=== PATIENT | male | born 1955 | race Caucasian/White ===

== ENCOUNTER 2022-08-31 06:30 | Outpatient (OUT) | payer MEDICARE, SELFPAY ==
--- NOTE | 2022-08-31 07:30 | NM_ITS ---
Patient: DE LÓPEZ Exam Date: 08/31/2022 : 1955 Gender:M Ordering : Non-Staff Physician Admission #: [id number] Family : Order #: [id number] CLICK HERE TO VIEW EXAM RADIOLOGY REPORT PROCEDURE: NM ROSEANNA PERF SPECT REST STR COMPARISON: None. INDICATIONS: Dyspnea on exertion TECHNIQUE: Exam Description: Stress/Rest two day protocol gated SPECT Rest Imagin.5 mCi Tc-99m Cardiolite IV on 09/04/2022 Stress Imaging 25.8 mCi Tc-99m Cardiolite IV on 08/31/2022 Exercise Protocol: 0.4 mg Lexiscan given IV Heart Rate (bpm): Rest: 54 Max: 81 PMHR: 52 Blood Pressure: Rest: 152/88 Max: 154/84 Symptoms: Rest and peak stress ECG findings were pending and the exercise portion of the study was pending per attending physician Dr. ESTEBAN . For more details please see separate cardiac stress test report. FINDINGS: QUALITY OF STUDY: Good. PERFUSION DEFECT: LOCATION: Basal anterior. Basal inferior. Basal inferolateral. Mid-inferior. SIZE: Medium (3-4 segments). SEVERITY: Moderate. TYPE: Reversible. WALL MOTION: Normal. LV SIZE: Enlarged; EDV 139 mL. TID / TCD: None; 1.0 LVEF: Normal. Calculated EF 62%. SUMMARY: Myocardial perfusion imaging study has ABNORMAL findings. CONCLUSION: 1. Moderate-sized area of mild to moderate decreased uptake, LAD and RCA distributions, with partial reversibility evidence by redistribution on rest images 2. Dilated left ventricle with end-diastolic volume of 130 milliliters 3. Normal left ventricular ejection fraction 4. Pending exercise test results Dictated by: De Humphrey MD on 09/04/2022 at 13:31 Approved by: De Humphrey MD on 09/04/2022 at 13:33
[2022-08-31] MEDS: REGADENOSON 0.4 MG/5 ML SYRINGE IV (07:45)
--- NOTE | 2022-09-05 15:01 | PCN_ITS ---
CARDIAC STRESS TEST Requesting Physician:? Dr. Roca Procedure Date:? 09/05/2022 The patient underwent a Lexiscan stress test for evaluation of ischemia.? At baseline, the patient was noted to have a resting heart rate of 49 with a blood pressure of 152/88 mm/Hg.? During the stress test, a peak heart rate of 81 beats per minute was achieved with a blood pressure of 154/84 mm/Hg.? Baseline EKG showed evidence of sinus rhythm with underlying right bundle branch block and poor R-wave progression.? With infusion of Lexiscan, no AV block was seen, and no arrhythmias were noted.? No evidence of ischemia was seen.? In recovery phase, there was a PVC that was noted.? INTERPRETATION: 1.? No evidence of ischemia noted on the EKG portion of the stress study. 2.? Nuclear imaging portions will be dictated separately by the Radiology team.? NANCY
== END 2022-08-31 06:31 ==
LOC: CARD 06:34
PROVIDERS: PCP Internal Medicine
DX: R06.09 Other forms of dyspnea (principal)
CPT/HCPCS: 78452; 93017; A9500; J2785

== ENCOUNTER 2022-09-04 06:18 | Outpatient (OUT) | payer MEDICARE, SELFPAY | END 2022-09-04 06:19 | disposition home or self-care (01) | LOC: NM 06:19 | PROVIDERS: PCP Internal Medicine | DX: R06.09 Other forms of dyspnea (principal) ==

== ENCOUNTER 2023-07-11 09:47 | Outpatient (OUT) | payer MEDICARE, SELFPAY ==
--- NOTE | 2023-07-11 10:00 | CA_ITS ---
Patient Name: BOB LÓPEZ MR#: [id number] : 1955 Exam Date: 07/11/2023 Ordering Doctor: PASQUALE HOLT CNP ECHOCARDIOGRAM REPORT PROCEDURE: CA ECHO DOPPLER COMPLETE INDICATIONS: Dyspnea on exertion, bradycardia COMPARISON: None. DESCRIPTION: COMPLETE ECHOCARDIOGRAM Real-time transthoracic echocardiography with 2D, M-mode, spectral and color flow Doppler performed. QUALITY: Technical quality was good. 76 , 266#, BSA 2.50 m2, BP 162/78 LEFT VENTRICLE: Mild dilatation. Normal left ventricular wall thickness. LV EF: Global left ventricular systolic function is normal; visually estimated ejection fraction is 60 to 65%. No obvious wall motion abnormalities. DIASTOLIC: Normal diastolic function. ATRIAL SEPTUM: Inadequately seen. LEFT ATRIUM: Normal chamber size. RIGHT ATRIUM: Normal chamber size. RIGHT VENTRICLE: Normal chamber size. Normal right ventricular systolic function. TRICUSPID VALVE: Normal mobility and thickness. No stenosis with no regurgitation. No evidence of pulmonary hypertension. RVSP 20 mmHg MITRAL VALVE: Normal mobility and thickness. No evidence of mitral valve stenosis. There is no mitral annular calcification. Trivial mitral regurgitation. AORTIC VALVE: Normal trileaflet appearance. Mildly calcified aortic valve. No evidence of aortic valve stenosis. No aortic regurgitation. AORTIC ROOT: Normal diameter and appearance. Ascending aorta is normal in size. PULMONIC VALVE: Normal thickness and mobility. No stenosis. Trivial regurgitation. PERICARDIUM: No evidence of pericardial effusion. IVC: Not well visualized. CONCLUSION: 1. Global left ventricular systolic function is normal; visually estimated ejection fraction is 60 to 65% 2. Normal right ventricular size and systolic function 3. Normal diastolic function 4. No significant valvular abnormalities Adult Echocardiography Procedure Report Left Ventricle LVEDD (3.7 - 5.6 cm): 6.05 cm LVESD (2.2 - 4.0 cm): 4.31 cm LVIVS thickness (0.6 - 1.2 cm): 0.96 cm LVPW thickness (0.5 - 1.0 cm): 0.93 cm e': 0.13 m/s E - e': 6.35 LVOT Max Gradient: 3.16 mm[Hg] LVOT Area (cm2): 0.89 m/s Peak Velocity (LVOT): 0.89 m/s Mean Velocity (LVOT): 0.66 m/s LVOT Diameter 2.71 cm Left Atrium LA Volume Index (2D A2C): 33.65 ml/m2 Left Atrium Systolic Dimension: 3.78 cm Mitral Valve MV E to A Ratio: 0.98 Mitral Valve A-Wave Peak Velocity: 0.83 m/s Mitral Valve E-Wave Peak Velocity: 0.81 m/s Right Ventricle Aorta AO Root Diam: 4.05 cm Ascending Ao Diam: 3.44 cm Aortic Valve AoV Area (Peak Lorenzo): 2.83 cm2, 2.83 cm2 AoV Area (VTI): 2.92 cm2, 2.92 cm2 Peak Velocity(Antegrade Flow): 1.81 m/s Peak Gradient(Antegrade Flow): 13.17 mm[Hg] Mean Velocity(Antegrade Flow): 1.20 m/s Mean Gradient(Antegrade Flow): 6.95 mm[Hg] Velocity Time Integral: 43.29 cm Tricuspid Valve Peak Velocity (Regurgitant Flow): 2.08 m/s Pulmonic Valve Peak Gradient: 4.48 mm[Hg], 4.79 mm[Hg] Right Atrium Right Atrium Systolic Pressure: 39.84 ml, 39.84 ml Dictated by: Franki Patton M.D. on 07/12/2023 at 15:32 Approved by: Franki Patton M.D. on 07/12/2023 at 15:35
== END 2023-07-11 09:48 | disposition home or self-care (01) ==
LOC: CARD 09:48
PROVIDERS: PCP Internal Medicine; Visit Provider Nurse Practitioner Family
DX: R06.09 Other forms of dyspnea (principal); I49.3 Ventricular premature depolarization; I11.9 Hypertensive heart disease without heart failure; I26.99 Other pulmonary embolism without acute cor pulmonale; E78.2 Mixed hyperlipidemia; R93.1 Abnormal findings on diagnostic imaging of heart and coronary circulation; R00.1 Bradycardia, unspecified
CPT/HCPCS: 93306

== ENCOUNTER 2023-09-14 11:01 | Outpatient (OUT) | payer MEDICARE, SELFPAY ==
[2023-09-14 11:42] LABS: Basophils Percent Auto 0.4 % (0.2-2.0); Eosinophils Absolute Auto 0.1 10^3/uL (0.0-0.7); Eosinophils Percent Auto 1.6 % (0.9-7.0); Hematocrit 45.9 % (42.0-54.0); Immature Granulocytes Abs Auto 0.01 10^3/uL (0.00-0.03); Immature Granulocytes Pct Auto 0.2 % (0.0-0.5); Lymphocytes Absolute Auto 1.5 10^3/uL (1.2-3.8); Lymphocytes Percent Auto 33.3 % (20.5-60.0); Mean Corpuscular HGB Conc 32.7 g/dL (29.9-35.2); Mean Corpuscular Hemoglobin 28.9 pg (25.9-34.0); Mean Corpuscular Volume 88.4 fL (80.0-94.0); Monocytes Absolute Auto 0.3 10^3/uL (0.3-0.8); Monocytes Percent Auto 7.2 % (1.7-12.0); Neutrophils Absolute Auto 2.6 10^3/uL (1.4-6.5); Neutrophils Percent Auto 57.3 % (43.0-75.0); Platelet Count 234 10^3/uL (150-450); Red Blood Count 5.19 10^6/uL (4.70-6.10); Red Cell Distribution Width 14.1 % (11.0-15.0); White Blood Count 4.5 10^3/uL (4.0-11.0)
[2023-09-14 11:44] LABS: Estimated Average Glucose 105 mg/dL; Glycohemoglobin A1C 5.3 % (4.5-6.2)
[2023-09-14 12:16] LABS: Alanine Aminotransferase 26 U/L (16-63); Albumin Globulin Ratio 1.1; Albumin Level 4.1 g/dL (3.4-5.0); Alkaline Phosphatase 59 U/L (46-116); Aspartate Amino Transferase 14 U/L (15-37); BUN Creatinine Ratio 11.5; Bilirubin Total 0.9 mg/dL (0.2-1.0); Calcium 8.8 mg/dL (8.5-10.1); Carbon Dioxide 29.2 mmol/L (21.0-32.0); Chloride 106 mmol/L (98-107); Chol HDL Ratio 2.3; Cholesterol 134 mg/dL (<=200); Estimated GFR (African America >60 (>=60); Estimated GFR (Non-African Ame >60 (>=60); Globulin 3.8 g/dL; Glucose 92 mg/dL (74-106); HDL Cholesterol 59 mg/dL (40-60); LDL Cholesterol Calculated 63.6 mg/dL; Potassium 4.2 mmol/L (3.5-5.1); Sodium 143 mmol/L (136-145); TSH W/ REFLEX FT4 0.794 uIU/mL (0.358-3.740); Total Protein 7.9 g/dL (6.4-8.2); Triglycerides 57 mg/dL (<=150); VLDL CHOLESTEROL 11.4 mg/dL
[2023-09-14 12:32] LABS: Prostate Specific Antigen Scrn 5.56 ng/mL (<=4.00)
== END 2023-09-14 11:02 | disposition home or self-care (01) ==
LOC: LAB 11:03
PROVIDERS: PCP Internal Medicine; Visit Provider Nurse Practitioner Family
DX: Z00.00 Encounter for general adult medical examination without abnormal findings (principal); I11.9 Hypertensive heart disease without heart failure; E78.2 Mixed hyperlipidemia; Z12.5 Encounter for screening for malignant neoplasm of prostate
CPT/HCPCS: 36415; 80053; 80061; 83036; 84443; 85025; G0103

== ENCOUNTER 2024-01-24 13:16 | Outpatient (OUT) | payer MEDICARE, SELFPAY ==
[2024-01-24 15:04] LABS: Prostate Specific Antigen Dx 5.94 ng/mL (<=4.00)
== END 2024-01-24 13:17 | disposition home or self-care (01) ==
LOC: LAB 13:17
PROVIDERS: PCP Internal Medicine; Visit Provider Urology
DX: R97.20 Elevated prostate specific antigen [PSA] (principal)
CPT/HCPCS: 36415; 84153

== ENCOUNTER 2024-10-01 10:47 | Outpatient (OUT) | payer MEDICARE, SELFPAY ==
--- OUTSIDE RECORDS SUMMARY | 2024-05-29 06:00 | XMS_ITS ---
Author Organization The [facility] in [place] Address [address] [place] [address] Care Team Providers Care Sheet Catcher Name Role Phone Ayaan FAJARDO, Yuri Primary Care Provider Unavailab Martinez Aldridge Unavailable [phone] REASON FOR VISIT [facility] - Fusion prostate biopsy - MAC - PAT 05/14 9:00AM - bkd w/ Tangela - [facility] conf# [id number] per Alem Encounters Encounter Location Date Provider Diagnosis [address] [address] 05/29/2024 Martinez Herrera Plan Of Treatment No Information Progress Notes * De LÓPEZ ADOB:[birth year] (68 yo M)Acc No.[id number]:05/29/2024 Progress Note Patient: De JEAN Provider: Brandon Herrera MD :1955 A ge:68 Y S ex:Male Date:05/29/2024 Address:[address] [place] [address] Rd [id number] Pcp:Yuri Kuo MD Check Out:08:07 AM EST Subjective: * Chief Complaints: * [address] [facility] - Fusion prostate biopsy - MAC - PAT 05/14 9:00AM - bkd w/ Tangela - [facility] conf# [id number] per Alem. * Active Problem List N40.0 BPH w/o urinary obs/ LUTS Modified On:01/25/2023W/U Status:confirmed * Medical History: Objective: * Vitals: Assessment: Plan: * Treatment: * * Sign off status: Completed Visit Status: C HK (Check Out) true * Provider: Brandon Herrera MD Date: 0 05/29/2024 Generated for Geoffrey morataya/Ileana/eTritasmitting on: 0 10/01/2024 10:53 AM EDT
--- OUTSIDE RECORDS SUMMARY | 2024-06-19 12:00 | XMS_ITS ---
Author Organization [facility] in [place] Address [address] [place] [address] Care Team Providers Care Investment Professional Name Role Phone Yuri Kuo MD Primary Care Provider UnavailMartinez Magana Unavailable [phone] Allergies Allergen (clinical drug ingredient) Drug/Non Drug Allergy documented on EMR Reaction Allergy Type Onset Date Status MRI contrast dye (uncoded) itching,rash Allergy Active Results Component Value Reference Range Notes Decipher- Prostate (Not yet reviewed by provider) Interpretation: Performing Lab: Notes/Report: REASON FOR VISIT fusion prostate biopsy Medications Medication SIG (Take, Route, Frequency, Duration) Notes Start Date End Date Status Atorvastatin Calcium 40 MG TAKE 1 TABLET BY MOUTH EVERY DAY Oral for 90 Days Active Xarelto 20 MG 1 tablet with food Orally Once a day Active Ciprofloxacin HCl 500 MG 1 tablet Orally every 12 hrs for 3 day(s) 04/03/2024 Not-Taking predniSONE 50 MG 1 tablet for three doses: 6 hours apart with last dose ending 30 minutes prior to testing Orally Once a day for 1 days 02/28/2024 Not-Taking diphenhydrAMINE HCl 50 MG 1 tablet 60 mi nutes prior to MRI Orally Once a day for 1 days 02/28/2024 Not-Taking amLODIPine Besylate 2.5 MG Oral for 90 Days Active Social History Tobacco Use: Social History Observation Description Date Details (start date - stop date) Former Smoker NA - NA Tobacco Use/Smoking Question Answer Notes Patient is a former smoker How long has it been since you last smoked? > 10 years AUDIT-C (Standard) Question Answer Notes Did you have a drink contain ing alcohol in the past year? Yes How often did you have a dri nk containing alcohol in the past year? Never (0 point) How many drinks did you have on a typical day when you were drinking in the past year? 1 or 2 drinks (0 point) How often did you have six o r more drinks on one occasion in the past year? 2 to 4 times a month (2 points) Points 2 Interpretation Negative Problems Problem Type SNOMED Code ICD Code Onset Dates Problem Status W/U Status Risk Notes Problem Prostate cancer (C61) Active confirmed Vital Signs Weight 277.8 lbs 06/19/2024 Height 76 in 06/19/2024 BMI 33.81 kg/m2 06/19/2024 Encounters Encounter Location Date Provider Diagnosis Urology [facility] [address] [place] [address] 06/19/2024 Martinez Herrera BPH w/o urinary obs/LUTS N40.0 ; Elevated prostate specific antigen (PSA) R97.20 and Prostate cancer C61 Assessments Encounter Date Diagnosis (ICD Code) Assessment Notes Treatment Notes Treatment Clinical Notes Section Notes 06/19/2024 BPH w/o urinary obs/LUTS (ICD-10 - N40.0) 06/19/2024 Elevated prostate specific antigen (PSA) (ICD-10 - R97.20) 06/19/2024 Prostate cancer (ICD-10 - C61) 06/19/2024 Other This appears to be a very low risk process cancer based on old Miguelangel classification . I would like to send this tissue for genetics to see if this is a cancer that can be safely watched. Discussed NCCN as well as AUA guidelines, including active surveillance, surgery, radiation, and observation. Plan Of Treatment Treatment Notes Assessment Notes Other This appears to be a very low risk process cancer based on old Miguelangel classification. I would like to send this tissue for genetics to see if this is a cancer that can be safely watched. Discussed NCCN as well as AUA guidelines, including active surveillance, surgery, radiation, and observation. Pending Test Test Name Order Date Decipher- Prostate 06/19/2024 Next Appt Details Follow Up: 2 Months, Reason: w decipher Progress Notes * De LÓPEZ ADOB:[birth year] (68 yo M)Acc No.[id number]:06/19/2024 Patient: De JEAN Provider: Brandon Herrera MD :1955 A ge:68 Y S ex:Male Date:06/19/2024 Address:[address] [place] [address] Tamiko Anthony, [id number] Pcp:Yuri Kuo MD Check In:03:39 PM ESTCheck O ut:04:46 PM EST Subjective: * Chief Complaints: * F usion prostate biopsy * HPI: U rology: We see De for elevated PSA of 3.99 in 2020 at age 65. His mother had breast cancer in her 80s. No history of prostate cancer. Mild BPH symptoms. Discussed all options including biopsy, exodx, and prostate MRI. We proceeded with prostate MRI and this showed PIRADS-2 with a 28g MICKY read. We saw him back in Nov 2021 and his PSA is 3.65. PSA in 2022 is 3.69. PSA in Jan 2024 was 5.94. Press the MRI was completed in March 2024. There is a small left sided 3 x 4 mm area with a PIRADS-4 area. Prostate 36 g. We perceived with MRI fusion process biopsy. Both areas on MRI were positive for Bon six prostate cancer with the largest core 15%. The other cores were one percent. Elevated PSA W hat date was your last PSA number drawn?�. * ROS: G eneral/Constitutional: Fever d enies. W eight loss d enies. F atigue or Weakness d enies. G enitourinary: Incontinence d enies. F requent urination d enies.�Painful urination d enies. B lood in Urine d enies. * Active Problem List N40.0 BPH w/o urinary obs/ LUTS Modified On:01/25/2023W/U Status:confirmed C61 Prostate cancer Modified On:06/19/2024W/U Status:confirmed * Medical History: * Surgical History: l eft knee arthroscopy tonsillectomy vasectomy right knee replacement thumb surgery Right hip replacement 02/2022 * Hospitalization/Major Diagno stic Procedure: * Family History: M other: diagnosed with Unspecified essential hypertension. * Social History: T obacco Use: T obacco Use/Smoking P atient is a f ormer smoker H ow long has it been since you last smoked?�> 10 years D rug/Alcohol: A PARADISE-C (Standard) D id you have a drink containing alcohol in the past year? Y es H ow often did you have a drink containing alcohol in the past year? N ever (0 point) H ow many drinks did you have on a typical day when you were drinking in the past year? 1 or 2 drinks (0 point) H ow often did you have six or more drinks on one occasion in the past year? 2 to 4 times a month (2 points) P oints 2 I nterpretation N egative D rugs/Alcohol: C affeine I ntake: m ore than 4 cups per day * Medications: T akingamLODIPine Besylate 2.5 MG Tablet Oral Atorvastatin Calcium 40 MG Tablet TAKE 1 TABLET BY MOUTH EVERY DAY Oral Xarelto(Rivaroxaban) 20 MG Tablet 1 tablet with food Orally Once a day Taking amLODIPine Besylate 2.5 MG Tablet Oral Taking Atorvastatin Calcium 40 MG Tablet TAKE 1 TABLET BY MOUTH EVERY DAY Oral Taking Xarelto(Rivaroxaban) 20 MG Tablet 1 tablet with food Orally Once a day Not-Taking/PRNCiprofloxacin HCl 500 MG Tablet 1 tablet Orally every 12 hrs diphenhydrAMINE HCl 50 MG Tablet 1 tablet 60 minutes prior to MRI Orally Once a day predniSONE 50 MG Tablet 1 tablet for three doses: 6 hours apart with last dose ending 30 minutes prior to testing Orally Once a day Medication List reviewed and reconciled with the patientNot-Taking/PRN Ciprofloxacin HCl 500 MG Tablet 1 tablet Orally every 12 hrs Not-Taking/PRN diphenhydrAMINE HCl 50 MG Tablet 1 tablet 60 minutes prior to MRI Orally Once a day Not-Taking/PRN predniSONE 50 MG Tablet 1 tablet for three doses: 6 hours apart with last dose ending 30 minutes prior to testing Orally Once a day Medication List reviewed and reconciled with the patient * Allergies: M RI contrast dye: itching,rashno[Allergies Verified] Objective: * Vitals: W t:277.8lbs, Ht: 76 in, BMI:33.81Index, Ht-cm: 193.04 cm, Wt-k.01 kg. Assessment: * Assessment: 1. E levated prostate specific antigen (PSA) - R97.20 (Primary) 2 . B PH w/o urinary obs/LUTS - N40.0 3 . P rostate cancer - C61 Plan: * Treatment: 2. O thers Notes: This appears to be a very low risk process cancer based on old Miguelangel classification. I would like to send this tissue for genetics to see if this is a cancer that can be safely watched. Discussed NCCN as well as AUA guidelines, including active surveillance, surgery, radiation, and observation. * Procedure Codes: * Preventive Medicine: Screenings/Counseling: F ALL RISK SCREENING Fall Risk Assessment: N o falls in the past year * Follow Up: 2 Months (Reason: w decipher) * * Sign off status: Completed Visit Status: C HK (Check Out) true * Provider: Brandon Herrera MD Date: 0 06/19/2024 Generated for Geoffrey morataya/Ileana/eTransmitting on: 0 10/01/2024 10:53 AM EDT History and Physical Notes * HPI (History of Present Illness) Category Sub-Category Detail Notes Category Not es Urology Elevated PSA What date was your last PSA number drawn?: .
--- OUTSIDE RECORDS SUMMARY | 2024-08-21 10:10 | XMS_ITS ---
Author Organization [facility] in [place] Address [address] [place] [address] Care Team Providers Care Blanket Folder Name Role Phone Yuri Kuo MD Primary Care Provider UnavailMartinez Magana Unavailable [phone] Allergies Allergen (clinical drug ingredient) Drug/Non Drug Allergy documented on EMR Reaction Allergy Type Onset Date Status MRI contrast dye (uncoded) itching,rash Allergy Active REASON FOR VISIT 2 mo Decipher Medications Medication SIG (Take, Route, Frequency, Duration) Notes Start Date End Date Status predniSONE 50 MG 1 tablet for three doses: 6 hours apart with last dose ending 30 minutes prior to testing Orally Once a day for 1 days 02/28/2024 Not-Taking diphenhydrAMINE HCl 50 MG 1 tablet 60 mi nutes prior to MRI Orally Once a day for 1 days 02/28/2024 Not-Taking Xarelto 20 MG 1 tablet with food Orally Once a day Active Ciprofloxacin HCl 500 MG 1 tablet Orally every 12 hrs for 3 day(s) 04/03/2024 Not-Taking Atorvastatin Calcium 40 MG TAKE 1 TABLET BY MOUTH EVERY DAY Oral for 90 Days Active amLODIPine Besylate 2.5 MG Oral for 90 [...] nk containing alcohol in the past year? 2 to 4 times a month (2 points) How many drinks did you have on a typical day when you were drinking in the past year? 1 or 2 drinks (0 point) How often did you have six o r more drinks on one occasion in the past year? Never (0 point) Points 2 Interpretation Negative Vital Signs Weight 270 lbs 08/21/2024 Height 76 in 08/21/2024 BMI 32.86 kg/m2 08/21/2024 Encounters Encounter Location Date [facility] [address] [place] [address] 08/21/2024 Martinez Herrera BPH w/o urinary obs/LUTS N40.0 ; Elevated prostate specific antigen (PSA) R97.20 and Prostate cancer C61 Assessments Encounter Date Diagnosis (ICD Code) Assessment Notes Treatment Notes Treatment Clinical Notes Section Notes 08/21/2024 BPH w/o urinary obs/LUTS (ICD-10 - N40.0) 08/21/2024 Elevated prostate specific antigen (PSA) (ICD-10 - R97.20) 08/21/2024 Prostate cancer (ICD-10 - C61) 08/21/2024 Other Decipher very low risk. Discussed NCCN including surgery and radiation. Will cont and see back in 1 year w PSA Plan Of Treatment Treatment Notes Assessment Notes Other Decipher very low risk. Discussed NCCN including surgery and radiation. Will cont and see back in 1 year w PSA Future Test Test Name Order Date PSA, TOTAL 08/21/2025 Next Appt Details Follow Up: 1 Year, Reason: w PSA Progress Notes * RENEDe MANCILLA ADOB:[birth year] (69 yo M)Acc No.[id number]:08/21/2024 Patient: De JEAN Provider: Brandon Herrera MD :1955 A ge:69 Y S ex:Male Date:08/21/2024 Address:[address] [place] [address] Tamiko Santiago [id number] Pcp:Yuri Kuo MD Check In:01:44 PM ESTCheck O ut:02:58 PM EST Subjective: * Chief Complaints: * 2 mo Decipher * HPI: U rology: We see De [...] 15%. The other cores were one percent. We proceeded with Decipher in 2024 and this showed a score of 0.11 and 6% risk of adverse pathology. Elevated PSA W hat date was your [...] drink containing alcohol in the past year? 2 to 4 times a month (2 points) H ow many drinks did you have on a typical day when you were drinking in the past year? 1 or 2 drinks (0 point) H ow often did you have six or more drinks on one occasion in the past year? N ever (0 point) P oints 2 I nterpretation N egative [...] dye: itching,rashno[Allergies Verified] Objective: * Vitals: W t:270lbs, Ht: 76 in, BMI:32.86Index, Ht-cm: 193.04 cm, Wt-k.47 kg. Assessment: * Assessment: 1. E levated prostate specific antigen (PSA) - R97.20 (Primary) 2 . B PH w/o urinary obs/LUTS - N40.0 3 . P rostate cancer - C61 Plan: * Treatment: 2. O thers Notes: Decipher very low risk. Discussed NCCN including surgery and radiation. Will cont and see back in 1 year w PSA * Procedure Codes: * Follow Up: 1 Year (Reason: w PSA) * * Sign off status: Completed Visit Status: C HK (Check Out) true * Provider: Brandon Herrera MD Date: 0 08/21/2024 Generated for Geoffrey morataya/Ileana/Shelliitting on: 0 10/01/2024 10:53 AM EDT History and Physical Notes * HPI (History of Present Illness) Category Sub-Category Detail Notes Category Not es Urology Elevated PSA What date was your last PSA number drawn?: .
--- OUTSIDE RECORDS SUMMARY | 2024-09-17 09:30 | XMS_ITS | Encounter Summary ---
Author Organization [facility] Address [address] [place] [address] Care Team Providers Care Dsp Engineer Name Role Phone Yuri Kuo MD Unavailable [phone] Yuri Kuo MD Primary Care Provider [phone] Reason for Visit * Reason Comments Schedule colonoscopy * Consultation (Routine) - Closed Specialty Diagnoses / Procedures Referred By Contac t Referred To Contact General Surgery Diagnoses History of colon polyps Procedures PA OFFICE/OUTPATIENT NEW HIGH MDM 60 MINUTES Yuri Kuo MD 112 [facility] 110 [place] [address] Phone: tel: fax: Anup Akbar DO [address] [place] [address] Phone: tel: fax: Referral ID Status Reason Start Date Expiration Date V isits Requested Visits Authorized [id number] Closed Specialty Services Required 06/16/2024 03/18/2025 1 1 Encounter Details Date Type Department Care Team (Late st Contact Info) Description 09/17/2024 9:30 AM EDT Consult [facility] [address] [phone] Anup Akbar DO [address] [place] [id number] Screening for colon cancer Social History Tobacco Use Types Packs/Day Years Used Date Smoking Tobacco: Never Smokeless Tobacco: Never Alcohol Use Standard Drinks/Week Comments Yes 0 (1 standard drink = 0.6 oz pure alcohol) drinks alcohol 2-3 times a week PHQ-2 Answer Date Recorded Patient Health Questionnaire-2 Score 0 06/16/2024 Sex and Gender Information Value Date Recorded Sex Assigned at Not on file Legal Sex Male 6:55 PM EDT Gender Identity Not on file Sexual Orientation Not on file documented as of this encounter Last Filed Vital Signs Vital Sign Reading Time Taken Comments Blood Pressure 130/76 09/17/2024 9:21 AM EDT Pulse - - Temperature - - Respiratory Rate - - Oxygen Saturation - - Inhaled Oxygen Concentration - - Weight 122 kg (270 lb) 09/17/2024 9:21 AM EDT Height 190.5 cm (6' 3 ) 09/17/2024 9:21 AM EDT Body Mass Index 33.75 09/17/2024 9:21 AM EDT documented in this encounter Progress Notes * Anup Akbar, DO - 09/17/2024 9:30 AM EDT Images from the original note were not included. De Khanna 1955 De Khanna is a 69 y.o. male presents with chief complaint of Schedule colonoscopy HPI: HPI Patient is here for a screening colonoscopy. He had a colonoscopy that was normal 10 years ago.Five years prior to that he would 1 polyp. There is no family history colon cancer. He has not having any blood in his stool. He has not having any change in bowel habits. He has not having any abdominal pain. 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 He has seen a structurer for that. SUBJECTIVE: MEDICATIONS: ALLERGIES Current Outpatient Medications Medication Instructions amLODIPine (NORVASC) 10 mg, Daily atorvastatin (Lipitor) 40 MG tablet TAKE 1 TABLET(40 MG) BY MOUTH IN THE MORNING Xarelto 20 mg, Oral, Daily Allergies Allergen Reactions Gadoteridol Hives Patient became itchy and developed hives Patient became itchy and developed hives Patient became itchy and developed hives Iodinated Contrast Media Hives PAST MEDICAL HISTORY: SOCIAL HISTORY SURGICAL HISTORY: Past Medical History: Diagnosis Date Arthritis BCC (basal cell carcinoma of skin) Crushing injury of left thumb 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 Gill VASECTOMY 1992 REVIEW OF SYMPTOMS: Review of Systems Constitutional: Negative for appetite change and fatigue. HENT: Negative for trouble swallowing. Respiratory: Negative for cough and shortness of breath. Cardiovascular: Negative for chest pain. Gastrointestinal: Negative for abdominal pain. Genitourinary: Negative for hematuria. Musculoskeletal: Negative for arthralgias. Neurological: Negative for seizures. Hematological: Negative for adenopathy. OBJECTIVE: Visit Vitals BP 130/76 Ht 6' 3 Wt 270 lb BMI 33.75 kg/m² Smoking Status Never BSA 2.54 m² Physical Exam Constitutional: Appearance: Normal appearance. He is not ill-appearing. HENT: Head: Atraumatic. Eyes: General: No scleral icterus. Cardiovascular: Rate and Rhythm: Regular rhythm. Heart sounds: Normal heart sounds. Pulmonary: Breath sounds: No wheezing. Abdominal: General: There is no distension. Tenderness: There is no abdominal tenderness. Musculoskeletal: Right lower leg: No edema. Left lower leg: No edema. Neurological: Mental Status: He is alert. ASSESSMENT AND PLAN: Assessment/Plan Diagnoses and all orders for this visit: Screening for colon cancer - Ambulatory referral to General Surgery Plan is for colonoscopy. We discussed the prep, the procedure, the risks and the benefits and the potential complications including, but not limited to, perforation and bleeding. They would like to proceed. He will need to be off his Xarelto 2 days prior. documented in this encounter Plan of Treatment Upcoming Encounters Date Type Department Care Team (Ronald st Contact Info) Description 10/28/2024 9:15 AM EDT Office Visit [facility]03 [facility] 150 [place] [phone] Anup Akbar, DO 703 [facility] [address] [place] [address] 01/13/2025 1:30 PM EDT Office Visit [facility] [address] [place] [address] Jennifer Valero MD [address] [facility] 350 [place] [address] documented as of this encounter Visit Diagnoses Diagnosis Screening for colon cancer Special screening for malignant neoplasms, colon documented in this encounter Care Teams Dsp Engineer Relationship Specialty Start Date End Date Yuri Kuo MD [address] [facility] [address] [place] [address] PCP - [employer] 06/17/22 Yuri Kuo MD [address] [facility] 110 [place] [address] PCP - General Internal Medicine 08/18/22 documented as of this encounter
--- OUTSIDE RECORDS SUMMARY | 2024-10-01 10:00 | XMS_ITS | Encounter Summary ---
Author Organization [facility] Address [address] [place] [address] Care Team Providers Care Director Of Food And Beverage Services Name Role Phone Yuri Kuo MD Unavailable [phone] Yuri Kuo MD Primary Care Provider [phone] Encounter Details Date Type Department Care Team (Late st Contact Info) Description 10/01/2024 10:00 AM EDT Office Visit [facility] [address] [facility] 110 [place] [phone] Julissa Parra, NATURAL SCIENCES PROFESSOR [address] [facility] 110 [place], [place] [phone] Lumbar spine pain (Primary Dx) Social History Tobacco Use Types Packs/Day Years Used Date Smoking Tobacco: Former Cigarettes 0.5 19.8 1 - 1972 Smokeless Tobacco: Never Tobacco Cessation:Counseling Given: Yes Alcohol Use Standard Drinks/Week Comments Yes 0 [...] Sign Reading Time Taken Comments Blood Pressure 122/70 10/01/2024 10:02 AM EDT Pulse 51 10/01/2024 10:02 AM EDT Temperature - - Respiratory Rate 17 10/01/2024 10:02 AM EDT Oxygen Saturation 97% 10/01/2024 10:02 AM EDT Inhaled Oxygen Concentration - - Weight 122 kg (269 lb) 10/01/2024 10:02 AM EDT Height 190.5 cm (6' 3 ) 10/01/2024 10:02 AM EDT Body Mass Index 33.62 10/01/2024 10:02 AM EDT documented in this encounter Functional Status * Over the past 2 weeks, how often have you been bothered by any of the following problems? Question Answer Date of Assessment Author Feeling down, depressed, or hopeless Not at all 09/16 9:57 AM EDT MEDHAT GRANADO documented as of this encounter Progress Notes * Julissa Parra NP - 10/01/2024 10:00 AM EDT Images from the original note were not included. Subjective Patient ID: De Khanna is a 69 y.o. male who presents for back pain. De presents today for left side back pain that started a week ago, he states that it a stabbing pain when he goes to stand up or any kind of twisting. No problems with urination. He has not tried any heat or ice just OTC Tylenol. Back Pain This is a new problem. The current episode started 1 to 4 weeks ago. The problem occurs intermittently. The problem is unchanged. The pain is present in the lumbar spine. The quality of the pain is described as stabbing. The pain does not radiate. The pain is at a severity of 8/10. The pain is severe. The pain is The same all the time. The symptoms are aggravated by twisting and lying down (rolling or pushing up with left arm). Stiffness is present In the morning. Risk factors include lack of exercise. He has tried nothing for the symptoms. The treatment provided no relief. Over the past 2 weeks, how often have you been bothered by any of the following problems? Feeling down, depressed, or hopeless: Not at all Current Outpatient Medications on File Prior to Visit Medication Sig Dispense Refill amLODIPine (Norvasc) 10 MG tablet Take 10 mg by mouth Daily atorvastatin (Lipitor) 40 MG tablet TAKE 1 TABLET(40 MG) BY MOUTH IN THE MORNING 100 tablet 3 Xarelto 20 MG tablet TAKE 1 TABLET BY MOUTH EVERY DAY 100 tablet 3 No current facility-administered medications on file prior to visit. I have reviewed and reconciled the history and medication list with the patient today. Allergies Allergen Reactions Gadoteridol Hives Patient became itchy and developed hives Patient became itchy and developed hives Patient became itchy and developed hives Iodinated Contrast Media Hives Social History Tobacco Use Smoking status: Never Smokeless tobacco: Never Vaping Use Vaping status: Never Used Substance Use Topics Alcohol use: Yes Comment: drinks alcohol 2-3 times a week Family History Problem Relation Name Age of Onset Other (Other) Mother Atrial fibrillation Mother Other (abdominal aortic aneurysm) Father Hypertension Father Heart disease Father Melanoma Father Heart disease Sibling Past Medical History: Diagnosis Date Arthritis BCC (basal cell carcinoma of skin) Crushing injury of left thumb 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 Gill VASECTOMY 1993 Visit Vitals Smoking Status Never Review of Systems Musculoskeletal: Positive for back pain. Objective Physical Exam Vitals reviewed. Constitutional: Appearance: Normal appearance. HENT: Head: Normocephalic. Nose: Nose normal. Mouth/Throat: Mouth: Mucous membranes are moist. Pharynx: Oropharynx is clear. Eyes: Conjunctiva/sclera: Conjunctivae normal. Cardiovascular: Rate and Rhythm: Normal rate. Pulmonary: Effort: Pulmonary effort is normal. Musculoskeletal: Cervical back: Normal. Thoracic back: Normal. Lumbar back: Tenderness present. Skin: General: Skin is warm and dry. Neurological: General: No focal deficit present. Mental Status: He is alert and oriented to person, place, and time. Mental status is at baseline. Psychiatric: Mood and Affect: Mood normal. Behavior: Behavior normal. Assessment/Plan Diagnoses and all orders for this visit: Lumbar spine pain - XR lumbar spine 4+ views w flexion extension; Future - methylPREDNISolone (Medrol Dospak) 4 MG tablets; Follow schedule on package instructions Consider MRI. Start the above medications as directed. Advised of potential side effects of the steroid. Patient is to take the steroid with food. Do not take any NSAIDs while on Prednisone, Tylenol ok prn. Encouraged gentle heat to area. Encouraged gentle stretches. Advised patient that if symptoms do not improve imaging may be required for further evaluation, PT referral may also be appropriate. No follow-ups on file. documented in this encounter Miscellaneous Notes * Addendum Note - MEDHAT GRANADO - 10/01/2024 10:00 AM EDTAddended by: MEDHAT GRANADO on: 10/01/2024 10:45 AM Modules accepted: Orders documented in this encounter Plan of Treatment Upcoming Encounters Date Type Department Care Team (Late st Contact Info) Description 10/28/2024 9:15 AM EDT Office Visit [facility]03 [facility] 150 [place] [address] Anup Akbar DO 703 [facility] 150 [place] [address] 01/13/2025 1:30 PM EDT Office Visit [facility] [address] [place] [phone] Jennifer Valero MD [address] [place] [address] Scheduled Orders Name Type Priority Associated Diagnoses Orde r Schedule XR lumbar spine 4+ views w flexion extension Imaging Routine Lumbar spine pain Expected: 10/01/2024, Expires: 10/01/2025 documented as of this encounter Visit Diagnoses Diagnosis Lumbar spine pain- Primary documented in this encounter Administered Medications Inactive Administered Medications - up to 3 most recent administrations Medication Order MAR Action Action Date Dose Rate Site triamcinolone acetonide (Kenalog-40) injection 40 mg 40 mg, Intramuscular, Once, On Sun10/01/24 at 1045, For 1 doseIndications:Lumbar spine pain Given 10/01/2024 10:44 AM EDT 40 mg Left Gluteal documented in this encounter Care Teams Director Of Food And Beverage Services Relationship Specialty Start Date End Date Yuri Kuo MD [address] [place] [address] [address] [place] [address] PCP - [employer] 06/17/22 Yuri Kuo MD [address] [facility] 110 [place] [address] PCP - General Internal Medicine 08/18/22 documented as of this encounter
--- OUTSIDE RECORDS SUMMARY | 2024-10-01 10:53 | XMS_ITS | Encounter Summary ---
Author Organization [facility] Address [address] [place] [address] Care Team Providers Care Motor Transport Inspector Name Role Phone Yuri Kuo MD Unavailable [phone] Yuri Kuo MD Primary Care Provider [phone] Encounter Details Date Type Department Care Team (Late st Contact Info) Description 04/03/2024 Abstract [facility] [address] [facility] 110 [place] [phone] Yuri Kuo MD [address] [facility] 110 [place], [place] [phone] Social History Tobacco Use Types Packs/Day Years Used Date Smoking Tobacco: Never Smokeless Tobacco: Never Alcohol Use Standard Drinks/Week Comments Yes 0 (1 standard drink = 0.6 oz pure alcohol) drinks alcohol 2-3 times a week Sex and Gender Information Value Date Recorded Sex Assigned at Not on file Legal Sex Male 6:55 PM EDT Gender Identity Not on file Sexual Orientation Not on file documented as of this encounter Plan of Treatment Upcoming Encounters Date Type Department Care Team (Late st Contact Info) Description 10/28/2024 9:15 AM EDT Office Visit [facility] [address] [place] [phone] Anup Akbar DO [address] [place] [address] 01/13/2025 1:30 PM EDT Office Visit [facility] [address] [place] [phone] Jennifer Valero MD [address] [facility] 350 [place] [address] documented as of this encounter Visit Diagnoses Not on filedocumented in this encounter Care Teams Motor Transport Inspector Relationship Specialty Start Date End Date Yuri Kuo MD [address] [facility] 110 [place] [address] PCP - [employer] 06/17/22 Yuri Kuo MD [address] [facility] 110 [place] [address] PCP - General Internal Medicine 08/18/22 documented as of this encounter
--- OUTSIDE RECORDS SUMMARY | 2024-10-01 10:53 | XMS_ITS | Encounter Summary ---
Author Organization [facility] Address [address] [place] [address] Care Team Providers Care Shirrer Name Role Phone Yuri Kuo MD Unavailable [phone] Yuri Kuo MD Primary Care Provider [phone] Encounter Details Date Type Department Care Team (Late st Contact Info) Description 07/12/2023 Clinisync Result Encounter [facility] External Department Unsolicited Provider, Generic External Data Social History Tobacco Use Types Packs/Day Years [...] EDT Office Visit [facility] [address] [facility] [address] [place] [address] Anup Akbar DO [address] [facility] 150 [place] [address] 01/13/2025 1:30 PM EDT Office Visit [facility] [address] [facility] [address] [place] [address] Jennifer Valero MD [address] [facility] 350 [place] [address] documented as of this encounter Procedures Procedure Name Priority Date/Time Associated Diagnosis Comments CA ECHO DOPPLER COMPLETE 07/12/2023 3:35 PM EDT documented in this encounter Results * CA ECHO DOPPLER COMPLETE (07/12/2023 3:35 PM EDT) Anatomical Region Laterality Modality Other 07/12/2023 3:35 PM EDT Narrative 07/12/2023 3:36 PM EDT [place] [id number] Cardiology Report Signed Patient: BOB LÓPEZ MR#: [id number] : 1955 Acct:[id number] Age/Sex: 68 / M ADM Date: 07/11/23 Loc: CARD Attending Dr: PASQUALE HOLT APRN Ordering Physician: PASQUALE HOLT APRN Date of Service: 07/11/23 Procedure(s): CA echo doppler complete Accession Number(s): [id number] cc: YURI KUO ; PASQUALE HOLT APRN Patient Name: BOB LÓPEZ MR#: [id number] : 1955 Exam Date: 07/11/2023 Ordering Doctor: PASQUALE HOLT CNP ECHOCARDIOGRAM REPORT PROCEDURE: CA ECHO DOPPLER COMPLETE INDICATIONS: Dyspnea on exertion, bradycardia COMPARISON: None. DESCRIPTION: COMPLETE ECHOCARDIOGRAM Real-time transthoracic echocardiography with 2D, M-mode, spectral and color flow Doppler performed. QUALITY: Technical quality was good. 76 , 266#, BSA 2.50 m2, BP 162/78 LEFT VENTRICLE: Mild dilatation. Normal left ventricular wall thickness. LV EF: Global left ventricular systolic function is normal; visually estimated ejection fraction is 60 to 65%. No obvious wall motion abnormalities. DIASTOLIC: Normal diastolic function. ATRIAL SEPTUM: Inadequately seen. LEFT ATRIUM: Normal chamber size. RIGHT ATRIUM: Normal chamber size. RIGHT VENTRICLE: Normal chamber size. Normal right ventricular systolic function. TRICUSPID VALVE: Normal mobility and thickness. No stenosis with no regurgitation. No evidence of pulmonary hypertension. RVSP 20 mmHg MITRAL VALVE: Normal mobility and thickness. No evidence of mitral valve stenosis. There is no mitral annular calcification. Trivial mitral regurgitation. AORTIC VALVE: Normal trileaflet appearance. Mildly calcified aortic valve. No evidence of aortic valve stenosis. No aortic regurgitation. AORTIC ROOT: Normal diameter and appearance. Ascending aorta is normal in size. PULMONIC VALVE: Normal thickness and mobility. No stenosis. Trivial regurgitation. PERICARDIUM: No evidence of pericardial effusion. IVC: Not well visualized. CONCLUSION: 1. Global left ventricular systolic function is normal; visually estimated ejection fraction is 60 to 65% 2. Normal right ventricular size and systolic function 3. Normal diastolic function 4. No significant valvular abnormalities Adult Echocardiography Procedure Report Left Ventricle LVEDD (3.7 - 5.6 cm): 6.05 cm LVESD (2.2 - 4.0 cm): 4.31 cm LVIVS thickness (0.6 - 1.2 cm): 0.96 cm LVPW thickness (0.5 - 1.0 cm): 0.93 cm e': 0.13 m/s E - e': 6.35 LVOT Max Gradient: 3.16 mm[Hg] LVOT Area (cm2): 0.89 m/s Peak Velocity (LVOT): 0.89 m/s Mean Velocity (LVOT): 0.66 m/s LVOT Diameter 2.71 cm Left Atrium LA Volume Index (2D A2C): 33.65 ml/m2 Left Atrium Systolic Dimension: 3.78 cm Mitral Valve MV E to A Ratio: 0.98 Mitral Valve A-Wave Peak Velocity: 0.83 m/s Mitral Valve E-Wave Peak Velocity: 0.81 m/s Right Ventricle Aorta AO Root Diam: 4.05 cm Ascending Ao Diam: 3.44 cm Aortic Valve AoV Area (Peak Lorenzo): 2.83 cm2, 2.83 cm2 AoV Area (VTI): 2.92 cm2, 2.92 cm2 Peak Velocity(Antegrade Flow): 1.81 m/s Peak Gradient(Antegrade Flow): 13.17 mm[Hg] Mean Velocity(Antegrade Flow): 1.20 m/s Mean Gradient(Antegrade Flow): 6.95 mm[Hg] Velocity Time Integral: 43.29 cm Tricuspid Valve Peak Velocity (Regurgitant Flow): 2.08 m/s Pulmonic Valve Peak Gradient: 4.48 mm[Hg], 4.79 mm[Hg] Right Atrium Right Atrium Systolic Pressure: 39.84 ml, 39.84 ml Dictated by: Franki Patton M.D. on 07/12/2023 at 15:32 Approved by: Franki Patton M.D. on 07/12/2023 at 15:35 Dictated By: Franki Patton M.D. Signed By: 07/12/23 1536 DD/ 1535 TD/TT: Professor Of Graphic Design: Procedure Note Radiology, Radiologist, MD - 07/12/2023 [place] [address] Cardiology Report Signed Patient: BOB LÓPEZ AMR#: [id number] : 1955cct:[id number] Age/Sex: 68 / MADM Date: 07/11/23 Loc: CARD Attending Dr: PASQUALE HOLT APRN Ordering Physician: PASQUALE HOLT APRN Date of Service: 07/11/23 Procedure(s): CA echo doppler complete Accession Number(s): [id number] cc: YURI KUO ; PASQUALE HOLT APRN Patient Name: BOB LÓPEZ MR#: [id number] : 1955 Exam Date: 07/11/2023 Ordering Doctor: PASQUALE HOLT CNP ECHOCARDIOGRAM REPORT PROCEDURE: CA ECHO DOPPLER COMPLETE INDICATIONS: Dyspnea on exertion, bradycardia COMPARISON: None. DESCRIPTION: COMPLETE ECHOCARDIOGRAM Real-time transthoracic echocardiography with 2D, M-mode, spectral and color flow Dopplerperformed. QUALITY: Technical quality was good. 76 , 266#, BSA 2.50 m2, BP162/78 LEFT VENTRICLE: Mild dilatation. Normal left ventricular wallthickness. LV EF: Global left ventricular systolic function is normal; visually estimated ejection fraction is 60 to 65%. No obvious wall motion abnormalities. DIASTOLIC: Normal diastolic function. ATRIAL SEPTUM: Inadequately seen. LEFT ATRIUM: Normal chamber size. RIGHT ATRIUM: Normal chamber size. RIGHT VENTRICLE: Normal chamber size. Normal right ventricularsystolic function. TRICUSPID VALVE: Normal mobility and thickness. No stenosis with no regurgitation. No evidence of pulmonary hypertension. RVSP 20 mmHg MITRAL VALVE: Normal mobility and thickness. No evidence of mitralvalve stenosis. There is no mitral annular calcification. Trivial mitral regurgitation. AORTIC VALVE: Normal trileaflet appearance. Mildly calcified aorticvalve. No evidence of aortic valve stenosis. No aortic regurgitation. AORTIC ROOT: Normal diameter and appearance. Ascending aorta is normalin size. PULMONIC VALVE: Normal thickness and mobility. No stenosis. Trivial regurgitation. PERICARDIUM: No evidence of pericardial effusion. IVC: Not well visualized. CONCLUSION: 1. Global left ventricular systolic function is normal; visually estimated ejection fraction is 60 to 65% 2. Normal right ventricular size and systolic function 3. Normal diastolic function 4. No significant valvular abnormalities Adult Echocardiography Procedure Report Left Ventricle LVEDD (3.7 - 5.6 cm): 6.05 cm LVESD (2.2 - 4.0 cm): 4.31 cm LVIVS thickness (0.6 - 1.2 cm): 0.96 cm LVPW thickness (0.5 - 1.0 cm): 0.93 cm e': 0.13 m/s E - e': 6.35 LVOT Max Gradient: 3.16 mm[Hg] LVOT Area (cm2): 0.89 m/s Peak Velocity (LVOT): 0.89 m/s Mean Velocity (LVOT): 0.66 m/s LVOT Diameter 2.71 cm Left Atrium LA Volume Index (2D A2C): 33.65 ml/m2 Left Atrium Systolic Dimension: 3.78 cm Mitral Valve MV E to A Ratio: 0.98 Mitral Valve A-Wave Peak Velocity: 0.83 m/s Mitral Valve E-Wave Peak Velocity: 0.81 m/s Right Ventricle Aorta AO Root Diam: 4.05 cm Ascending Ao Diam: 3.44 cm Aortic Valve AoV Area (Peak Lorenzo): 2.83 cm2, 2.83 cm2 AoV Area (VTI): 2.92 cm2, 2.92 cm2 Peak Velocity(Antegrade Flow): 1.81 m/s Peak Gradient(Antegrade Flow): 13.17 mm[Hg] Mean Velocity(Antegrade Flow): 1.20 m/s Mean Gradient(Antegrade Flow): 6.95 mm[Hg] Velocity Time Integral: 43.29 cm Tricuspid Valve Peak Velocity (Regurgitant Flow): 2.08 m/s Pulmonic Valve Peak Gradient: 4.48 mm[Hg], 4.79 mm[Hg] Right Atrium Right Atrium Systolic Pressure: 39.84 ml, 39.84 ml Dictated by: Franki Patton M.D. on 07/12/2023 at 15:32 Approved by: Franki Patton M.D. on 07/12/2023 at 15:35 Dictated By: Franki Patton M.D. Signed By:07/12/23 1536 DD/ 1535 TD/TT: Professor Of Graphic Design: Generic External Data Provider [facility] Final Result documented in this encounter Visit Diagnoses Not on filedocumented in this encounter Care Teams Shirrer Relationship Specialty Start Date End Date Yuri Kuo MD [address] [facility] 110 [place] [address] PCP - [employer] 06/17/22 Yuri Kuo MD [address] [facility] 110 [place] [address] PCP - General Internal Medicine 08/18/22 documented as of this encounter
--- OUTSIDE RECORDS SUMMARY | 2024-10-01 10:53 | XMS_ITS | Clinical Summary ---
Author Organization [facility] Address [address] [place] [address] Care Team Providers Care Radiation Safety Officer Name Role Phone Ayaan DUFFY MD, Yuri Taylor Primary Care Provider [phone] Ayaan DUFFY MD, Daniel B Unavailable [phone] Allergies Active Allergy Reactions Criticality Noted Date Comments Gadoteridol Hives 03/02/2021 Patient became itchy and developed hives Medications rivaroxaban (XARELTO) 20 mg tablet Take 20 mg by mouth once daily. 4 Active atorvastatin (LIPITOR) 40 mg tablet Take 40 mg by mouth once daily. 2 Active acetaminophen (TYLENOL) 500 mg tablet Take 2 tablets by mouth every 8 hours as needed for pain. 90 tablet 2 Active ascorbic acid, vitamin C, (VITAMIN C) 500 mg tablet Take 1 tablet by mouth twice daily with meals for 27 doses. 27 tablet 2 Active oxyCODONE IR (ROXICODONE) 5 mg immediate release tabletIndications :S/P total right hip arthroplasty Take 1-2 tablets by mouth every 6 hours as needed for pain. 30 tablet 2 Active Active Problems Problem Noted Date Diagnosed Date Personal history of pulmonary embolism 2 Assessment & Plan (02/08/2022 10:48 AM EST): Assessment: Follows with PCP, letter sent for xarelto instructions. Diagnosed with factor 5 Leiden. Hyperlipidemia 02/08/2022 Assessment & Plan (02/08/2022 10:42 AM EST): Assessment: on rx, follows with PCP Factor V Leiden 02/08/2022 Assessment & Plan (02/08/2022 10:56 AM EST): Assessment: on xarelto, h/o PE. Bradycardia 02/08/2022 Assessment & Plan (02/08/2022 11:23 AM EST): Assessment: Chronic- PCP is aware. Generally runs in the high 40's- low 50's. Denies SOB, CP, dizziness, or palpitations. Manual check 54 BMP, on ekg 46 BMP. Murmur 02/08/2022 Assessment & Plan (02/08/2022 11:22 AM EST): Assessment: new on exam today. Ordered echo to evaluate. Denies SOB, CP, palpitations, or dizziness. Obstructive sleep apnea 09/07/2008 Assessment & Plan (02/08/2022 10:46 AM EST): Assessment: Was told years ago his ELIEZER was borderline and he didn't need a CPAP. Immunizations Immunization Administration Dates Next Due COVID-19 vaccine, age 12+ yr , bivalent (PFIZER-BIONTAmberPoint) 02/28/2022 influenza (IIV4) vaccine, ag e 6 mo - 64 yr, quadrivalent, PF (AFLURIA, FLUARIX, FLULAVAL, FLUZONE) 02/28/2022 Family History Medical History Relation Comments COPD Father Heart Failure Father COPD Mother Heart Failure Mother Hypertension Mother Relation Status Comments Father Mother Social History Tobacco Use Types Packs/Day Years Used Date Smoking Tobacco: Former Cigarettes 0.5 30 Smokeless Tobacco: Never Tobacco Cessation:Counseling Given: Not Answered Comments:Quit smoking 13 years ago Alcohol Use Standard Drinks/Week Comments Not Currently 0 (1 standard drink = 0.6 oz pur e alcohol) Area Deprivation Index Answer Date Ty rded National Score (1-100), lowe r number is lower risk 69 04/03/2022 State Score (1-10), lower number is lower risk N ot on file 04/03/2022 Data from: https://www.neighborhoodatlas.[facility]/. Last address used for calculation [address] 04/03/2022 Sex and Gender Information Value Date Recorded Sex Assigned at Not on file Legal Sex Male 11:29 AM EDT Gender Identity Not on file Sexual Orientation Not on file Last Filed Vital Signs Vital Sign Reading Time Taken Comments Blood Pressure 139/76 02/28/2022 11:43 AM EST Pulse 58 02/28/2022 11:43 AM EST Temperature 36.9 C (98.4 F) 02/28/2022 11:43 AM EST Respiratory Rate 18 02/28/2022 11:43 AM EST Oxygen Saturation 95% 02/28/2022 11:43 AM EST Inhaled Oxygen Concentration - - Weight 121.6 kg (268 lb) 02/27/2022 9:26 AM EST Height 190.5 cm (6' 3 ) 02/27/2022 9:26 AM EST Body Mass Index 33.5 02/27/2022 9:26 AM EST Plan of Treatment Health Maintenance Due Date Last Done Comments Abdominal Aortic Aneurysm Screening 1955 Anxiety Screening 07/10/1975 Depression Screening 07/10/1975 Hepatitis C Screening 07/10/1975 DTaP,Tdap,Td Vaccine (1 - Tdap) [address] Colonography 2002 Cologuard (FIT-DNA) 2002 Colonoscopy 2002 Colorectal Cancer Screening 2002 Fecal Occult Blood 2002 Prostate Cancer Screening Discussion 2002 Sigmoidoscopy 2002 Shingrix Vaccine (1 of 2) 07/10/2007 Pneumococcal Vaccine: 50+ (2 of 2 - PCV) 06/27/2014 06/27/2013 Covid-19 Vaccine (4 - 2023-2 5 season) 2023 02/28/2022, 07/08/2020, 06/17/2020 Advance Directive Discussion 03/19/2024 Medicare Advantage Annual We llness Visit 03/19/2024 Influenza Vaccine (#1) 2024 , 01/05/2020, 01/14/2019, Additional history exists Diabetes Screening 02/28/2025 02/28/2022, 02/08/2022 RSV Vaccine (1 - 1-dose 75+ series) 2032 Medical Devices Implanted Type Area Labor/Excavator Device Identifier Shelf Expiration Date Model / Serial / Lot Shell Trident Ii 58mm F Tritanium Acetabular 5 Screw Hole Cluster Sterile - [id number] Implanted:Qty: 1 on 02/27/2022 at [facility] Joint - Hip Right: Bone - Hip [employer] 11/03/2026 [id number] / / [id number] Insert Acetabular 36mm 0d F Hip X3 Trident - [id number] Implanted:Qty: 1 on 02/27/2022 at [facility] Joint - Hip Right: Bone - Hip [employer] 11/11/2026 [id number] / / [id number] Head V40 36mm -2.5mm Offset Taper Biolox Delta Femoral Hip - [id number] Implanted:Qty: 1 on 02/27/2022 at [facility] Joint - Hip Right: Bone - Hip [employer] 11/06/2026 [id number] / / [id number] Stem Accolade Ii 6 127d Femoral - [id number] Implanted:Qty: 1 on 02/27/2022 at [facility] Joint Right: Bone - Hip [employer] 12/29/2026 [id number] / / [id number] Screw Trident Ii 6.5mm 25mm Bone Low Profile Hexagonal Sterile - [id number] Implanted:Qty: 1 on 02/27/2022 at [facility] Screw Right: Bone - Hip [employer] 01/16/2027 [id number] / / [id number] Procedures Procedure Name Priority Date/Time Associated Diagnosis Comments BASIC METABOLIC PANEL Routine 02/28/2022 6:10 AM EST from Last 3 Months or Most Recently Relevant to Health Maintenance Results * (ABNORMAL) BASIC METABOLIC PNL (02/28/2022 6:10 AM EST) Glucose 102(H) 74 - 99 mg/dL 02/28/2022 7:25 AM EST [facility] Comment: The [place] Diabetes Association (ADA) provides guidance for cutoff values for fasting glucose and random glucose. The ADA defines fasting as no caloric intake for at least 8 hours. Fasting plasma glucose results between 100 to 125 mg/dL indicate increased risk for diabetes (prediabetes). Fasting plasma glucose results greater than or equal to 126 mg/dL meet the criteria for diagnosis of diabetes. In the absence of unequivocal hyperglycemia, results should be confirmed by repeat testing. In a patient with classic symptoms of hyperglycemia or hyperglycemic crisis, random plasma glucose results greater than or equal to 200 mg/dL meet the criteria for diagnosis of diabetes. Reference: Standards of Medical Care in Diabetes 2016, [place] Diabetes Association. Diabetes Care. 2016.39(Suppl 1). BUN 14 9 - 24 mg/dL 02/28/2022 7:25 AM [facility] Creatinine 0.93 0.73 - 1.22 mg/dL 02/28/2022 7:25 AM [facility] Sodium 141 136 - 144 mmol/L 02/28/2022 7:25 AM [facility] Potassium 4.9 3.7 - 5.1 mmol/L 02/28/2022 7:25 AM [facility] Chloride 104 97 - 105 mmol/L 02/28/2022 7:25 AM [facility] CO2 31(H) 22 - 30 mmol/L 02/28/2022 7:25 AM [facility] Anion Gap 6(L) 9 - 18 mmol/L 02/28/2022 7:25 AM [facility] Calcium, Total 8.7 8.5 - 10.2 mg/dL 02/28/2022 7:25 AM [facility] Estimated Glomerular Filtration Rate 92 >=60 mL/min/1. 73m 02/28/2022 7:25 AM [facility] Comment:Estimated Glomerular Filtration Rate (eGFR) is calculated using the 2020 CKD-EPI creatinine equation. This equation utilizes serum creatinine, sex, and age as parameters. The creatinine assay has traceable calibration to isotope dilution- mass spectrometry. Refer to KDIGO guidelines for clinical interpretation. In patients with unstable renal function, e.g. those with acute kidney injury, the eGFR may not accurately reflect actual GFR. Blood BLOOD SPECIMEN / Unknown Venipuncture / Unknown 02/28/2022 6:10 AM EST 02/28/2022 6:42 AM EST us Rafael Schaffer CHRONOMETER ASSEMBLER.HOUSE MOVING SUPERVISOR LABORATORY Final Re sult [facility] [address] [place] [address], from Last 3 Months or Most Recently Relevant to Health Maintenance Insurance [facility] MEDICARE Care Teams Radiation Safety Officer Relationship Specialty Start Date End Date Yuri Kuo II, MD [address] [facility] [address] [place] [address] PCP - General Internal Medicine 08/31/21 Yuri Kuo II, MD [address] [facility] [address] [place] [address] Referring Internal Medicine 08/31/21
--- OUTSIDE RECORDS SUMMARY | 2024-10-01 10:53 | XMS_ITS | Encounter Summary ---
Author Organization [facility] Address [address] [place] [address] Care Team Providers Care Hydroelectric Station Chief Name Role Phone Yuri Kuo MD Unavailable [phone] Yuri Kuo MD Primary Care Provider [phone] Encounter Details Date Type Department Care Team (Late st Contact Info) Description 10/01/2024 Bamboo flowsheet [facility] [address] [facility] 110 [place] [id number] Julissa Parra, HEALTH CARE MARKETING MANAGER [address] [facility] 110 [place], [place] [id number] Social History Tobacco Use Types Packs/Day Years Used Date Smoking Tobacco: Former Cigarettes 0.5 19.8 1 - 1972 Smokeless Tobacco: Never Alcohol Use Standard Drinks/Week [...] EDT Office Visit [facility] [address] [facility] 150 [place] [phone] Anup Akbar DO [address] [facility] 150 [place] [address] 01/13/2025 1:30 PM EDT Office Visit [facility] JOSEFA RODRIGUEZ [address] [place] [address] Jennifer Valero MD [address] [place] [address] documented as of this encounter Visit Diagnoses Not on filedocumented in this encounter Care Teams Hydroelectric Station Chief Relationship Specialty Start Date End Date Yuri Kuo MD [address] [facility] 110 [place] [address] PCP - [employer] 06/17/22 Yuri Kuo MD [address] [facility] 110 [place] [address] PCP - General Internal Medicine 08/18/22 documented as of this encounter
--- OUTSIDE RECORDS SUMMARY | 2024-10-01 10:53 | XMS_ITS | Encounter Summary ---
Author Organization [facility] Address [address] [facility] [place] [address] Care Team Providers Care Prism Inspector Name Role Phone Yuri Kuo MD Unavailable [phone] Yuri Kuo MD Primary Care Provider [phone] Encounter Details Date Type Department Care Team (Late st Contact Info) Description 05/20/2024 Abstract [facility] [address] [facility] 110 [place] [address] Yuri Kuo MD [address] [facility] 110 [place], [place] [id number] Social History Tobacco Use Types Packs/Day Years [...] [facility] [address] [place] [phone] Anup Akbar DO [address] [place] [address] 01/13/2025 1:30 PM EDT Office Visit [facility] [address] [place] [address] Jennifer Valero MD [address] [facility] 350 [place] [address] documented as of this encounter Visit Diagnoses Not on filedocumented in this encounter Care Teams Prism Inspector Relationship Specialty Start Date End Date Yuri Kuo MD [address] [facility] 110 [place] [address] PCP - [employer] 06/17/22 Yuri Kuo MD [address] [facility] 110 [place] [address] PCP - General Internal Medicine 08/18/22 documented as of this encounter
--- OUTSIDE RECORDS SUMMARY | 2024-10-01 10:53 | XMS_ITS | Encounter Summary ---
Author Organization [facility] Address [address] [place] [address] Care Team Providers Care Buffing Wheel Former Machine Name Role Phone Yuri Kuo MD Unavailable [phone] Yuri Kuo MD Primary Care Provider [phone] Encounter Details Date Type Department Care Team (Late st Contact Info) Description 05/16/2024 Orders Only [facility] [address] [place] [address] Unallocated, Noms Provider, [address] [place], [place] [id number] Social History Tobacco Use Types Packs/Day Years [...] EDT Office Visit [facility] [address] [facility] 150 [place] [address] Anup Akbar DO [address] [place], [place] [phone] 01/13/2025 1:30 PM EDT Office Visit [facility] [address] [place] [address] Jennifer Valero MD [address] [place] [address] documented as of this encounter Procedures Procedure Name Priority Date/Time Associated Diagnosis Comments ECG 12-LEAD Routine 05/16/2024 11:13 AM EST documented in this encounter Results * ECG 12 lead (05/16/2024 11:13 AM EST) us Noms Provider Unallocated ECG ORDERABLES Fin al Result documented in this encounter Visit Diagnoses Not on filedocumented in this encounter Care Teams Buffing Wheel Former Machine Relationship Specialty Start Date End Date Yuri Kuo MD [address] [facility] 110 [place] [address] PCP - [employer] 06/17/22 Yuri Kuo MD [address] [facility] 110 [place] [address] PCP - General Internal Medicine 08/18/22 documented as of this encounter
--- OUTSIDE RECORDS SUMMARY | 2024-10-01 10:53 | XMS_ITS | Encounter Summary ---
Author Organization [facility] Address [address] [place] [address] [place] [address] Care Team Providers Care Food Safety Officer Name Role Phone Yuri Kuo MD Unavailable [phone] Yuri Kuo MD Primary Care Provider [phone] Encounter Details Date Type Department Care Team (Late st Contact Info) Description 04/07/2024 Abstract [facility] [address] [facility] 110 [place] [address] Yuri Kuo MD [address] [facility] 110 [place], [place] [phone] Social History Tobacco Use Types Packs/Day Years [...] ST [facility] [address] [place] [address] Anup Akbar DO [address] [place] [address] 01/13/2025 1:30 PM EDT Office Visit [facility] [address] [place] [address] Jennifer Valero MD [address] [facility] 350 [place] [address] documented as of this encounter Visit Diagnoses Not on filedocumented in this encounter Care Teams Food Safety Officer Relationship Specialty Start Date End Date Yuri Kuo MD [address] [facility] 110 [place] [address] PCP - [employer] 06/17/22 Yuri Kuo MD [address] [facility] 110 [place] [address] PCP - General Internal Medicine 08/18/22 documented as of this encounter
--- OUTSIDE RECORDS SUMMARY | 2024-10-01 10:53 | XMS_ITS | Encounter Summary ---
Author Organization [facility] Address [address] [place] [address] Care Team Providers Care Activities Specialist Name Role Phone Yuri Kuo MD Unavailable [phone] Yuri Kuo MD Primary Care Provider [phone] Encounter Details Date Type Department Care Team (Late st Contact Info) Description 09/17/2023 Abstract [facility] [address] [facility] 110 [place] [address] Yuri Kuo MD [address] [facility] 110 [place], [place] [id number] Social History Tobacco Use Types Packs/Day Years [...] [facility] [address] [place] [phone] Anup Akbar DO [address] [place] [address] 01/13/2025 1:30 PM EDT Office Visit [facility] [address] [place] [address] Jennifer Valero MD [address] [facility] 350 [place] [address] documented as of this encounter Visit Diagnoses Not on filedocumented in this encounter Care Teams Activities Specialist Relationship Specialty Start Date End Date Yuri Kuo MD [address] [facility] 110 [place] [address] PCP - [employer] 06/17/22 Yuri Kuo MD [address] [facility] 110 [place] [address] PCP - General Internal Medicine 08/18/22 documented as of this encounter
--- OUTSIDE RECORDS SUMMARY | 2024-10-01 10:53 | XMS_ITS | Encounter Summary ---
Author Organization [facility] Address [address] [place] [address] Care Team Providers Care Crosscutter Rolled Glass Name Role Phone Yuri Kuo MD Unavailable [phone] Yuri Kuo MD Primary Care Provider [phone] Encounter Details Date Type Department Care Team (Latest Contact Info) Description 10/01/2024 Travel Social History Tobacco Use Types Packs/Day Years Used Date Smoking Tobacco: Former Cigarettes 0.5 19.8 1 1972 Smokeless Tobacco: Never Alcohol Use Standard [...] on file documented as of this encounter Functional Status * Over the past 2 weeks, how often have you been bothered by any of the following problems? Question Answer Date of Assessment Author Feeling down, depressed, or hopeless Not at all 09/16 9:57 AM EDT MEDHAT GRANADO documented as of this encounter Plan of Treatment Upcoming Encounters Date Type Department Care Team (Late st Contact Info) Description 10/28/2024 9:15 AM EDT Office Visit [facility] [address] [facility] 150 [place] [phone] Anup Akbar DO [address] [facility] 150 [place] [address] 01/13/2025 1:30 PM EDT Office Visit [facility] [address] [place] [address] Jennifer Valero MD [address] [place] [address] documented as of this encounter Visit Diagnoses Not on filedocumented in this encounter Care Teams Crosscutter Rolled Glass Relationship Specialty Start Date End Date Yuri Kuo MD [address] [facility] 110 [place], [place] [id number] PCP - [employer] 06/17/22 Yuri Kuo MD [address] [facility] 110 [place] [address] PCP - General Internal Medicine 08/18/22 documented as of this encounter
--- OUTSIDE RECORDS SUMMARY | 2024-10-01 10:53 | XMS_ITS | Encounter Summary ---
Author Organization [facility] Address [address] [place] [address] Care Team Providers Care Braker Passenger Train Name Role Phone Yuri Kuo MD Unavailable [phone] Yuri Kuo MD Primary Care Provider [phone] Encounter Details Date Type Department Care Team (Late st Contact Info) Description 09/04/2022 Orders Only [facility] [address] [facility] 110 [place] [address] Yuri Kuo MD [address] [facility] 110 [place] [address] Social History Tobacco Use Types Packs/Day Years Used Date Smoking Tobacco: Never Assessed Sex and Gender Information Value Date Recorded Sex Assigned at Not on file Legal Sex Male 6:55 PM EDT Gender Identity Not on file Sexual Orientation Not on file documented as of this encounter Plan of Treatment Upcoming Encounters Date Type Department Care Team (Late st Contact Info) Description 10/28/2024 9:15 AM EDT Office Visit [facility] [address] [place] [phone] Anup Akbar DO [address] [place] [address] 01/13/2025 1:30 PM EDT Office Visit [facility] [address] [place] [address] Jennifer Valero MD [address] [place] [address] documented as of this encounter Procedures Procedure Name Priority Date/Time Associated Diagnosis Comments STRESS TEST Routine 08/31/2022 2:49 PM EDT documented in this encounter Results * STRESS TEST (08/31/2022 2:49 PM EDT) Anatomical Region Laterality Modality Radiographic Leisa ging Yuri Kuo MD IMG XR PROCEDURES Final Result documented in this encounter Visit Diagnoses Not on filedocumented in this encounter Care Teams Braker Passenger Train Relationship Specialty Start Date End Date Yuri Kuo MD [address] [facility] 110 [place] [address] PCP - [employer] 06/17/22 Yuri Kuo MD [address] [place] [address] PCP - General Internal Medicine 08/18/22 documented as of this encounter
--- OUTSIDE RECORDS SUMMARY | 2024-10-01 10:53 | XMS_ITS | Clinical Summary ---
Author Organization [facility] Address [address] [place] [address] Care Team Providers Care Major Assembly Inspector Name Role Phone Yuri Kuo MD Primary Care Provider [phone] Allergies Active Allergy Reactions Criticality Noted Date Comments Gadoteridol Hives 03/02/2021 Patient became itchy and developed hives Patient became itchy and developed hives Medications atorvastatin (Lipitor) 40 mg tablet Take 40 mg by mouth in the morning. 07/05/2022 Active furosemide (Lasix) 20 mg tablet Take 20 mg by mouth if needed. Active Xarelto 20 mg tabletIndications :Pulmonary embolism, other, unspecified chronicity, unspecified whether acute cor pulmonale present (CMS/HCC) Take 1 tablet (20 mg) by mouth in the morning. Resume on 10/21/2022 Do not start before October 21, 2022. 30 tablet 10/21/2022 Active amLODIPine (Norvasc) 10 mg tabletIndications :Primary hypertension Take 1 tablet (10 mg) by mouth in the morning. 90 tablet 3 02/06/2024 02/06/20 25 Active Active Problems Problem Noted Date Diagnosed Date Artificial knee joint present 10/02/2022 Difficulty walking 10/02/2022 11/14/2022 Edema 10/02/2022 11/14/2022 Osteoarthritis of knee 10/02/2022 Abnormal nuclear stress test 09/25/2022 PVC (premature ventricular contraction) 08/18/19 23 Assessment & Plan (08/17/2022 12:58 PM EDT): - patient has not worn a Holter monitor yet, 48-hour monitor for PVC - we will see if PVC induces NSVT ELAINE (dyspnea on exertion) 08/08/2022 Assessment & Plan (08/17/2022 12:52 PM EDT): - stress test and Holter monitor for PVCs, PCP note does mention Short run of nonsustained wide arrhythmia Personal history of pulmonary embolism Overview (08/08/2022): Last Assessment & Plan: Assessment: Follows with PCP, letter sent for xarelto instructions. Diagnosed with factor 5 Leiden. Murmur 02/08/2022 Overview (08/08/2022): Last Assessment & Plan: Assessment: new on exam today. Ordered echo to evaluate. Denies SOB, CP, palpitations, or dizziness. Hyperlipidemia 02/08/2022 Overview (08/08/2022): Last Assessment & Plan: Assessment: on rx, follows with PCP Assessment & Plan (08/17/2022 12:56 PM EDT): - continue Lipitor 40 mg Factor V Leiden 02/08/2022 Overview (08/08/2022): Last Assessment & Plan: Assessment: on xarelto, h/o PE. Assessment & Plan (08/17/2022 12:56 PM EDT): - history of PE - factor V noted per [facility] 01/2022 Bradycardia 02/08/2022 Overview (08/08/2022): Last Assessment & Plan: Assessment: Chronic- PCP is aware. Generally runs in the high 40's- low 50's. Denies SOB, CP, dizziness, or palpitations. Manual check 54 BMP, on ekg 46 BMP. Arthritis of right knee 11/10/2019 Pulmonary embolism 10/24/2019 Assessment & Plan (08/17/2022 12:53 PM EDT): - unprovoked PE 2013 he has been on Xarelto since Crushing injury of finger 04/13/2014 Open fracture of distal phalanx or phalanges of hand 04/13/2014 Obstructive sleep apnea 09/07/2008 Overview (08/08/2022): Last Assessment & Plan: Assessment: Was told years ago his ELIEZER was borderline and he didn't need a CPAP. Assessment & Plan (08/17/2022 12:57 PM EDT): - supposedly had sleep study years ago and was told she has borderline, no CPAP was ever prescribed Immunizations Immunization Administration Dates Next Due Covid ([facility]) Bivalent Booster =>12 YRS 022 Influenza, injectable, quadrivalent 01/14/2019 Influenza, injectable, quadr ivalent, preservative free 02/28/2022,01/05/2020,03/18/2016 Influenza, seasonal, injectable 04/02/2013 Influenza, seasonal, injecta ble, preservative free, 6 moonths & older 01/12/2015 Unspecified Sars-Cov-2 Vaccination 07/08/2020, Family History Medical History Relation Name Comments Atrial fibrillation Mother Heart failure Mother Relation Name Status Comments Mother Social History Tobacco Use Types Packs/Day Years Used Date Smoking Tobacco: Former Cigarettes Smokeless Tobacco: Never Tobacco Cessation:Counseling Given: Not Answered Alcohol Use Standard Drinks/Week Comments Yes 0 (1 standard drink = 0.6 oz pur e alcohol) occasionally [place] Safety & Environment Answer Date Rec orded Fear of Current or Ex-Partner Not on file Emotionally Abused Not on file 05/10/2023 Physically Abused Not on file 05/10/2023 Sexually Abused Not on file 05/10/2023 Physically or Sexually Abused Not on file Sex and Gender Information Value Date Recorded Sex Assigned at Not on file Legal Sex Male 11:37 PM EDT Gender Identity Not on file Sexual Orientation Not on file Last Filed Vital Signs Vital Sign Reading Time Taken Comments Blood Pressure 155/85 02/06/2024 9:30 AM EST Pulse 55 02/06/2024 9:30 AM EST Temperature - - Respiratory Rate 16 10/19/2022 11:48 AM EDT Oxygen Saturation 98% 02/06/2024 9:30 AM EST Inhaled Oxygen Concentration - - Weight 126 kg (277 lb) 02/06/2024 9:30 AM EST Height 193 cm (6' 4 ) 02/06/2024 9:30 AM EST Body Mass Index 33.72 02/06/2024 9:30 AM EST Plan of Treatment Health Maintenance Due Date Last Done Comments CT Colonography 1957 FIT-DNA 1957 FIT 1957 FOBT 1957 Medicare Annual Wellness (AWV) 1957 Sigmoidoscopy 1957 Depression Screening 1969 Pneumococcal Vaccine: 50+ Years (1 of 2 - PCV) 1976 Adult Tetanus 07/10/1979 Zoster Vaccines (1 of 2) 07/10/2007 Fall Risk Screening 2022 COVID-19 Vaccine ( season) 2023 02/28/2022, 07/08/2020, 07/08/2020, Additional history exists Influenza Vaccine (#1) 2024 , 01/05/2020, 01/14/2019, Additional history exists Colonoscopy 01/01/2029 01/01/2019 Colorectal Cancer Screening 01/01/2029 HIB Vaccines Aged Out No longer eligi ble based on patient's age to complete this topic HPV Vaccines Aged Out No longer eligi ble based on patient's age to complete this topic IPV Vaccines Aged Out No longer eligi ble based on patient's age to complete this topic Meningococcal B Vaccine Aged Out No l onger eligible based on patient's age to complete this topic Meningococcal Vaccine Aged Out No topher vika eligible based on patient's age to complete this topic Rotavirus Vaccines Aged Out No longer eligible based on patient's age to complete this topic Insurance [facility] MEDICARE ADVANTAGE Care Teams Major Assembly Inspector Relationship Specialty Start Date End Date Yuri Kuo MD 112 [facility] 110 [place] [address] PCP - General 08/07/22
--- OUTSIDE RECORDS SUMMARY | 2024-10-01 10:53 | XMS_ITS | Encounter Summary ---
Author Organization [facility] Address [address] [place] [address] Care Team Providers Care Elevator Installer Apprentice Name Role Phone Yuri Kuo MD Unavailable [phone] Yuri Kuo MD Primary Care Provider [phone] Encounter Details Date Type Department Care Team (Late st Contact Info) Description 01/31/2023 Abstract [facility] [address] [facility] 110 [place] [phone] Yuri Kuo MD [address] [facility] 110 [place] [address] Social History Tobacco Use Types Packs/Day Years [...] [facility] [address] [place] [address] Anup Akbar DO [address] [place] [address] 01/13/2025 1:30 PM EDT Office Visit [facility] [address] [place] [address] Jennifer Valero MD [address] [facility] 350 [place] [address] documented as of this encounter Visit Diagnoses Not on filedocumented in this encounter Care Teams Elevator Installer Apprentice Relationship Specialty Start Date End Date Yrui Kuo MD [address] [facility] 110 [place] [address] PCP - Humana 06/17/22 Yuri Kuo MD [address] [facility] 110 [place] [address] PCP - General Internal Medicine 08/18/22 documented as of this encounter
--- OUTSIDE RECORDS SUMMARY | 2024-10-01 10:53 | XMS_ITS | Encounter Summary ---
Author Organization [facility] Address [address] [place] [address] Care Team Providers Care Health Researcher Name Role Phone Yuri Kuo MD Unavailable [phone] Yuri Kuo MD Primary Care Provider [phone] Encounter Details Date Type Department Care Team (Late st Contact Info) Description 02/01/2024 Abstract [facility] [address] [facility] 110 [place] [phone] Yuri Kuo MD [address] [place] [facility] 110 [place], [place] [phone] Social History Tobacco Use Types Packs/Day Years [...] [address] [place] [address] Anup Akbar DO [address] [place] [address] 01/13/2025 1:30 PM EDT Office Visit [facility] [address] [place] [address] Jennifer Valero MD [address] [facility] 350 [place] [address] documented as of this encounter Visit Diagnoses Not on filedocumented in this encounter Care Teams Health Researcher Relationship Specialty Start Date End Date Yuri Kuo MD [address] [place] [facility] 110 [place] [address] PCP - Humana 06/17/22 Yuri Kuo MD [address] [place] [facility] 110 [place] [address] PCP - General Internal Medicine 08/18/22 documented as of this encounter
--- OUTSIDE RECORDS SUMMARY | 2024-10-01 10:53 | XMS_ITS | Encounter Summary ---
Author Organization [facility] Address [address] [place] [address] [place] [address] Care Team Providers Care Fish Hatchery Manager Name Role Phone Yuri Kuo MD Unavailable [phone] Yuri Kuo MD Primary Care Provider [phone] Encounter Details Date Type Department Care Team (Late st Contact Info) Description 05/20/2024 Abstract [facility] [address] [facility] 110 [place] [address] Yuri Kuo MD [address] [place] [facility] 110 [place], [place] [address] Social History Tobacco Use Types Packs/Day Years [...] [facility] [address] [place] [address] Anup Akbar DO [address] [place] [address] 01/13/2025 1:30 PM EDT Office Visit [facility] [address] [place] [address] Jennifer Valero MD [address] [facility] 350 [place] [address] documented as of this encounter Visit Diagnoses Not on filedocumented in this encounter Care Teams Fish Hatchery Manager Relationship Specialty Start Date End Date Yuri Kuo MD [address] [facility] 110 [place] [address] PCP - Humana 06/17/22 Yuri Kuo MD [address] [facility] 110 [place] [address] PCP - General Internal Medicine 08/18/22 documented as of this encounter
--- OUTSIDE RECORDS SUMMARY | 2024-10-01 10:54 | XMS_ITS | Encounter Summary ---
Author Organization [facility] Address [address] [place] [address] Care Team Providers Care Plastic Printer Name Role Phone Yuri Kuo MD Unavailable [phone] Yuri Kuo MD Primary Care Provider [phone] Encounter Details Date Type Department Care Team (Late st Contact Info) Description 08/25/2024 Abstract [facility] [address] [facility] 110 [place] [address] Yuri Kuo MD [address] [place] [facility] 110 [place], [place] [address] Social History Tobacco Use Types Packs/Day Years [...] EDT Office Visit [facility] 703 [facility] 150 [place] [address] Anup Akbar DO 703 [facility] 150 [place] [address] 01/13/2025 1:30 PM EDT Office Visit [facility] [address] [place] [address] Jennifer Valero MD [address] [place] [address] documented as of this encounter Visit Diagnoses Not on filedocumented in this encounter Care Teams Plastic Printer Relationship Specialty Start Date End Date Yuri Kuo MD [address] [place] [facility] 110 [place] [address] PCP - Humana 06/17/22 Yuri Kuo MD [address] [place] [facility] 110 [place] [address] PCP - General Internal Medicine 08/18/22 documented as of this encounter
--- OUTSIDE RECORDS SUMMARY | 2024-10-01 10:54 | XMS_ITS | Encounter Summary ---
Author Organization [facility] Address [facility] [place] [address] Care Team Providers Care Lathe Mechanic Name Role Phone Ayaan DUFFY MD, Yuri Taylor Primary Care Provider [phone] Ayaan DUFFY MD, Daniel B Unavailable [phone] Source Comments In the event this information is protected by the Federal Confidentiality of Alcohol and Drug AbusePatient Records regulations: The Federal rules restrict any use of the information to criminally investigate or prosecute any alcohol or drug abuse patient.[facility] Encounter Details Date Type Department Care Team (Late st Contact Info) Description 02/12/2023 Patient Msg Orthopaedics [address] [address] Osman Gallardo MD [address] [place] [address] Appointment Cancellation Request Social History Tobacco Use Types Packs/Day Years Used Date Smoking Tobacco: Former Cigarettes 0.5 30 Smokeless Tobacco: Never Comments:Quit smoking 13 yea rs ago Alcohol Use Standard Drinks/Week Comments Not Currently 0 (1 standard drink = 0.6 oz pur e alcohol) Area Deprivation Index Answer Date Ty rded National Score (1-100), lowe r number is lower risk 69 04/03/2022 State Score (1-10), lower number is lower risk N ot on file 04/03/2022 Data from: https://www.neighborhoodatlas.medicine.[facility]/. Last address used for calculation [address] 04/03/2022 Sex and Gender Information Value Date Recorded Sex Assigned at Not on file Legal Sex Male 11:29 AM EDT Gender Identity Not on file Sexual Orientation Not on file documented as of this encounter Functional Status * Are you deaf or do you have serious difficulty hearing? Answer Date of Assessment Author No 02/28/2022 1:35 PM Tim Landeros RN * Are you blind or do you have serious difficulty seeing, even when wearing glasses? Answer Date of Assessment Author No 02/28/2022 1:35 PM Tim Ladneros RN * Do you have serious difficulty walking or climbing stairs? Answer Date of Assessment Author No 02/28/2022 1:35 PM Tim Landeros RN * Do you have difficulty dressing or bathing? Answer Date of Assessment Author No 02/28/2022 1:35 PM Tim Landeros RN * Because of a physical, mental, or emotional condition, do you have difficulty doing errands alone such as visiting a doctor's office or shopping? Answer Date of Assessment Author No 02/28/2022 1:35 PM Tim Landeros RN documented as of this encounter Mental Status * Because of a physical, mental, or emotional condition, do you have serious difficulty concentrating, remembering, or making decisions? Answer Entry Date Author No 02/28/2022 1:35 PM Tim Landeros RN documented in this encounter Plan of Treatment Not on file documented as of this encounter Visit Diagnoses Not on filedocumented in this encounter Care Teams Lathe Mechanic Relationship Specialty Start Date End Date Yuri Kuo II, MD [address] [facility] 110 [place] [address] PCP - General Internal Medicine 08/31/21 Yuri Kuo II, MD 112 [facility] 110 [place] [address] Referring Internal Medicine 08/31/21 documented as of this encounter
--- OUTSIDE RECORDS SUMMARY | 2024-10-01 10:54 | XMS_ITS | Clinical Summary ---
Author Organization [facility] Address [id number] [address] [place] [address] Care Team Providers Care Optical Instrument Specialist Name Role Phone Yuri Kuo MD Primary Care Provider [phone] Allergies Active Allergy Reactions Criticality Noted Date Comments Gadoteridol Hives 03/02/2021 Patient became itchy and developed hives Medications rivaroxaban (XARELTO) 20 mg tablet tablet Take 20 mg by mouth daily. Active Active Problems Problem Noted Date Diagnosed Date Arthritis of right knee 11/10/2019 Family History Medical History Relation Name Comments Aneurysm Father COPD Father Cancer Father melanoma Heart failure Father Aneurysm Mother COPD Mother Cancer Mother breast Heart failure Mother Hypertension Mother Relation Name Status Comments Father Mother Social History Tobacco Use Types Packs/Day Years Used Date Smoking Tobacco: Former Smokeless Tobacco: Never Comments:quit 11 years ago Alcohol Use Standard Drinks/Week Comments Yes 0 (1 standard drink = 0.6 oz pur e alcohol) social AUDIT-C Answer Date Recorded Q1: How often do you have a drink containing alc ohol? 2-4 times a month 11/11/2019 Q2: How many drinks containi ng alcohol do you have on a typical day when you are drinking? 3 or 4 11/11/2019 Q3: How often do you have si x or more drinks on one occasion? Never 11/11/2019 PHQ-2 Answer Date Recorded Total Score 0 10/14/2019 Childcare Answer Date Recorded Childcare Unknown 08/28/2018 Employment Answer Date Recorded Employment Unknown 08/28/2018 Purpose - Life Answer Date Recorded Purpose and direction in life Unknown Sex and Gender Information Value Date Recorded Sex Assigned at Not on file Legal Sex Male 11:45 AM EDT Gender Identity Not on file Sexual Orientation Not on file Last Filed Vital Signs Vital Sign Reading Time Taken Comments Blood Pressure 142/76 03/10/2020 8:39 AM EST Pulse 63 03/10/2020 8:35 AM EST Temperature 36.5 C (97.7 F) 03/10/2020 7:45 AM EST Respiratory Rate 18 03/10/2020 8:35 AM EST Oxygen Saturation 97% 03/10/2020 8:35 AM EST Inhaled Oxygen Concentration - - Weight 117.9 kg (260 lb) 02/21/2021 11:00 PM EST Height 191.8 cm (6' 3.5 ) 03/10/2020 6:43 AM EST Body Mass Index 32.07 03/10/2020 6:43 AM EST Plan of Treatment Health Maintenance Due Date Last Done Comments Depression Screening 1969 Tobacco Screening 1969 Adult BMI Screening 07/10/1975 DTaP,Tdap and Td Vaccines (1 - Tdap) 1976 Zoster (Shingles) Vaccine (1 of 2) 07/10/2007 Fall Risk Screening 2022 COVID-19 Vaccine (3 - 2023-2 5 season) 2023 07/08/2020, 06/17/2020 Influenza Vaccine 11/17/2024 01/05/2020, , 03/18/2016, Additional history exists Goals Goal Patient Goal Type Associated Problems Recent Progress Patient-Stated? Author Home General Yes Emma Turner LSW Note: Evaluation of progress towards goal: Safe dc transition home with family support and [facility]. Medical Devices Implanted Type Area Seat Maker Device Identifier Shelf Expiration Date Model / Serial / Lot Cmnt Bn Bio 40gm Rpl [id number]+ [id number] - [id number] - [id number] Implanted:Qty: 2 on 11/11/2019 by Nate Gill Jr., DO at [facility] Cement Right: Knee Ish [employer]omet 12/17/2023 [id number] / [id number] / [id number] Cmpt Fem G Kn Rt Cmnt Lpsflx Rpl [id number] + [id number] - [id number] - [id number] Implanted:Qty: 1 on 11/11/2019 by Nate Gill Jr., DO at [facility] Orthopedic Implant Right: Knee Ish [employer] 10/16/2028 00-5964-017 -52 / [id number] / [id number] Cmpt Ptlr 35mm Alply Psn - [id number] - [id number] Implanted:Qty: 1 on 11/11/2019 by Nate Gill Jr., DO at [facility] Orthopedic Implant Right: Knee [employer] 06/17/2027 42-5400-000 -35 / [id number] / [id number] Ins Artc 7-10 G-H 12mm Kn Fx Rpl [id number] + 81139 - [id number] - [id number] Implanted:Qty: 1 on 11/11/2019 by Nate Glil Jr., DO at [facility] Orthopedic Implant Right: Knee [employer] 01/16/2023-5962-050 -12 / [id number] / [id number] Plt Tib [id number] Nxgn Kn Cmnt Rpl [id number] + [id number] - [id number] - [id number] Implanted:Qty: 1 on 11/11/2019 by Nate Gill Jr., DO at [facility] Plate Right: Knee [employer] 10/16/2025 00-5980-057 -01 / [id number] / [id number] Explanted Type Area Seat Maker Device Identifier Shelf Expiration Date Model / Serial / Lot Scr Bn Sheldon 35mm 6.5mm Hip St Rpl [id number] + [id number] + 32 - [id number] - [id number] Explanted:Qty: 2 on 11/11/2019 by Nate Gill Jr., DO at [facility] Screw Right: Knee Ish [employer] 05/12/2029 00-6250-06 5-35 / [id number] / [id number] Scr Gd 48mm Qd-Spr Hex Hd Mis - [id number] - [id number] Explanted:Qty: 1 on 11/11/2019 by Nate Gill Jr., DO at [facility] Screw Right: Knee Ish [employer] 04/18/2029-5983-04 0-48 / [id number] Scr Gd 48mm Qd-Spr Hex Hd Mis - [id number] - [id number] Explanted:Qty: 1 on 11/11/2019 by Nate Gill Jr., DO at [facility] Screw Right: Knee Ish [employer] 03/18/20295983-04 0-48 / [id number] / [id number] Advance Directives * Full Code (Latest Code Status on File) Date Activated Date Inactivated Comments 11/11/2019 12:32 PM 11/12/2019 4:23 PM Care Teams Optical Instrument Specialist Relationship Specialty Start Date End Date Yuri Kuo MD 112 [facility] [address] [place] [address] PCP - General Internal Medicine 10/14/19
--- OUTSIDE RECORDS SUMMARY | 2024-10-01 10:54 | XMS_ITS | Encounter Summary ---
Author Organization [facility] Address [facility] [place] [address] Care Team Providers Care Ui Programmer Name Role Phone Ayaan DUFFY MD, Yuri Taylor Primary Care Provider [phone] Ayaan DUFFY MD, Daniel B Unavailable [phone] Source Comments In the event this information is protected by the Federal Confidentiality of Alcohol and Drug AbusePatient Records regulations: The Federal rules restrict any use of the information to criminally investigate or prosecute any alcohol or drug abuse patient.[facility] Encounter Details Date Type Department Care Team (Late st Contact Info) Description 02/12/2023 Patient Msg Orthopaedics [address] [address] Osman Gallardo MD [address] [place] [address] Appointment Cancellation Request Social History [...] N ot on file 04/03/2022 Data from: https://www.neighborhoodatlas.medicine.[facility]/. Last address used for calculation [address] 04/03/2022 Sex and Gender [...] Tim Landeros RN * Do you have serious difficulty [...] on filedocumented in this encounter Care Teams Ui Programmer Relationship Specialty Start Date End Date Yuri Kuo II, MD [address] [facility] [address] [place] [address] PCP - General Internal Medicine 08/31/21 Yuri Kuo II, MD 112 [facility] 110 [place] [address] Referring Internal Medicine 08/31/21 documented as of this encounter
--- OUTSIDE RECORDS SUMMARY | 2024-10-01 10:54 | XMS_ITS | Encounter Summary ---
Author Organization [facility] Address [address] [facility] [place] [address] Care Team Providers Care Acquisition Marketing Coordinator Name Role Phone Yuri Kuo MD Unavailable [phone] Yuri Kuo MD Primary Care Provider [phone] Encounter Details Date Type Department Care Team (Late st Contact Info) Description 06/16/2024 Abstract [facility] [address] [facility] 110 [place] [id number] Yuri Kuo MD 112 [facility] [address] [place], [place] [id number] Social History Tobacco Use Types Packs/Day Years [...] problems? Question Answer Date of Assessment Author Little interest or pleasure in doing things Not at all 06/16/2024 9:00 AM EDT Missy Vera LP N Feeling down, depressed, or hopeless Not at all 06/16/2024 9:00 AM EDT Missy Vera LP N Patient Health Questionnaire -2 Score 0 06/16/2024 9:00 AM EDT Missy Vera LP N documented as of this encounter Plan of Treatment Upcoming Encounters Date Type Department Care Team (Late st Contact Info) Description 10/28/2024 9:15 AM EDT Office [facility] [address] [place] [address] Anup Akbar, DO [address] [place] [address] 01/13/2025 1:30 PM EDT Office Visit [facility] [address] [place] [address] Jennifer Valero MD [address] [place] [address] documented as of this encounter Visit Diagnoses Not on filedocumented in this encounter Care Teams Acquisition Marketing Coordinator Relationship Specialty Start Date End Date Yuri Kuo MD [address] [place] [facility] [address] [place] [address] PCP - [employer] 06/17/22 Yuri Kuo MD [address] [place] [facility] [address] [place] [address] PCP - General Internal Medicine 08/18/22 documented as of this encounter
--- OUTSIDE RECORDS SUMMARY | 2024-10-01 10:54 | XMS_ITS | Clinical Summary ---
Author Organization [facility] Address [address] [place] [address] Care Team Providers Care Automation And Controls Instructor Name Role Phone Yuri Kuo MD Unavailable [phone] Yuri Kuo MD Primary Care Provider [phone] Allergies Active Allergy Reactions Criticality Noted Date Comments Gadoteridol Hives 03/02/2021 Patient became itchy and developed hives Patient became itchy and developed hives Patient became itchy and developed hives Iodinated Contrast Media Hives 11/07/2022 Medications atorvastatin (Lipitor) 40 MG tabletIndications: Mixed hyperlipidemia TAKE 1 TABLET(40 MG) BY MOUTH IN THE MORNING 100 tablet 3 11/15/19 24 Active amLODIPine (Norvasc) 10 MG tablet Take 10 mg by mouth Daily 02/06/20 24 Active Xarelto 20 MG tabletIndications: Edema, unspecified type TAKE 1 TABLET BY MOUTH EVERY DAY 100 tablet 3 06/21/19 25 Active methylPREDNISolone (Medrol Dospak) 4 MG tabletsIndications :Lumbar spine pain Follow schedule on package instructions 21 tablet 10/02/19 25 025 Active Hospital, Clinic, or Other Facility Administered Medication Ordered Dose Route Frequency Start Date End Date Status triamcinolone acetonide (Kenalog-40) injection 40 mgIndications:Lumbar spine pain 40 mg IM Once 10/01/2024 10/01/2024 Ended Active Problems Problem Noted Date Diagnosed Date Screening for colon cancer 09/17/2024 Primary hypertension 06/16/2024 High risk medication use 06/16/2024 Current use of long goods drier anticoagulation 025 History of pulmonary embolus (PE) 05/19/2024 Overview (05/19/2024): 2014, bilateral Elevated PSA 05/19/2024 Hypercoagulable state ([facility]) 05/19/2024 Factor V Leiden, prothrombin gene mutation ([facility]) 05/19/2024 Osteoarthritis of knee 10/02/2022 Artificial knee joint present 10/02/2022 Difficulty walking 10/02/2022 Edema 10/02/2022 Hyperlipidemia 02/08/2022 Overview (10/02/2022): Last Assessment & Plan: Assessment: on rx, follows with PCP Last Assessment & Plan: - continue Lipitor 40 mg Last Assessment & Plan: Assessment: on rx, follows with PCP Encounters Date Type Department Care Team Description 10/01/2024 10:00 AM EDT Office Visit [facility] [address] [facility] 110 [place] [address] Julissa Parra, YOMAIRA Lumbar spine pain (Primary Dx) 10/01/2024 Bamboo flowsheet [facility] [address] [facility] [address] [place] [address] Julissa Parra NP 10/01/2024 Travel 09/17/2024 9:30 AM EDT Consult [facility] [address] [facility] 150 [place] [address] Anup Akbar, Screening for colon cancer 09/17/2024 Travel 09/05/2024 Travel 08/25/2024 Abstract [facility] [address] [facility] [address] [place] [address] Yuri Kuo MD from Last 3 Months Immunizations Immunization Administration Dates Next Due Influenza, injectable, quadrivalent 01/14/2019 Influenza, injectable, quadr ivalent, preservative free 02/28/2022,01/05/2020,03/18/2016 Influenza, seasonal, injectable 04/02/2013 Influenza, seasonal, injecta ble, preservative free 01/12/2015 Influenza, seasonal, intrade rmal, preservative free 01/03/2013 Pneumococcal Polysaccharide PPSV23 06/27/2013 Family History Medical History Relation Name Comments Heart disease Father Hypertension Father Melanoma Father abdominal aortic aneurysm Father Atrial fibrillation Mother Other Mother Heart disease Sibling Relation Name Status Comments Father Mother Sibling Alive Social History Tobacco Use Types Packs/Day Years [...] Mass Index 33.62 10/01/2024 10:02 AM EDT Plan of Treatment Upcoming Encounters Date Type Department Care Team (Late st Contact Info) Description 10/28/2024 9:15 AM EDT [facility] Visit [facility] [address] [facility] 150 [place] [address] Anup Akbar DO 703 [facility] 150 [place] [address] 01/13/2025 1:30 PM EDT Office Visit [facility] [address] [place] [address] Jennifer Valero MD [address] [place] [address] Health Maintenance Due Date Last Done Comments CT Colonography 1955 FIT-DNA 1957 FIT 1955 FOBT 1955 Sigmoidoscopy 1955 Pneumococcal Vaccine: 65+ Ye ars (2 of 2 - PCV) 06/27/2014 06/27/2013 Influenza Vaccine (#1) 2024 2, 01/05/2020, 01/14/2019, Additional history exists Medicare Annual Wellness (AWV) 06/16/2025 06/16/2024 Colonoscopy 01/01/2029 01/01/2019 Colorectal Cancer Screening 01/01/2029 Procedures Procedure Name Priority Date/Time Associated Diagnosis Comments COLONOSCOPY Routine 01/01/2019 12:00 PM EDT from Last 3 Months or Most Recently Relevant to Health Maintenance Results * Colonoscopy (01/01/2019 12:00 PM EDT) Anatomical Region Laterality Modality Endoscopy 01/01/2019 12:0 0 PM EDT Narrative 01/01/2019 12:00 PM EDT PERFORMED AT [facility] LOCATION:[id number] CECAL POLYP-REPEAT 5 YEARS Procedure Note CONVERSION, GENERIC - 08/02/2022 PERFORMED AT [facility] LOCATION:[id number] CECAL POLYP-REPEAT 5 YEARS Yuri Kuo MD ENDOSCOPY PROCEDURE ORDERABLES Final Result from Last 3 Months or Most Recently Relevant to Health Maintenance Insurance [employer]AGE Care Teams Automation And Controls Instructor Relationship Specialty Start Date End Date Yuri Kuo MD [address] [place] [facility] 110 [place] [address] PCP - [employer] 06/17/22 Yuri Kuo MD [address] [place] [facility] 110 [place] [address] PCP - General Internal Medicine 08/18/22
--- OUTSIDE RECORDS SUMMARY | 2024-10-01 10:54 | XMS_ITS | Encounter Summary ---
Author Organization [facility] Address [address] [place] [address] Care Team Providers Care Bee Robber Name Role Phone Ayaan DUFFY MD, Yuri Taylor Primary Care Provider [phone] Ayaan DUFFY MD, Daniel B Unavailable [phone] Source Comments In the event this information is protected by the Federal Confidentiality of Alcohol and Drug AbusePatient Records regulations: The Federal rules restrict any use of the information to criminally investigate or prosecute any alcohol or drug abuse patient.[facility] Encounter Details Date Type Department Care Team (Late st Contact Info) Description 01/24/2023 Patient [place] [address] Provider, [facility]cf Need updated insurance information Social History Tobacco Use Types Packs/Day Years [...] N ot on file 04/03/2022 Data from: https://www.neighborhoodatlas.[facility]/. Last address used for calculation [address] 04/03/2022 Sex and Gender [...] on filedocumented in this encounter Care Teams Bee Robber Relationship Specialty Start Date End Date Yuri Kuo II, MD [address] [place] [address] [place] [address] PCP - General Internal Medicine 08/31/21 Yuri Kuo II, MD [address] [place] [address] [place] [address] Referring Internal Medicine 08/31/21 documented as of this encounter
--- OUTSIDE RECORDS SUMMARY | 2024-10-01 10:54 | XMS_ITS | Encounter Summary ---
Author Organization [facility] Address [address] [place] [address] Care Team Providers Care Sales Promotion Coordinator Name Role Phone Yuri Kuo MD Unavailable [phone] Yuri Kuo MD Primary Care Provider [phone] Encounter Details Date Type Department Care Team (Late st Contact Info) Description 06/17/2024 Abstract [facility] [address] [facility] 110 [place] [address] Yuri Kuo MD [address] [facility] 110 [place], [place] [id number] Social History Tobacco Use Types Packs/Day Years [...] EDT Office Visit [facility] [address] [facility] 150 [place] [address] Anup Akbar DO 703 [facility] 150 [place] [address] 01/13/2025 1:30 PM EDT Office Visit [facility] [address] [place] [address] Jennifer Valero MD [address] [place] [address] documented as of this encounter Visit Diagnoses Not on filedocumented in this encounter Care Teams Sales Promotion Coordinator Relationship Specialty Start Date End Date Yuri Kuo MD [address] [facility] 110 [place] [address] PCP - [employer] 06/17/22 Yuri Kuo MD [address] [facility] 110 [place] [address] PCP - General Internal Medicine 08/18/22 documented as of this encounter
--- OUTSIDE RECORDS SUMMARY | 2024-10-01 10:54 | XMS_ITS | Encounter Summary ---
Author Organization [facility] Address [address] [place] [address] Care Team Providers Care Credentialing Analyst Name Role Phone Ayaan DUFFY MD, Yuri Taylor Primary Care Provider [phone] Ayaan DUFFY MD, Daniel B Unavailable [phone] Source Comments In the event this information is protected by the Federal Confidentiality of Alcohol and Drug AbusePatient Records regulations: The Federal rules restrict any use of the information to criminally investigate or prosecute any alcohol or drug abuse patient.[facility] Encounter Details Date Type Department Care Team (Late st Contact Info) Description 2022 [place] [address] Provider, [facility] Medicare Coverage of Physical Exams Social History Tobacco Use Types Packs/Day Years [...] N ot on file 04/03/2022 Data from: https://www.neighborhoodatlas.[facility]/. Last address used for calculation [address] 04/03/2022 Sex and Gender [...] on filedocumented in this encounter Care Teams Credentialing Analyst Relationship Specialty Start Date End Date Yuri Kuo II, MD [address] [place] [address] [place] [address] PCP - General Internal Medicine 08/31/21 Yuri Kuo II, MD [address] [place] [address] [place] [address] Referring Internal Medicine 08/31/21 documented as of this encounter
--- OUTSIDE RECORDS SUMMARY | 2024-10-01 10:54 | XMS_ITS | Clinical Summary ---
Author Organization [facility] Address [address] [facility] [place] [address] Care Team Providers Care Flatwork Catcher Name Role Phone Yuri Kuo MD Primary Care Provider [phone] Allergies No known active allergies Medications rivaroxaban (XARELTO) 20 MG TABS tablet Take 20 mg by mouth. Active Active Problems Problem Noted Date Diagnosed Date Open fracture of distal phalanx or phalanges of hand 04/13/2014 Open wound of finger 04/13/2014 Crushing injury of finger 04/13/2014 Social History Tobacco Use Types Packs/Day Years Used Date Smoking Tobacco: Former Alcohol Use Standard Drinks/Week Comments No 0 (1 standard drink = 0.6 oz pur e alcohol) Sex and Gender Information Value Date Recorded Sex Assigned at Not on file Legal Sex Male 9:28 AM EST Gender Identity Not on file Sexual Orientation Not on file Last Filed Vital Signs Vital Sign Reading Time Taken Comments Blood Pressure 133/84 08/03/2014 4:15 PM EDT Pulse 54 08/03/2014 4:15 PM EDT Temperature - - Respiratory Rate - - Oxygen Saturation - - Inhaled Oxygen Concentration - - Weight 122.5 kg (270 lb) 08/03/2014 4:15 PM EDT Height 193 cm (6' 4 ) 08/03/2014 4:15 PM EDT Body Mass Index 32.87 08/03/2014 4:15 PM EDT Plan of Treatment Not on file Insurance [employer] [place] Care Teams Flatwork Catcher Relationship Specialty Start Date End Date Yuri Kuo MD PCP - General 02/09/14
--- OUTSIDE RECORDS SUMMARY | 2024-10-01 10:54 | XMS_ITS | Encounter Summary ---
Author Organization [facility] Address [address] [place] [address] Care Team Providers Care Alumni Coordinator Name Role Phone Yuri Kuo MD Unavailable [phone] Yuri Kuo MD Primary Care Provider Encounter Details Date Type Department Care Team (Latest Contact Info) Description 09/17/2024 Travel Social History Tobacco Use Types Packs/Day [...] EDT [facility] Visit [facility] [address] [facility] 150 [place] [address] Anup Akbar DO [address] [place] [address] 01/13/2025 1:30 PM EDT Office Visit [facility] [address] [facility] [address] [facility] [address] [place] [address] Jennifer Valero MD [address] [facility] 350 [place] [address] documented as of this encounter Visit Diagnoses Not on filedocumented in this encounter Care Teams Alumni Coordinator Relationship Specialty Start Date End Date Yuri Kuo MD [address] [facility] 110 [place] [address] PCP - [employer] 06/17/22 Yuri Kuo MD [address] [facility] 110 [place] [address] PCP - General Internal Medicine 08/18/22 documented as of this encounter
--- NOTE | 2024-10-01 11:00 | XR_ITS ---
The [address] [address] Patient Name: BOB LÓPEZ MRN: [id number] date: 1955 Sex: M Assigned Patient Location: [facility] Current Patient Location: [facility] Accession/Order Number: [id number] Exam Date: 10/01/2024 11:39 Report Date: 10/01/2024 11:42 At the request of: MATEO LAMAR Procedure: XR lumbar spine 6V w bending LUMBAR SPINE WITH FLEXION-EXTENSION VIEWS- 6 views: CLINICAL HISTORY: Low back pain for the past week with radiation on the left COMPARISON: 01/22/2018 AP, lateral neutral, flexion and extension and both oblique views of the lumbosacral junction were obtained. There is no evidence of fracture. There is minimal retrolisthesis of L2 on L3 and L3 on L4. No change in alignment is seen with flexion or extension. The disc spaces are maintained. There is mild endplate spurring, greater in the thoracolumbar region. There is moderate lower lumbar facet disease. No pars defect is identified. The sacroiliac joints are maintained and show sclerosis. There are no paraspinal soft tissue abnormalities. There is minor atherosclerotic disease at the aorta and iliac arteries. Patient has a right hip prosthesis XR/XR lumbar spine 6V w bending IMPRESSION: DEGENERATIVE CHANGES, DESCRIBED Impression dictated by: Brenda Vera M.D. 10/01/2024 11:42 AM Dictation Location: [place] [address] Electronically authenticated by: [id number] Date: 10/01/2024 11:42
== END 2024-10-01 10:48 | disposition home or self-care (01) ==
LOC: RAD 10:50
PROVIDERS: PCP Internal Medicine; Visit Provider Nurse Practitioner Family
DX: M54.50 Low back pain, unspecified (principal); M51.369 Other intervertebral disc degeneration, lumbar region without mention of lumbar back pain or lower extremity pain
CPT/HCPCS: 72114

== ENCOUNTER 2025-01-15 15:43 | Inpatient (IN) | payer MEDICARE, SELFPAY ==
--- OUTSIDE RECORDS SUMMARY | 2025-01-13 13:30 | XMS_ITS | Encounter Summary ---
Author Organization [facility] Address [address] [place] [address] Care Team Providers Care Cattle Brander Name Role Phone Yuri Kuo MD Unavailable [phone] Yuri Kuo MD Primary Care Provider [phone] Reason for Visit * ReasonCommentsSkin Check Encounter Details DateTypeDepartmentCare Team (Latest Contact Info)Gavydhpemsa39/28/2025 1:30 PM EDTOffice Visit [facility] [address] [facility] [address] [place] [address] Jennifer Valero MD [address] [facility] [address] [place] [address] Seborrheic keratosis (Primary Dx); Sebaceous hyperplasia of face; Lentigines Social History Tobacco UseTypesPacks/DayYears UsedDateSmoking Tobacco: FormerCigarettes0.520.1 12/2004 - 1972Smokeless Tobacco: NeverAlcohol UseStandard Drinks/WeekCommentsYes 0 (1 standard drink = 0.6 oz pure alcohol)drinks alcohol 2-3 times a weekPHQ-2 AnswerDate RecordedPatient Health Questionnaire-2 [id number] and Gender InformationValueDate RecordedSex Assigned at BirthNot on fileLegal SexMale 05/31/2022 6:55 PM EDTGender IdentityNot on fileSexual OrientationNot on file documented as of this encounter Progress Notes * Jennifer Valero MD - 01/13/2025 1:30 PM EDT Skin Check Location: Patient requests a skin examination from the waist up Dermatologic history: history of Actinic Keratosis, history of Basal Cell Carcinoma Last visit: 1 year ago Established patient All pertinent medical history, medications, and allergies were reviewed. General Exam: alert, oriented to person, place, and time, normal affect, well appearing Unaccompanied A complete skin exam was offered, pt declined. Areas not examined despite medical recommendation: From the waist down Scalp, Examined , exam limited by hair Head, Face Examined , Exam limited by holbrook and mustache Neck Examined Chest Examined Back Examined Abdomen Examined Right arm Examined Left arm Examined Hands Examined Digits,nails: Examined Lymphatics: Not examined Skin Exam 1. SEBACEOUS HYPERPLASIA OF FACE Head - Anterior (Face) Small yellow papules with a central dell. Reassure, benign. Discussed these can be removed for a cosmetic fee with the hyfrecator if desired. 2. LENTIGINES Generalized Scattered de jesus macules in sun-exposed areas. The patient was informed that lentigines are benign pigmented lesions that occur on sun-exposed andsun-damaged skin. No treatment is necessary. Recommended regular use of broad spectrum sunscreen SPF 30 or higher 3. SEBORRHEIC KERATOSIS (3) Arms, Head, Trunk Stuck on verrucous, de jesus-brown papules and plaques. Patient was counseled regarding these benign growths. Removal is normally not necessary, but they may be removed if they are symptomatic or for cosmetic reasons. Next Visit: 1 year skin check documented in this encounter Plan of Treatment DateTypeDepartmentCare Team (Latest Contact Info)Eoliueisygl18/28/2026 9:00 AM EDTOffice Visit [facility] [address] [place] [address] Jennifer Valero MD [address] [place] [address] documented as of this encounter Visit Diagnoses Diagnosis Seborrheic keratosis- Primary Sebaceous hyperplasia of face Lentigines documented in this encounter Care Teams Team MemberRelationshipSpecialtyStart DateEnd Date Yuri Kuo MD [address] [facility] [address] [place] [address] PCP - [facility]06/17/22 Yuri Kuo MD [address] [facility] [address] [place] [address] PCP - GeneralInternal Medicine08/18/22documented as of this encounter
[2025-01-15] VITALS (23 sets, daily range): BP systolic 112–149; BP diastolic 78–107; PULSE 68–132; TEMP 36.4–36.7; O2SAT 91–99; BMI 33.1; BMI 32.8
--- NOTE | 2025-01-15 15:51 | ECG_ITS ---
[facility] Date: 2025-01-15 Pat Name: BOB LÓPEZ Department: Room: - Gender: Male Environmental Health Manager: : 1955 Requested By: Eddie Dutta Order Number: [id number] Christiano MD: COMFORT PELAEZ M.D. Measurements Intervals Alta Rate: 117 P: -37878 SD: -23993 QRS: -68 QRSD: 146 T: 82 QT: 372 QTc: 441 Interpretive Statements 72639 Atrial fibrillation with rapid ventricular response 2330 Nonspecific intraventricular conduction block 5233 Voltage criteria for LVH 9150 abnormal ECG No previous ECG available for comparison Electronically Signed On 01-15-2025 16:42:51 EDT by COMFORT PELAEZ M.D.
--- OUTSIDE RECORDS SUMMARY | 2025-01-15 15:51 | XMS_ITS | Clinical Summary ---
Author Organization [facility] Address [address] [place] [address] Care Team Providers Care Salesperson Books Name Role Phone Yuri Kuo MD Primary Care Provider [phone] Allergies Active AllergyReactionsCriticalityNoted UxbcBacpauojFctfigmvdfkCtmtz39/15/2021 Patient became itchy and developed hives Patient became itchy and developed hives Medications MedicationSigDispense QuantityRefillsLast FilledStart DateEnd DateStatus atorvastatin (Lipitor) 40 mg tablet Take 40 mg by mouth in the morning.07/05/2022ctive furosemide (Lasix) 20 mg tablet Take 20 mg by mouth if needed.Active Xarelto 20 mg tablet Indications:Pulmonary embolism, other, unspecified chronicity, unspecified whether acute cor pulmonale present (CMS/HCC)Take 1 tablet (20 mg) by mouth in the morning. Resume on 10/21/2022 Do not start before October 21, 2022. 30 tablet 10/21/2022ctive amLODIPine (Norvasc) 10 mg tablet Indications:Primary hypertensionTake 1 tablet (10 mg) by mouth in the morning. 90 tablet /022874/5Active Active Problems ProblemNoted DateDiagnosed DateArtificial knee joint Difficulty jugodnn71EdemaOsteoarthritis of kneebnormal nuclear stress test09/25/2022VC (premature ventricular contraction)08/17/2022 Assessment & Plan (08/17/2022 12:58 PM EDT): - patient has not worn a Holter monitor yet, 48-hour monitor for PVC - we will see if PVC induces NSVT ELAINE (dyspnea on exertion)08/08/2022 Assessment & Plan (08/17/2022 12:52 PM EDT): - stress test and Holter monitor for PVCs, PCP note does mention Short run of nonsustained wide arrhythmia Personal history of pulmonary /23/2022 Overview (08/08/2022): Last Assessment & Plan: Assessment: Follows with PCP, letter sent for xarelto instructions. Diagnosed with factor 5 Leiden. Udoujl1604/10/2021 Overview (08/08/2022): Last Assessment & Plan: Assessment: new on exam today. Ordered echo to evaluate. Denies SOB, CP, palpitations, or dizziness. Mujoisnlenthko04/23/2022 Overview (08/08/2022): Last Assessment & Plan: Assessment: on rx, follows with PCP Assessment & Plan (08/17/2022 12:56 PM EDT): - continue Lipitor 40 mg Factor V Fibysr7102/08/2022 Overview (08/08/2022): Last Assessment & Plan: Assessment: on xarelto, h/o PE. Assessment & Plan (08/17/2022 12:56 PM EDT): - history of PE - factor V noted per [facility] 01/2022 Ihsmlvhjtda94/23/2022 Overview (08/08/2022): Last Assessment & Plan: Assessment: Chronic- PCP is aware. Generally runs in the high 40's- low 50's. Denies SOB, CP, dizziness, or palpitations. Manual check 54 BMP, on ekg 46 BMP. 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 Assessment & Plan (08/17/2022 12:57 PM EDT): - supposedly had sleep study years ago and was told she has borderline, no CPAP was ever prescribed Immunizations ImmunizationAdministration DatesNext DueCovid (Pfizer) Bivalent Booster =>12 YRS 02/28/2022Influenza, injectable, woczjxdclceg14/29/2019Influenza, injectable, quadrivalent, preservative free02/28/2022,01/05/2020,03/18/2016Influenza, seasonal, buyavxvihz17/15/2014Influenza, seasonal, injectable, preservative free, 6 moonths & older01/12/2015Unspecified Sars-Cov-2 Uzepnnfcwtq20/22/2021, 06/17/2020 Family History Medical HistoryRelationNameCommentsAtrial fibrillationMotherHeart failureMother RelationNameStatusCommentsMother Social History Tobacco UseTypesPacks/DayYears UsedDateSmoking Tobacco: FormerCigarettes Smokeless Tobacco: Never Tobacco Cessation:Counseling Given: Not Answered Alcohol UseStandard Drinks/WeekCommentsYes0 (1 standard drink = 0.6 oz pure alcohol)occasionallyUT Safety & EnvironmentAnswerDate RecordedFear of Current or Ex-PartnerNot on file05/10/2023Emotionally AbusedNot on file05/10/2023hysically AbusedNot on file05/10/2023Sexually AbusedNot on file05/10/2023hysically or Sexually AbusedNot on file05/10/2023Sex and Gender InformationValueDate Recorded Sex Assigned at BirthNot on fileLegal TvbFjyj4309/14/2021 11:37 PM EDTGender IdentityNot on fileSexual OrientationNot on file Last Filed Vital Signs Vital SignReadingTime TakenCommentsBlood Jrubkzxz472/8502/06/2024 9:30 AM EST Ypiwh969502/06/2024 9:30 AM ESTTemperature--Respiratory Ciee0380 11:48 AM EDTOxygen Hdoodwwpzm10%02/06/2024 9:30 AM ESTInhaled Oxygen Concentration-- Ckjtwe118 kg (277 lb)02/06/2024 9:30 AM ZEETjprpg956 cm (6' 4 )02/06/2024 9:30 AM ESTBody Mass Index33.7202/06/2024 9:30 AM EST Plan of Treatment DateTypeDepartmentCare Team (Latest Contact Info)Sbjatgcfgxu66/06/2025 9:20 AM ESTOffice [facility] [place] [address] [place] [address] Zhao Mays, COMPUTER RECYCLING WORKER [address] [place] [address] Health MaintenanceDue DateLast DoneCommentsCT Qjjbofpefxry36/23/1958FIT-DNA 1957FIT1957FOBT1957Medicare Annual Wellness (AWV)1955 Tnlrtjwilnyol91/23/1958Depression Woumgbmkw22/23/1970Pneumococcal Vaccine: 50+ Years (1 of 2 - PCV)1976Adult Xkqkyww5607/10/1979Zoster Vaccines (1 of 2) 07/10/2007Fall Risk Iojdzyqcd33/23/2023OVID-19 Vaccine ( season) , 07/08/2020, 07/08/2020, Additional history existsInfluenza Vaccine (#1)5105/01/2021, 01/05/2020, 01/14/2019, Additional history qfftsvRcxmphqipud78Colorectal Cancer Eqbjpuvuz62/16/2029HIB VaccinesAged OutNo longer eligible based on patient's age to complete this topic HPV VaccinesAged OutNo longer eligible based on patient's age to complete this topicIPV VaccinesAged OutNo longer eligible based on patient's age to complete this topicMeningococcal B VaccineAged OutNo longer eligible based on patient's age to complete this topicMeningococcal VaccineAged OutNo longer eligible based on patient's age to complete this topicRotavirus VaccinesAged OutNo longer eligible based on patient's age to complete this topic Insurance Care Teams Team MemberRelationshipSpecialtyStart DateEnd Yuri uKo MD [address] [facility] [address] [place] [address] [facility]08/07/22
--- OUTSIDE RECORDS SUMMARY | 2025-01-15 15:51 | XMS_ITS | Encounter Summary ---
Author Organization [facility] Address [address] [place] [address] Care Team Providers Care Home Health Provider Name Role Phone Yuri Kuo MD Unavailable [phone] Yuri Kuo MD Primary Care Provider [phone] Encounter Details DateTypeDepartmentCare Team (Latest Contact Info)Bmczfvneroz04/28/2025Travel Social History Tobacco UseTypesPacks/DayYears UsedDateSmoking Tobacco: FormerCigarettes0.520.1 12/2004Smokeless Tobacco: NeverAlcohol UseStandard Drinks/WeekCommentsYes 0 (1 standard drink = 0.6 oz pure alcohol)drinks alcohol 2-3 times a weekPHQ-2 AnswerDate RecordedPatient Health Questionnaire-2 Cclgz411Sex and Gender InformationValueDate RecordedSex Assigned at BirthNot on fileLegal SexMale 05/31/2022 6:55 PM EDTGender IdentityNot on fileSexual OrientationNot on file documented as of this encounter Plan of Treatment DateTypeDepartmentCare Team (Latest Contact Info)Bawfxnhfovl39/28/2026 9:00 AM EDTOffice Visit [facility] [address] [place] [address] Jennifer Valero MD [address] [place] [address] documented as of this encounter Visit Diagnoses Not on filedocumented in this encounter Care Teams Team MemberRelationshipSpecialtyStart DateEnd Date Yuri Kuo MD [address] [facility] [address] [place] [address] PCP - [facility]06/17/22 Yuri Kuo MD [address] [facility] [address] [place] [address] PCP - GeneralInternal Medicine08/18/22documented as of this encounter
--- OUTSIDE RECORDS SUMMARY | 2025-01-15 15:51 | XMS_ITS | Patient Health Record ---
Author Organization [facility] [place] Address [address] [place] [address] Care Team Providers Care Wheel Roller Name Role Phone Ayaan FAJARDO, Yuri Primary Care Provider UnavailMartinez Magana Unavailable [phone] Allergies Allergen (clinical drug ingredient) Drug/Non Drug Allergy documented on EMR Reaction Allergy Type Onset Date Status MRI contrast dye (uncoded)itching,rashAllergyActive Results Component Value Reference Range Notes MRI PROSTATE W/ + W/O CONTRA ST (Not yet reviewed by provider) Interpretation: Performing Lab: Notes/Report: MRI PROSTATE W/ + W/O CONTRA ST (Not yet reviewed by provider) Interpretation: Performing Lab: Notes/Report: PSA (Not yet reviewed by pro vider) Interpretation: Performing Lab: Notes/Report: [facility] , Prostate Specific Antigen Dx 5.94 <=4.00 ng/mL Performing Lab:see noteML - [facility] LBDecipher- Prostate (Not yet reviewed by provider) Interpretation: Performing Lab: Notes/Report: Reason For Referral No Information Medications Medication SIG (Take, Route, Frequency, Duration) Notes Start Date End Date Status predniSONE 50 MG 1 tablet for three d oses: 6 hours apart with last dose ending 30 minutes prior to testing Orally Once a day; Duration: 1 days 02/28/2024Not-TakingdiphenhydrAMINE HCl 50 MG1 tablet 60 minutes prior to MRI Orally Once a day; Duration: 1 days02/28/2024Not-TakingXarelto 20 MG1 tablet with food Orally Once a dayActiveCiprofloxacin HCl 500 MG1 tablet Orally every 12 hrs; Duration: 3 day(s)04/03/2024Not-TakingamLODIPine Besylate 2.5 MGOral; Duration: 90 DaysActiveAtorvastatin Calcium 40 MGTAKE 1 TABLET BY MOUTH EVERY DAY Oral; Duration: 90 DaysActive Social History Tobacco Use: Social History Observation Description Date Details (start date - stop date) Former Smoker NA - NA Tobacco Use/Smoking Question Answer Notes Patient is a former smoker How long has it been since you last smoked?> 10 yearsAUDIT-C (Standard) Question Answer Notes Did you have a drink containing alcohol in the p ast year? Yes How often did you have a drink containing alcohol in the past year?2 to 4 times a month (2 points)How many drinks did you have on a typical day when you were drinking in the past year?1 or 2 drinks (0 point)How often did you have six or more drinks on one occasion in the past year?Never (0 point)Points2 InterpretationNegative Problems Problem Type SNOMED Code ICD Code Onset Dates Problem Status W/U Status Risk Notes Problem Malignant tumor of prostate (365915670) P rostate cancer (C61) ActiveconfirmedProblemLower urinary tract symptoms due to benign prostatic hypertrophy (04362923987265)BPH w/o urinary obs/LUTS (N40.0)Activeconfirmed Vital Signs Height 76 in 08/21/2024 Jipzsw909 lbs08/21/2024BMI32.86 kg/m208/21/2024 Procedures Procedure Date Ordered Date Performed Result Body Sit e Prostate Ultrasound with Biopsy 04/03/2024 04/03/2024 N/A Encounters Encounter Location Date Provider Diagnosis Urology [address] [address] 01/29/2024 Martinez Herrera BPH w/o urinary obs/LUTS N40.0 and Elevated prostate specific antigen (PSA) R97.[address] [address] 04/03/2024 Martinez Herrera BPH w/o urinary obs/LUTS N40.0 and Elevated prostate specific antigen (PSA) R97.[address] [address] 08/21/2024 Martinez Herrera BPH w/o urinary obs/LUTS N40.0 ; Elevated prostate specific antigen (PSA) R97.20 and Prostate cancer C61 Urology [facility] [address] [place] [address] 06/19/2024 Martinez Herrera BPH w/o urinary obs/LUTS N40.0 ; Elevated prostate specific antigen (PSA) R97.20 and Prostate cancer C61 [facility] [address] [place] [address] 05/29/2024 [facility] [address] [place] [address]/12/2024[facility] Assessments Encounter Date Diagnosis (ICD Code) Assessment Notes Treatment Notes Treatment Clinical Notes Section Notes 01/29/2024 BPH w/o urinary obs/LUTS (ICD-10 - N40.0) 01/29/2024Elevated prostate specific antigen (PSA) (ICD-10 - R97.20)04/03/2024 BPH w/o urinary obs/LUTS (ICD-10 - N40.0)06/19/2024PH w/o urinary obs/LUTS (ICD-10 - N40.0)08/21/2024PH w/o urinary obs/LUTS (ICD-10 - N40.0)08/21/2024 Elevated prostate specific antigen (PSA) (ICD-10 - R97.20)06/19/2024Elevated prostate specific antigen (PSA) (ICD-10 - R97.20)06/19/2024Prostate cancer (ICD- 10 - C61)04/03/2024Elevated prostate specific antigen (PSA) (ICD-10 - R97.20) 08/21/2024Prostate cancer (ICD-10 - C61)01/29/2024Other Discussed biopsy and MRI. Discussed ExoDx PSA is up. Will recheck MRI and see back 04/03/2024OtherUronav prostate iiiktw9906/19/2024OtherThis appears to be a very low risk process cancer based on old Miguelangel classification. I would like to send this tissue for genetics to see if this is a cancer that can be safely watched. Discussed NCCN as well as AUA guidelines, including active surveillance, surgery, radiation, and observation.08/21/2024Other Decipher very low risk. Discussed NCCN including surgery and radiation. Will cont and see back in 1 year w PSA Plan Of Treatment Pending Test Test Name Order Date MRI Prostate w/wo contrast 01/06/2021 MRI PROSTATE W/ + W/O CONTRAST 4 [facility]- Prostate 06/19/2024 PSA 01/24/2024 Future Test Test Name Order Date PSA Total 08/25/2021 PSA, TOTAL 12/01/2022 PSA, TOTAL 01/26/2024 Insurance Providers Payer Name Payer Address Payer Phone Subscriber Number Group Number Insured Name Patient Relationship to Insured Coverage Start Date Coverage End Date [employer] MED[employer]ARE ADV PLAN [address] [address] [place] [phone] [id number] Eric Khanna - patient is the [id number] 2022 Medical (General) History Medical History History ICD Code Arthritis Elevated prostate specific antigen (PSA)R97.20Hyperlipidemiapulmonary embolism Factor 5 clotting disorderhypertensionsleep apneaSurgical History Surgery Date(Month/Year) left knee arthroscopy tonsillectomyvasectomyright knee replacementthumb surgeryRight hip replacement 02/2022
--- OUTSIDE RECORDS SUMMARY | 2025-01-15 15:51 | XMS_ITS | Clinical Summary ---
Author Organization [facility] Address [address] [place] [address] Care Team Providers Care Auriculotherapist Name Role Phone Ayaan DUFFY MD, Yuri Taylor Primary Care Provider [phone] Ayaan DUFFY MD, Daniel B Unavailable [phone] Allergies Active AllergyReactionsCriticalityNoted DztnXevzaoaeFkogmxuelreVoafo74/15/2021 Patient became itchy and developed hives Medications MedicationSigDispense QuantityRefillsLast FilledStart DateEnd DateStatus rivaroxaban (XARELTO) 20 mg tablet Take 20 mg by mouth once daily.07/24/2013ctive atorvastatin (LIPITOR) 40 mg tablet Take 40 mg by mouth once daily.10/10/2021ctive acetaminophen (TYLENOL) 500 mg tablet Take 2 tablets by mouth every 8 hours as needed for pain. 90 tablet 02/28/2022ctive ascorbic acid, vitamin C, (VITAMIN C) 500 mg tablet Take 1 tablet by mouth twice daily with meals for 27 doses. 27 tablet 02/28/2022ctive oxyCODONE IR (ROXICODONE) 5 mg immediate release tablet Indications:S/P total right hip arthroplastyTake 1-2 tablets by mouth every 6 hours as needed for pain. 30 tablet 02/28/2022ctive Active Problems ProblemNoted DateDiagnosed DatePersonal history of pulmonary arxdysyz18/23/2022 Assessment & Plan (02/08/2022 10:48 AM EST): Assessment: Follows with PCP, letter sent for xarelto instructions. Diagnosed with factor 5 Leiden. Xollosrwgpfzvy31/23/2022 Assessment & Plan (02/08/2022 10:42 AM EST): Assessment: on rx, follows with PCP Factor V Lkflgh3802/08/2022 Assessment & Plan (02/08/2022 10:56 AM EST): Assessment: on xarelto, h/o PE. Ajctqpntxbk39/23/2022 Assessment & Plan (02/08/2022 11:23 AM EST): Assessment: Chronic- PCP is aware. Generally runs in the high 40's- low 50's. Denies SOB, CP, dizziness, or palpitations. Manual check 54 BMP, on ekg 46 BMP. Stzhqj2204/10/2021 Assessment & Plan (02/08/2022 11:22 AM EST): Assessment: new on exam today. Ordered echo to evaluate. Denies SOB, CP, palpitations, or dizziness. Obstructive sleep apnea09/07/2008 Assessment & Plan (02/08/2022 10:46 AM EST): Assessment: Was told years ago his ELIEZER was borderline and he didn't need a CPAP. Encounters DateTypeDepartmentCare EjlhCuxxxdjwpbk45/04/2025 Patient Msg Orthopaedics [address] [address] Osman Gallardo MD Walk of Jointsfrom Last 3 Months Immunizations ImmunizationAdministration DatesNext DueCOVID-19 vaccine, age 12+ yr, bivalent (PFIZER-BIONTECH)02/28/2022influenza (IIV4) vaccine, age 6 mo - 64 yr, quadrivalent, PF (AFLURIA, FLUARIX, FLULAVAL, FLUZONE)02/28/2022 Family History Medical HistoryRelationCommentsCOPDFatherHeart FailureFatherCOPDMotherHeart FailureMotherHypertensionMotherRelationStatusCommentsFatherDeceasedMother Social History Tobacco UseTypesPacks/DayYears UsedDateSmoking Tobacco: FormerCigarettes0.530 Smokeless Tobacco: Never Tobacco Cessation:Counseling Given: Not Answered Comments:Quit smoking 13 years ago Alcohol UseStandard Drinks/WeekCommentsNot Currently0 (1 standard drink = 0.6 oz pure alcohol)Area Deprivation IndexAnswerDate RecordedNational Score (1-100), lower number is lower elzz565904/03/2022State Score (1-10), lower number is lower riskNot on file04/03/2022ata from: https://www.neighborhoodatlas.medicine.[facility]/. Last address used for [address]/03/2022Sex and Gender InformationValueDate RecordedSex Assigned at BirthNot on fileLegal LkeFivw5707/03/2013 11:29 AM EDT Gender IdentityNot on fileSexual OrientationNot on file Last Filed Vital Signs Vital SignReadingTime TakenCommentsBlood Bemarnfw386/7602/28/2022 11:43 AM EST Zvqrr601302/28/2022 11:43 AM YCPNowrpsdojmw82.9 ??C (98.4 ??F)02/28/2022 11:43 AM ESTRespiratory Fjat165705/01/2021 11:43 AM ESTOxygen Eeqqvgigub06%02/28/2022 11:43 AM ESTInhaled Oxygen Concentration--Qbokix617.6 kg (268 lb)02/27/2022 9:26 AM JJGLkfqie518.5 cm (6' 3 )02/27/2022 9:26 AM ESTBody Mass Index33.512 9:26 AM EST Plan of Treatment Health MaintenanceDue DateLast DoneCommentsAbdominal Aortic Aneurysm Screening 8Anxiety Pjshhbqrc52/23/1976Depression Nxepxwphm66/23/1976Hepatitis C Zfvwajxjq57/23/1976DTaP,Tdap,Td Vaccine (1 - Tdap)1976Lipid Screening 1992CT Txwdetvhqsay00/23/2003Cologuard (FIT-DNA)2002Colonoscopy 2002Colorectal Cancer Iqxwycvqg19/23/2003Fecal Occult Blood2002 Prostate Cancer Screening Pzlsgezvfo96/23/6048Vmexxbqfycwmi42/23/2003Shingrix Vaccine (1 of 2)07/10/2007Pneumococcal Vaccine: 50+ (2 of 2 - PCV)06/27/2014 06/27/2013dvance Directive Tkntjmuucc79/01/2025Medicare Advantage Annual Wellness Visit5Covid-19 Vaccine ( - season)2024 02/28/2022, 07/08/2020, 06/17/2020Influenza Vaccine (#1)/, 01/05/2020, 01/14/2019, Additional history existsDiabetes Ckgvhalpc32/13/2025 02/28/2022, 2RSV Vaccine (1 - 1-dose 75+ series)2032 Medical Devices ImplantedTypeAreaManufacturerDevice IdentifierShelf Expiration DateModel / Serial / LotShell Trident Ii 58mm F Tritanium Acetabular 5 Screw Hole Cluster Sterile - [id number] Implanted:Qty: 1 on 02/27/2022 at [facility]: Bone - Hip STRY-HOWM AEINXQEBUZN69/18/[id number] / / [id number] Acetabular 36mm 0d F Hip X3 Trident - [id number] Implanted:Qty: 1 on 02/27/2022 at [facility]: Bone - Hip [id number] / / [id number] 36mm -2.5mm Offset Taper Biolox Delta Femoral Hip - [id number] [facility] STRY-HOWM ODHBYSBWYHF79/21/[id number] / / [id number] Accolade Ii 6 127d Femoral - [id number] Implanted:Qty: 1 on 02/27/[address] [facility]: Bone - HipSTRY-HOWM BCVOALPITGJ43/13/[id number] / / [id number] Trident Ii 6.5mm 25mm Bone Low Profile Hexagonal Sterile - [id number] Implanted:Qty: 1 [facility] Bone - HipSTRY-HOWM RCJPDEWZUCE58/31/[id number] / / [id number] Procedures Procedure NamePriorityDate/TimeAssociated DiagnosisCommentsBASIC METABOLIC PANEL Tamxwhq0002/28/2022 6:10 AM EST from Last 3 Months or Most Recently Relevant to Health Maintenance Results * (ABNORMAL) BASIC METABOLIC PNL (02/28/2022 6:10 AM EST)ComponentValueRef Range Test MethodAnalysis TimePerformed AtPathologist JwhzepgeuOnveray344(H)74 - 99 mg/dL02/28/2022 7:25 AM ESTMEDINA LABORATORYComment: The [place] Diabetes Association (ADA) provides guidance for cutoff values for fasting glucose andrandom glucose. The ADA defines fasting as no [...] Standards of Medical Care in Diabetes 2016, [place] Diabetes Association. Diabetes Care. 2016.39(Suppl 1). MOU681 - 24 mg/dL02/28/2022 7:25 AM ESTMEDINA LABORATORYCreatinine0.930.73 - 1.22 mg/dL02/28/2022 7:25 AM ESTMEDINA BGAFKFWLBTXrycao983025 - 144 mmol/L 02/28/2022 7:25 AM ESTMEDINA LABORATORYPotassium4.93.7 - 5.1 mmol/L105/01/2021 7:25 AM ESTMEDINA QDMNSOQJUCIlnolves76387 - 105 mmol/L105/01/2021 7:25 AM EST SOLIS OSKUTWUISETC720(H)22 - 30 mmol/L105/01/2021 7:25 AM ESTMEDINA LABORATORY Anion Gap6(L)9 - 18 mmol/L105/01/2021 7:25 AM ESTMEDINA LABORATORYCalcium, Total 8.78.5 - 10.2 mg/dL02/28/2022 7:25 AM ESTMEDINA LABORATORYEstimated Glomerular Filtration Rate92>=60 mL/min/1.73m 02/28/2022 7:25 AM ESTMEDINA LABORATORYComment:Estimated Glomerular Filtration Rate (eGFR) is calculated using the 2020 CKD-EPI creatinine equation. This equation utilizes serum creatinine, sex, and age as parameters. The creatinine assay has traceable calibration to isotope dilution-mass spectrometry. Refer to KDIGO guidelines for clinical interpretation. In patients with unstable renal function, e.g. those with acute kidney injury, the eGFRmay not accurately reflect actual GFR.Specimen (Source)Anatomical Location / LateralityCollection Method / VolumeCollection TimeReceived TimeBloodBLOOD SPECIMEN / Unknown Venipuncture / Olahqpi3102/28/2022 6:10 AM EST02/28/2022 6:42 AM EST Narrative Authorizing ProviderResult TypeResult StatusStephen Grater FISHING ROD TRIMMER.CNPLABORATORY Final ResultPerforming OrganizationAddressCity/State/ZIP CodePhone Number [facility] [address] [place] [address], from Last 3 Months or Most Recently Relevant to Health Maintenance Insurance Care Teams Team MemberRelationshipSpecialtyStart DateEnd Yuri Kuo II, MD [address] [facility] [address] [place] [address] PCP - GeneralInternal Medicine08/31/21 Yuri Kuo II, MD [address] [address] [facility]08/31/21
--- OUTSIDE RECORDS SUMMARY | 2025-01-15 15:51 | XMS_ITS | Clinical Summary ---
Author Organization [facility] Address [address], [address] [place] [address] Care Team Providers Care Business Programmer Name Role Phone Yuri Kuo MD Primary Care Provider [phone] Allergies No known active allergies Medications MedicationSigDispense QuantityRefillsLast FilledStart DateEnd DateStatus rivaroxaban (XARELTO) 20 MG TABS tablet Take 20 mg by mouth.Active Active Problems ProblemNoted DateDiagnosed DateOpen fracture of distal phalanx or phalanges of hand04/13/2014Open wound of jzmgaw1304/13/2014Crushing injury of cfszmt4404/13/2014 Social History Tobacco UseTypesPacks/DayYears UsedDateSmoking Tobacco: FormerAlcohol Use Standard Drinks/WeekCommentsNo0 (1 standard drink = 0.6 oz pure alcohol)Sex and Gender InformationValueDate RecordedSex Assigned at BirthNot on fileLegal Sex Male04/28/2012 9:28 AM ESTGender IdentityNot on fileSexual OrientationNot on file Last Filed Vital Signs Vital SignReadingTime TakenCommentsBlood Yripuvoh268/8408/03/2014 4:15 PM EDT Pevkl225508/03/2014 4:15 PM EDTTemperature--Respiratory Rate--Oxygen Saturation-- Inhaled Oxygen Concentration--Cfvzzm407.5 kg (270 lb)08/03/2014 4:15 PM EDT Zujltt723 cm (6' 4 )08/03/2014 4:15 PM EDTBody Mass Index32.8708/03/2014 4:15 PM EDT Plan of Treatment Not on file Insurance * Guarantor: [employer] (HotelHotel)Account TypeRelation to PatientDate of PhoneBilling AddressWorkers VbliGblcmjzr65/23/[address] [place] [address] Care Teams Team MemberRelationshipSpecialtyStart DateEnd Date Yuri Kuo MD [facility] - Jbohxhu53/24/14
--- OUTSIDE RECORDS SUMMARY | 2025-01-15 15:51 | XMS_ITS | Encounter Summary ---
Author Organization [facility] Address [address] [place] [address] Care Team Providers Care Mower Mechanic Name Role Phone Yuri Kuo MD Unavailable [phone] Yuri Kuo MD Primary Care Provider [phone] Encounter Details DateTypeDepartmentCare Team (Latest Contact Info)Vkmexnwbulv08/28/2025amboo flowsheet [facility] [address] [facility] [address] [place] [address] Jennifer Valero MD [address] [facility] [address] [place] [address] Social History Tobacco UseTypesPacks/DayYears UsedDateSmoking Tobacco: FormerCigarettes0.520.1 12/2004 - 1972Smokeless Tobacco: NeverAlcohol UseStandard Drinks/WeekCommentsYes 0 (1 standard drink = 0.6 oz pure alcohol)drinks alcohol 2-3 times a weekPHQ-2 AnswerDate RecordedPatient Health Questionnaire-2 Zaxni671Sex and Gender InformationValueDate RecordedSex Assigned at BirthNot on fileLegal SexMale 05/31/2022 6:55 PM EDTGender IdentityNot on fileSexual OrientationNot on file documented as of this encounter Plan of Treatment DateTypeDepartmentCare Team (Latest Contact Info)Irbhhvltzfl99/28/2026 9:00 AM EDTOffice Visit [facility] [address] [facility] [address] [place] [address] Jennifer Valero MD [address] [place] [address] documented as of this encounter Visit Diagnoses Not on filedocumented in this encounter Care Teams Team MemberRelationshipSpecialtyStart DateEnd Date Yuri Kuo MD [address] [facility] [address] [place] [address] PCP - [employer]4 Yuri Kuo MD [address] [facility] [address] [place] [address] PCP - GeneralInternal Medicine08/18/22documented as of this encounter
--- OUTSIDE RECORDS SUMMARY | 2025-01-15 15:52 | XMS_ITS | Clinical Summary ---
Author Organization [employer] [facility] tem Address [id number] [place] [address] Care Team Providers Care Architectural Inspector Name Role Phone Yuri Kuo MD Primary Care Provider [phone] Allergies Active AllergyReactionsCriticalityNoted NqekVbprbqknGntiqxbiuzlQtmmo33/15/2021 Patient became itchy and developed hives Medications MedicationSigDispense QuantityRefillsLast FilledStart DateEnd DateStatus rivaroxaban (XARELTO) 20 mg tablet tablet Take 20 mg by mouth daily.Active Active Problems ProblemNoted DateDiagnosed DateArthritis of right knee11/10/2019 Family History Medical HistoryRelationNameCommentsAneurysmFatherCOPDFatherCancerFathermelanoma Heart failureFatherAneurysmMotherCOPDMotherCancerMotherbreastHeart failureMother HypertensionMotherRelationNameStatusCommentsFatherDeceasedMotherDeceased Social History Tobacco UseTypesPacks/DayYears UsedDateSmoking Tobacco: FormerSmokeless Tobacco: Never Comments:quit 11 years ago Alcohol UseStandard Drinks/WeekCommentsYes0 (1 standard drink = 0.6 oz pure alcohol)socialAUDIT-CAnswerDate RecordedQ1: How often do you have a drink containing alcohol?2-4 times a month11/11/2019Q2: How many drinks containing alcohol do you have on a typical day when you are drinking?3 or Q3: How often do you have six or more drinks on one occasion?Never11/11/2019PHQ-2 AnswerDate RecordedTotal Nnofr043ChildcareAnswerDate RecordedChildcare Wlfzbkk6608/28/2018EmploymentAnswerDate HmwiewpgDoxzgqkfuwVcnakvi97/12/2019Purpose - LifeAnswerDate RecordedPurpose and direction in yweaOlvkacz49/11/2021ex and Gender InformationValueDate RecordedSex Assigned at BirthNot on fileLegal Sex Male10/22/2014 11:45 AM EDTGender IdentityNot on fileSexual OrientationNot on file Last Filed Vital Signs Vital SignReadingTime TakenCommentsBlood Njkulseg682/7603/10/2020 8:39 AM EST Tsgtp232003/10/2020 8:35 AM ZTHHkthxarojxr93.5 ??C (97.7 ??F)03/10/2020 7:45 AM ESTRespiratory Owpe605005/11/2019 8:35 AM ESTOxygen Jrdfbfyecw23%03/10/2020 8:35 AM ESTInhaled Oxygen Concentration--Lesiyg413.9 kg (260 lb)02/21/2021 11:00 PM ECENpllpt639.8 cm (6' 3.5 )03/10/2020 6:43 AM ESTBody Mass Index32.0703/10/2020 6:43 AM EST Plan of Treatment Health MaintenanceDue DateLast DoneCommentsDepression Jpfkbfrit90/23/1970Tobacco Lheiwfjby81/23/1970Adult BMI Yjxowvvzn33/23/1976DTaP,Tdap and Td Vaccines (1 - Tdap)1976Zoster (Shingles) Vaccine (1 of 2)07/10/2007Fall Risk Screening 3COVID-19 Vaccine (3 - season)504/, 06/17/2020 Influenza Kvqxcwc23/, 01/14/2019, 03/18/2016, Additional history exists Goals GoalPatient Goal TypeAssociated ProblemsRecent ProgressPatient-Stated?Author Home Emma Morrow LSW Note: Evaluation of progress towards goal: Safe dc transition home with family support and [facility]. Medical Devices ImplantedTypeAreaManufacturerDevice IdentifierShelf Expiration DateModel / Serial / LotCmnt Bn Bio 40gm Rpl [id number] - [id number] - [id number] Implanted:Qty: 2 on 11/11/2019 by Nate Gill Jr., DO [facility] KneeZimmer Amlnlk20/30/[id number] / [id number] / [id number] Fem G Kn Rt Cmnt Lpsflx Rpl 388043 + [id number] - [id number] - [id number] Implanted:Qty: 1 on 11/11/2019 by Nate Gill Jr., DO at [facility] ImplantRight: KneeZimmer Hwqjrn3910/16/202819-0512-116-52 / [id number] / [id number] Ptlr 35mm Alply Psn - [id number] - [id number] Implanted:Qty: 1 on 11/11/2019 by Nate Gill Jr., DO at [facility] ImplantRight: KneeZimmer Unzpmp2106/17/2027 75-0728-680-35 / [id number] / [id number] Artc 7-10 G-H 12mm Kn Fx Rpl 828744 + [id number] - [id number] - [id number] Implanted:Qty: 1 on 11/11/2019 by Nate Gill Jr., DO at [facility] ImplantRight: KneeZimmer Uudcuf8601/16/2023 99-8724-276-12 / [id number] / [id number] Tib 11t31u2wl Nxgn Kn Cmnt Rpl [id number] + [id number] - [id number] - [id number] Implanted:Qty: 1 on 11/11/2019 by Nate Gill Jr[facility] KneeZimmer [id number] / [id number] / [id number]gouJvyzpu IdentifierShelf Expiration DateModel / Serial / LotScr Bn Sheldon 35mm 6.5mm Hip St Rpl [id number] + [id number] + 32 - [id number] - [id number] Explanted:Qty: 2 on 11/11/2019 by [facility] Gill Jr[facility] KneeZimmer [id number] / [id number] / [id number] Gd 48mm Qd-Spr Hex Hd Mis - [id number] - [id number] Explanted:Qty: 1 on 11/11/2019 by Nate Gill Jr., [facility]: KneeZimmer [id number] / [id number] / [id number] Gd 48mm Qd-Spr Hex Hd Mis - [id number] - [id number] Explanted:Qty: 1 on 11/11/2019 by Nate Gill Jr[facility]: KneeZimmer [id number] / [id number] / [id number] Advance Directives * Full Code (Latest Code Status on File) Date ActivatedDate InactivatedComments11/11/2019 12:32 PM11/12/2019 4:23 PM Care Teams Team MemberRelationshipSpecialtyStart DateEnd Date Yuri Kuo MD [address] [id number] PCP - GeneralInternal Medicine10/14/19
--- OUTSIDE RECORDS SUMMARY | 2025-01-15 15:52 | XMS_ITS | Clinical Summary ---
Author Organization [facility] Healthcare Address [address] [place] [address] Care Team Providers Care Client Services Representative Name Role Phone Yuri Kuo MD Unavailable [phone] Yuri Kuo MD Primary Care Provider [phone] Allergies Active AllergyReactionsCriticalityNoted SoxvBfbwnukgOxoadjhjmirIgibb45/15/2021 Patient became itchy and developed hives Patient became itchy and developed hives Patient became itchy and developed hives Iodinated Contrast DgchmFdkvk50/22/2023 Medications MedicationSigDispense QuantityRefillsLast FilledStart DateEnd DateStatus amLODIPine (Norvasc) 10 MG tablet Take 10 mg by mouth Daily4Active Xarelto 20 MG tablet Indications:Edema, unspecified typeTAKE 1 TABLET BY MOUTH EVERY DAY 100 tablet 5Active atorvastatin (Lipitor) 40 MG tablet Indications:Mixed hyperlipidemiaTAKE 1 TABLET(40 MG) BY MOUTH IN THE MORNING 100 tablet 5Active Active Problems ProblemNoted DateDiagnosed DateAdenomatous polyp of cecum10/28/2024Screening for colon fqkuro2009/17/2024Primary obsyoptvaheo48/31/2025High risk medication use 06/16/2024urrent use of terminal make up operator cgbdqmdtezcobah71/31/2025History of pulmonary embolus (PE)05/19/2024 Overview (05/19/2024): 2014, bilateral Elevated PSA05/19/2024Hypercoagulable state ([facility])05/19/2024Factor V Leiden, prothrombin gene mutation ([facility])05/19/2024Osteoarthritis of knee10/02/2022 Artificial knee joint evnarjk3110/02/2022ifficulty zjhyldl3910/02/2022Edema 10/02/20225067Hdgkcqvxwqemjz69/23/2022 Overview (10/02/2022): Last Assessment & Plan: Assessment: on rx, follows with PCP Last Assessment & Plan: - continue Lipitor 40mg Last Assessment & Plan: Assessment: on rx, follows with PCP Encounters DateTypeDepartmentCare JzgjPphdndvrvfo18/28/2025 1:30 PM EDTOffice Visit [facility] [address] [place] [phone] Jennifer Valero MD Seborrheic keratosis (Primary Dx); Sebaceous hyperplasia of face; Jsuzexkiug76/28/2025amboo flowsheet [facility] [address] [place] [phone] Jennifer Valero MD 01/13/20258925Lvoule44/09/2025 11:40 AM EDTOffice Visit [facility] [address] [place] [phone] Haseeb Ling DPM Onychocryptosis (Primary Dx); Toe pain, left11/25/2024amboo flowsheet [facility] [address] [place] [phone] Haseeb Ling DPM 11/18/2024 10:20 AM EDTOffice Visit [facility] [address] [place] [phone] Haseeb Ling DPM Onychocryptosis (Primary Dx); Toe pain, left11/18/2024amboo flowsheet [facility] [address] [place] [phone] Haseeb Ling, DPM 11/14/2024Refill [facility] [address] [place] [phone] Yuri Kuo MD Mixed sryqowcimdiifl11/15/2025 10:20 AM EDTOffice Visit [facility] [address] [place] [phone] Haseeb Ling, DPM Onychocryptosis (Primary Dx); Toe pain, left10/31/2024bstract [facility] [address] [place] [phone] Haseeb Ling, DPM 10/31/2024amboo flowsheet [facility] [address] [place] [phone] Haseeb Ling, DPM 10/28/2024 9:15 AM EDTOffice Visit [facility] [address] [facility] [address] [place] [phone] Anup Akbar, Adenomatous polyp of cecum (Primary Dx)10/28/20245723Uduopj60/05/2025Orders Only [facility] [address] [phone] Anup Akbar, 10/16/2024External Result Encounter [facility] External Department Unsolicited Anup Akbar, 10/16/2024Travelfrom Last 3 Months Immunizations ImmunizationAdministration DatesNext DueInfluenza, injectable, quadrivalent 01/14/2019Influenza, injectable, quadrivalent, preservative free02/28/2022, 01/05/2020,03/18/2016Influenza, seasonal, elycuayzma60/15/2014Influenza, seasonal, injectable, preservative free01/12/2015Influenza, seasonal, intradermal, preservative free01/03/2013Pneumococcal Polysaccharide PPSV23 06/27/2013 Family History Medical HistoryRelationNameCommentsHeart diseaseFatherHypertensionFatherMelanoma Fatherabdominal aortic aneurysmFatherAtrial fibrillationMotherOtherMotherHeart diseaseSiblingRelationNameStatusCommentsFatherDeceasedMotherDeceasedSiblingAlive Social History Tobacco UseTypesPacks/DayYears UsedDateSmoking Tobacco: FormerCigarettes0.520.1 12/2004 - 1972Smokeless Tobacco: Never Tobacco Cessation:Counseling Given: Yes Alcohol UseStandard Drinks/WeekCommentsYes0 (1 standard drink = 0.6 oz pure alcohol)drinks alcohol 2-3 times a weekPHQ-2AnswerDate RecordedPatient Health Questionnaire-2 Yuvoo348Sex and Gender InformationValueDate RecordedSex Assigned at BirthNot on fileLegal XvjCyms7205/31/2022 6:55 PM EDTGender Identity Not on fileSexual OrientationNot on file Last Filed Vital Signs Vital SignReadingTime TakenCommentsBlood Qwovhumj333/7007 10:02 AM EDT Bjqrl920310/01/2024 10:02 AM EDTTemperature--Respiratory Kdxv487211/25/2024 11:24 AM EDTOxygen Fdhllsttjv03%10/01/2024 10:02 AM EDTInhaled Oxygen Concentration-- Aiuyje375 kg (269 lb)11/25/2024 11:24 AM PZIYzokja656.5 cm (6' 3 )11/25/2024 11:24 AM EDTBody Mass Index33.62011/25/2024 11:24 AM EDT Plan of Treatment DateTypeDepartmentCare Team (Latest Contact Info)Kbmvttxzhwh55/28/2026 9:00 AM EDTOffice Visit [facility] [address] [place] [address] Jennifer Valero MD [address] [place] [address] Health MaintenanceDue DateLast DoneCommentsCT Ispmjptvcjrs24/23/1958FIT-DNA 1957FIT1957FOBT1957 1531Zenumpkvawrbv45/23/1958MMR Vaccines (1 of 1 - Standard series)1958DTaP/Tdap/Td Vaccines (1 - Tdap)1964 Pneumococcal Vaccine: 65+ Years (2 of 2 - PCV)06/27/201404COVID-19 Vaccine (3 - season)/, 06/17/2020Influenza Vaccine (#1)/, 01/05/2020, 01/14/2019, Additional history exists Medicare Annual Wellness (AWV)603/9491Tungekmnapu20/31/2035 10/16/2024, 01/01/2019Colorectal Cancer Iadnrjdnr33/31/2035HIB VaccinesAged Out No longer eligible based on patient's age to complete this topicHPV VaccinesAged OutNo longer eligible based on patient's age to complete this topicHepatitis A VaccinesAged OutNo longer eligible based on patient's age to complete this topic Hepatitis B VaccinesAged OutNo longer eligible based on patient's age to complete this topicIPV VaccinesAged OutNo longer eligible based on patient's age to complete this topicMeningococcal B VaccineAged OutNo longer eligible based on patient's age to complete this topicMeningococcal VaccineAged OutNo longer eligible based on patient's age to complete this topicRotavirus VaccinesAged Out No longer eligible based on patient's age to complete this topic Procedures Procedure NamePriorityDate/TimeAssociated DiagnosisComments COLONOSCOPYRoutine 10/16/2024 11:44 AM EDTPATHOLOGY REQUEST FOR LAB UYLIUykptfk26/31/2025 12:00 AM EDT from Last 3 Months Results * Colonoscopy (10/16/2024 11:44 AM EDT)Anatomical RegionLateralityModality Other Narrative Authorizing ProviderResult TypeResult StatusPaul Fabian [facility] DOHEALTH MAINTENANCE Final Result * PATHOLOGY REQUEST FOR LAB IZABEL (10/16/2024 12:00 AM EDT)ComponentValueRef RangeTest MethodAnalysis TimePerformed AtPathologist SignaturePATHOLOGY REQUEST FOR LAB CORP10/21/2024 11:[facility]:See report. Scanned copy available in EMR.Specimen (Source)Anatomical Location / LateralityCollection Method / VolumeCollection TimeReceived Time OtherTopography unknown / Sjgqrtd79/31/23149910/16/2024 12:27 PM EDT Narrative [facility] - 10/21/2024 11:27 AM EDT GI SPECIMEN Authorizing ProviderResult TypeResult StatusPaul C Lafmiracle DOLAB BLOOD ORDERABLES Final ResultPerforming OrganizationAddressCity/State/ZIP CodePhone Number [facility] [address] [place] [address], [facility] [address] [place] [address] from Last 3 Months Insurance Care Teams Team MemberRelationshipSpecialtyStart DateEnd Date Yuri Kuo MD [address] [facility] [address] [place] [address] PCP - Human06/17/22 Yuri Kuo MD [address] [facility] [address] [place] [address] PCP - GeneralInternal Medicine08/18/22
--- OUTSIDE RECORDS SUMMARY | 2025-01-15 15:54 | XMS_ITS | CCD ---
Author Organization [facility] Inform ion [facility] Care Team Providers Care Awning Erector Name Role Phone AYAZ, DR MOYER Admitting Unavailable STEPANIC, DR MOYER Attending Unavailable KUO, DR MARION Primary Care Unavailable STEPANIC, DR MOYER Consulting Unavailable ZIEBER, DR IVY Abebe Consulting Unavailable STEPANIC, DR MOYER Admitting Unavailable STEPANIC, DR MOYER Attending Unavailable KUO, DR MARION Primary Care Unavailable STEPANIC, DR MOYER Consulting Unavailable ZIEBER, DR IVY Abebe Consulting Unavailable Kuo II, Yuri B Primary Care Provider Kuo II, Yuri B Unavailable Kuo II, Yuri B Primary Care Provider [phone] Kuo II, Yuri B Unavailable [phone] Lori Freitas Unavailable Unavailable Kuo II, Yuri B Primary Care Provider [phone] Kuo II, Yuri B Unavailable CHADWICK HARRIS Referring Unavailable KUO II, YURI B Primary Care Unavailable BENNY GALLARDO Admitting Unavailable BENNY GALLARDO Attending Unavailable ANTHONY MONTIEL Consulting Unavailable KUO II, YURI B Primary Care Unavailable CHADWICK HARRIS Referring Unavailable KUO II, YURI B Primary Care Unavailable KUO II, YURI B Primary Care Unavailable KUO II, YURI B Primary Care Unavailable PROVIDER, UNKNOWN Referring Unavailable PROVIDER, UNKNOWN Referring Unavailable KUO II, YURI B Primary Care Unavailable BENNY GALLARDO Referring Unavailable KUO II, YURI B Primary Care Unavailable BENNY GALLARDO Referring Unavailable KUO II, YURI B Primary Care Unavailable KUO II, YURI B Referring Unavailable KUO II, YURI B Primary Care Unavailable HEENA CHAVEZ Attending Unavailable KUO II, YURI B Primary Care Unavailable RAFAEL MEJIA Attending Unavailable KUO II, YURI B Referring Unavailable KUO II, YURI B Primary Care Unavailable KUO II, YURI B Primary Care Unavailable CHADWICK HARRIS Referring Unavailable AYAAN DUFFY, YURI B Primary Care Unavailable KATHY HEENA Referring Unavailable BENNY GALLARDO Attending Unavailable Ayaan DUFFY MD, Daniel B Primary Care Provider Ayaan DUFFY MD, Daniel B Unavailable Ayaan DUFFY MD, Daniel B Primary Care Provider Lori Freitas Unavailable Unavailable Yuir Kuo MD Unavailable [phone] Yuri Kuo MD Primary Care Provider Martinez Herrera MD Attending Provider Yuri Kuo II Primary Care Provider COMFORT PELAEZ Attending Unavailable PASQUALE HOLT Attending Unavailable PASQUALE HOLT Attending Unavailable Martinez Herrera MD Attending Provider Yuri Kuo II Primary Care Provider [phone] YURI KUO Primary Care Unavailable Martinez Herrera Attending Unavailable Martinez Herrera Admitting Unavailable KUO, YURI Primary Care Unavailable Martinez Herrera Attending Unavailable Martinez Herrera Admitting Unavailable KUO, YURI Primary Care Unavailable Martinez Herrera Attending Unavailable Anup Akbar DO Attending Provider Martinez Herrera Admitting Unavailable Martinez Herrera Attending Unavailable Anup Akbar Admitting Unavailable Anup Akbar Attending Unavailable Martinez Herrera Admitting Unavailable Martinez Herrera Attending Unavailable Ayaan Yuri Primary Care Unavailable AYAAN YURI B Attending Unavailable YURI KUO B Attending Unavailable ANUP AKBAR Attending Unavailable YURI KUO B Referring Unavailable JULISSA LAMAR Attending Unavailable ANUP AKBAR Attending Unavailable HASEEB HOLLIDAY Attending Unavailable HASEEB HOLLIDAY Attending Unavailable HASEEB HOLLIDAY Attending Unavailable HASEEB HOLLIDAY Attending Unavailable CLAUDIA VALERO Attending Unavailable Allergies Allergy ClassificationReported Allergen(s)Allergy TypeDate of OnsetReaction(s) Facility (18 sources)gadoteridol; Translations: [GADOTERIDOL]Drug Uvgfrrj80-33-8569Yyqui [facility] (20 sources)Iodinated Contrast MediaDrug Slqbvmc93-27-0544WbjuvNLKL [facility] (20 sources)gadoteridolDrug Bdmdicl23-74-2776QzsktAUGL [facility] (1 source)Contrast media; Translations: [contrast media (gadolinium-based)] Propensity to adverse reactions (disorder)[facility] Repository (1 source)Unable to AssessDrug allergy (disorder)58-49-9924[facility]cqHenry [facility] Medications Current Medications MedicationDrug Class(es)DatesSig (Normalized)Sig (Original)acetaminophen 500 mg oral tablet (7 sources)Start: 74-83-3612qivj 2 tablets by mouth every eight hours as needed acetaminophen (TYLENOL) 500 mg tablet Take 2 tablets by mouth every 8 hours as needed for pain. 90 tablet 02/28/2022 ActiveComment on above:Take 2 tablets by mouth every 8 hours as needed for pain.amLODIPine 10 mg oral tablet (20 sources)Dihydropyridine Calcium Channel BlockerStart: 71-98-7994djds 1 tablet by mouth once dailyamLODIPine (Norvasc) 10 MG tablet Take 10 mg by mouth Daily 02/06/2024 Activeamoxicillin 500 mg oral capsule (15 sources)Penicillin-class AntibacterialStart: 12-31-2023 End: 40-18-6280pjgjkuzohca (Amoxil) 500 MG capsule Indications: Abscess, toe, left Take all 4 pills postprocedure by mouth 4 capsule 12/31/2023 06/16/2024 Discontinuedascorbic acid 500 mg oral tablet (7 sources)Vitamin CStart: 02-28-2022 End: 33-45-8849inoz 1 tablet by mouth twice daily at mealtimeascorbic acid, vitamin C, (VITAMIN C) 500 mg tablet Take 1 tablet by mouth twice daily with meals for 27 doses. 27 tablet 02/28/2022 ActiveComment on above:Take 1 tablet by mouth twice daily with meals for 27 doses.atorvastatin 40 mg oral tablet (20 sources)HMG-CoA Reductase InhibitorStart: 65-02-9830zfrv 1 tablet by mouth in the morningatorvastatin (Lipitor) 40 MG tablet Indications: Mixed hyperlipidemia TAKE 1 TABLET(40 MG) BY MOUTHIN THE MORNING 100 tablet 3 11/14/2024 ActiveStart: 16-19-2850gnmq 1 tablet by mouth in the morning atorvastatin (Lipitor) 40 MG tablet Indications: Mixed hyperlipidemia TAKE 1 TABLET(40 MG) BY MOUTHIN THE MORNING 100 tablet 3 11/15/2023 ActiveComment on above:Take 40 mg by mouth once daily.cephalexin 500 mg oral capsule (5 sources)Cephalosporin AntibacterialStart: 12-31-2023 End: 84-12-1689vsea 1 capsule by mouth in the morning, then take 1 capsule by mouth in the evening, then take 1 capsule by mouth at bedtime, then take 1 capsule by mouth three times dailycephalexin (Keflex) 500 MG capsule Indications: Abscess, toe, left Take 1 capsule (500 mg) by mouthin the morning and 1 capsule (500 mg) in the evening and 1 capsule (500 mg) before bedtime. Do all this for 10 days. Take one tablet by mouth three times daily. 30 capsule 12/31/2023 01/10/2024 Activeclindamycin 300 mg oral capsule (2 sources)Lincosamide AntibacterialStart: 10-31-2024 End: 48-15-9096wjde 1 capsule by mouth in the morning, then take 1 capsule by mouth in the evening, then take 1 capsule by mouth at bedtimeclindamycin (Cleocin) 300 MG capsule Indications: Onychocryptosis Take 1 capsule (300 mg) by mouth in the morning and 1 capsule (300 mg) in the evening and 1 capsule (300 mg) before bedtime. Do all this for 10 days. 30 capsule 10/31/2024 11/10/2024 Activeferrous sulfate 325 mg oral tablet (2 sources)Start: 02-28-2022 End: 82-92-0827tgax 1 tablet by mouth once daily at lunchferrous sulfate 325 mg (65 mg iron) tablet Take 1 tablet by mouth daily with lunch for 7 doses. 7 ta blet 0 02/28/2022 03/07/2022 ActiveComment on above:Take 1 tablet by mouth daily with lunch for 7 doses.furosemide 20 mg oral tablet (18 sources)Loop DiureticStart: 11-13-2022 End: 71-86-8067wmph 1 tablet by mouth in the morningfurosemide (Lasix) 20 MG tablet Indications: Edema, unspecified type Take 1 tablet (20 mg) by mouthin the morning. 30 tablet 2 11/13/2022 06/16/2024 DiscontinuedmethylPREDNISolone (3 sources)CorticosteroidStart: 10-01-2024 End: 05-94-3172ofwjulAOONHASallpy (Medrol Dospak) 4 MG tablets Indications: Lumbar spine pain Follow schedule on package instructions 21 tablet 10/01/2024 10/08/2024 Activemupirocin 0.02 mg/mg topical ointment (1 source)RNA Synthetase Inhibitor AntibacterialStart: 02-08-2022 End: 60-36-8401wpktwybvy (BACTROBAN) 2 % ointment Indications: Pre-op evaluation twice daily for 5 days. Apply 0.5inch with cotton swab (Q-tip) to each nostril in the morning and evening for 5 days prior to and including day of surgery. 22 g 0 02/08/2022 02/13/2022 ActiveComment on above:twice daily for 5 days. Apply 0.5 inch with cotton swab (Q-tip) to each nostril in the morning and evening for 5 days prior to and including day of surgery.oxyCODONE hydrochloride 5 mg oral tablet (7 sources)Opioid AgonistStart: 81-06-2149ukgr 1 tablet by mouth every six hours as neededoxyCODONE IR (ROXICODONE) 5 mg immediate release tablet Indications: S/P total right hip arthroplasty Take 1-2 tablets by mouth every 6 hours as needed for pain. 30 tablet 02/28/2022 ActiveComment on above:Take 1-2 tablets by mouth every 6 hours as needed for pain.rivaroxaban 20 mg oral tablet (20 sources)Factor Xa InhibitorStart: 94-48-0497vnum 1 tablet by mouth once dailyXarelto 20 MG tablet Indications: Edema, unspecified type TAKE 1 TABLET BY MOUTH EVERY DAY 100 tablet 3 06/20/2024 ActiveStart: 61-05-6211ovke 1 tablet by mouth once dailyrivaroxaban (Xarelto) 20 MG tablet Indications: Edema, unspecified type TAKE 1 TABLET BY MOUTH EVERY DAY 100 tablet 3 06/11/2023 Active Comment on above:Take 20 mg by mouth once daily. Completed/Discontinued Medications MedicationDrug Class(es)DatesSig (Normalized)Sig (Original)docusate sodium 100 mg oral capsule (4 sources)Start: 02-28-2022 End: 66-27-6019ydes 1 capsule by mouth twice dailydocusate sodium (COLACE) 100 mg capsule Take 1 capsule by mouth twice daily. 60 capsule 02/28/2022 03/30/2022 ExpiredComment on above:Take 1 capsule by mouth twice daily.perflutren lipid microspheres 1.3 mL in NaCl (PF) 0.9% 10 mL injection (DEFINITY) (10 sources)Start: 02-08-2022 End: 86-61-0312lmexiqywpi lipid microspheres 1.3 mL in NaCl (PF) 0.9% 10 mL injection (DEFINITY)polyethylene glycol 3350 90556 mg powder for oral solution (4 sources)Osmotic LaxativeStart: 03-01-2022 End: 58-41-7782cwdyfngxbmhc glycol 3350 (MIRALAX, GLYCOLAX) 17 gram packet Take 1 Packet by mouth once daily. Dissolve dose in 4 - 8 ounces of liquid and take as directed. 30 Packet 03/01/2022 03/31/2022 ExpiredComment on above:Take 1 Packet by mouth once daily. Dissolve dose in 4 - 8 ounces of liquid and take as directed.125 ml sodium chloride 9 mg/ml prefilled syringe (10 sources)Start: 02-08-2022 End: 26-52-2054hygtxl chloride 0.9 % (flush) 10 mL (BD POSIFLUSH)terbinafine 250 mg oral tablet (6 sources)Allylamine AntifungalStart: 09-30-2021 End: 55-36-1567jwyi 1 tablet by mouth once dailyterbinafine HCl (LAMISIL) 250 mg tablet Take 1 tablet by mouth once daily. 0 09/30/2021 02/08/2022 Discontinued Comment on above:Take 1 tablet by mouth once daily. Problems Active Problems Problem ClassificationProblemDateDocumented DateEpisodic/Chronic Administrative/social admission (2 sources)Patient encounter status; Translations: [Other specified counseling] 20-03-0599CfefmgfkVqvprja dysrhythmias (2 sources)Ventricular premature depolarization; Translations: [Ventricular premature depolarization]Onset: 81-06-3311KohzrbwUenrscdthpp and hemorrhagic disorders (20 sources)Factor V Leiden mutation; Translations: [Activated protein C resistance]Onset: 84-32-8754FihbibsYmjvwqdx atherosclerosis and other heart disease (2 sources)Atherosclerotic heart disease of [place] coronary artery without angina pectoris; Translations: [Atherosclerotic heart disease of [place] coronary artery without angina pectoris]Onset: 15-82-7879OwcfoffAedksswtx of lipid metabolism (20 sources)Hyperlipidemia; Translations: [Hyperlipidemia, unspecified]Onset: 07-02-5860NkhhbsqNqfoadhln hypertension (20 sources)Essential (primary) hypertension; Translations: [Essential hypertension]Onset: 77-94-2017EjwbmorKfdftiirdvgw with complications and secondary hypertension (2 sources)Hypertensive heart disease without heart failure; Translations: [Hypertensive heart disease withoutheart failure]Onset: 94-07-8849NnyeuscHpbpgui (2 sources)Pain in toe; Translations: [Tinea unguium]46-40-0155Qxdameuh Osteoarthritis (20 sources)Osteoarthritis of right hip joint; Translations: [Unilateral primary osteoarthritis, right hip]Onset: 49-72-1473UxojfmrDciwb and unspecified benign neoplasm (2 sources)Skin lesion; Translations: [Hemangioma of skin and subcutaneous tissue]90-33-8070CkbesgwqGqwdl and unspecified benign neoplasm (4 sources)History of polyp of colon; Translations: [History of colon polyps] 61-13-2850NtgbliuxDuogw and unspecified benign neoplasm (15 sources)Polyp of cecum; Translations: [Benign neoplasm of cecum]Onset: 465668-40-7181RwjmxxioHvvsb bone disease and musculoskeletal deformities (4 sources)Idiopathic aseptic necrosis of unspecified bone; Translations: [IDIOPATH ASEPTIC NECROSIS UNS BONE]Onset: 66-52-4078YboymmbAzfnw connective tissue disease (3 sources)History of total knee arthroplasty; Translations: [Presence of right artificial knee joint]ChronicOther connective tissue disease (1 source)Presence of right artificial hip joint; Translations: [S/P total right hip arthroplasty]Onset: 15-38-4973DsgyxjcHwugt connective tissue disease (1 source)Presence of right artificial knee joint; Translations: [Status post total right knee replacement]Onset: 73-22-7338FesvmbzYullz connective tissue disease (2 sources)History of repair of hip joint; Translations: [Presence of right artificial hip joint]ChronicOther connective tissue disease (20 sources)Artificial knee joint present; Translations: [Presence of unspecified artificial knee joint]Onset: 813915-26-7669HohsarpHkysf connective tissue disease (12 sources)Pain of toe of left foot; Translations: [Pain in left toe(s)] 39-60-8915TjgjxgyqHwdgl diseases of veins and lymphatics (2 sources)Vascular insufficiency; Translations: [Venous insufficiency (chronic) (peripheral)]98-43-1832LzlxxajgXszij nervous system disorders (20 sources)Difficulty walking; Translations: [Difficulty in walking, not elsewhere classified]Onset: 367202-08-1599TbriqufCzirr non-traumatic joint disorders (5 sources)Pain in right hip; Translations: [PAIN IN RIGHT HIP]Onset: 08-23-2020 EpisodicOther non-traumatic joint disorders (1 source)Pain in right knee; Translations: [Pain in joint, lower leg]Episodic Other non-traumatic joint disorders (2 sources)Pain in right hip joint; Translations: [Pain in right hip]Episodic Other non-traumatic joint disorders (1 source)Hip pain; Translations: [Pain in right hip]98-76-0097YssctirhIhkkg skin disorders (3 sources)Seborrheic keratosis; Translations: [Other seborrheic keratosis] 56-71-2435MgshfonvZljrp skin disorders (3 sources)Lentiginosis; Translations: [Other melanin hyperpigmentation] 39-64-8801DkllxmonZkhgg skin disorders (3 sources)Sebaceous hyperplasia; Translations: [Other specified follicular disorders]98-96-6656NxfgkoepNqoms skin disorders (2 sources)Eruption; Translations: [Rash and other nonspecific skin eruption] 90-63-9398AbsvclhkTount skin disorders (2 sources)Skin tag; Translations: [Other hypertrophic disorders of the skin] 08-97-7398MfbkhmzgAhcxg skin disorders (12 sources)Ingrowing nail; Translations: [Ingrowing nail]72-08-3186Ubayhyfr Residual codes; unclassified (11 sources)Obstructive sleep apnea syndrome; Translations: [Obstructive sleep apnea (adult) (pediatric)]Onset: 96-05-0585WxljzxyTyuffgeo codes; unclassified (1 source)Obstructive sleep apnea (adult) (pediatric); Translations: [Obstructive sleep apnea]Onset: 26-25-4943JcvhxkpMzen and subcutaneous tissue infections (6 sources)Abscess of toe of left foot; Translations: [Cutaneous abscess of left foot]50-18-6335EhwvpybyDaidycfhmih; intervertebral disc disorders; other back problems (2 sources)Pain in lumbar spine ; Translations: [Lumbar spine pain]10-01-2024 EpisodicUnclassified (1 source)S/P Robotic R THAOnset: 10-09-8106Vkydrgazinrk (1 source)Encounter for screening for COVID-19; Translations: [Encounter for screening for COVID-19]Onset: 99-70-3272Wjjwifemrnhe (1 source)Encounter for preoperative screening laboratory testing for COVID-19 virus; Translations: [Encounter for preoperative screening laboratory testing for COVID-19 virus]Onset: 02-25-2022 Past or Other Problems Problem ClassificationProblemDateDocumented DateEpisodic/ChronicCardiac dysrhythmias (12 sources)Bradycardia; Translations: [Bradycardia, unspecified]Onset: 26-54-4572UplcukkpDsxsp valve disorders (11 sources)Heart murmur; Translations: [Cardiac murmur, unspecified]Onset: 05-98-0180PttktqeyCcfjt aftercare (20 sources)Taking high risk medication; Translations: [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 terminal 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 operator (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]Onset: 973867-89-9983UvsrmhyrWjops aftercare (20 sources)Long-term current use of anticoagulant; 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]Onset: 036876-50-3849QduggbbtKfduw screening for suspected conditions (not mental disorders or infectious disease) (20 sources)Encounter for screening for malignant neoplasm of prostate; Translations: [Raised prostate specificantigen]Onset: 37-83-4159Yinukjjz Pulmonary heart disease (20 sources)H/O: pulmonary embolus; Translations: [Personal history of pulmonary embolism]Onset: 40-00-4396WubdnamcPyewyffc codes; unclassified (20 sources)Edema; Translations: [Edema, unspecified]Onset: 50-82-596933 Episodic Results Test NameValueInterpretationReference RangeFacilityPATHOLOGY REQUEST FOR LAB CORPon 61-54-8731BZPPEAXGB REQUEST FOR LAB CORPNOMS HealthcareComment on above: See report. Scanned copy available in EMR.GI SPECIMENFIRPunxsutawney Area Hospital Pathology Request for Lab Corpon 26-53-4938Ehldvqonl Request for Lab CorpNormal The [facility] Physician GroupComment on above:Order Comment: GI SPECIMENResult Comment: See report. Scanned copy available in EMR. PERFORMED BY: [place] [address] PATHOLOGIST AIR CONDITIONING INSULATION INSTALLER KEE LARIOS M.D.Performed By: #### [facility] #### [place] [address] USAXR LUMBAR SPINE 6V W BENDINGon 69-68-1965[place] [address] XRay Report Signed Patient: BOB KHANNA MR#: [id number] : 1955 Acct:[id number] Age/Sex: 69 / M ADM Date: 10/01/24 Loc: RAD Attending Dr: JULISSA LAMAR Ordering Physician: JULISSA LAMAR Date of Service: 10/01/24 Procedure(s): XR lumbar spine 6V w bending Accession Number(s): [id number] cc: YURI KUO ; JULISSA LAMAR [place] [id number] Patient Name: BOB KHANNA MRN: [id number] date: 1955 Sex: M Assigned Patient Location: RAD Current Patient Location: RAD Accession/Order Number: [id number] Exam Date: 10/01/2024 11:39 Report Date: 10/01/2024 11:42 At the request of: JULISSA LAMAR Procedure: XR lumbar spine 6V w bending LUMBAR SPINE WITH FLEXION-EXTENSION VIEWS- 6 views: CLINICAL HISTORY: Low back pain for the past week with radiation on the left COMPARISON: 01/22/2018 AP, lateral neutral, flexion and extension and both oblique views of the lumbosacral junction were obtained. There is no evidence of fracture. There is minimal retrolisthesis of L2 on L3 and L3 on L4. No change in alignment is seen with flexion or extension. The disc spaces are maintained. There is mild endplate spurring, greater in the thoracolumbar region. There is moderate lower lumbar facet disease. No pars defect is identified. The sacroiliac joints are maintained and show sclerosis. There are no paraspinal soft tissue abnormalities. There is minor atherosclerotic disease at the aorta and iliac arteries. Patient has a right hip prosthesis XR/XR lumbar spine 6V w bending IMPRESSION: DEGENERATIVE CHANGES, DESCRIBED Impression dictated by: Brenda Vera M.D. 10/01/2024 11:42 AM Dictation Location: [place] [address] Electronically authenticated by: [id number] Y Date: 10/01/2024 11:42 Dictated By: Brenda Vera M.D. Signed By: 10/01/24 1144 DD/ 1142 TD/TT: Billiard Player:TBHRadiology, Radiologist, MD - 10/01/2024 [place] [address] XRay Report Signed Patient: BOB KHANNA MR#: [id number] : 1955 Acct:[id number] Age/Sex: 69 / M ADM Date: 10/01/24 Loc: [facility] Attending Dr: JULISSA LAMAR Ordering Physician: JULISSA LAMAR Date of Service: 10/01/24 Procedure(s): XR lumbar spine 6V w bending Accession Number(s): [id number] cc: YURI KUO SHERRI The [address] [address] Patient Name: BOB KHANNA MRN: [id number] date: 1955 Sex: M Assigned Patient Location: RAD Current Patient Location: RAD Accession/Order Number: [id number] Exam Date: 10/01/2024 11:39 Report Date: 10/01/2024 11:42 At the request of: JULISSA LAMAR Procedure: XR lumbar spine 6V w bending LUMBAR SPINE WITH FLEXION-EXTENSION VIEWS- 6 views: CLINICAL HISTORY: Low back pain for the past week with radiation on the left COMPARISON: 01/22/2018 AP, lateral neutral, flexion and extension and both oblique views of the lumbosacral junction were obtained. There is no evidence of fracture. There is minimal retrolisthesis of L2 on L3 and L3 on L4. No change in alignment is seen with flexion or extension. The disc spaces are maintained. There is mild endplate spurring, greater in the thoracolumbar region. There is moderate lower lumbar facet disease. No pars defect is identified. The sacroiliac joints are maintained and show sclerosis. There are no paraspinal soft tissue abnormalities. There is minor atherosclerotic disease at the aorta and iliac arteries. Patient has a right hip prosthesis XR/XR lumbar spine 6V w bending IMPRESSION: DEGENERATIVE CHANGES, DESCRIBED Impression dictated by: Brenda Vera M.D. 10/01/2024 11:42 AM Dictation Location: [place] [address] Electronically authenticated by: [id number] Y Date: 10/01/2024 11:42 Dictated By: Brenda Vera M.D. Signed By: 10/01/24 1144 DD/ 1142 TD/TT: Billiard Player: LANI HealthcareRadiology Study observation (narrative)NOM HealthcareXR LUMBAR SPINE 6V W BENDINGOrdered By: Radiologist Radiology on 69-18-6055[facility] Work Phone: Outside Recordson 69-87-9919Bwrexos Records [id number]#1.00OTGTSouthern [facility] Outside [id number]#1.00OTGTGrand Lake Joint Township District Memorial HospitalOutside Records [id number]#1.00OTGTSouthern Ohio Medical CenterCBC (INCLUDES DIFF/PLT)on 60-44-3589Lvencgozr (Bld) [#/Vol]0.029 10*3/uLNormal0-200 [facility] DiagnosticsComment on above:Performed By: #### 6399, 79500, 7600 #### [facility] of [address], [address] [place] [address] Bite Block Maker: Azael Hopkins MDBasophils/100 WBC (Bld)0.8 %NormalQuest DiagnosticsComment on above:Performed By: #### 6399, 64312, 7600 #### [facility] of [address], [address] [place] [address] Bite Block Maker: Azael Hopkins MDEosinophils (Bld) [#/Vol]0.05 10*3/uLNormal 15-500Quest DiagnosticsComment on above:Performed By: #### 6399, 46451, 7600 #### [facility] of [address], [address] [place] [address] Bite Block Maker: Azael DOMINGUEZosinophils/100 WBC (Bld)1.4 %NormalQuest DiagnosticsComment on above:Performed By: #### 6399, 33452, 7600 #### [facility] [place] [address] Bite Block Maker: Azael Hopkins MDErythrocyte distribution width (RBC) [Ratio] 13.1 %Iyfjfa84.0-15.0Quest DiagnosticsComment on above:Performed By: #### 6399, 84577, 7600 #### [facility] of [place] [address] Bite Block Maker: Azale Hopkins MDHematocrit (Bld) [Volume fraction]45.1 %Normal 38.5-50.0Quest DiagnosticsComment on above:Performed By: #### 6399, 85219, 7600 #### [facility] of [place] [address] Bite Block Maker: Azael Hopkins MDHemoglobin (Bld) [Mass/Vol]15.1 g/dLNormal 13.2-17.1Quest DiagnosticsComment on above:Performed By: #### 6399, 01184, 7600 #### [facility] of [address], [address] [place] [address] Bite Block Maker: Azael Hopkins MDLymphocytes (Bld) [#/Vol]1.667 10*3/uLNormal 850-3900Quest DiagnosticsComment on above:Performed By: #### 6399, 66089, 7600 #### [facility] of [address], [address] [place] [address] Bite Block Maker: Azael Hopkins MDLymphocytes/100 WBC (Bld)46.3 %NormalQuest DiagnosticsComment on above:Performed By: #### 6399, 52806, 7600 #### [facility] [address], [address] [place] [address] Bite Block Maker: Azael Hopkins MDMCH (RBC) [Entitic mass]29.4 afPdfcys47.0-33.0 [facility] DiagnosticsComment on above:Performed By: #### 6399, 12739, 0 #### [facility] [place] [address] Bite Block Maker: Azael Hopkins MDMCHC (RBC) [Mass/Vol]33.5 g/fHVnsfdt29.0-36.0 [facility] DiagnosticsComment on above:Result Comment: For adults, a slight decrease in the calculated MCHC value (in the range of 30 to 32 g/dL) is most likely not clinically significant; however, it should be interpreted with caution in correlation with other red cell parameters and the patient's clinical condition.Performed By: #### 6399, 57671, 7600 #### [facility] of [place] [address] Bite Block Maker: Azael Hopkins MDMCV (RBC) [Entitic vol]87.9 pGXzifmg80.0-100.0 [facility] DiagnosticsComment on above:Performed By: #### 6399, 09958, 7600 #### [facility] of [address], [address] [place] [address] Bite Block Maker: Azael Hopkins MDMonocytes (Bld) [#/Vol]0.389 10*3/uLNormal 200-950Quest DiagnosticsComment on above:Performed By: #### 6399, 72177, 7600 #### [facility] of [address], [address] [place] [address] Bite Block Maker: Azael Hopkins MDMonocytes/100 WBC (Bld)10.8 %NormalQuest DiagnosticsComment on above:Performed By: #### 6399, 56801, 7600 #### [facility] of [address], [address] [place] [address] Bite Block Maker: Azael Hopkins MDNeutrophils (Bld) [#/Vol]1.465 10*3/uLLow 1500-7800Quest DiagnosticsComment on above:Performed By: #### 6399, 49027, 7600 #### [facility] of [address], [address] [place] [address] Bite Block Maker: Azael Hopkins MDNeutrophils/100 WBC (Bld)40.7 %NormalQuest DiagnosticsComment on above:Performed By: #### 6399, 50484, 7600 #### [facility] of [address], [address] [place] [address] Bite Block Maker: Azael Hopkins MDPlatelet mean volume (Bld) [Entitic vol]10.4 fLNormal7.5-12.5Quest DiagnosticsComment on above:Performed By: #### 6399, 47904, 7600 #### [facility] of [address], [address] [place] [address] Bite Block Maker: Azael Hopkins MDPlatelets (Bld) [#/Vol]266 10*3/uLNormal 140-400Quest DiagnosticsComment on above:Performed By: #### 6399, 23505, 7600 #### [facility] of [address], [address] [place] [address] Bite Block Maker: Azael Hopkins MDRBC ([facility]) [#/Vol]5.13 10*6/uLNormal4.20-5.80 [facility] DiagnosticsComment on above:Performed By: #### 6399, 09868, 7600 #### [facility] of [address], [address] [place] [address] Bite Block Maker: Azael Hopkins MDGARNET HEALTH ([facility]) [#/Vol]3.6 10*3/uLLow3.8-10.8Quest DiagnosticsComment on above:Performed By: #### 6399, 48443, 7600 #### [facility] of [place] [address] Bite Block Maker: Azael Hopkins MDCOMPREHENSIVE METABOLIC PANELon 06-17-2024 Albumin [Mass/Vol]4.9 g/dLNormal3.6-5.1Quest DiagnosticsComment on above: Performed By: #### 6399, 71777, 7600 #### [facility] of [place] [address] Bite Block Maker: Azael Hopkins MDAlbumin/Globulin [Mass ratio]1.8 {ratio}Normal 1.0-2.5Quest DiagnosticsComment on above:Performed By: #### 6399, 31912, 7600 #### [facility] of [place] [address] Bite Block Maker: Azael Hopkins MDALP [Catalytic activity/Vol]52 U/KSssxgm58-216 [facility] DiagnosticsComment on above:Performed By: #### 6399, 29728, 7600 #### [facility] of [place] [address] Bite Block Maker: Azael Hopkins MDALT [Catalytic activity/Vol]21 U/LNormal9-46 [facility] DiagnosticsComment on above:Performed By: #### 6399, 58777, 7600 #### [facility] of [address], [address] [place] [address] Bite Block Maker: Azael Hopkins MDAST [Catalytic activity/Vol]17 U/WRgqmqs09-50 [facility] DiagnosticsComment on above:Performed By: #### 6399, 80453, 7600 #### [facility] of [address], [address] [place] [address] Bite Block Maker: Azael Hopkins MDBilirubin [Mass/Vol]0.9 mg/dLNormal0.2-1.2 [facility] DiagnosticsComment on above:Performed By: #### 6399, 78800, 7600 #### [facility] of [address], [address] [place] [address] Bite Block Maker: Azael Hopkins MDBUN/CREATININE RATIOSEE NOTE:Normal6-22Quest DiagnosticsComment on above:Result Comment: Not Reported: BUN and Creatinine are within reference range.Performed By: #### 6399, 38411, 7600 #### [facility] of [address], [address] [place] [address] Bite Block Maker: Azael Hopkins MDCalcium [Mass/Vol]9.3 mg/dLNormal8.6-10.3Quest DiagnosticsComment on above:Performed By: #### 6399, 37244, 7600 #### [facility] of [address], [address] [place] [address] Bite Block Maker: Azael Hopkins MDChloride [Moles/Vol]103 mmol/KXorzjx41-985 [facility] DiagnosticsComment on above:Performed By: #### 6399, 02177, 7600 #### [facility] of [address], [address] [place] [address] Bite Block Maker: Azael Hopkins MDCO2 [Moles/Vol]27 mmol/EKuoype85-11Dwuwg DiagnosticsComment on above:Performed By: #### 6399, 22081, 7600 #### [facility] of [address], [address] [place] [address] Bite Block Maker: Azael Hopkins MDCreatinine [Mass/Vol]1.05 mg/dLNormal0.70-1.35 [facility] DiagnosticsComment on above:Performed By: #### 6399, 77059, 7600 #### [facility] [place] [address] Bite Block Maker: Azael Hopkins MDGFR/1.73 sq M.predicted among non-blacks MDRD (S/P/Bld) [Vol rate/Area]78 mL/min/{1.73_m2}Normal> OR = 60[facility] Comment on above:Performed By: #### 6399, 05529, 0 #### [facility] [place] [address] Bite Block Maker: Azael Hopkins MDGlobulin (S) [Mass/Vol]2.8 g/dLNormal1.9-3.7 [facility] DiagnosticsComment on above:Performed By: #### 6399, 67678, 0 #### [facility] [place] [address] Bite Block Maker: Azael Hopkins MDGlucose [Mass/Vol]94 mg/nTCwvmzq78-55Igydz DiagnosticsComment on above:Result Comment: Fasting reference intervalPerformed By: #### 6399, 10946, 7600 #### [facility] [place] [address] Bite Block Maker: Azael Hopkins MDPotassium [Moles/Vol]4.9 mmol/LNormal3.5-5.3 [facility] DiagnosticsComment on above:Performed By: #### 6399, 08731, 7600 #### [facility] [place] [address] Bite Block Maker: Azael Hopkins MDProtein [Mass/Vol]7.7 g/dLNormal6.1-8.1Quest DiagnosticsComment on above:Performed By: #### 6399, 22924, 7600 #### [facility] of [place] [address], [address] [place] [address] Bite Block Maker: Azael BUSHodium [Moles/Vol]141 mmol/ZImwzig609-914Jeylt DiagnosticsComment on above:Performed By: #### 6399, 87457, 7600 #### [facility] [address], [address] [place] [address] Bite Block Maker: Azael Hopkins MDUrea nitrogen [Mass/Vol]13 mg/dLNormal7-25 [facility] DiagnosticsComment on above:Performed By: #### 6399, 63031, 7600 #### [facility] [address], [address] [place] [address] Bite Block Maker: Azael Hopkins MDLIPID PANEL, STANDARD 97-80-9452Jllvvztqrtu [Mass/Vol]165 mg/dLNormal<200Quest DiagnosticsComment on above:Order Comment: FASTING:YES FASTING: YESPerformed By: #### 6399, 51318, 7600 #### [facility] [address], [address] [place] [address] Bite Block Maker: Azael Hopkins MDCholesterol in HDL [Mass/Vol]52 mg/dLNormal> OR = 40Quest DiagnosticsComment on above:Order Comment: FASTING:YES FASTING: YESPerformed By: #### 6399, 70608, 7600 #### [facility] [address], [address] [place] [address] Bite Block Maker: Azael Hopkins MDCholesterol in LDL [Mass/Vol]98 mg/dLNormal [facility] DiagnosticsComment on above:Order Comment: FASTING:YES FASTING: YESResult Comment: Reference range: <100 Desirable range <100 mg/dL for primary prevention; <70 mg/dL for patients with CHD or diabetic patients with > or = 2 CHD risk factors. LDL-C is now calculated using the Martín calculation, which is a validated novel method providing better accuracy than the Friedewald equation in the estimation of LDL-C. Fadi PHAM et al. ERNESTINE. 2013;310(19): 0857-5613 (http://education.Tricentis/faq/KFE975)Performed By: #### 6399, 80225, 7600 #### [facility] [address], [address] [place] [address] Bite Block Maker: Azael PERSONholesterol.total/Cholesterol in HDL [Mass ratio]3.2 {ratio}Normal<5.0Quest DiagnosticsComment on above:Order Comment: FASTING:YES FASTING: YESPerformed By: #### 6399, 58210, 7600 #### [facility] [address], [address] [place] [address] Bite Block Maker: Azael SANDRA HDL LZDWEAMHXHF501 mg/dL (calc)Normal<130 [facility] DiagnosticsComment on above:Order Comment: FASTING:YES FASTING: YESResult Comment: For patients with diabetes plus 1 major ASCVD risk factor, treating to a non-HDL-C goal of <100 mg/dL (LDL-C of <70 mg/dL) is considered a therapeutic option.Performed By: #### 6399, 12106, 7600 #### [facility] [address], [address] [place] [address] Bite Block Maker: Azael Hopkins MDTriglyceride [Mass/Vol]63 mg/dLNormal<150Quest DiagnosticsComment on above:Order Comment: FASTING:YES FASTING: YESPerformed By: #### 6399, 75872, 7600 #### [facility] [address], [address] [place] [address] Bite Block Maker: Azael Hopkins MDMAGR Intraoperative Recordon [id number] Intraoperative RecordMAGR Intra-Op Record Summary Primary Physician: Martinez Herrera MD Finalized Date/Time: 06/17/24 08:58:31 Pt. Name: BOB KHANNA/Sex: 1955 MALE Med Rec #: [id number] Physician: Martinez Herrera MD Financial #: [id number] Pt. Type: D Room/Bed: / Admit/Disch: 05/29/24 07:02:02 - 05/29/24 10:32:00 Institution: Case Times MAGR Entry 1 Patient In Room Time 05/29/24 09:27:00 Out Room Time 05/29/24 09:51:00 Anesthesia Start Time 05/29/24 09:27:00 Stop Time 05/29/24 09:50:00 Surgery Start Time 05/29/24 09:39:00 Stop Time 05/29/24 09:46:00 Last Modified By: Sabiha Ross RN 05/29/24 09:51:23 Case Attendance MAGR Entry 1 Entry 2 Entry 3 Case Attendee Martinez Herrera MD, Sabiha Baumann MD, RN Role Performed Surgeon - Primary Anesthesiologist of Facility Administrator Record Time In 05/29/24 09:38:00 05/29/24 09:27:00 05/29/24 09:27:00 Time Out 05/29/24 09:46:00 05/29/24 09:51:00 05/29/24 09:51:00 Procedure Biopsy Prostate Biopsy Prostate Biopsy Prostate Last Modified By: Sabiha Ross RN, Diane RN Kokinda, Diane RN 05/29/24 09:51:06 05/29/24 09:51:06 05/29/24 09:51:06 Entry 4 Entry 5 Entry 6 Case Attendee Brenda Hughes RN, Denia DIRECTOR EMERGENCY DEPARTMENT Yvan, Annie Villasenor DIRECTOR EMERGENCY DEPARTMENT CSFA Role Performed Facility Administrator Scrub Personnel Electromechanical Technologist Time In 05/29/24 09:27:00 05/29/24 09:27:00 05/29/24 09:27:00 Time Out 05/29/24 09:51:00 05/29/24 09:51:00 05/29/24 09:51:00 Procedure Biopsy Prostate Biopsy Prostate Biopsy Prostate Last Modified By: Sabiha Ross RN, Diane RN Kokinda, Diane RN 05/29/24 09:51:06 05/29/24 09:51:06 05/29/24 09:51:06 General Comments: NKECHI ROCHA REP Surgical Procedures MAGR Pre-Care Text: A.20 Verifies operative procedure, surgical site, and laterality Im.150 Develops individualized plan of care Entry 1 Procedure Biopsy Prostate Primary Procedure Yes Primary Surgeon Martinez Herrera MD Surgeon Comment FUSION PROSTATE BIOPSY - ELEVATED PSA Start 05/29/24 09:39:00 Stop 05/29/24 09:46:00 Anesthesia Type MAC Surgical Service Urology Wound Class Clean-Contaminated Technique Details Closure Technique N/A Entire procedure No was performed via laparoscope or robotic assistance Last Modified By: Sabiha Ross RN 05/29/24 09:47:06 Post-Care Text: O.730 The patient's care is consistent with the individualized perioperative plan of care General Case Data MAGR Pre-Care Text: A.350.1 Classifies surgical wound Entry 1 Case Information OR MAGR OR 01 Case Level Level 3 Wound Class Clean-Contaminated Specialty Urology ASA Class 2 Diagnosis Preop Diagnosis ELEVATED PSA Postop Same As Preop Yes Postop Diagnosis ELEVATED PSA Blunt or No Is the procedure No penetrating injury considered occured prior to Emergent/Urgent? the start of the procedure: Last Modified By: Sabiha Ross RN 05/29/24 09:25:16 Post-Care Text: O.760 Patient receives consistent and comparable care regardless of the setting Time Out MAGR Entry 1 Procedure(s) Biopsy Prostate Time Out Checklist Verifications Team Introductions Yes Confirmed Identity, Yes Completed Procedure, Incision Site, and Consent(s) Presence of Yes Site Verification, Yes Necessary Site Marking, Site Procedural Marking Equipment, Devices, Alternative, and/or and Implants Site Marking Verified Exception in Accordance with Facility Policy Anesthesia Review Antibiotic Received Yes All Anesthesia Yes Within an Concerns Addressed Appropriate Time Interval Prior to Surgical Incision Surgeon Review Anticipated Blood Yes Expected Case Yes Loss Risk Addressed Duration Addressed Critical and Yes Non-Routine Steps to be Performed Addressed Nurse Review Equipment Yes Fire Risk Yes Checks/Concerns Assessment Addressed Completed and Interventions Performed Diagnostic and n/a Sterilization n/a Radiological Test Concerns Addressed Results Displayed are Appropriate and Labeled Other Concerns n/a Addressed Time Out Hal Verma MD, Time Out Time 05/29/24 09:39:00 Participants Martinez Herrera MD, Denia Mathew DIRECTOR EMERGENCY DEPARTMENT, Annie Santoro DIRECTOR EMERGENCY DEPARTMENT CSFA, Sabiha Ross RN, Brenda Hughes RN Last Modified By: Sabiha Ross RN 05/29/24 09:39:16 Patient Positioning MAGR Pre-Care Text: A.280 Identifies baseline musculoskeletal status Im.40 Positions the patient Im.80 Applies safety devices Entry 1 Procedure Biopsy Prostate Body Position Lateral Left Arm Position Resting at Side Right Arm Position Resting at Side Left Leg Position Extended Right Leg Position Extended Feet Uncrossed? Yes Press Points Checked Yes Positioning Device Safety Strap Outcome Met (O.80) Yes Last Modified By: Sabiha Ross RN 05/29/24 09:26:09 Post-Care Text: E.290 Evaluates musculoskeletal status O.80 Patient is free from signs and symptoms of injury related to positioning Cultures and Specimens (more content not included)...[facility] W/REFLEX TO FT4on 42-10-6760SVQ W/REFLEX TO FT40.79 mIU/LNormal0.40-4.50Quest DiagnosticsComment on above:Performed By: #### 6399, 06581, 7600 #### [facility] [address], [address] [place] [address] Bite Block Maker: Azael Hopkins MDCoding Summaryon 65-08-7997Zvxmyt Summary HTMLBase 64 SwofwsaqCHf2gLm+PGhlYWQ+MC7IATYjF66gvEEzuA6oM4NRTZdQOqxqUUHGFKrFRsTcyvGpSS7khUQh ZXJu [file] bGF (more content not included)...[facility], IncLab - AP Resultson 18-96-2139Oji - AP [id number]#1.00OTGTIFF [facility], IncPathology Sendout Teston 60-80-6445Fiufccmfy Send Out.See [facility] HospitalComment on above:Performed By: #### [id number] #### [facility] (DEFAULT) [address] [place] [address] [phone] Send Out.See [facility] Comment on above:Performed By: #### [id number] #### [facility] (DEFAULT) [address] [place] [address] [phone] Send Out.See [facility] Comment on above:Performed By: #### [id number] #### [facility] (DEFAULT) [address] [place] [address] [phone] Send Out.See [facility] Comment on above:Performed By: #### [id number] #### [facility] (DEFAULT) [address] [place] [address] [phone] Send Out.See [facility] Comment on above:Performed By: #### [id number] #### [facility] (DEFAULT) [address] [place] [address] [phone] Send Out.See [facility] Comment on above:Order Comment: AREA OF INTEREST #2 PROSTATE BIOPSY - CONTAINER #14Performed By: #### [id number] ####[facility] (DEFAULT)[address] [place] [address] [phone] Send Out.See [facility] Comment on above:Order Comment: AREA OF INTEREST #1 PROSTATE BIOPSY - #13 CONTAINERPerformed By: #### [id number] #### [facility] (DEFAULT) [address] [place] [address] [phone] Send Out.See [facility] Comment on above:Performed By: #### [id number] #### [facility] (DEFAULT) [address] [place] [address] [phone] Send Out.See [facility] Comment on above:Performed By: #### [id number] #### [facility] (DEFAULT) [address] [place] [address] [phone] Send Out.See [facility] Comment on above:Performed By: #### [id number] #### [facility] (DEFAULT) [address] [place] [address] [phone] Send Out.See [facility] Comment on above:Performed By: #### [id number] #### [facility] (DEFAULT) [address] [place] [address] [phone] Send Out.See [facility] Comment on above:Performed By: #### [id number] #### [facility] (DEFAULT) [address] [place] [address] [phone] Send Out.See [facility] Comment on above:Performed By: #### [id number] ####[facility] (DEFAULT)[address] [place] [address] [phone] Send Out.See [facility] CenterComment on above:Performed By: #### [id number] #### [facility] (DEFAULT) [address] [place] [address] [phone] Formson 69-16-0403Fjndkfk Forms [id number]#1.00[facility] Consultation/Specialist Noteon 07-28-9073Xrrwcqximncl/Specialist Note [id number]#1.00[facility] Outside Recordson 05-21-0113Oczjbfg Records [id number]#1.00[facility] Provider Orderson [id number] Orders [id number]#1.00[facility] Anesthesia Noteon 29-00-3604Qppppyghsf NotePatient: BOB KHANNA Age: 68 years Sex: MALE : 1955 Associated Diagnoses: None Author: Hal Verma MD Postoperative Information Anesthetic utilized: Monitored anesthesia care. Assessment Anesthetic outcome No anesthetic complications noted. Plan Transfer/ Discharge: Patient can be discharged from PACU when criteria met. Condition good. [Electronically Signed on: 05/29/2024 09:51 EDT] Hal Verma MD [Verified on: 05/29/2024 09:51 EDT] Hal Verma MD[facility], IncAnesthesia NotePatient: BOB KHANNA Age: 68 years Sex: MALE : 1955 Associated Diagnoses: None Author: Hal Verma MD Preoperative Information Anesthesia history: Family history. Patient history: No prior anesthesia problems. Review of Systems Constitutional: Negative. Cardiovascular: No Chest Pain. No SOB. Health Status Allergies: Allergic Reactions (All) Moderate Contrast media (gadolinium-based)- Hives. Current medications: Home Medications (4) Active amLODIPine 10 mg oral tablet 10 mg = 1 tab(s), Oral, Daily atorvastatin 40 mg oral tablet 40 mg = 1 tab(s), Oral, Daily ciprofloxacin 500 mg oral tablet Xarelto 20 mg oral tablet Problem list: All Problems Bradycardia / SNOMED CT 82697079 / Confirmed Factor V Leiden, prothrombin gene mutation / SNOMED CT 7801952241 / Confirmed Hypertension / SNOMED CT 6155531793 / Confirmed Histories Family History: No family history items have been selected or recorded. Procedure history: Arthroplasty of right knee (0756333985). Arthroscopy of knee (167934624). Comments: 05/14/2024 8:59 Latonia Hager RN right H/O: vasectomy (307333010). Thumb (908766704). Knee (978690743). Comments: 05/14/2024 8:59 Latonia Hager RN left knee surgery x2 d/t birht defect Tonsillectomy and adenoidectomy (813013399). Arthroplasty of right hip (9937968232). Big toe (115781104). Comments: 05/14/2024 9:00 Latonia Hager RN left Colonoscopy (334806426). Cardiac catheterization (97481854). Social History Electronic Cigarette/Vaping Assessment Electronic Cigarette Use: Never. Alcohol Assessment Use: Current. Beer, 1-2 times per week Tobacco Assessment Former tobacco user Tobacco Use:. Substance Abuse Assessment Substance use: Never. . Social & Psychosocial Habits Alcohol 05/14/2024 Alcohol Use: Current Type: Beer Frequency: 1-2 times per week Substance Use 05/14/2024 Substance use: Never Tobacco 05/14/2024 Smoking tobacco use: Former tobacco user Electronic Cigarette/Vaping 05/14/2024 Electronic Cigarette Use: Never . Physical Examination Pain assessment: Self-reports no pain. General: Alert and oriented. Airway: Mallampati classification: II (soft palate, fauces, uvula visible). Temporomandibular joint mobility: Good. Respiratory: Lungs are clear to auscultation. Cardiovascular: Regular rhythm. Neurologic: Alert, Oriented. Review / Management Laboratory Results Plan [place] [employer]esthesi[employer] (ASA) physical status classification: Class II. Anesthetic Preoperative Plan Anesthesia: Monitored anesthesia care. Anesthetic plan, risks, benefits, and alternatives discussedwith the patient and/or family. Patient verbalized understanding. Informed consent was given. Anesthetic technique: Monitored anesthesia care. [Electronically Signed on: 05/29/2024 09:13 EDT] Hal Verma MD [Verified on: 05/29/2024 09:13 EDT] Hal Verma MDSelect [facility], IncInpatient Patient Summaryon 05-29-2024 [place] [address] Patient Discharge Instructions Name: BOB KHANNA A : 1955 Patient Address: [address] [place] [address] Primary Care Provider: Name: YURI KUO After you are discharged if you find you have any questions, please, call [phone] ext [phone] to speak to a nurse. Discharge Diagnosis: 1:Elevated PSA Prescription Information: If you have been given a prescription for narcotics, seek immediate medical attention if you have any difficulty breathing or any sudden status changes such as confusion andsleepiness. If you or anyone you know is experiencing suicidal thoughts, mental health, alcohol and/or drug addiction problems; contact the [facility] 09/10 Crisis Hotline -Text 4HZHV to 050004. If you received any narcotics, sedation, or any other medication that causes drowsiness for the next 24 hours, unless otherwise directed: ? Do not drive a car. ? Do not operate machinery such as power tools, lawn mowers, drills, sewing machines, or stoves ? Avoid alcoholic beverages and drugs for allergies, nerves, or sleep ? Do not make important personal or business decisions or sign any legal documents [facility] would like to thank you for allowing us to assist you with your healthcare needs.The following includes patient education materials and information regarding your injury/illness. BOB KHANNA has been given the following list of follow-up instructions, prescriptions, and patient education materials: Follow-up Instructions With: Address: When: Martinez Herrera MD Medications During the course of your visit, your medication list was updated with the most current information. The details of those changes are reflected below: Medications to Continue That Have Not Changed Other Medications amLODIPine (amLODIPine 10 mg oral tablet) 1 tab(s) Oral (given by mouth) every day. atorvastatin (atorvastatin 40 mg oral tablet) 1 tab(s) Oral (given by mouth) every day. ciprofloxacin (ciprofloxacin 500 mg oral tablet) TAKE 1 TABLET BY MOUTH EVERY 12 HOURS FOR 3 DAYS. rivaroxaban (Xarelto 20 mg oral tablet) TAKE 1 TABLET BY MOUTH EVERY DAY. It is important to always keep an active list of medications available so that you can share with other providers and manage your medications appropriately. As an additional courtesy, we are also providing you with your final active medications list that you can keep with you. amLODIPine (amLODIPine 10 mg oral tablet) 1 tab(s) Oral (given by mouth) every day. atorvastatin (atorvastatin 40 mg oral tablet) 1 tab(s) Oral (given by mouth) every day. ciprofloxacin (ciprofloxacin 500 mg oral tablet) TAKE 1 TABLET BY MOUTH EVERY 12 HOURS FOR 3 DAYS. rivaroxaban (Xarelto 20 mg oral tablet) TAKE 1 TABLET BY MOUTH EVERY DAY. Take only the medications listed above. Contact your doctor prior to taking any medications not on this list. Diet & Activity Patient Activity Level: Patient Diet: Patient Activity Restrictions: Comment: Patient education materials, if any, will display below Viruses or Bacteria What?s got you sick? Antibiotics only treat bacterial infections. Viral illnesses cannot be treated with antibiotics. When an antibiotic is not prescribed, ask your healthcare professional for tips on how to relieve symptoms and feel better. Usual Cause Illness Viruses Bacteria Antibiotic Needed Cold/Runny Nose NO Bronchitis/Chest Cold (in otherwise healthy children and adults) NO Whooping Cough Yes Flu NO Strep Throat Yes Sore Throat (except strep) NO Fluid in the middle ear (otitis media with effusion) NO Urinary Tract Infection Yes Antibiotics Aren?t Always the Answer www.cdc.gov/getsmart GET SMART Know When Antibiotics Work U.S. Department of Health and Human Services Centers for Disease Control and Prevention November 2013[facility] MAGR Postoperative Recordon [id number] Postoperative RecordMAGR Phase II Record Summary Primary Physician: Martinez Herrera MD Finalized Date/Time: 05/29/24 13:25:30 Pt. Name: CLEMENCIABOB./Sex: 1955 MALE Med Rec #: [id number] Physician: Martinez Herrera MD Financial #: [id number] Pt. Type: D Room/Bed: / Admit/Disch: 05/29/24 07:02:02 - Institution: Phase II Case Times MAGR Pre-Care Text: Patient is free from s/s of injury. Patient remains free from compromised physical state related tosurgery or anesthesia. Patient comfort maintained. Patient/family verbalize understanding of discharge instructions. Entry 1 In PACU II 05/29/24 09:52:00 Discharge from PACU 05/29/24 10:32:00 II Last Modified By: Demetra Chapin RN 05/29/24 13:25:26 Post-Care Text: The patient remains free from s/s of injury. Patient's vital signs stable, circulation maintained, return to preop mental and physical status, opsite/dressing intact, minimal or absent nausea and vomiting, tolerates po intake. Patient verbalizes adequate pain control. Patient/family express understanding of discharge instructions. Finalized By: Demetra Chapin RN Document Signatures Signed By: Demetra Chapin RN 05/29/24 13:25[facility] Preoperative Recordon [id number] Preoperative RecordMAGR Pre-Op Record Summary Primary Physician: Martinez Herrera MD Finalized Date/Time: 05/29/24 09:32:38 Pt. Name: BOB KHANNA Niall Fiore./Sex: 1955 MALE Med Rec #: [id number] Physician: Martinez Herrera MD Financial #: [id number] Pt. Type: D Room/Bed: / Admit/Disch: 05/29/24 07:02:02 - Institution: Pre-Op Case Times MAGR Pre-Care Text: Patient will be optimally prepared for surgery. Patient is free from s/s of injury. Provide information to patient/family related to plan of care. Verify patient allergies. Confirm identity and verify consent before the operative or invasive procedure. Entry 1 Patient Arrival Time 05/29/24 07:07:00 Preop Departure 05/29/24 09:24:00 Last Modified By: Brenda Hughes RN 05/29/24 09:32:37 Post-Care Text: Patient is prepared mentally and physically and is ready for surgery. The patient remains free froms/s of injury. Patient/family express understanding of plan of care and participate in decisions affectinghis or her perioperrative plan of care. Allergies documented appropriately. Patient identifiers and consent correct. General Comments: Pt arrives to [facility] ambulatory. PT denies cp, sob, cough or flu like symptoms. PT denies pacemaker/defibillator or sleep apnea. Finalized By: Brenda Hughes RN Document Signatures Signed By: Brenda Hughes RN 05/29/24 09:32[facility] IncPathology Request for Lab Corpon [id number] Request for Lab CorpMiami Children's Hospital Physician GroupComment on above:Order Comment: PATH SPECIMEN- PROSTATE BIOPSYResult Comment: See report. Scanned copy available in EMR. PERFORMED BY: [place] [id number] PATHOLOGIST AIR CONDITIONING INSULATION INSTALLER NICOLE GUERRA M.D.Performed By: #### PATH TO [facility] #### [place] [id number] USAPatient Handouton [id number] HandoutNoCleveland Clinic FoundationProgress Note - Nurseon [id number] Note - NursePre-op call for 05-29-2024 surgery made. Pt denies sickness. Pt given arrival time of 0715 tomorrow.Pt reminded of NPO status after midnight except for any meds that he was instructed to take including oral antibiotic. Pt states he started his oral antibiotic today. 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 [Electronically Signed on: 05/28/2024 10:56 EDT] Saloni Bauer RN [Verified on: 05/28/2024 10:56 EDT] Saloni Bauer RNNoMiami Valley Hospital HospitalCoding Summaryon [id number] Summary HTMLBase 64 SdgaznzbMIo3wKx+PGhlYWQ+AR1SDHBeQ75zvXXsiL4dB1NTPWgHIjlbYELELSjIFkXvwvEwNZ5zbDTa ZXJu [file] bGx (more content not included)...[facility], IncProgress Note - Nurseon [id number] Note - NurseDr Nain box pt chart and no new orders were received. [Electronically Signed on: 05/15/2024 10:38 EST] Latonia Carrington RN [Verified on: 05/15/2024 10:38 EST] Latonia Carrington RNNormalProvidence Hospital Hospital.Auto Diff 1on 85-83-2288Fxap Rolette %10 %Normal1-12Magruder HospitalComment on above:Performed By: #### [id number], [id number], [id number] ####[facility] (DEFAULT)[address] [place] [address] 64914Gbdd Abs#0.1 k66Wfhdza1.0-0.2[facility] HospitalComment on above: Performed By: #### [id number], [id number], [id number] ####[facility] (DEFAULT)[address] [place] [address] 70608Edxjaqqee/100 WBC (Bld)1.2 % Normal0.2-2.0[facility] HospitalComment on above:Performed By: #### [id number], [id number], [id number] ####[facility] (DEFAULT)[address] [place] [address] 29051Ntm Abs#0.1 y72Ukdqdg6.0-0.4[facility] HospitalComment on above: Performed By: #### [id number], [id number], [id number] ####[facility] (DEFAULT)[address] [place] [address] 81568Uviktcvtohv/100 WBC (Bld)1.3 % Normal0.9-4.0[facility] HospitalComment on above:Performed By: #### [id number], [id number], [id number] ####[facility] (DEFAULT)[address] [place] [address] 72147Sjnwc Abs#1.7 c27Panezn4.3-2.9[facility] HospitalComment on above:Performed By: #### [id number], [id number], [id number] ####[facility] (DEFAULT)[address] [place] [address] 10237Pvnkgiazjsb/100 WBC (Bld)38 % Jugxwk94-21Rrkytged HospitalComment on above:Performed By: #### [id number], [id number], [id number] ####[facility] (DEFAULT)[address] [place] [address] 56332Lqvb Abs#0.4 e84Mapetk4.0-0.8[facility] HospitalComment on above: Performed By: #### [id number], [id number], [id number] ####[facility] (DEFAULT)[address] [place] [address] 12539Onhx Abs#2.2 w59Vjteyl2.5-9.2 [facility] HospitalComment on above:Performed By: #### [id number], [id number], [id number] ####[facility] (DEFAULT)[address] [place] [address] 78526Uzkryhrmune/100 WBC (Bld)50 %Rneaaf63-04Cxucpzsa HospitalComment on above: Performed By: #### 8709965, 05735605, [id number] ####[facility] (DEFAULT)[address] [place] [address] 3487817vg 05-34-816578Cjpiwyle hospital request last office note from January for upcoming surgery. Faxed office noted to [phone].[facility] HospitalBMP Standardon 67-48-8239kKPA Non AA>60Invalid Interpretation [facility] Comment on above:Performed By: #### [id number], [id number], [id number] ####[facility] (DEFAULT)[address] [place] [address] 31327aVHB AA>60Invalid Interpretation [facility] HospitalComment on above:Performed By: #### [id number], [id number], [id number] ####[facility] (DEFAULT)[address] [place] [address] 76845Ljxok gap [Moles/Vol]13.4 mmol/LNormal5.0-19.0[facility] Comment on above:Performed By: #### 1078770, 57623660, [id number] ####[facility] (DEFAULT)[address] [place] [address] 71029Nhgjlpe [Mass/Vol]9.4 mg/dLNormal8.9-10.3M[facility] HospitalComment on above:Performed By: #### [id number], [id number], [id number] ####[facility] (DEFAULT)[address] [place] [address] 53161Bevkvdxv [Moles/Vol]102 mmol/ZLunmuu748-061Dgkzpmdl Hospital Comment on above:Performed By: #### 5571131, 13726980, [id number] ####[facility] (DEFAULT)[address] [place] [address] 25459GF3 [Moles/Vol]27 mmol/AOapsmn32-64Tsshumim HospitalComment on above:Performed By: #### 2923564, [id number], [id number] ####[facility] (DEFAULT)[address] [place] [address] 39397Zqbmprdgtf [Mass/Vol]1.00 mg/dLNormal0.90-1.30[facility] Comment on above:Performed By: #### [id number], 18212887, [id number] ####[facility] (DEFAULT)[address] [place] [address] 62881Xcvegdj [Mass/Vol]103.0 mg/fCPpkcay44.0-118.0[facility] CenterComment on above:Performed By: #### 4257600, 82512269, [id number] ####[facility] (DEFAULT)[address] [place] [address] 51098Sdopahwpom011 mOsm/LInvalid Interpretation Code [facility] CenterComment on above:Performed By: #### 5522451, [id number], [id number] ####[facility] (DEFAULT)[address] [place] [address] 81600Fgfcmsjtt [Moles/Vol]4.4 mmol/LNormal3.6-5.1M[facility] HospitalComment on above:Performed By: #### 3035005, [id number], [id number] ####[facility] (DEFAULT)[address] [place] [address] 30267Kutajo [Moles/Vol]138.0 mmol/L Djffzl885.0-144.0[facility] HospitalComment on above:Performed By: #### 7978511, 64322053, [id number] ####[facility] (DEFAULT)[address] [place] [address] 66181Nzav nitrogen [Mass/Vol]13 mg/dLNormal8-26[facility] Comment on above:Performed By: #### [id number], 27541315, [id number] ####[facility] (DEFAULT)[address] [place] [address] 63293Nkaf nitrogen/Creatinine [Mass ratio]13.0 mg/mgNormal4.6-16.2Mmer[facility] HospitalComment on above:Performed By: #### 2805916, [id number], [id number] ####[facility] (DEFAULT)[address] [place] [address] 76702IML w/ Auto Diffon 05-14-2024 Erythrocyte distribution width (RBC) [Ratio]14.5 %Rtreih37.5-15.0[facility] HospitalComment on above:Performed By: #### [id number], 56570046, [id number] ####[facility] (DEFAULT)[address] [place] [address] 92166Bjlqawehzh (Bld) [Volume fraction]45.6 %Xvhzjx95.8-51.9[facility] HospitalComment on above: Performed By: #### 8144037, 40001232, [id number] ####[facility] (DEFAULT)[address] [place] [address] 87767Lwmsmpyhjw (Bld) [Mass/Vol]15.6 g/zIBuoktg61.8-17.7[facility] HospitalComment on above:Performed By: #### 6590282, 89701703, [id number] ####[facility] (DEFAULT)[address] [place], [place] [address]Man Diff?AutoInvalid Interpretation CodeProvidence Hospital Hospital Comment on above:Performed By: #### 7943016, 81379709, [id number] ####[facility] (DEFAULT)[address] [place], [place] [address]H (RBC) [Entitic mass]30 jsKrqdcw87-81Wghhryic HospitalComment on above:Performed By: #### 5397469, 53334700, [id number] ####[facility] (DEFAULT)[address] [place], [place] [address]HC (RBC) [Mass/Vol]34 g/sLTslsku96-80Wnnmwrob HospitalComment on above:Performed By: #### 9898251, 84280749, [id number] ####[facility] (DEFAULT)[address] [place], [place] [address]V (RBC) [Entitic vol]88 iIIuffcy45-132Nsoednio HospitalComment on above:Performed By: #### 5137753, 91169093, [id number] ####[facility] (DEFAULT)[address] [place] [address] 56652Ikpbadbn334 n64Xdwyyj195-185Lxynunlj HospitalComment on above:Performed By: #### 2698442, 91534888, [id number] ####[facility] (DEFAULT)[address] [place] [address] 43289Cjapjbri mean volume (Bld) [Entitic vol]8.5 fLNormal6.3-10.2Magrour lady of [facility] anderson HospitalComment on above:Performed By: #### 2744435, 45222077, [id number] ####[facility] (DEFAULT)[address] [place] [address] 40616SFG4.17 b19Qpxuib8.70-5.30[facility] HospitalComment on above:Performed By: #### 5696569, 15927834, [id number] ####[facility] (DEFAULT)[address] [place], [place] [address]KZT1.4 b86Zhxmmd6.5-10.5[facility] CenterComment on above:Performed By: #### 8002256, 83135520, [id number] ####[facility] (DEFAULT)[address] [place], [place] [address]Ezowdfbqnd (Bld) [Mass/Vol]Ordered By: Martinez Herrera on 90-47-6111Hmlajbatoy [Mass/Vol]Whole blood creatinine measurement0.6-1.3FPike Community HospitalComment on above:ER/ESD physician is notified/shown all ISTAT results.Critical values may be confirmed by laboratorytesting ifdeemed necessary by ER attending doctor. ISTAT XRay CREon 43-79-4583Qnbcutffnb [Mass/Vol]0.9 mg/dLNormal0.6-1.3[facility] Physician GroupComment on above:Result Comment: ER/ESD physician is notified/shown all ISTAT results. Critical values may be confirmed by laboratory testing if deemed necessary by ER attending doctor.Performed By: #### ISCRE #### [facility] [address] [place] [address] USAISTAT GFR>60.0NormalThe [facility] Physician GroupComment on above:Result Comment: PERFORMED BY: [place] [address] PATHOLOGIST AIR CONDITIONING INSULATION INSTALLER NICOLE GUERRA M.D.Performed By: #### ISCRE #### [facility] [address] [place], [place] [id number] USAMR prostate wo/w conon [id number] prostate wo/w con [facility] Main [place] [id number] MRI Report Signed Patient: Bob Khanna MR#: [id number] : 1955 Acct:[id number] Age/Sex: 68 / M ADM Date: 03/31/24 Loc: MR Room: Type: [facility] Attending Dr: Martinez Herrera MD Copies to: Martinez Herrera MD Ordering Provider: Martinez Herrera MD Date of Service: 03/31/24 MR/MR prostate wo/w con: R97.20 EXAMINATION: MR prostate wo/w con HISTORY: Elevated PSA. COMPARISON: NONE TECHNIQUE: Multiparametric imaging of the prostate gland was performed with IV contrast. FINDINGS: Prostate Dimensions: 4.8 x 3.8 x 3.8 cm. Prostate Volume: 36 mL. Peripheral Zone: Heterogenous inT2 signal suggestive of prior prostatitis. A focal area of T2 hypointensity is seen involving the lateral aspect of the left peripheral zone level of the mid gland measuring 4 x 3 mm with associated restricted diffusion and low ADC value. No gross extracapsular extension is seen. Please see series 4 image 15, series 650 image 14 and series 600 image 14. Central/Transitional Zone: BPH changes. Seminal Vesicles: Unremarkable Neurovascular bundles: Unremarkable. Lymphadenopathy: No evidence of lymphadenopathy. Bladder: No focal lesion. Bowel: The visualized bowel is without acute abnormality. Peritoneal Cavity: No free fluid. Bones: No suspicious bony lesion. Blooming artifact from right hip prosthesis. MR/MR prostate wo/w con IMPRESSION: A focal area of T2 hypointensity is seen involving the lateral aspect of the left peripheral zone level of the mid gland measuring 4 x 3 mm with associated restricted diffusion and low ADC value. No gross extracapsular extension is seen. Please see series 4 image 15, series 650 image 14 and series 600 image 14. PI-RADS 4. Targeting of this area on biopsy is recommended. Impression dictated by: Bobby Durand Jr., D.OVerenice03/31/2024 12:59 PM Dictation Location: RADIO-PC-19 Transcribed By: [facility] 03/31/24 1259 Dictated By: Bobby Durand Jr, DO 03/31/24 1255 Signed By: 03/31/24 1259[facility] Physician GroupNcgnetic resonance imaging reportOrdered By: Bobby Durand on 24-11-2511Gdguh reportPROMEDICA FOSTORIA [place] [address] MRI Report Signed Patient: Bob Khanna MR#: [id number] : 1955 Acct:[id number] Age/Sex: 68 / M ADM Date: 5 Loc: Room: Type: [facility] Attending Dr: Martinez Herrera MD Copies to: Martinez Herrera MD~ Ordering Provider: Martinez Herrera MD Date of Service: 03/31/24 MR/MR prostate wo/w con: R97.20 EXAMINATION: MR prostate wo/w con HISTORY: Elevated PSA. COMPARISON: NONE TECHNIQUE: Multiparametric imaging of the prostate gland was performed with IV contrast. FINDINGS: Prostate Dimensions: 4.8 x 3.8 x 3.8 cm. Prostate Volume: 36 mL. Peripheral Zone: Heterogenous inT2 signal suggestive of prior prostatitis. A focal area of T2 hypointensity is seen involving the lateral aspect of the left peripheral zone level of the mid gland measuring 4 x 3 mm with associated restricted diffusion and low ADC value. No gross extracapsular extension is seen. Please see series 4 image 15, series 650 image 14 and series 600 image 14. Central/Transitional Zone: BPH changes. Seminal Vesicles: Unremarkable Neurovascular bundles: Unremarkable. Lymphadenopathy: No evidence of lymphadenopathy. Bladder: No focal lesion. Bowel: The visualized bowel is without acute abnormality. Peritoneal Cavity: No free fluid. Bones: No suspicious bony lesion. Blooming artifact from right hip prosthesis. MR/MR prostate wo/w con IMPRESSION: A focal area of T2 hypointensity is seen involving the lateral aspect of the left peripheral zone level of the mid gland measuring 4 x 3 mm with associated restricted diffusion and low ADC value. No gross extracapsular extension is seen. Please see series 4 image 15, series 650 image 14 and series 600 image 14. PI-RADS 4. Targeting of this area on biopsy is recommended. Impression dictated by: Bobby Durand Jr., D.OVerenice03/31/2024 12:59 PM Dictation Location: [facility]-PC-19 Transcribed By: SALVADOR 03/31/24 1259 Dictated By: Bobby Durand Jr, DO 03/31/24 1255 Signed By: 03/31/24 1259 [facility] HospitalNo Panel InformationOrdered By: Martinez Herrera on 37-77-5769Pcbfodk Estimated GFR (eGFR)> 60.0[facility] Office Visiton 04-27-5853Artfgp-up [id number] ClemenciaBob Tierney 1955 Date Provider Department Center 02/06/2024 [place] Family History Problem Relation Age of Onset Atrial fibrillation Mother Heart failure Mother Family Status - Relation Status Age at Mother Level of Service:97799 [place] OFFICE/OUTPATIENT ESTABLISHED MOD MDM 30 MINNoSelect Medical [facility], [facility] ShawMHPT PSA, DIAGNOSTICon 01-24-2024 Interpretation and review of laboratory resultsAbnoLifecare Hospital of PittsburghPROSTATE SPECIFIC ANTIGEN DX5.94 ng/mLHighNINF - 4.00 ng/mLNOMS HealthcareCLINISYNOMS Zakwpbpgun87ew 04-97-843192Efpgmctmj lab results from 09/14/2023: YOMAIRA Cruz MA Please let him know his blood counts, kidney, liver, and thyroid function were all normal on his lab work. His cholesterol levels are well controlled as well. Good job! His PSA was mildly elevated. Follow-up with PCP regarding this. Thanks! Spoke with patient and made him aware. Said he called his urologist and made an apt for the elevated PSA.NormalUnAshtabula General HospitalOffice Visiton 80-92-4699Ubunsb-up [id number] [place] 1955 Date Provider Department Center 09/11/2023 [place] Family History Problem Relation Age of Onset Atrial fibrillation Mother Heart failure Mother Family Status - Relation Status Age at Mother Level of Service:61000 [place] OFFICE/OUTPATIENT ESTABLISHED MOD MDM 30 MIN Reason for Visit and Comments: Hypertension [141780] Coronary Artery Disease [187] Hyperlipidemia [182]NormalUnAshtabula General HospitalOffice Visiton 80-26-0780Oiqdls-up [id number] Bob Khanna A 1955 Date Provider Department Center 06/07/2023 [place] Family History Problem Relation Age of Onset Atrial fibrillation Mother Heart failure Mother Family Status - Relation Status Age at Mother Level of Service:97699 [place] OFFICE/OUTPATIENT ESTABLISHED MOD MDM 30 MIN Reason for Visit and Comments: PVCs [Other] Coronary Artery Disease [187]NormalMercy Health Anderson HospitalCNOVon 79-83-3815MNUFVwfqpy Visit (SOPHIEBABATUNDE) BOB KHANNA ([id number]) 1955 M Date Time Provider Department 03/14/22 3:00 PM RAFAEL MEJIA During your visit today, we recorded the following information about you: Rafael Mejia APRN.CNP 03/15/2022 8:10 AM Signed Post-op Office Visit Bob Khanna 66 year old March 15, 2022 8:08 AM Surgery Date: 02/27/22 History: Bob Khanna Is now 2 weeks out from S/P Right Posterior JAMES. Post-operative course has been without complication. No readmission/complications Subjective: Patient reports lateral hip pain that is mild and improving daily. Overall is doing well. Walker ambulatory aid Stopped opioid pain medication last week and only taking tylenol as needed Objective: Ambulates with walker Incision well-approximated, no drainage, normal alee-incisional erythema Full ROM not tested do to early post-operative period, but smaller arcs of motion fluid and comfortable Distally DP/PT palpable Distally S/S/SP/DP/T intact at baseline Distally DF/EHL/PF intact at baseline Negative emerson/calf tenderness Xrays: Well aligned total hip replacement in appropriate position with no evidence of loosening Assessment and Plan: Bob Khanna Is here for a first post-op appointment, overall doing well -continued ice, rest, and use of non-narcotic analgesia as needed -wean off ambulatory aids -discussed home exercises and therapy -WBAT on operative extremity -reinforced posterior precautions through 8 weeks: avoid extremes of flexion, internal rotation, and adduction -continue ankle pumps and dvt ppx through 4 weeks -discussed driving requirement: 4 weeks post-op, off narcotic pain medication, adequate brake time. We discussed he is a very tall gentleman and he needs to be cautious getting in and out of the car. He also needs to be aware of hip flexion when in drivers seat as well as transitioning from gas to brake to prevent breaking 90 degrees. -will see back at 6 week appointment for clinical exam -discussed red flag symptoms of acutely increasing pain, new erythema, new swelling, drainage, shortness of breath Rafael Mejia APRN.DIRECTOR PRODUCT MANAGEMENT Orthopaedic Surgery Referring Provider: SELF [200] Allergies As of Date: 03/14/2022 Noted Allergy Reaction GADOTERIDOL 03/02/2021 4 - Hives Comments: Patient became itchy and developed hives Date Reviewed: 03/14/2022 Reviewed by: Courtney Vaz MA - Fully Assessed Reason for Visit: Established Patient [175] Follow Up [171] Post Op [174] Hip Replacement [324] Primary Visit Diagnosis:Status post right hip replacement [Z96.641] Prescriptions as of 03/15/2022 - docusate sodium (COLACE) 100 mg capsule Take 1 capsule by mouth twice daily. - polyethylene glycol 3350 (MIRALAX, GLYCOLAX) 17 gram packet Take 1 Packet by mouth once daily. Dissolve dose in 4 - 8 ounces of liquid and take as directed. - acetaminophen (TYLENOL) 500 mg tablet Take 2 tablets by mouth every 8 hours as needed for pain. - ascorbic acid, vitamin C, (VITAMIN C) 500 mg tablet Take 1 tablet by mouth twice daily with meals for 27 doses. - oxyCODONE IR (ROXICODONE) 5 mg immediate release tablet Take 1-2 tablets by mouth every 6 hours as needed for pain. - atorvastatin (LIPITOR) 40 mg tablet Take 40 mg by mouth once daily. - rivaroxaban (XARELTO) 20 mg tablet Take 20 mg by mouth once daily. Facility-Administered Medications as of 03/15/2022 - perflutren lipid microspheres 1.3 mL in NaCl (PF) 0.9% 10 mL injection (DEFINITY) - sodium chloride 0.9 % (flush) 10 mL (BD POSIFLUSH) Problem List As Of Date 03/14/2022 Noted Resolved Personal history of pulmonary embolism [Z86.711]02/08/2022 Hyperlipidemia [E78.5] 02/08/2022 Obstructive sleep apnea [G47.33] 09/07/2008 Factor V Leiden (HCC) [D68.51] 02/08/2022 Bradycardia [R00.1] 02/08/2022 Murmur [R01.1] 02/08/2022 Encounter Status:Closed by RAFAEL MEJIA on 03/15/22[facility] AP/LAT RTon [id number] HIP 2V AP/LAT RT* * *Final Report* * * DATE OF EXAM: Mar 14 2022 2:48PM [facility] - XR HIP 2V AP/LAT RT / PROCEDURE REASON: M25.551-Pain in right hip * * * * Physician Interpretation * * * * EXAM(s): XR HIP 2V AP/LAT RT EXAM DATE/TIME: 03/14/2022 2:48 PM HISTORY: 66 years old Clinical information: Pain in right hip RIGHT HIP PAIN-JAMES AP Low pelvis, weightbearing when possible, Crosstable, TECHNIQUE: Images: XR HIP 2V AP/LAT RT Comparison: None. RESULT: Findings: The components of the RIGHT total hip arthroplasty are in good alignment with the respective bones and each other. There is no evidence of loosening of the components. Bone density appears well-preserved. No fractures or dislocations are seen. IMPRESSION: Stable right total hip arthroplasty Billiard Player: RADHA Transcribe Date/Time: Mar 14 2022 4:28P Dictated by : SOULEYMANE KWON DO This examination was interpreted and the report reviewed and electronically signed by: SOULEYMANE KWON DO on Mar 14 2022 4:28PM EST [id number] Children's HospitalXR Hip - right AP and Lateralon [id number]: Stable right total hip arthroplasty Billiard Player: PSCBrandon Transcribe Date/Time: Mar 14 2022 4:28P Dictated by : SOULEYMANE KWON DO This examination was interpreted and the report reviewed and electronically signed by: SOULEYMANE KWON DO on Mar 14 2022 4:28PM EST [facility]* * *Final Report* * * DATE OF EXAM: Mar 14 2022 2:48PM [facility] - XR HIP 2V AP/LAT RT / PROCEDURE REASON: M25.551-Pain in right hip * * * * Physician Interpretation * * * * EXAM(s): XR HIP 2V AP/LAT RT EXAM DATE/TIME: 03/14/2022 2:48 PM HISTORY: 66 years old Clinical information: Pain in right hip RIGHT HIP PAIN-JAMES AP Low pelvis, weightbearing when possible, Crosstable, TECHNIQUE: Images: XR HIP 2V AP/LAT RT Comparison: None. RESULT: Findings: The components of the RIGHT total hip arthroplasty are in good alignment with the respective bones and each other. There is no evidence of loosening of the components. Bone density appears well-preserved. No fractures or dislocations are seen. [facility], [facility] [place] - 03/14/2022 * * *Final Report* * * DATE OF EXAM: Mar 14 2022 2:48PM [facility] - XR HIP 2V AP/LAT RT / PROCEDURE REASON: M25.551-Pain in right hip * * * * Physician Interpretation * * * * EXAM(s): XR HIP 2V AP/LAT RT EXAM DATE/TIME: 03/14/2022 2:48 PM HISTORY: 66 years old Clinical information: Pain in right hip RIGHT HIP PAIN-JAMES AP Low pelvis, weightbearing when possible, Crosstable, TECHNIQUE: Images: XR HIP 2V AP/LAT RT Comparison: None. RESULT: Findings: The components of the RIGHT total hip arthroplasty are in good alignment with the respective bones and each other. There is no evidence of loosening of the components. Bone density appears well-preserved. No fractures or dislocations are seen. IMPRESSION IMPRESSION: Stable right total hip arthroplasty Billiard Player: PSCB Transcribe Date/Time: Mar 14 2022 4:28P Dictated by : SOULEYMANE KWON DO This examination was interpreted and the report reviewed and electronically signed by: SOULEYMANE KWON DO on Mar 14 2022 4:28PM [facility] RehabilitationRad[facility] observation (narrative)[facility]XR [facility] - right AP and LateralOrdered By: [facility]cf Provider on [id number] ClinicCNPNon [id number] (ME2E) CLEMENCIABOB Tierney ([id number]) 1955 M Date Time Provider Department 03/06/22 BENNY GALLARDO During your visit today, we recorded the following information about you: Lori Tolentino, YAS 03/06/2022 1:31 PM Signed Patient doing well. Took dressing off today. PT to be out later today. Denies needs at this time. Allergies As of Date: 03/06/2022 Noted Allergy Reaction GADOTERIDOL 03/02/2021 4 - Hives Comments: Patient became itchy and developed hives Date Reviewed: 02/28/2022 Reviewed by: Tim Crawley, IVETTE - Fully Assessed Reason for Visit: Biztalk Consultant - Hospital Follow Up [2409] Prescriptions as of 03/06/2022 - ferrous sulfate 325 mg (65 mg iron) tablet Take 1 tablet by mouth daily with lunch for 7 doses. - docusate sodium (COLACE) 100 mg capsule Take 1 capsule by mouth twice daily. - polyethylene glycol 3350 (MIRALAX, GLYCOLAX) 17 gram packet Take 1 Packet by mouth once daily. Dissolve dose in 4 - 8 ounces of liquid and take as directed. - acetaminophen (TYLENOL) 500 mg tablet Take 2 tablets by mouth every 8 hours as needed for pain. - ascorbic acid, vitamin C, (VITAMIN C) 500 mg tablet Take 1 tablet by mouth twice daily with meals for 27 doses. - oxyCODONE IR (ROXICODONE) 5 mg immediate release tablet Take 1-2 tablets by mouth every 6 hours as needed for pain. - atorvastatin (LIPITOR) 40 mg tablet Take 40 mg by mouth once daily. - rivaroxaban (XARELTO) 20 mg tablet Take 20 mg by mouth once daily. Facility-Administered Medications as of 03/06/2022 - perflutren lipid microspheres 1.3 mL in NaCl (PF) 0.9% 10 mL injection (DEFINITY) - sodium chloride 0.9 % (flush) 10 mL (BD POSIFLUSH) Problem List As Of Date 03/06/2022 Noted Resolved Personal history of pulmonary embolism [Z86.711]02/08/2022 Hyperlipidemia [E78.5] 02/08/2022 Obstructive sleep apnea [G47.33] 09/07/2008 Factor V Leiden (HCC) [D68.51] 02/08/2022 Bradycardia [R00.1] 02/08/2022 Murmur [R01.1] 02/08/2022 Encounter Status:Closed by LORI TOLENTINO on 03/06/22NoPeoples HospitalBasi metabolic 2000 panelon 45-43-3912Lifjr gap [Moles/Vol]6 mmol/LLow9-18Georgetown HospitalComment on above:Order Comment: Specimen Type: BLOOD SPECIMENOrdering Facility: [facility] Address:[address] [place], [place] [address]Performed By: #### 32384-1 ####[facility]ORATORYCLIA [id number] [place] [address] [place] AMERICACalcium [Mass/Vol]8.7 mg/dLNormal8.5-10.2Mwarnock HospitalComment on above:Order Comment: Specimen Type: BLOOD SPECIMENOrdering Facility: [facility] Address:[address] [place], [place] [address]Performed By: #### 93908-8 ####[facility] LABORATORYCLIA [id number] [place] [address] [place] AMERICAChloride [Moles/Vol]104 mmol/JKqrmhi35-419Nmutik HospitalComment on above:Order Comment: Specimen Type: BLOOD SPECIMENOrdering Facility: [facility] Address:[address] [place], [place] [address]Performed By: #### 58854-4 ####[facility] LABORATORYCLIA [id number] [place] [address] [place] AMERICACO2 [Moles/Vol]31 mmol/ZGkgh95-17Ucrtxh HospitalComment on above:Order Comment: Specimen Type: BLOOD SPECIMENOrdering Facility: [facility] Address:[address] [place], [place] [address]Performed By: #### 65334-7 ####[facility] LABORATORYCLIA [id number] [place] [address] [place] AMERICACreatinine [Mass/Vol] 0.93 mg/dLNormal0.73-1.22[facility] on above:Order Comment: Specimen Type: BLOOD SPECIMENOrdering Facility: [facility] Address:[address] [place], [place] [address]Performed By: #### 21526-1 ####[facility] LABORATORYCLIA [id number] [place] [id number] [place] OF AMERICAESTIMATED GLOMERULAR FILTRATION RATE92 mL/min/1.73m???Normal>=60[facility] on above:Order Comment: Specimen Type: BLOOD SPECIMENOrdering Facility: [facility] Address:[address] [place], [place] [address]Result Comment: Estimated Glomerular Filtration Rate (eGFR) is calculated using the 2020 CKD-EPI creatinine equation. This equation utilizes serum creatinine, sex, and age as parameters. The creatinine assay has traceable calibration to isotope dilution-mass spectrometry. Refer to KDIGO guidelines f or clinical interpretation. In patients with unstable renal function, e.g. those with acute kidney injury, the eGFR may not accurately reflect actual GFR. Performed By: #### 44166-9 ####[facility] LABORATORYCLIA [id number] [place] [id number] [place] AMERICAGlucose [Mass/Vol]102 mg/yNUjsr87-26Mknb[address] on above:Order Comment: Specimen Type: BLOOD SPECIMENOrdering Facility: [facility] Address:[address] [place], [place] [address]Result Comment: The [place] Diabetes Association (ADA) provides guidance for cutoff values for fasting glucose and random glucose. The ADA defines fasting as no caloric intake for at least 8 hours. F asting plasma glucose results between 100 to 125 [...] Standards of Medical Care in Diabetes 2016, [place] [employer] Association. Diabetes Care. 2016.39(Suppl 1).Performed By: #### 31317-6 ####[facility] LABORATORYCLIA [id number] [address] AMERICAPotassium [Moles/Vol]4.9 mmol/LNormal3.7-5.1Mwarnock HospitalComment on above:Order Comment: Specimen Type: BLOOD SPECIMENOrdering Facility: [facility] Address:[address] [place], [place] [address]Performed By: #### 64533-4 ####[facility] LABORATORYCLIA [id number] [address]ETSodium [Moles/Vol]141 mmol/LFjxaah440-494Bgyfnn HospitalComment on above:Order Comment: Specimen Type: BLOOD SPECIMENOrdering Facility: [facility] Address:[address] [place], [place] [address]Performed By: #### 96816-8 ####[facility] LABORATORYCLIA [id number] [address]ETUrea nitrogen [Mass/Vol]14 mg/dLNormal9-24Georgetown HospitalComment on above:Order Comment: Specimen Type: BLOOD SPECIMENOrdering Facility: [facility] Address:[address] [place], [place] [address]Performed By: #### 06079-4 ####[facility] LABORATORYCLIA [id number] [address]ETCASE MANAGEParkland Health Center [id number] MANAGEMHNO ID: [id number] Author: Nery Deal RN Service: ? Author Type: Registered Nurse Type: Care Mgt Progress Note Filed: 02/28/2022 12:55 PM Note Text: CARE MANAGEMENT DISCHARGE NOTE SERVICE DATE: 02/28/2022 SERVICE TIME: 12:54 PM LOS: 0 days Admission Date: 02/27/2022 DISCHARGE ARRANGEMENT (list agency and phone number) Discharge Arrangement: Home with Home Health Provider Name: [facility] CAREGIVER ASSESSMENT: Caregiver is ready, willing and able to meet the patient's needs as recommended by the inter-professional team:: Yes Patient's transition needs and plan for meeting these needs: Home PT HANDOFF COMMUNICATION: Handoff to: Primary Care Physician Primary Care Physician Name/Phone: Dr. Yuri Kuo - [phone] TRANSPORTATION ARRANGEMENTS: Transportation Arrangements: Car Discharge Information Row Name Admission (Current) from 02/27/[address] Care Agency [facility] Needs Prior to Discharge: Ready for Discharge Discharge order written for today. [facility] will be seeing the patient for Home PT , they will contact the patient with a start of care date. Notified [facility] of the patients discharge home today, discharge instructions sent to [facility] via PingStamp. SIGNATURE: Nery Deal RN PATIENT NAME: Bob Khanna DATE: February 28, 2022 TIME: 12:54 PM PAGER/CONTACT #: [phone] Health System – TahlequahNO ID: [id number] Author: Nery Deal RN Service: ? Author Type: Registered Nurse Type: Care Mgt Progress Note Filed: 02/28/2022 11:30 AM Note Text: CARE MANAGEMENT PROGRESS NOTE SERVICE DATE: 02/28/2022 SERVICE TIME: 11:30 AM LOS: 0 days Needs Prior to Discharge: To Be Determined [facility] able to accept. CM department will continue to follow for DC needs. SIGNATURE: Nery Deal RN PATIENT NAME: Bob Khanna DATE: February 28, 2022 TIME: 11:30 AM PAGER/CONTACT #: [phone] HospitalCBC panel Auto (Bld)on 54-00-0227Fptzgxjlpyr distribution width (RBC) [Ratio]14.3 %Normal 11.5-15.0Fostoria City HospitalComment on above:Order Comment: Specimen Type: BLOOD SPECIMEN [facility] Address: [address] [place] [id number] By: #### 55176-9 #### [facility] CLIA [id number] [address] [place] [address] [place] OF AMERICAHematocrit (Bld) [Volume fraction]39.3 %Mmzbkz67.0-51.0[facility] HospitalComment on above:Order Comment: Specimen Type: BLOOD SPECIMEN [facility] Address: [address] [place], [place] [address]Performed By: #### 70560-5 #### [facility] CLIA [id number] [address]ETHemoglobin (Bld) [Mass/Vol]13.2 g/dL Rxvpgb58.0-17.0[facility] HospitalComment on above:Order Comment: Specimen Type: BLOOD SPECIMEN [facility] Address: [address] [place] [address]Performed By: #### 32280-6 #### [facility] CLIA [id number] [address] (RBC) [Entitic mass]30.3 pgNormal 26.0-34.0[facility] HospitalComment on above:Order Comment: Specimen Type: BLOOD SPECIMEN [facility] Address: [address] [place] [address]Performed By: #### 33638-9 #### [facility] CLIA [id number] [address] (RBC) [Mass/Vol]33.6 g/dLNormal 30.5-36.0[facility] HospitalComment on above:Order Comment: Specimen Type: BLOOD SPECIMEN [facility] Address: [address] [place] [address]Performed By: #### 25451-7 #### [facility] CLIA [id number] [address] (RBC) [Entitic vol]90.3 fLNormal 80.0-100.0Ge[facility] HospitalComment on above:Order Comment: Specimen Type: BLOOD SPECIMEN [facility] Address: [address] [place] [address]Performed By: #### 70520-0 #### [facility] CLIA [id number] 1000 [place] [address] [place] AMERICANucleated RBC (Bld) [#/Vol]10*3/uL Normal<0.01[facility] Children[facility] Hospitalna HospitalComment on above:Order Comment: Specimen Type: BLOOD SPECIMEN [facility] Address: [address] [place], [place] [address]Performed By: #### 40355-7 #### [facility] CLIA [id number] [address] [place] [address] [place] AMERICAPlatelet mean volume (Bld) [Entitic vol]9.9 fLNormal9.0-12.7Medina HospitalComment on above:Order Comment: Specimen Type: BLOOD SPECIMEN [facility] Address: [address] [place], [place] [address]Performed By: #### 29345-7 #### [facility] CLIA [id number] [address] STATES OF AMERICAPlatelets (Bld) [#/Vol]202 10*3/uL Mrirbk977-691Wcxezk HospitalComment on above:Order Comment: Specimen Type: BLOOD SPECIMEN [facility] Address: [address] [place], [place] [address]Performed By: #### 76190-4 #### [facility] CLIA [id number] [address] AMERICARBC (Bld) [#/Vol]4.35 10*6/uLNormal 4.20-6.00[facility] Hospitalna HospitalComment on above:Order Comment: Specimen Type: BLOOD SPECIMEN [facility] Address: [address] [place], [place] [address]Performed By: #### 49451-2 #### [facility] CLIA [id number] [address]WBC (Bld) [#/Vol]7.08 10*3/uLNormal 3.70-11.00[facility] Hospitalna HospitalComment on above:Order Comment: Specimen Type: BLOOD SPECIMEN [facility] Address: [address] [place], [place] [address] [address]Iyfkayara By: #### 27571-6 #### [facility] [id number] 1000 [place] [address] [place] AMERICACNCOon 04-83-3200ZUMQJfhtnu TextNoSalem City HospitalTHERAPY NTon 14-97-3753ZWIVTMQ NTHNO ID: [id number] Author: Joan Browne OTR/L Service: Occupational Therapy Author Type: Occupational Therapist Type: Therapy (PT/OT/Speech/Resp) Filed: 02/28/2022 1:59 PM Note Text: Occupational Therapy Evaluation SERVICE DATE: 02/28/2022 SERVICE TIME: 50 to 1044 ROOM: [place] [address] Recommended Discharge Disposition: Home OT Recommended Discharge Disposition Comments: for home safety evaluation to assess follow through with safety precautions Anticipated Discharge Needs: Physical Assist at Home;Supervision at Home Physical Assist at Home for: Cleaning;Laundry;Meals;Shopping;Transportation Supervision at Home due to: (for optimal safety initially) Recommended Discharge Equipment: ADL Kit;Wheeled Walker OT 6 Clicks Score: 19 Precautions/Activity Restrictions: Fall Risk;Lines/Tubes/Drains;Total Hip Replacement;Weight Bearing Restrictions Extremity With Weight Bearing Restricted: Right Lower Extremity Right Lower Extremity Weight Bearing Status: 50% PWB Total Hip Replacement Precautions: Posterior Current Hospital Course: right JAMES 02/27/22 Reason for Hospital Admission: scheduled right JAMES Relevant Past Medical History: osteoartritis, pulmonary embolism with factor V Leiden positive, bradycardia, HLD, ELIEZER, R TKA Response to Therapy Interventions: Good participation in activities, Notable progression with functional activities/skills, Pain, Requires additional time to complete activities Assessment Comments: Pt required Mimi for RLE management and verbal cues for sequencing during bed mobility. Pt required CGA for all transfers and functional mobility. Pt was able to don underwear and pants successfully using a business support associate to stay within precautions. Pt required Mimi for donning socks with sock aide. Pt was able to teach back placing sock on sock aide, but demonstrated difficulty putting his foot in. Pt will need assistance with LB ADLS initially for optimal safety. Continue skilled needs due to: Functional impairment Occupational Therapy Problem List: Pain;Safety Deficits;Impaired Self Care;Functional Mobility Impairment;Balance Impaired;Decreased Activity Tolerance Cognition/Communication Deficits Orientation Deficits: (AANDO x4) Responsiveness: Alert, Awake Follows Commands: 2-step Commands Treatment Interventions: Education;Self Care / Home Management;Functional Mobility Training;Balance Training Plan for next visit: Bed mobility, Shower/tub transfer training, Standing balance, Standing tolerance Home Environment Patient Lives With: Spouse;Family;Other: See Comment Comments: adult kids Assistance Available: 24-Hour Entry To Home: Stairs;With Rail Number Of Stairs Into Home: (3 curb style steps - 1 onto porch, 1 to landing and small step into home) Number Of Stairs To Bed/Bath: 0 - ranch home Tub/Shower Type: walk in shower with grab bar and shower chair Laundry: basement laundry Equipment Owned: Cane;Crutch(es);Wheeled Walker;Other: See Comment;Wind Operations Manager;Long Handled Shoe Horn (adjustable bed) Prior Functional Level: Within Functional Limits Prior Functional Level Comments: Pt reports independence with all ADLs, shares IADLs with family. Currently drives. 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 Denies any falls within the last 6 months. 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 Occupational Factors Life Roles: Employed;Parent;Spouse/Significant Other;Family Member Identified Strengths: Good Support System;Open to Adaptive Equipment/Strategies Identified Barriers: Difficulty with ADLs/IADLs Patient Report: I had my right knee done a couple of years ago CURRENT FUNCTIONAL STATUS: Most recent performance Current Activities of Daily Living Assist Level Additional Information Feeding Independent Grooming Contact Guard Assistance;Additional Information when standing for optimal safety Bathing Upper Body Stand By Assistance;Additional Information while seated Bathing Lower Body Minimal Assistance;Additional Information seated, with Mimi for thoroughness Dressing Upper Body Set Up Dressing Lower Body Minimal Assistance;Additional Information for safety during standing portion of task. required Mimi for donning socks after attempting sock aide. Toileting Contact Guard Assistance;Additional Information during standing portion of task for optimal safety Functional Mobility Assist Level Additional Information Rolling Supine to Sit Minimal Assistance;Additional Information verbal cues, Mimi for management of RLE Sit to Supine Scooting Stand By Assistance Sit to Stand Contact Guard Assistance;Additional Information verbal cues for hand placement and sequencing Stand to Sit Contact Guard Assistance Bed to Chair Toilet/Commode Shower Functional Mobility Contact Guard Assistance Wheeled Walker Blank vizcarra indicate activity not attemp (more content not included)...Normal [facility] City HospitalTHERAPY NTHNO ID: [id number] Author: Yumiko Ingram, PT Service: Physical Therapy Author Type: Physical Therapist Type: Therapy (PT/OT/Speech/Resp) Filed: 02/28/2022 10:30 AM Note Text: Physical Therapy Evaluation SERVICE DATE: 02/28/2022 SERVICE TIME: 824 ROOM: [place] [address] Recommended Discharge Disposition: Home PT Recommended Discharge Disposition Comments: to progress safe mobility in his home Anticipated Discharge Needs: Physical Assist at Home;Supervision at Home Physical Assist at Home for: Cleaning;Laundry;Meals;Transportation;Shopping Supervision at Home due to: (initially for optimal safety) Recommended Discharge Equipment: No equipment needs anticipated PT 6 Clicks Score: 18 Precautions/Activity Restrictions: Fall Risk;Lines/Tubes/Drains;Total Hip Replacement;Weight Bearing Restrictions Extremity With Weight Bearing Restricted: Right Lower Extremity Right Lower Extremity Weight Bearing Status: 50% PWB Total Hip Replacement Precautions: Posterior Current Hospital Course: right JAMES 02/27/22 Reason for Hospital Admission: scheduled right JAMES Relevant Past Medical History: osteoartritis, pulmonary embolism with factor V Leiden positive, bradycardia, HLD, ELIEZER Response to Therapy Interventions: Good participation in activities, On-track to achieve discharge goals, Pain, Requires additional time to complete activities, Requires encouragement to complete activities Assessment Comments: patient presents with expected limitations post right JAMES including pain, decreased ROM/strength and impaired functional mobility. patient demonstrates good follow through with cues/education. patient demonstrates good tolerance with stable pain and BP. patient with min difficulty for R LE mgmt however able to use cane as leg negative turner to complete supine to sit and instructed patient in use of family to assist. Continue skilled needs due to: Functional mobility/skill impairments, Safety concerns Physical Therapy Problem List: Safety Deficits;Impaired Self Care;Decreased Activity Tolerance;Decreased Range Of Motion;Decreased Strength;Functional Mobility Impairment;Balance Impaired Treatment Interventions: Education;Self Care / Home Management;Energy Conservation Training;Joint Mobility;Strengthening;Functional Mobility Training;Balance Training;Neuromuscular Re-education Plan for next visit: Bed mobility, Curb step training, Edema management, Fall prevention, Family instruction, Gait training, Pre-gait activities, Exercise instruction/handout, Sit to Stand Transfers, Sitting balance, Standing Balance, Standing Tolerance, Walker Training Home Environment Patient Lives With: Spouse;Family;Other: See Comment Comments: adult kids Assistance Available: 24-Hour Entry To Home: Stairs;With Rail Number Of Stairs Into Home: (3 curb style steps - 1 onto porch, 1 to landing and small step into home) Number Of Stairs To Bed/Bath: 0 - ranch home Tub/Shower Type: walk in shower with grab bar and shower chair Laundry: basement laundry Equipment Owned: Cane;Crutch(es);Wheeled Walker;Other: See Comment (adjustable bed) Prior Functional Level: Within Functional Limits Prior Functional Level Comments: ind with amb without device, ADL/IADL, +drives, denies falls. Patient Report: patient agreeable to PT and cleared by RN. CURRENT FUNCTIONAL STATUS: Most recent performance Current Functional Mobility Assist Level Additional Information Rolling Supine to Sit Minimal Assistance;Additional Information HOB 20 deg, no rail use/cues for no rail use, slow to EOB. reinforced hip precautions with functional progression. 1st trial min A for R LE and 2nd attempt cane used as leg negative turner and CGA for right LE mgmt. education regarding how family can assist right LE mgmt with transfer to sitting Sit to Supine Contact Guard Assistance;Additional Information with use of cane as leg negative turner Scooting Contact Guard Assistance;Additional Information with cues for increased UE use. in sitting, fwd/retro Sit to Stand Contact Guard Assistance;Additional Information from elevated EOB to emulate home set up bed and chair height. cues for hand placement, reinforced WB restriction Stand to Sit Contact Guard Assistance;Additional Information to EOB with FWW. cues for safe approach of EOB with FWW, positioning at HOB, hand placement, right LE positioning and controlled descent Bed to Chair Toilet/Commode Gait Contact Guard Assistance;Additional Information Gait Device: Wheeled Walker Gait Distance (feet): 60 x 1 recommendation for FWW and education for adjusting height of walker and rationale. education for step to pattern with increased UE use with right LE stance to unload right LE for PWB 50% and pain. cues for walker negotiation, sequencing, distancing and turning Stairs Additional Information NA Curb Step Contact Guard Assistance;Additional Information Device: Wheeled Walker attempt (more content not included)...[facility] [id number] HEALTHHNO ID: [id number] Author: LUANN Grant Service: Radiology Author Type: Technologist Type: Allied Health Filed: 02/27/2022 1:49 PM Note Text: Radiology Service Progress Note PATIENT NAME: Bob Khanna DATE OF SERVICE: February 27, 2022 TIME: 1:49 PM PATIENT IDENTITY VERIFICATION COMPLETED USING TWO (2) IDENTIFIERS: Name and Date of confirmed by patient verbally. FALL SCREENING: Has the patient had 2 falls in the last year or 1 fall with injury or currently using an Ambulatory Assistive Device (Walker, Cane, Wheelchair, Crutches, etc.)? No PATIENT GENDER DATA: Male PATIENT RELEVANT IMPLANT DATA REVIEWED: Not Applicable RADIOLOGY DEPARTMENT: General X-ray: Exam(s) Completed: Pelvis X-Ray: Pelvis General AP PERIPHERAL IV DATA: Not applicable SIGNED BY: LUANN Grant February 27, 2022 1:49 PMNNationwide Children's HospitalANES POSTPROC EVALon 02-27-2022 ANES POSTPROC EVALHNO ID: [id number] Author: Haseeb Clemente MD Service: Anesthesiology Author Type: Anesthesiologist Type: Anesthesia Postprocedure Evaluation Filed: 02/27/2022 1:44 PM Note Text: POST ANESTHESIA EVALUATION NOTE : 1955 Procedure Summary Date: 02/27/22 Room / Location: [place] Anesthesia Start: 1036 Anesthesia Stop: 1301 Procedure: ROBOTIC ASSISTED TOTAL HIP ARTHROPLASTY (Right: Hip) Diagnosis: Primary osteoarthritis of right hip (Primary osteoarthritis of right hip [M16.11]) Surgeons: Benny Gallardo MD Responsible Provider: Haseeb Clemente MD Anesthesia Type: spinal ASA Status: 3 Anesthesia Type: spinal Last Vitals Vitals Value Taken Time BP 128/59 02/27/22 1330 Temp 36 ?C (96.8 ?F) 02/27/22 1258 Pulse 39 02/27/22 1343 Resp 14 02/27/22 1343 SpO2 94 % 02/27/22 1343 Vitals shown include unvalidated device data. Post Anesthesia Patient Status Patient Evaluation: bedside. Anticipated Disposition: inpatient floor planned admission. Neurological Status: aware and responsive. Pulmonary Status: breathing comfortably on room air Airway Control: returned to baseline unsupported. Cardiovascular Status: stable. Pain Management: clinically adequate Postoperative Hydration: acceptable. Intraoperative Events: no significant anesthesia events Post Operative Nausea/Vomiting Status: no significant post operative nausea or vomiting Recommendation: continue current plan of care. Anesthesia Observations No Documentation SIGNATURE: Haseeb Clemente MD PATIENT NAME: Bob Khanna DATE: February 27, 2022 TIME: 1:44 PM CSN: [id number] [facility] PRE-OPon [id number] PRE-OPHNO ID: [id number] Author: Haseeb Clemente MD Service: Anesthesiology Author Type: Anesthesiologist Type: Anesthesia Preprocedure Evaluation Filed: 02/27/2022 9:16 AM Note Text: ANESTHESIOLOGY DAY OF SURGERY NOTE : 1955 Procedure Information Date/Time: 02/27/22 1130 Procedure: ROBOTIC ASSISTED TOTAL HIP ARTHROPLASTY (Right: Hip) Location: [place] [address] / [place] Surgeons: Benny Gallardo MD Estimated body mass index is 31.78 kg/m? as calculated from the following: Height as of 02/08/22: 195.6 cm (6' 5 ). Weight as of 02/08/22: 121.6 kg (268 lb). Most recent hematocrit and potassium results: Hematocrit 45.8 02/08/2022 Potassium 4.3 02/08/2022 Relevant Problems ANESTHESIA (+) Obstructive sleep apnea CARDIO (+) Murmur NEURO-PSYCH (+) Personal history of pulmonary embolism PULMONARY (+) Obstructive sleep apnea I - PHYSICAL EVALUATION AIRWAY Patient intubated: No. Tracheostomy tube not present Mallampati: II. TM distance: >3 FB. Neck ROM: full ROM without neurological symptoms. Mouth opening: adequate. Short neck: no. Thick neck: no Masters present: no DENTAL Normal dental observations. Dental findings: teeth intact. Additional exam findings: no II - ANESTHESIA PLAN ASA Score: 3 Anesthetic Plan: spinal The patient is not a current smoker. NPO Status: adequate Beta Ruth Monitoring Plan Monitoring plan: standard ASA. Post Procedure Analgesic Plan Postoperative analgesic plan: parenteral or oral opioids and multimodal analgesia. Patient / Surrogate agrees to blood products: blood products not planned DNR status not reviewed with patient and/or family prior to surgery. Significant changes in the patient condition since the History and Physical, not otherwise documented in primary service progress note: no. Potential Anesthesia issues that may suggest increased risk of complications or contraindication to planned procedure: none. No vitals data found for the desired time range. Facility-Administered Medications as of 02/27/2022 Medication Dose Route Frequency - lactated ringers iv infusion 5-30 mL/hr INTRAVENOUS CONTINUOUS - NaCl 0.9% iv flush bag 20 mL INTRAVENOUS PRN - ceFAZolin iv piggyback 2 g in D5W (iso-osmotic) 100 mL (ANCEF) 2 g INTRAVENOUS Pre-Op Once - tranexamic acid 1,000 mg in NaCl 0.9% 100 mL (CYKLOKAPRON) 1,000 mg INTRAVENOUS Pre-Op Once - tranexamic acid 1,000 mg in NaCl 0.9% 100 mL (CYKLOKAPRON) 1,000 mg INTRAVENOUS ONCE Outpatient Medications as of 02/27/2022 Medication Sig - atorvastatin (LIPITOR) 40 mg tablet Take 40 mg by mouth once daily. - rivaroxaban (XARELTO) 20 mg tablet Take 20 mg by mouth once daily. I have interviewed and examined the patient. I have reviewed the medical record and/or the pre-anesthesia evaluation, pertinent labs, and test results. This contains updated information obtained within 48 hours of Surgery/Procedure. SIGNATURE: Haseeb Clemente MD PATIENT NAME: Bob Khanna DATE: February 27, 2022 TIME: 9:16 AM CSN: [id number] Memorial Hospital [id number] ID: [id number] Author: Yuri Rogers PA-C Service: Orthopaedic Surgery Author Type: Physician Computer Operations Supervisor Type: Discharge Summary Filed: 02/28/2022 12:10 PM Note Text: Attestation signed by Benny Gallardo MD at 02/28/2022 1:26 PM I agree with the above discharge summary. Reviewed, authenticated, and electronically signed by Benny Gallardo MD DISCHARGE SUMMARY PATIENT NAME: Bob Khanna ADMISSION DATE: 02/27/2022 DISCHARGE DATE: 02/28/2022 PATIENT DISCHARGE SUMMARY C O N F I D E N T I A L I N F O R M A T I O N The following is a brief overview of your hospitalization. Some of the information contained on this summary may be confidential. This information should be kept in your records and should be shared with your regular doctor. These instructions explain what you or your gericare aide need to do to continue your care at home or at another healthcare facility Please go over these instructions with your nurse and gericare aide. If you are not sure about something, please ask. Highest Readmission Risk Score: 6 The 30 day readmissions risk score is derived from an internally validated risk model which evaluates patient level characteristics, utilization history, medication orders and lab results up until the day of discharge. Patients with a score of 40 or above are considered highest risk for readmission. Specific patient level drivers will be listed at the bottom of the summary. The 30 day readmissions risk score is derived from an internally validated risk model which evaluates patient level characteristics, utilization history, medication orders and lab results up until the day of discharge. Patients with a score of 40 or above are considered highest risk for readmission. Where I Will be Going after Discharge: Home with Home Health My Condition at Discharge: Stable PRINCIPAL DIAGNOSIS: (Reason after study for this admission): Procedure(s): ROBOTIC ASSISTED TOTAL HIP ARTHROPLASTY OTHER DIAGNOSES: Patient Active Hospital Problem List: No active hospital problems. OPERATIONS PERFORMED: Procedure(s): ROBOTIC ASSISTED TOTAL HIP ARTHROPLASTY My Doctors and Medical Team: My Main Hospital Doctor: Doctor Benny Gallardo MD PHYSICAL EXAM: See daily progress note Vitals: BP 139/76 Pulse (!) 58 Temp 36.9 ?C (98.4 ?F) (Oral) Resp 18 Ht 190.5 cm (6' 3 ) Wt 121.6 kg (268 lb) SpO2 95% BMI 33.50 kg/m? SUMMARY OF WHAT HAPPENED WHILE PATIENT WAS IN THE HOSPITAL: The patient was followed in the office by Dr. Gallardo in clinic for right hip osteoarthritis. It was determined the patient would benefit from right total hip arthroplasty. The procedure, its risks, benefits, and potential complications were discussed in detail prior to surgery. The patient conveyed understanding of all topics and consented to surgery. The patient was admitted to the hospital. Underwent an elective right total hip arthroplasty on 02/27/[address] Gallardo. The patient tolerated the procedure well and was returned to the Post Anesthesia Care Unit in stable condition. Vital signs per PACU protocol. VTE risk assessment performed. O2 therapy monitored by Respiratory Therapy to include incentive spirometry, ADL, wound and support per physician order set postop protocol. PT and OT to evaluate and treat. IV antibiotics, antiemetics, Xarelto for DVT prophylaxis and pain medication were given. The patient progressed with physical therapy. Lab values and vital signs were monitored and remained stable. The incision remained clean, dry and intact. Thigh and calf are not swollen. No signs of DVT or infection. The patient progressed with physical therapy towards goal of safety and independence. Patient was determined safe for discharge to home with home health care on 02/28/2022. TREATMENT / WOUND CARE: If you have any concerns about your wound, please contact the office. Keep wound and incision area clean and dry. You may remove your dressing on POD #7. If it remains drainage-free, you may leave the dressing off, keeping the wound open to air. If there is any drainage please contact the office You may not submerge the wound under standing water for 6 weeks time after surgery (i.e. no baths, no hot tubs, no swimming pools). Do not rub the wound, but rather pat dry. If you have non-absorbable sutures in place, these will be taken out on your 1st follow-up appointment. Observe the wound for signs of infection, including increased redness, swelling, or persistent drainage around the incision site. It is normal for your wound to be warmer immediately after surgery (even up to 4-6 weeks after (more content not included)...[facility] HospitalCONSULT on [id number] ID: [id number] Author: Anthony Montiel MD Service: General Internal Medicine Author Type: Physician Type: Consults Filed: 02/28/2022 12:59 PM Note Text: [facility]- Consultation BOB KHANNA : 1955 AGE: 66 SEX: M ACCTNUM: [id number] [facility] ATTENDING PHYSICIAN: BENNY GALLARDO DATE OF SERVICE: 02/27/2022 TIME OF SERVICE: 04:48 PM REASON FOR CONSULTATION: Postop medical management. HISTORY: This is a 66-year-old gentleman whose significant medical history includes osteoarthritis, pulmonary embolism with Factor V Leiden positive, bradycardia, hyperlipidemia, obstructive sleep apnea, currently not using a CPAP. Patient underwent elective right total hip arthroplasty. Patient had uneventful intraoperative course. Estimated blood loss 300 mL. During initial evaluation, patient is alert and oriented. Today, he did not receive of physical therapy. He was denying any nausea, lightheadedness, dizziness, shortness of breath. PAST MEDICAL HISTORY: As mentioned above. PAST SURGICAL HISTORY: Left knee surgery, right knee arthroscopic surgery. FAMILY HISTORY: Positive for hypertension, COPD, and heart failure. Father had COPD also. SOCIAL HISTORY: Smoked half pack for 30 years, quit more than 13 years ago. He does not drink alcohol. He is . MEDICATIONS: His current home medication list reviewed. ALLERGIES: He is allergic to Gadoteridol, caused hives. REVIEW OF SYSTEMS: HEENT/Neck: No history of glaucoma, TIA, CVA, seizure disorders. No history of dysphagia or odynophagia. No history of chronic cough, wheezing, or dyspnea with exertion. No history of coronary artery disease, congestive heart failure, or cardiac arrhythmia. History of hyperlipidemia. History of obstructive sleep apnea, currently not using a CPAP. No history of bleeding, peptic ulcer disease, hepatitis, or colitis. Good appetite. Regular bowel movement. No history of chronic dysuria, hematuria, CKD, renal calculi. Twice a night micturition. History of DVT/PE and history of Factor V Leiden. No paresthesia of the feet. PHYSICAL EXAM: General: Young gentleman. The patient is alert and oriented. Good carotid pulse felt. No carotid bruit. No thyromegaly appreciated. No lymphadenopathy of the neck. Lungs: Clear to auscultation bilaterally. Cardiovascular: S1, S2. Regular rhythm. Unable to appreciate any murmur, gallop, or rub. Abdomen: Soft, nontender, nondistended. No mass felt. Lower Extremities: No ankle edema noted. IMPRESSION: 1. Osteoarthritis, status post right total hip arthroplasty. 2. History of deep venous thrombosis/pulmonary embolism/Factor V Leiden positive. Resume Xarelto. 3. Obstructive sleep apnea. Currently not using a CPAP. 4. Sinus bradycardia. Patient has no history of syncopal episode. No lightheadedness or dizziness. Continue to monitor. 5. Recent echo showed normal right and left ventricular function and grade 1 diastolic dysfunction. 6. Resume his statins. 7. Hold other medication for now. Thank you very much for kind referral. Continue to follow him while in the hospital. Anthony Montiel M.D. Internal Medicine SKAmarjit:[id number] /[id number] Ridge Hospital – [place] [id number] [facility] ID: [id number] Author: Benny Gallardo MD Service: Orthopaedic Surgery Author Type: Physician Type: Operative Report Filed: 02/27/2022 12:31 PM Note Text: PATIENT NAME: Bob Khanna CSN: [id number] LOG ID: [id number] Surgery Date: 02/27/2022 Surgeon(s) and Computer Operations Supervisor(s): Rafael Mejia NP - Pattern Chain Maker Supervisor Surgeon(s) and Role: * Benny Gallardo MD - Primary No qualified orthopedic resident was available 22 modifier --none BMI: Estimated body mass index is 33.5 kg/m? as calculated from the following: Height as of this encounter: 190.5 cm (6' 3 ). Weight as of this encounter: 121.6 kg (268 lb). Procedure(s): Procedure(s) (LRB): ROBOTIC ASSISTED TOTAL HIP ARTHROPLASTY (Right) Anesthesia: Choice - Anesthesia Consult Incision Start: 11:11 AM Incision Stop: 12:45 PM approx Attestation: I was present for and performed all critical portions of the case. financial assistance specialist was necessary for safe patient positioning, sterile prepping and draping, assistance, positioning and protection, soft tissue retraction, protection of vital structures and suture management during the case, and superficial wound closure. Also critical for safe transit to the recovery room in stable condition. Preop Diagnosis: Pre-Op Diagnosis Codes: * Primary osteoarthritis of right hip [M16.11] Postop Diagnosis: Same as Pre-Op Diagnosis Codes: * Primary osteoarthritis of right hip [M16.11] Implants: 58 trident II 25 mm screw 6 HO stem, accolade II 36 -2.5mm head Neutral poly liner Problem List: ACTIVE PROBLEM LIST Personal History of Pulmonary Embolism Hyperlipidemia Obstructive Sleep Apnea Factor V Leiden (Hcc) Bradycardia Murmur OPERATIVE INDICATIONS: The patient has a history of progressive right hip pain and arthritis. Their hip pain is severe with activity and has progressed significantly over time . X-rays reveal thebszwl-wg-xbwymt loss of articular cartilage of the hip with osteophytes consistent with advanced hip osteoarthritis. Non-operative treatment has been attempted, but is now ineffective at controlling symptoms during normal daily activities. Motion has become limited and rotation severely restricted. A total hip arthroplasty was recommended at this time. The risks, benefits and potential complications of the arthroplasty surgery were discussed with the patient in detail. Specific details of the procedure, hospitalization, recovery, rehabilitation, and long-term precautions were also provided. Pre-operative teaching was provided. Implant/prosthesis selection was outlined, and the many options available were explained; the final choice will be made at the time of the procedure to match the anatomy and condition of the bone, ligaments, tendons, and muscles. Understanding of all topics was conveyed to me by the patient, and consent was given to proceed with a right total hip arthroplasty. The patient was evaluated medically for pre-operative optimization. Alee-operative blood management and the potential for blood transfusion were discussed with risks and options clearly outlined. OPERATIVE PROCEDURE: The patient was identified and brought into the Operating Room by the anesthesia and nursing team. Satisfactoryl anesthesia was successfully performed. Intravenous antibiotic prophylaxis dosing was confirmed. The patient was then positioned in the lateral decubitus position with the assistance of a pegboard. An axillary roll was placed, and all other pressure points were checked and padded. The hip was then examined and restrictions noted. A relative leg length assessment was carried out. The leg was then prepped and draped in the usual sterile fashion. We reviewed the operative template according to the CT scan and navigation screen on the robotic device. We assessed an altered cup size and position, stem size and position, as well as possible areas of impingement in changes to her leg length and offset. Once satisfied we confirmed the plan is appropriate. A surgical time-out was performed immediately preceding the incision with all personnel in the operating room; the patient identity was again confirmed, the surgical site and extremity were identified and confirmed, X-rays were reviewed, and availability of the appropriate surgical equipment was established. 3 small poke incisions were made over the iliac crest. The 3 robotic array pins were placed individually, each via palpation, feeling the bone anteriorly and posteriorly, and then directing the pain in the middle of the iliac crest. The rate was then placed on the pens, snapping to bone, and firmly tightened. We confirmed that the robot was able to see this. The hip was then exposed through a skin incision centered over the greater trochanter. Dissection was carried down through skin and subcutaneous tissue to the tensor and gluteal fascia. The fascia was split posteriorly over the (more content not included)...NormalGeorgetown HospitalSURGICAL PATHOLOGYon [id number] REPORTNormalFostoria City HospitalComment on above:Order Comment: Specimen Type: BLOOD SPECIMEN Ordering Facility: [facility] Address: [address] [place] [id number] Comment: Surgical Pathology Report Case: [id number] Authorizing Provider: Benny Gallardo MD Collected: 02/27/2022 11:18 AM [facility]ing [facility] Surgery Received: 02/27/2022 02:38 PM Pathologist: Tracy Orellana MD Specimen: FEMORAL HEAD RIGHTPerformed By: #### [id number] #### [facility] CLIA [id number] [address] [place] [address] HospitalComment on above:Order Comment: Specimen Type: BLOOD SPECIMEN Ordering Facility: [facility] Address: [address] [place] [address]Result Comment: Pre-op diagnosis: Primary osteoarthritis of right hip [M16.11]Performed By: #### [id number] #### [facility] CLIA [id number] [address] [place], [place] [id number] [facility] CenterComment on above:Order Comment: Specimen Type: BLOOD SPECIMEN Ordering Facility: [facility] Address: [address] [place] [address]Result Comment: A. Right femoral head, arthroplasty: - Degenerative joint disease. - Chronic nonproliferative synovitis. Performed By: #### [id number] #### [facility] CLIA [id number] [address] [place], [place] [address]Comment on above:Order Comment: Specimen Type: BLOOD SPECIMEN Ordering Facility: [facility] Address: [address] [place], [place] [id number] Comment: Diagnostic interpretation performed at [facility], [address] [place], [place] [address] CLIA# [id number] Quality Assistant: Angel Ocampo M.D.Performed By: #### [id number] #### [facility] CLIA [id number] [address] [place] [address] DESCRIPTIONTrinity Health System Twin City Medical CenterCombeaumont hospital on above:Order Comment: Specimen Type: BLOOD SPECIMEN Ordering Facility: [facility] Address: [address] [place], [place] [id number] Comment: A. FEMORAL HEAD RIGHT Received in formalin labeled as femoral head right 6.6 x 5.8 x 5.4 cm. The articular surface is remarkable for an area of eburnation. The recognizable cartilage is roughened and osteophytes are present. [place] soft tissue are mildly adherent to the bone. Sectioning reveals hard trabecular cut surfaces. No areas of necrosis are identified. Treasury Specialist sections are submitted as follows: A1 soft tissue; A2-A3 bone after decalcification (A2 weightbearing end; A3 nonweightbearing end). Gross examination performed at [facility], [address] [place] [address] RSA February 27, 2022 5:04 PMPerformed By: #### 4537-7 #### [facility] CLIA [id number] [address] [place] [address] OF AMERICAXR PELVIS 1V APon 02-27-2022 XR PELVIS 1V AP* * *Final Report* * * DATE OF EXAM: Feb 27 2022 1:30PM MDX 5239 - XR PELVIS 1V AP / PROCEDURE REASON: Post-operative / post-procedure assessment, asymptomatic * * * * Physician Interpretation * * * * PROCEDURE: Pelvis INDICATION: Post-operative / post-procedure assessment, asymptomatic.right hip TECHNIQUE: XR PELVIS 1V AP COMPARISON: 10/04/2021 FINDINGS: There is a new right total hip arthroplasty in satisfactory position with associated postoperative soft tissue changes. No acute fracture. IMPRESSION: Postop right JAMES Billiard Player: RADHA Transcribe Date/Time: Feb 27 2022 1:56P Dictated by : CAROLINA CHAWLA MD This examination was interpreted and the report reviewed and electronically signed by: CAROLINA CHAWLA MD on Feb 27 2022 1:57PM EST [id number] HospitalARS-CoV-2 RNA Resp Ql ULICES+probeon [id number]-CoV-2 (COVID-19) RNA ULICES+probe Ql (Resp)COVID 19 RESULT: SARS-CoV-2 (Agent of COVID-19) Not Detected by RT-PCR or equivalent method. This test was developed and its performance characteristics determined by [facility] [place]. This test has been authorized by FDA under an Emergency Use Authorization (EUA). This test has been validated in accordance with the FDA's Guidance Document Policy for DiagnosticsTesting in Laboratories Certified to Perform High Complexity Testing under CLIA prior to Emergency use Authorization for Coronavirus Disease 2019 during the Public Health Emergency issued on May 17, 2019. Test performed by [facility], [facility] [place], [address] [place] [address].NormalAdams County Regional Medical CenterComment on above:Performed By: #### 80177- 6 #### [facility] CLIA [id number] [address] [place], [place] [address]K [address]ECHOon 02-24-2022 EchocardiographyEchocardiography Report: Transthoracic Echo [facility] Office Date of service: 02/24/2022 10:18:36 AM COATER Ordering physician: CHADWICK HARRIS Indication: Pre Op Hip Surgery/ Murmur Technologist: Sangeeta Stern Interpreting physician: Roger Matta DO PATIENT: Name: MR. BOB KHANNA : 1955 Age: 66 years Gender: M History of dyslipidemia. Primary rhythm: sinus. Secondary rhythm: RBBB. Height: 195.60 cm BSA: 2.57 m Weight: 121.56 kg BMI: 31.8 kg/m Heart rate 58 bpm Blood pressure 141/75 mmHg Technically difficult exam due to body habitus. Color Doppler was utilized to interrogate the cardiac valves assessed and spectral Doppler was utilized to determine the flow velocities and pressure gradients reported in this exam. MEASUREMENTS: Value Indexed Normal Max aortic dimension 4.2 cm Ao < 3.8 Left atrial volume 73 ml (biplane A-L) 29 ml/m Kandi <= 34 LV ID (diastole) 5.2 cm (2D) 2.02 cm/m LV ID (systole) 3.0 cm (2D) 1.18 cm/m IVS, leaflet tips 1.3 cm (2D) Posterior wall thickness 1.2 cm (2D) Left ventricular mass 269 g (2D) 105 g/m LV stroke volume 87 ml (2D 4-ch.) LVOT stroke volume 157 ml 62 ml/m LV end diastolic volume 128 ml (2D 4-ch.) 49.8 ml/m 34<=EDVi<75 LV end systolic volume 41 ml (2D 4-ch.) 16.1 ml/m Ejection Fraction 68 % (2D 4-ch.) EF > 52 FINDINGS: LEFT VENTRICLE The left ventricle is normal in size. There is mild concentric left ventricular hypertrophy. Left ventricular systolic function is normal. Grade I left ventricular diastolic dysfunction. Mitral annular lateral E/e': 8.9. Mitral annular septal E/e': 7.3. Wall Motion: All scored segments are normal. RIGHT VENTRICLE The right ventricle is normal in size. Right ventricular systolic function is normal. RV systolic tissue Doppler velocity is 17.7 cm/s. Tricuspid annular displacement is 3.1 cm. Estimated right ventricular systolic pressure is not reported due to an insufficient tricuspid regurgitation signal. Estimated right atrial pressure is 3 mmHg based on IVC assessment. LEFT ATRIUM The left atrial cavity is normal in size. Pulmonary Veins: The pulmonary venous pattern showed normal systolic flow. RIGHT ATRIUM The right atrial cavity is dilated. Inferior Vena Cava: The inferior vena cava appears normal measuring 1.7 cm. The vessel decreases greater than 50 percent with inspiration. MITRAL VALVE The mitral valve leaflets are structurally normal. There is trace mitral valve regurgitation. The pressure half time is 65 msec. The peak mitral E/A ratio is 0.96. The average mitral E/e' ratio is 8.1. The mitral flow deceleration time is 224 msec. TRICUSPID VALVE The tricuspid valve leaflets are structurally normal. There is trace tricuspid valve regurgitation. AORTIC VALVE There is mild aortic valve stenosis caused by calcified valve and restricted opening. There is trace aortic valve regurgitation. Tricuspid aortic valve. There is mild thickening. There is mild calcification. The peak gradient is 23 mmHg (peak velocity = 238.0 cm/s). The mean gradient is 10 mmHg. The LVOT mean velocity is 92.9 cm/s. The LVOT diameter is 2.6 cm. The aortic VTI is 43.6 cm. The mean velocity in the aortic valve is 141.0 cm/s. The dimensionless valve index is 0.68. AV area is 3.60 cm (1.40 cm /m ) by continuity, VTI. The LVOT stroke volume index is 62 ml/m . PULMONIC VALVE The pulmonic valve was not seen or not interrogated. There is trace pulmonic valve regurgitation. AORTA The visualized aorta is dilated. Measurements - Aortic valve annulus 2.7 cm. Sinus: 3.9 cm. Sinotubular junction 3.1 cm. Mid ascending aorta 4.0 cm. Distal ascending aorta 4.2 cm. PULMONARY ARTERIES The pulmonary arteries are normal. INTERATRIAL SEPTUM There is no evidence of intracardiac shunting as detected by Doppler. PERICARDIUM There is no pericardial effusion. There is an epicardial fat pad. CONCLUSIONS: - Technically difficult exam due to body habitus. - Exam indication: Pre Op Hip Surgery/ Murmur - The left ventricle is normal in size. There is mild concentric left ventricular hypertrophy. Leftventricular systolic function is normal. EF = 68 5% (2D 4-ch.) Grade I left ventricular diastolic dysfunction. - The right ventricle is normal in size. Right ventricular systolic function is normal. - The right atrial cavity is dilated. - The visualized aorta is dilated with a maximal dimension of 4.2 cm. - AV sclerosis. - The patient has not had a prior CC echocardiographic exam for comparison. * * * Final * * * [facility] Image : [id number] [facility] Medical CenterPrasad [id number] (KISHA) BOB KHANNA ([id number]) 1955 M Date Time Provider Department 02/17/22 CHADWICK HARRIS During your visit today, we recorded the following information about you: Kylie Mane RN 02/17/2022 9:20 AM Signed Received letter from Dr. Kuo (scanned into chart) stating ok for patient to hold Xarelto X 3 days prior to surgery. Called and reviewed instructions with patient. Patient repeated back and verbalized an understanding. Allergies As of Date: 02/17/2022 Noted Allergy Reaction GADOTERIDOL 03/02/2021 4 - Hives Comments: Patient became itchy and developed hives Date Reviewed: 02/08/2022 Reviewed by: Chadwick Harris APRN.DIRECTOR PRODUCT MANAGEMENT - Fully Assessed Reason for Visit: Preparations For Surgery [898] Prescriptions as of 02/17/2022 - atorvastatin (LIPITOR) 40 mg tablet Take 40 mg by mouth once daily. - rivaroxaban (XARELTO) 20 mg tablet Take 20 mg by mouth once daily. Facility-Administered Medications as of 02/17/2022 - perflutren lipid microspheres 1.3 mL in NaCl (PF) 0.9% 10 mL injection (DEFINITY) - sodium chloride 0.9 % (flush) 10 mL (BD POSIFLUSH) Problem List As Of Date 02/17/2022 Noted Resolved Personal history of pulmonary embolism [Z86.711]02/08/2022 Hyperlipidemia [E78.5] 02/08/2022 Obstructive sleep apnea [G47.33] 09/07/2008 Factor V Leiden (HCC) [D68.51] 02/08/2022 Bradycardia [R00.1] 02/08/2022 Murmur [R01.1] 02/08/2022 Encounter Status:Closed by KYLIE MANE on 02/17/22[facility] HospitalPrasad [id number] (ME2E) BOB KHANNA ([id number]) 1955 M Date Time Provider Department 02/15/22 BENNY GALLARDO During your visit today, we recorded the following information about you: YAS Toribio 02/16/2022 3:36 PM Signed TOTAL JOINT COMPLETE CARE PROGRAM PRE-OPERATIVE TEACHING Service Date: 02/16/2022 Service Time: 3:31 PM Date of : 1955 Gender: male Date of Surgery: 02/27/22 Procedure: Right Total Hip Replacement Complete Care Program was discussed with the patient: 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 Pt owns walker, crutches, cane, shower chair, raised toilet seat, shoe horn and business support associate.. Plans to get sock aide. Discussed with patient importance of attending joint education class and provided date and times of class: YES paper copy. Had TKA few years ago. Patient received Joint Education Binder: Yes Patient plans discharge home with [facility]. SIGNATURE: YAS Toribio PATIENT NAME: Bob Khanna DATE: February 15, 2022 TIME: 3:14 PM Allergies As of Date: 02/15/2022 Noted Allergy Reaction GADOTERIDOL 03/02/2021 4 - Hives Comments: Patient became itchy and developed hives Date Reviewed: 02/08/2022 Reviewed by: Chadwick Harris APRN.DIRECTOR PRODUCT MANAGEMENT - Fully Assessed Reason for Visit: Pre-Op Teaching [134] Prescriptions as of 02/16/2022 - atorvastatin (LIPITOR) 40 mg tablet Take 40 mg by mouth once daily. - rivaroxaban (XARELTO) 20 mg tablet Take 20 mg by mouth once daily. Facility-Administered Medications as of 02/16/2022 - perflutren lipid microspheres 1.3 mL in NaCl (PF) 0.9% 10 mL injection (DEFINITY) - sodium chloride 0.9 % (flush) 10 mL (BD POSIFLUSH) Problem List As Of Date 02/15/2022 Noted Resolved Personal history of pulmonary embolism [Z86.711]02/08/2022 Hyperlipidemia [E78.5] 02/08/2022 Obstructive sleep apnea [G47.33] 09/07/2008 Factor V Leiden (HCC) [D68.51] 02/08/2022 Bradycardia [R00.1] 02/08/2022 Murmur [R01.1] 02/08/2022 Encounter Status:Closed by LORI TOLENTINO on 02/16/22NormalGeorgetown HospitalTHREE [facility] W Auto Differential panel (Bld)on [id number] (Bld) [#/Vol]0.04 10*3/uL Normal<0.11Medina HospitalComment on above:Order Comment: Specimen Type: BLOOD SPECIMENOrdering Facility: [facility] Address:[address] [place], [place] [address]Performed By: #### 92808-3 ####[facility] LABORATORYCLIA [id number] [place] [address] [place] Basophils/100 WBC (Bld)0.6 %NormalGeorgetown HospitalComment on above:Order Comment: Specimen Type: BLOOD SPECIMENOrdering Facility: [facility] Address:[address] [place], [place] [address]Performed By: #### 30958-9 ####[facility] LABORATORYCLIA [id number] [place] [address] [place] AMERICADifferential cell count method Nom (Bld)AutoNormalGeorgetown HospitalComment on above:Order Comment: Specimen Type: BLOOD SPECIMENOrdering Facility: [facility] Address:[address] [place], [place] [address]Performed By: #### 43783-8 ####[facility] LABORATORYCLIA [id number] [place] [address] [place] AMERICAEosinophils (Bld) [#/Vol]0.09 10*3/uLNormal<0.46Medina HospitalComment on above:Order Comment: Specimen Type: BLOOD SPECIMENOrdering Facility: [facility] Address:[address] [place], [place] [address]Performed By: #### 97529-6 ####[facility] LABORATORYCLIA [id number] [place] [address] [place] AMERICAEosinophils/100 WBC (Bld)1.4 %NormalGeorgetown Hospital Comment on above:Order Comment: Specimen Type: BLOOD SPECIMENOrdering Facility: [facility] Address:[address] [place] [address] Performed By: #### 49480-6 ####[facility] LABORATORYCLIA [id number] [place] [address] [place] AMERICAErythrocyte distribution width (RBC) [Ratio]14.1 %Wasbjt36.5-15.0Georgetown HospitalComment on above:Order Comment: Specimen Type: BLOOD SPECIMENOrdering Facility: [facility] Address:[address] [place], [place] [address]Performed By: #### 88329-5 ####[facility] LABORATORYCLIA [id number] [place] [address] [place] AMERICAHematocrit (Bld) [Volume fraction]45.8 %Normal 39.0-51.0Georgetown HospitalComment on above:Order Comment: Specimen Type: BLOOD SPECIMENOrdering Facility: [facility] Address:[address] [place], [place] [address]Performed By: #### 56856-3 ####[facility] LABORATORYCLIA [id number] [place] [address] [place] Hemoglobin (Bld) [Mass/Vol]15.1 g/zBMugorn36.0-17.0Georgetown HospitalComment on above:Order Comment: Specimen Type: BLOOD SPECIMENOrdering Facility: [facility] Address:[address] [place], [place] [address]Performed By: #### 14338-6 ####[facility] LABORATORYCLIA [id number] [place] [address] [place] AMERICAImmature granulocytes (Bld) [#/Vol]10*3/uL Normal<0.10Georgetown HospitalComment on above:Order Comment: Specimen Type: BLOOD SPECIMENOrdering Facility: [facility] Address:[address] [place], [place] [address]Performed By: #### 12852-6 ####SOL[facility] LABORATORYCLIA [id number] [place] [address] [place] Immature granulocytes/100 WBC (Bld)0.2 %NormalGeorgetown HospitalComment on above: Order Comment: Specimen Type: BLOOD SPECIMENOrdering Facility: [facility] Address:[address] [place], [place] [address]Performed By: #### 05652-9 ####SLO[facility] LABORATORYCLIA [id number] [place] [address] [place] BELLEVUE HOSPITALLymphocytes (Bld) [#/Vol]2.03 10*3/uLNormal 1.00-4.00Medina HospitalComment on above:Order Comment: Specimen Type: BLOOD SPECIMENOrdering Facility: [facility] Address:[address] [place], [place] [address]Performed By: #### 87087-0 ####SOL[facility] LABORATORYCLIA [id number] [place] [address] [place] Lymphocytes/100 WBC (Bld)32.6 %NormalGeorgetown HospitalComment on above:Order Comment: Specimen Type: BLOOD SPECIMENOrdering Facility: [facility] Address:[address] [place], [place] [address]Performed By: #### 93313-0 ####[facility] LABORATORYCLIA [id number] [address] (RBC) [Entitic mass]29.4 gvOwuwmf14.0-34.0 Georgetown HospitalComment on above:Order Comment: Specimen Type: BLOOD SPECIMENOrdering Facility: [facility] Address:[address] [place], [place] [address]Performed By: #### 66227-8 ####[facility] LABORATORYCLIA [id number] [place] [address] [facility] BELLEV[facility] HOSPITALMCHC (RBC) [Mass/Vol]33.0 g/vOZguxpv04.5-36.0[facility]S Hospitalna HospitalComment on above:Order Comment: Specimen Type: BLOOD SPECIMENOrdering Facility: [facility] Address:[address] [place], [place] [address]Performed By: #### 72893-2 ####SOL[facility] LABORATORYCLIA [id number] [address] (RBC) [Entitic vol]89.3 sCGefxtm26.0-100.0 Solis HospitalComment on above:Order Comment: Specimen Type: BLOOD SPECIMENOrdering Facility: [facility] Address:[address] [place], [place] [address]Performed By: #### 64476-6 ####SOL[facility] LABORATORYCLIA [id number] [place] [address] [place] Monocytes (Bld) [#/Vol]0.59 10*3/uLNormal<0.87Georgetown HospitalComment on above: Order Comment: Specimen Type: BLOOD SPECIMENOrdering Facility: [facility] Address:[address] [place], [place] [address]Performed By: #### 89811-9 ####[facility] LABORATORYCLIA [id number] [place] [address] [place] AMERICAMonocytes/100 WBC (Bld)9.5 %NormalFostoria City Hospital Comment on above:Order Comment: Specimen Type: BLOOD SPECIMENOrdering Facility: [facility] Address:[address] [place] [address] Performed By: #### 90614-7 ####[facility] LABORATORYCLIA [id number] [place] [address] [place] AMERICANeutrophils (Bld) [#/Vol] 3.46 10*3/uLNormal1.45-7.50Georgetown HospitalComment on above:Order Comment: Specimen Type: BLOOD SPECIMENOrdering Facility: [facility] Address:[address] [place], [place] [address]Performed By: #### 80879-9 ####SOL[facility] LABORATORYCLIA [id number] [place] [address] [place] AMERICANeutrophils/100 WBC (Bld)55.7 %NormalFostoria City Hospital Comment on above:Order Comment: Specimen Type: BLOOD SPECIMENOrdering Facility: [facility] Address:[address] [place] [address] Performed By: #### 35115-6 ####SOL[facility] LABORATORYCLIA [id number] [place] [address] [place] AMERICANucleated RBC (Bld) [#/Vol]10*3/uLNormal<0.01Georgetown HospitalComment on above:Order Comment: Specimen Type: BLOOD SPECIMENOrdering Facility: [facility] Address:[address] [place], [place] [address]Performed By: #### 22499-4 ####[facility] LABORATORYCLIA [id number] [place] [address] [place] AMERICANucleated RBC/100 WBC (Bld) [Ratio]0.0 /100 WBCNormalGeorgetown Hospital Comment on above:Order Comment: Specimen Type: BLOOD SPECIMENOrdering Facility: [facility] Address:[address] [place] [address] Performed By: #### 50970-6 ####[facility] LABORATORYCLIA [id number] [place] [address] [place] AMERICAPlatelet mean volume (Bld) [Entitic vol]10.3 fLNormal9.0-12.7Georgetown HospitalComment on above:Order Comment: Specimen Type: BLOOD SPECIMENOrdering Facility: [facility] Address:[address] [place] [address]Performed By: #### 09002-5 ####SOL[facility] LABORATORYCLIA [id number] [place] [address] [place] AMERICAPlatelets (Bld) [#/Vol]255 10*3/cLLskcul304-144 Ge[facility] HospitalComment on above:Order Comment: Specimen Type: BLOOD SPECIMENOrdering Facility: [facility] Address:[address] [place], [place] [address]Performed By: #### 54771-0 ####SOL[facility] LABORATORYCLIA [id number] [place] [address] [place] AMERICARBC (Bld) [#/Vol]5.13 10*6/uLNormal4.20-6.00Georgetown HospitalComment on above:Order Comment: Specimen Type: BLOOD SPECIMENOrdering Facility: [facility] Address:[address] [place], [place] [address]Performed By: #### 45353-3 ####SOL[facility] LABORATORYCLIA [id number] [place] [address] [place] AMERICAWBC (Bld) [#/Vol]6.22 10*3/uLNormal3.70-11.00 Fostoria City HospitalComment on above:Order Comment: Specimen Type: BLOOD SPECIMENOrdering Facility: [facility] Address:[place] [address]Dvdpansdo By: #### 25008-5 ####[facility]ORATORYCLIA [id number] [place] [address] [facility] Basophils (Bld) [#/Vol]0.04 10*3/uL<0.11 k/uLOhiohealthBasophils/100 WBC (Bld)0.6 %OhiohealthDifferential cell count method Nom (Bld)AutoCleveland ClinicEosinophils (Bld) [#/Vol]0.09 10*3/uL<0.46 k/uLOhiohealth Eosinophils/100 WBC (Bld)1.4 %OhiohealthErythrocyte distribution width (RBC) [Ratio]14.1 %11.5 - 15.0 %OhiohealthHematocrit (Bld) [Volume fraction]45.8 %39.0 - 51.0 %OhiohealthHemoglobin (Bld) [Mass/Vol]15.1 g/dL 13.0 - 17.0 g/dLOhiohealthImmature granulocytes (Bld) [#/Vol]<0.10 k/uL OhiohealthImmature granulocytes/100 WBC (Bld)0.2 %[facility] Lymphocytes (Bld) [#/Vol]2.03 10*3/uL1.00 - 4.00 k/uLOhiohealth Lymphocytes/100 WBC (Bld)32.6 %OhiohealthMCH (RBC) [Entitic mass]29.4 pg 26.0 - 34.0 pgCmercy health springfield regional medical centerand Mayo Clinic HospitalHC (RBC) [Mass/Vol]33.0 g/dL30.5 - 36.0 g/dL [facility] SystemV (RBC) [Entitic vol]89.3 fL80.0 - 100.0 fLClevelMcKitrick Hospital Monocytes (Bld) [#/Vol]0.59 10*3/uL<0.87 k/uLCleveland ClinicMonocytes/100 WBC (Bld)9.5 %[place] City ClinicNeutrophils (Bld) [#/Vol]3.46 10*3/uL1.45 - 7.50 k/uL Corw ClinicNeutrophils/100 WBC (Bld)55.7 %[place] City ClinicNucleated RBC (Bld) [#/Vol]<0.01 k/uLOil City ClinicNucleated RBC/100 WBC (Bld) [Ratio]0.0 /100 WBCOil City ClinicPlatelet mean volume (Bld) [Entitic vol]10.3 fL9.0 - 12.7 fLCleveland ClinicPlatelets (Bld) [#/Vol]255 10*3/uL150 - 400 k/uLOil City ClinicRBC (Bld) [#/Vol]5.13 10*6/uL4.20 - 6.00 m/uLOil City ClinicWBC (Bld) [#/Vol]6.22 10*3/uL3.70 - 11.00 k/uLOil City ClinicCNCOon 05-66-7566FOHLYhazux TextNoMountain View campus HospitalCONFIRM BLOOD TYPEon 72-46-4155PXZVBdofhgdvi ClinicRh Nom (Bld)PositiveOhiohealthABOANoMountain View campus HospitalComment on above:Order Comment: Specimen Type: BLOOD SPECIMEN [facility] Address: [address] [place], [place] [address]Performed By: #### CONABO #### [facility] CLIA [id number] [address] STATES HORTON MEDICAL CENTERRh Nom (Bld)PositiveNormValley Presbyterian Hospital HospitalComment on above:Order Comment: Specimen Type: BLOOD SPECIMEN [facility] Address: [address] [place], [place] [address]Performed By: #### CONABO #### [facility] CLIA [id number] [address] OF AMERICAComprehensive metabolic 2000 panelon 25-84-1063Rlpxxdl [Mass/Vol]4.3 g/dLNormal3.9-4.9Georgetown HospitalComment on above:Order Comment: Specimen Type: BLOOD SPECIMENOrdering Facility: [facility] Address:[place] [address]Performed By: #### 59751-3, 2275-06, ####[facility] LABORATORYCLIA [id number] [place] [address] [place] AMERICAALP [Catalytic activity/Vol]62 U/AXeeoam67-846Usqwbi HospitalComment on above:Order Comment: Specimen Type: BLOOD SPECIMENOrdering Facility: [facility] Address:[address] [place], [place] [address]Performed By: #### 05819-5, 2275-06, 36557-1 ####[facility] LABORATORYCLIA [id number] [place] [address] [place] AMERICAALT [Catalytic activity/Vol]16 U/L Qrvxpc42-27Fawait HospitalComment on above:Order Comment: Specimen Type: BLOOD SPECIMENOrdering Facility: [facility] Address:[address] [place], [place] [address]Performed By: #### 68612-9, 2275-06, ####[facility] LABORATORYCLIA [id number] [place] [address] [place] AMERICAAnion gap [Moles/Vol]10 mmol/LNormal9-18Medina HospitalComment on above:Order Comment: Specimen Type: BLOOD SPECIMENOrdering Facility: [facility] Address:[address] [place], [place] [address]Performed By: #### 18948-2, 2275-06, 90825-1 ####[facility] LABORATORYCLIA [id number] [place] [address] [place] AMERICAAST [Catalytic activity/Vol]16 U/UBtlxul33-57Kpoowo HospitalComment on above:Order Comment: Specimen Type: BLOOD SPECIMENOrdering Facility: [facility] Address:[address] [place], [place] [address] [address]Performed By: #### 79455-2, 2275-06, 64401-9 ####[facility] LABORATORYCLIA [id number] [place] [address] [place] AMERICABilirubin [Mass/Vol]0.7 mg/dLNormal 0.2-1.3Medtylertown HospitalComment on above:Order Comment: Specimen Type: BLOOD SPECIMENOrdering Facility: [facility] Address:[place] [address]Performed By: #### 68101-4, 2275-06, ####[facility] LABORATORYCLIA [id number] [place] [address] [place] AMERICACalcium [Mass/Vol]9.3 mg/dLNormal8.5-10.2Medtylertown HospitalComment on above:Order Comment: Specimen Type: BLOOD SPECIMENOrdering Facility: [facility] Address:[place] [address]Performed By: #### 65596-7, 2275-06, ####[facility] LABORATORYCLIA [id number] [place] [address] [place] AMERICAChloride [Moles/Vol]103 mmol/GKpugzw23-475Jcnxdf HospitalComment on above:Order Comment: Specimen Type: BLOOD SPECIMENOrdering Facility: [facility] Address:[address] [place] [address]Performed By: #### 52510-4, 2275-06, ####SOL[facility] LABORATORYCLIA [id number] [place] [address] [place] AMERICACO2 [Moles/Vol]28 mmol/NPofwbd93-79[facility] Comment on above:Order Comment: Specimen Type: BLOOD SPECIMENOrdering Facility: [facility] Address:[address] [place] [address] Performed By: #### 74799-6, 2275-06, ####SOLIS LABORATORYCLIA [id number] [place] [address] [place] Creatinine [Mass/Vol]0.91 mg/dLNormal0.73-1.22Georgetown HospitalComment on above: Order Comment: Specimen Type: BLOOD SPECIMENOrdering Facility: [facility] Address:[address] [place] [address]Performed By: #### 81877-0, 4, ####SOLIS LABORATORYCLIA [id number] [address]ESTIMATED GLOMERULAR FILTRATION RATE94 mL/min/1.73m???Normal>=60Medi HospitalComment on above:Order Comment: Specimen Type: BLOOD SPECIMENOrdering Facility: [facility] Address:[address]Result Comment: Estimated Glomerular Filtration Rate (eGFR) is calculated using the 2020 CKD-EPI creatinine equation. This equation utilizes serum creatinine, sex, and age as parameters. The creatinine assay has traceable calibration to isotope dilution- mass spectrometry. Refer to KDIGO guidelines for clinical interpretation. In patients with unstable renal function, e.g. those with acute kidney injury, the eGFR may not accurately reflect actual GFR.Performed By: #### 94413-2, 2275-06, ####SOLIS LABORATORYCLIA [id number] [address] STATES OF AMERICAGlucose [Mass/Vol]83 mg/hTKtblwc85-70Igfbyv35 Stevens StreetComment on above:Order Comment: Specimen Type: BLOOD SPECIMENOrdering Facility: [facility] Address:[address]Result Comment: The [place] Diabetes Association (ADA) provides guidance for cutoff [...] Standards of Medical Care in Diabetes 2016, [place] Diabetes Association. Diabetes Care. 2016.39(Suppl 1).Performed By: #### 23085-4, 4, 29215-2 ####SOLIS LABORATORYCLIA [id number] [place] [address] [place] AMERICAPotassium [Moles/Vol]4.3 mmol/LNormal3.7-5.1Medina HospitalComment on above:Order Comment: Specimen Type: BLOOD SPECIMENOrdering Facility: [facility] Address:[address] [place], [place] [address]Performed By: #### 04742-6, 2275-06, ####SOLIS LABORATORYCLIA [id number] [place] [address] [place] Protein [Mass/Vol]7.6 g/dLNormal6.3-8.0Georgetown HospitalComment on above:Order Comment: Specimen Type: BLOOD SPECIMENOrdering Facility: [facility] Address:[address] [place], [place] [address]Performed By: #### 72977-0, 2275-06, ####SOLIS LABORATORYCLIA [id number] [place] [address] [place] AMERICASodium [Moles/Vol]141 mmol/IGboicw032-770Cdvfrk HospitalComment on above:Order Comment: Specimen Type: BLOOD SPECIMENOrdering Facility: [facility] Address:[address] [place], [place] [address]Performed By: #### 26920-1, 2275-06, ####SOLIS LABORATORYCLIA [id number] [place] [address] [place] AMERICAUrea nitrogen [Mass/Vol]13 mg/dLNormal9-24Georgetown HospitalComment on above:Order Comment: Specimen Type: BLOOD SPECIMENOrdering Facility: [facility] Address:[address] [place], [place] [address]Performed By: #### 21488-9, 2275-06, ####SOLIS LABORATORYCLIA [id number] [place] [address] [place] Albumin [Mass/Vol]4.3 g/dL3.9 - 4.9 g/dLCleveland Clinic Hillcrest Hospitalveland ClinicALP [Catalytic activity/Vol]62 U/L38 - 113 U/LCleveland ClinicALT [Catalytic activity/Vol]16 U/L10 - 54 U/LCleveland ClinicAnion gap [Moles/Vol]10 mmol/L9 - 18 mmol/L [facility]healthAST [Catalytic activity/Vol]16 U/L14 - 40 U/LCmercy health springfield regional [facility] centerand [facility] Bilirubin [Mass/Vol]0.7 mg/dL0.2 - 1.3 mg/dLOhiohealthCalcium [Mass/Vol] 9.3 mg/dL8.5 - 10.2 mg/dLOhiohealthChloride [Moles/Vol]103 mmol/L97 - 105 mmol/LCleveland North Shore HealthCO2 [Moles/Vol]28 mmol/L22 - 30 mmol/LCleveland [facility] Creatinine [Mass/Vol]0.91 mg/dL0.73 - 1.22 mg/dLOhiohealthEstimated Glomerular Filtration Rate94 mL/min/1.73m>=60 mL/min/1.73mCmercy health springfield regional medical centerand [facility] Glucose [Mass/Vol]83 mg/dL74 - 99 mg/dLOhiohealthPotassium [Moles/Vol]4.3 mmol/L3.7 - 5.1 mmol/LCleveland ClinicProtein [Mass/Vol]7.6 g/dL6.3 - 8.0 g/dL [facility] Hospitalodium [Moles/Vol]141 mmol/L136 - 144 mmol/LCleveland North Shore HealthUrea nitrogen [Mass/Vol]13 mg/dL9 - 24 mg/dLOhiohealthECG01on 97-49-0576VOE46 Ventricular Rate : 46 BPM Atrial Rate : 46 BPM P-R Interval : 160 ms QRS Duration : 138 ms Q-T Interval : 474 ms QTC Calculation(Bazett) : 414 ms Calculated P [place] : 49 degrees Calculated R [place] : -56 degrees Calculated T [place] : 44 degrees MARKED SINUS BRADYCARDIA LEFT AXIS DEVIATION RIGHT BUNDLE BRANCH BLOCK SEPTAL INFARCT , AGE UNDETERMINED ABNORMAL ECG NO PREVIOUS ECGS AVAILABLE Confirmed by MD GABRIELA, QAB ([id number]) on 02/10/2022 11:17:17 AM NAME : BOB KHANNA PID : [id number] : 1955 Gender : Male Race : ORD : [id number] Procedure Date : Feb 08 2022 10:30:39 Edit Date : Feb 10 2022 11:17:20 Diagnosis: MARKED SINUS BRADYCARDIA LEFT AXIS DEVIATION RIGHT BUNDLE BRANCH BLOCK SEPTAL INFARCT , AGE UNDETERMINED ABNORMAL ECG NO PREVIOUS ECGS AVAILABLE Confirmed by MD OCHOA QARAB ([id number]) on 02/10/2022 11:17:17 AM Test Reason : Location : 10 : PAT/LB Overread By : MD OCHOA QARAB Edited By : MD OCHOA QARAB Referred By : CHADWICK HARRIS Acquired by : KE,NormalGeorgetown HospitalFERRITIN BLDon 26-11-7856Oafuhluf [Mass/Vol]174.4 ng/mL30.3 - 565.7 ng/mLCleveland ClinicFerritin SerPl-mCncon 66-73-5885Eyivlvii [Mass/Vol]174.4 ng/oLRydcnd27.3-565.7Georgetown HospitalComment on above:Order Comment: Specimen Type: BLOOD SPECIMENOrdering Facility: [facility] Address:[address] [place] [address] Performed By: #### 68194-0, 2276-4, 93276-1 ####SOLIS LABORATORYCLIA [id number] [address] OF [facility] HISTORY PHYSICALon 70-84-0489EGSQZVU PHYSICALHNO ID: [id number] Author: Chadwick Harris APRN.DIRECTOR PRODUCT MANAGEMENT Service: ? Author Type: Nurse Practitioner Type: HANDP Filed: 02/24/2022 3:18 PM Note Text: HISTORY AND PHYSICAL EXAMINATION SERVICE DATE: 02/08/2022 SERVICE TIME: 10:43 AM PRIMARY CARE PHYSICIAN: Yuri Kuo II, MD REASON FOR VISIT: Bob Khanna is a 66 year old male who is scheduled for Procedure(s): ROBOTIC ASSISTED TOTAL HIP ARTHROPLASTY (Right) at the request of Dr. Benny Gallardo for consultation. My final recommendation will be communicated back to the requesting physician by way of shared medical record or letter. Subjective The patient has the following: ACTIVE PROBLEM LIST Personal History of Pulmonary Embolism Hyperlipidemia Obstructive Sleep Apnea Factor V Leiden (Hcc) Bradycardia Murmur COVID-19 Immunization Status Overdue - COVID-19 VACCINE (3 - Booster for Pfizer series) Overdue since 09/02/2020 07/08/2020 Imm Admin: COVID-19 vaccine, age 12+ yr ([employer] [facility]) 06/17/2020 Imm Admin: COVID-19 vaccine, age 12+ yr ([employer] [facility]) CHIEF COMPLAINT: Pre-op evaluation HPI: 66 year old male here for pre-op evaluation. Patient has had right Hip pain for about 3 years. Treated with injection with 3 days of pain relief. Today complains of intermittent pain currently rated 4/10, described as aching. Denies numbness or tingling. Recommended for above surgery. REVIEW OF SYSTEMS: General: No weight loss, malaise or fevers. Neurological: No history of TIA's, stroke, SURGICAL SALES REPRESENTATIVE tumor, impaired sensorium, hemiplegia, paraplegia or quadraplegia. No neurological symptoms or problems. Respiratory: Positive for: obstructive sleep apnea. Negative for: asthma, COPD, current cough, dyspnea, orthopnea and tobacco use. Cardiovascular: Positive for: DVT/PE and hyperlipidemia Negative for: angina, arrhythmia, atrial fibrillation, chest pain, hypertension and murmur/valvular heart disease. GI: No history of GI symptoms or problems. No history of esophageal varices, recent ascites, or ETOH greater than 2 drinks per day. : Positive for: nocturia >1 time per night and urgency. Negative for: dysuria, frequent urination, hematuria, urinary incontinence and renal failure. Endocrine: No history of diabetes. Has not taken steroids within the past 30 days. No history of endocrinological symptoms or problems. Hematology: Positive for: factor V Leiden. Negative for: anemia. Oncology: BCC- treated Psych: No history of psychiatric symptoms or problems. Musculoskeletal: See HPI. Positive for: joint pain. Negative for: swelling. Skin: Negative for lesions, rash and itching. History reviewed. No pertinent past medical history. PAST SURGICAL HISTORY Procedure Laterality Date HAND SURGERY HX 3-4 surgeries on left thumb KNEE SURGERY HX left knee x2 KNEE SURGERY HX right knee scope and right knee replacement SCREENING COLONSCOPY NOT HIGH RISK VASECTOMY FAMILY HISTORY Problem Relation Age of Onset Hypertension Mother COPD Mother Heart Failure Mother COPD Father Heart Failure Father Social History Tobacco Use Smoking status: Former Packs/day: 0.50 Years: 30.00 Pack years: 15.00 Types: Cigarettes Smokeless tobacco: Never Tobacco comments: Quit smoking 13 years ago Vaping Use Vaping Use: Never used Substance Use Topics Alcohol use: Not Currently Drug use: Never Prior to Admission medications as of 02/08/22 1041 Medication Sig Last Dose Taking atorvastatin (LIPITOR) 40 mg tablet Take 40 mg by mouth once daily. Taking Yes rivaroxaban (XARELTO) 20 mg tablet Take 20 mg by mouth once daily. Taking Yes mupirocin (BACTROBAN) 2 % ointment twice daily for 5 days. Apply 0.5 inch with cotton swab (Q-tip) to each nostril in the morning and evening for 5 days prior to and including day of surgery. No medication comments found. ALLERGIES Allergen Reactions Gadoteridol Hives Patient became itchy and developed hives Objective PHYSICAL EXAM: General: alert and oriented and obese. Pertinent negatives noted - not distressed. Skin: normal color, no rash or lesions. HEENT: pupils equal round and pupils reactive to light. Pertinent negatives noted - no carotid bruit. Cardiovascular: Pulse characterized as regular.Positive for murmur. Findings of a 2/6 grade heart murmur, low pitched with a harsh quality, and a location of: URSB and ULSB. Respiratory: normal breath sounds, no wheezes or crackles. Abdomen: soft. Pertinent negatives noted - not tender. Extremities: no deformity, no edema or tenderness, no joint swelling or clubbing. Neurological: normal cognition and motor skills. Gait normal. No weakness or sensory deficit. PAIN ASSESSMENT: Pain Pain Level: 5 Pain Location: Hip-Right Description: Aching Frequency: Intermittent Intervention/Comfort measure: Relaxation;Reposition;Medication VITALS: BP 145/78 Pulse 54 (more content not included)...NormalGeorgetown HospitalIron and Iron binding capacity panelon 06-35-6422Lswv [Mass/Vol]129 ug/eWXwruoi10-342 [facility]ostoria City HospitalComment on above:Order Comment: Specimen Type: BLOOD SPECIMENOrdering Facility: [facility] Address:[address] [place] [id number] By: #### 30039-6, 2276-4, 52173-6 ####[facility] LABORATORYCLIA [id number] [place] [address] [place] STATES OF AMERICAIron binding capacity [Mass/Vol]310 ug/xVOqbkvc603-653[facility] Comment on above:Order Comment: Specimen Type: BLOOD SPECIMENOrdering Facility: [facility] Address:[address] [address] Performed By: #### 50422-6, 2276-4, 00460-4 ####SOLIS LABORATORYCLIA [id number] [place] [address] [place] Iron/TIBC [Molar ratio]41.6 %Zawmnt67.0-57.0Georgetown HospitalComment on above: Order Comment: Specimen Type: BLOOD SPECIMENOrdering Facility: [facility] Address:[address] [address]Performed By: #### 24350-9, 6-4, 74112-4 ####SOLIS LABORATORYCLIA [id number] [place] [address] [place] AMERICAIron [Mass/Vol]129 ug/dL41 - 186 ug/dLOhiohealthIron binding capacity [Mass/Vol]310 ug/dL232 - 386 ug/dLOhiohealthIron/TIBC [Molar ratio]41.6 %15.0 - 57.0 %[facility] TYPE AND SCREEN,30 DAYon 02-83-4460ZMAZGvfwrysrn ClinicHIstorical Ab Scr Status NegativeOhiohealthRh Nom (Bld)PositiveOhiohealthABOANormalDayton Children'S Hospitalna HospitalComment on above:Order Comment: Specimen Type: BLOOD SPECIMEN [facility] Address: [address] [place], [place] [address]Performed By: #### 4537-7 #### [facility] CLIA [id number] [address] [place] [address] [place] OF AMERICAHISTORICAL AB SCR STATUS NegativeNormalMedina HospitalComment on above:Order Comment: Specimen Type: BLOOD SPECIMEN [facility] Address: [address] [place], [place] [address]Performed By: #### 4537-7 #### [facility] CLIA [id number] [address] [place] [address] [place] AMERICARh Nom (Bld)PositiveNormal Solis HospitalComment on above:Order Comment: Specimen Type: BLOOD SPECIMEN [facility] Address: [address] [place], [place] [address]Performed By: #### 4537-7 #### [facility] CLIA [id number] [address] [place] [address] [place] [id number] [facility] 02-04-2022 ALLIED HEALTHHNO ID: [id number] Author: RT Anant(R) Service: Radiology Author Type: Technologist Type: Allied Health Filed: 02/04/2022 10:17 AM Note Text: Radiology Service Progress Note PATIENT NAME: Bob Khanna DATE OF SERVICE: February 04, 2022 TIME: 10:17 AM PATIENT IDENTITY VERIFICATION COMPLETED USING TWO (2) IDENTIFIERS: Name and Date of confirmed by patient verbally and Name and Date of confirmed by identification band. FALL SCREENING: Has the patient had 2 falls in the last year or 1 fall with injury or currently using an Ambulatory Assistive Device (Walker, Cane, Wheelchair, Crutches, etc.)? No PATIENT GENDER DATA: Male PATIENT RELEVANT IMPLANT DATA REVIEWED: Not Applicable RADIOLOGY DEPARTMENT: CT; Exam(s) Completed: Lower extremity PERIPHERAL IV DATA: Not applicable SIGNED BY: RT Anant(R) February 04, 2022 10:17 [facility]CT [facility] IVCON RTon [id number] HIP WO IVCON RT* * *Final Report* * * DATE OF EXAM: Feb 04 2022 10:18AM [facility] - [place] HIP WO IVCON RT / PROCEDURE REASON: M16.11-Primary osteoarthritis of right hip * * * * Physician Interpretation * * * * EXAM: CT HIP WO IVCON RT HISTORY: Primary osteoarthritis of right hip TECHNIQUE: CT right hip without contrast ([facility] CT protocol) CT Radiation dose: Integrated Dose-length product (DLP) for this visit = 836 mGy*cm. CT Dose Reduction Employed: Automated exposure control (AEC) COMPARISON: FINDINGS: Right hip osteoarthritis. No fracture or acute soft tissue abnormality. Right total knee arthroplasty with small joint effusion. . IMPRESSION: Right hip osteoarthritis, preoperative [facility] CT protocol for robotic assisted total joint replacement. Billiard Player: RADHA Transcribe Date/Time: Feb 05 2022 7:19A Dictated by : CAROLINA CHAWLA MD This examination was interpreted and the report reviewed and electronically signed by: CAROLINA CHAWLA MD on Feb 05 2022 7:22AM EST [id number] Hospital [id number] Visit (ORMDNA) CLEMENCIABOB Tierney ([id number]) 1955 M Date Time Provider Department 12/15/21 11:00 AM BENNY GALLARDO During your visit today, we recorded the following information about you: Benny Gallardo MD 12/15/2021 11:55 AM Signed Orthopaedic Office Note: December 15, 2021 11:50 AM Bob Khanna 66 year old History: Bob is a 66-year-old man referred to me by physician microbiology lab assistant Heena for evaluation of his right knee and his right hip. He had a right knee replacement done at an outside hospital in 2019. This was complicated by stiffness and he went on to a manipulation under anesthesia 4 months later. He reports that he still has pain essentially across the tibia anteriorly medially and laterally. He still has some stiffness. He reports the swelling that he had preoperatively is gone but otherwise his symptoms are unchanged from before surgery. His inflammatory markers are negative. His right hip gives him more trouble than his right knee. He reports stiffness and groin pain with activity. This is making it difficult for him to do daily activities and is difficult for him at work. Subjective: Right hip and right knee pain as abov Updated ROS: No changes Updated Exam: Right lower Extremity Knee: Well-healed incision No erythema No effusion Stable ligamentous exam Range of motion is 15 degrees to 95 degrees Patella tracks appropriately Tender palpation along the proximal tibia medially and laterally anteriorly Hip: Painful logroll 10 degree flexion contracture Flexes to 90, no internal rotation, external rotation to 15, AD and abduction to approximately 20 degrees [facility]ful [facility] Updated Imaging: Right hip severe osteoarthritis with joint space narrowing, subchondral sclerosis and significant osteophyte formation Right knee replacement in appropriate position alignment with no evidence of loosening Assessment and Plan: I had a long discussion with Bob today about his hip and his knee. From a knee standpoint, I do think he is infected because inflammatory markers are negative, his patella tracks well, and his ligamentous exam is intact. He has some residual arthrofibrosis. His ligamentous exam is intact. He has some residual arthrofibrosis. I do think will change much. We could perform a work-up potential subtle loosening of the implants with bone scan, but will hold off on this for now because he would like his hip addressed first. Regarding his hip, he does have substantial arthritis, decreased range of motion and pain there. He is an active man and still working. I think we can improve this significantly for him with a right robotic hip replacement. I discussed risks and benefits at long length today, expected outcomes recovery, and potential complications at length. He understands these well and would like to proceed. We will order CT scan for robotic surgery. All questions were answered today. He does have a blood clot history and will stay overnight. I spent a total of approximately 25 minutes on the date of the service which included preparing to see the patient, keya-sn-jloi patient care, completing clinical documentation, obtaining and/or reviewing separately obtained history, performing a medically appropriate examination, counseling and educating the patient/family/caregiver, ordering medications, tests, or procedures, independently interpreting results (not separately reported), communicating results to the patient/family/caregiver, and care coordination (not separately reported). Total Joint Arthroplasty: Risk Calculator Bob Khanna has a 3.29% chance of NOT returning home at discharge for a Primary total Hip replacement. Bob's estimated Length of Stay is 1 day. Bob's 30 day chance of readmission is 1.67%. Readmission Probability 1.67 % (within 30 days following surgery) Estimated LOS 1 day Discharge Disposition Probability D/C to Home 96.71 % D/C to SNF 3.29 % These calculations are based on the following factors: - 66 years of age - sex is male - BMI of 33 kg/m2 - NarxCare score of 30 - 0 hospitalizations in the last 12 months - no history of heart disease - no history of diabetes - no history of COPD - no history of anemia - preoperative ambulation: independent community distances - 2 step(s) to enter home - bed location is NOT on the first floor - bath location is on the first floor - caregiver is consistent - home is not more than 150 miles away - PROMIS-10 Mental Health T score not available - Marital status: Benny Gallardo MD Orthopaedic Surgery Referring Provider: HEENA CHAVEZ [[id number]] Allergies As of Date: 12/15/2021 Noted Allergy Reaction GADOTERIDOL 03/02/2021 4 - Hives Comments: Patient became itchy and developed hives Date Reviewed: 12/15/2021 (more content not included)...[facility] 08-04-8522ORIXZO HEALTHHNO ID: [id number] Author: RT Arthur(R) Service: ? Author Type: C Software Engineer Type: Allied Health Filed: 10/04/2021 12:32 PM Note Text: Radiology Service Progress Note PATIENT NAME: Bob Khanna DATE OF SERVICE: October 04, 2021 TIME: 12:31 PM PATIENT IDENTITY VERIFICATION COMPLETED USING TWO (2) IDENTIFIERS: Name and Date of confirmed by patient verbally. FALL SCREENING: Has the patient had 2 falls in the last year or 1 fall with injury or currently using an Ambulatory Assistive Device (Walker, Cane, Wheelchair, Crutches, etc.)? No PATIENT GENDER DATA: Male PATIENT RELEVANT IMPLANT DATA REVIEWED: Not Applicable RADIOLOGY DEPARTMENT: General X-ray: Exam(s) Completed: Pelvis X-Ray: Pelvis with Hip Right Lower Extremity X-Ray(s): Knee, AP / Lat / Merchant Right PERIPHERAL IV DATA: Not applicable SIGNED BY: RT Arthur(R) October 04, 2021 12:31 PMNNationwide Children's HospitalC-REACTIVE PROTEIN (CRP)on 10-04-2021 CRP [Mass/Vol]mg/L<0.9 mg/dLOhiohealthCNOVon 00-70-6513KRTEXconfz Visit (ORMDNA) BOB KHANNA ([id number]) 1955 M Date Time Provider Department 10/04/21 11:00 AM HEENA CHAVEZ During your visit today, we recorded the following information about you: Weight Height 121.6 kg 1.905 m Heena Chavez PA-C 10/04/2021 1:03 PM Signed Heena Chavez PA-C Department of Orthopaedics Orthopaedics [address] [place] [id number] Dept: [phone] October 04, 2021 CHIEF COMPLAINT: New and Pain of the Right Hip Mr. Bob Khanna is a 66 year old male who presents with right hip pain and also some right knee issues after a replacement in 2019. Patient started having right hip pain about 3 to 4 years ago, pain is in the right groin area and is a 6 out of 10 sharp aching. He has difficulty bringing his knee to his chest and abducting the right leg. He states that his hip often feels as though it is getting stuck . He was seeing a provider and [facility] and was told that he had a labrum tear in his hip. He did receive an intra-articular right hip injection 1 year ago, the injection was only helpful for about 3 days. 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 Patient also complains of right knee pain after a knee replacement in October 2019. He states that following the replacement he was unable to obtain full extension, he reports extension lag of 15 degrees. He did have a manipulation following his replacement, it did help with the extension but he still feels as though he is limited in flexion. Knee is painful with walking pain is mostly anterior, he does get some intermittent swelling as well. ASSESSMENT: M16.11 Primary osteoarthritis of right hip (primary encounter diagnosis) Z96.651 Status post total right knee replacement M25.561 Acute pain of right knee PLAN: He has an MRI from the spring showing some moderate degenerative changes of the hip joint and some labral tearing. Unfortunately does not seem to be getting much relief with hip injection. We discussed getting him into see Dr. Gallardo to further evaluate his issues with the right knee before discussing his surgical options for the hip. Plain films of the knee and sed rate and CRP were ordered. Also get him into a hinged knee brace during activity to see if that helps with some of his pain. Mr. Bob Khanna was advised as to contrast therapies and/or to take analgesics/anti-inflammatories as needed and all contraindications were reviewed. OBJECTIVE: Mr. Bob Khanna is a pleasant 66 year old in no apparent distress. Gen:Ht 6' 3 (1.91m) Wt 268 lb (121.6kg) BMI 33.50 kg/(m2). nl development, obese, no deformities ENT: Normocephalic, normal hearing, moist mucosa CV: Pulses:DP/PT= 2+ and symmetric, capillary refill < 2 secs, no peripheral edema/varicosities Skin: no rash, bruising or lesions. Good turgor. Psych: cooperative and appropriate, alert and oriented x 3, good mood and affect. Musculoskeletal: KNEE EXAM: Right: Alignment: Neutral Range of motion is 5 degrees in extension and 100 degrees of flexion. Extension Lag: < 10 degrees Pain with ROM: No Effusion: Slight Tender to the palpation of Medial femoral condyle and Medial joint line Pain with patellar compression: No Stability: Anterior/Posterior not stable. HIP EXAM: Right: ROM: Extension: slight flexion contracture Flexion: 100 degrees Internal Rotation: 10 degrees External Rotation: 25 degrees Abduction: 20 degrees Adduction: 25 degrees Strength: Pain with resisted abduction and Pain with resisted hip flexion Palpation: No tenderness Log roll: painful. Straight leg raise: Negative Neurovascular Status: Sensation Intact, Moves foot and ankle up AND down and 2+ dorsalis pedis Imaging: IMPRESSION: Moderate narrowing of the RIGHT hip joint Billiard Player: RADHA ? Transcribe Date/Time: Oct 04 2021 12:44P Dictated by : SOULEYMANE KWON DO This examination was interpreted and the report reviewed and electronically signed by: SOULEYMANE KWON DO on Oct 04 2021 12:44PM ?EST Results-Findings * * *Final Report* * * DATE OF EXAM: Oct 04 2021 12:29PM ? MDO ? 5352 ?- ?XR HIP 3V PELV+ AP/LAT RT ?/ PROCEDURE REASON: M16.11-Primary osteoarthritis of right hip ?? ? * * * * Physician Interpretation * * * * ?Pelvis and right ?hip HISTORY: Indication: Primary osteoarthritis of right hip TECHNIQUE: Images: ?XR HIP 3V PELV+ AP/LAT RT Comparison: ?None. RESULT: Findings: Pelvis: ? ?No fractures or dislocations are seen. Right hip: ? ?No fractures or dislocations are seen. Moderate narrowing of the RIGHT hip joint. IMPRESSION: Stable right total knee arthroplasty Billiard Player: RADHA ? Transcribe Date/Time: Oct 04 2021 12:43P Dictated by (more content not included)...NormalAdams County Regional Medical CenterCRP SerPl-mCncon [id number] [Mass/Vol]mg/LNormal<0.9Fostoria City HospitalComment on above:Order Comment: Specimen Type: BLOOD SPECIMENOrdering Facility: [facility] Address:[address] [place], [place] [address]Performed By: #### 1988-5 ####[facility] LABORATORYCLIA [id number] [place] [address] [facility] Westergren method (Bld) [Velocity]on 16-95-1910GIY (Bld) [Velocity]2 mm/hNormal0-15[facility] HospitalComment on above: Order Comment: Specimen Type: BLOOD SPECIMEN [facility] Facility[facility] Address: [address] [place], [place] [address]Performed By: #### [id number] #### [facility] CLIA [id number] [address] [place] [address] Panel Informationon 13-13-6985Dgzfbpqzb ClinicXR HIP 3V PELV+ AP/LAT RTon 98-52-7208XG HIP 3V PELV+ AP/LAT RT* * *Final Report* * * DATE OF EXAM: Oct 04 2021 12:29PM [facility] 5352 - XR HIP 3V PELV+ AP/LAT RT / PROCEDURE REASON: M16.11-Primary osteoarthritis of right hip * * * * Physician Interpretation * * * * Pelvis and right hip HISTORY: Indication: Primary osteoarthritis of right hip TECHNIQUE: Images: XR HIP 3V PELV+ AP/LAT RT Comparison: None. RESULT: Findings: Pelvis: No fractures or dislocations are seen. Right hip: No fractures or dislocations are seen. Moderate narrowing of the RIGHT hip joint. IMPRESSION: Moderate narrowing of the RIGHT hip joint Billiard Player: RADHA Transcribe Date/Time: Oct 04 2021 12:44P Dictated by : SOULEYMANE KWON DO This examination was interpreted and the report reviewed and electronically signed by: SOULEYMANE KWON DO on Oct 04 2021 12:44PM EST [id number] Health SystemXR KNEE 4V AP/PA BOTH+LAT/NNAMDI RTon 47-40-2745N[place] KNEE 4V AP/PA BOTH+LAT/NNAMDI RT* * *Final Report* * * DATE OF EXAM: Oct 04 2021 12:29PM [facility] 5203 - XR KNEE 4V AP/PA BOTH+LAT/NNAMDI RT / PROCEDURE REASON: Z96.651-Status post total right knee replacement * * * * Physician Interpretation * * * * EXAM(s): XR KNEE 4V AP/PA BOTH+LAT/NNAMDI RT EXAM DATE/TIME: 10/04/2021 12:29 PM HISTORY: 66 years old Clinical information: Status post total right knee replacement pain TECHNIQUE: Images: XR KNEE 4V AP/PA BOTH+LAT/NNAMDI RT Comparison: None. RESULT: Findings: Right :No fractures or dislocations are seen. The components of the arthroplasty are in good alignment with the respective bones and each other. There is no evidence of loosening of the components. Left :No fractures or dislocations are seen. Severe narrowing medial compartment and moderate narrowing lateral compartment IMPRESSION: Stable right total knee arthroplasty Billiard Player: RADHA Transcribe Date/Time: Oct 04 2021 12:43P Dictated by : SOULEYMANE KWON DO This examination was interpreted and the report reviewed and electronically signed by: SOULEYMANE KWON DO on Oct 04 2021 12:44PM EST [id number] Health SystemMRI HIP RT WO CONon [id number] HIP RT WO CONEXAMINATION: MRI HIP RT WO CON HISTORY: Idiopathic aseptic necrosis of bone , chronic right hip pain COMPARISON: No relevant comparison available. TECHNIQUE: A comprehensive examination was performed utilizing a variety of imaging planes and imaging parameters to optimize visualization of suspected pathology. Images were performed without contrast. FINDINGS: FEMORAL HEAD: Degenerative osteophytes along the articular margins of the femoral head. No fracture, dislocation, or evidence of avascular necrosis. ACETABULUM: Normal. No fracture or significant arthropathy. OTHER BONES: Normal appearance of the visualized portion of the pelvis. LABRUM: Suspect tear of the superior labrum. No surrounding edema. EFFUSIONS: None. No synovitis or loose bodies. BURSAE: Normal. No evidence of iliopsoas or trochanteric bursitis. TENDONS: Normal. Normal gluteus tendons, iliopsoas tendon, and hamstring origin. MUSCLES: Normal. No tear or strain. No inappropriate atrophy. OTHER: Negative. IMPRESSION: 1. No avascular necrosis of the femoral head. 2. 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 Electronically authenticated by: IVY KELLEY Date: 2021-07-01 14:41[facility] HospitalXR HIP RT INJon [id number] HIP RT INJEXAMINATION: XR HIP RT INJ HISTORY: Pain in right hip joint COMPARISON: No relevant comparison available. FLUOROSCOPY TIME: Fluoro time measures 0.4 minutes and 4 images were obtained. TECHNIQUE: A joint injection was performed in the usual sterile manner after obtaining informed consent. Standard level fluoroscopic mode of operation utilized. FINDINGS: JOINT: Right hip. NEEDLE: 22 gauge, 3.5 spinal needle. MEDICATION: 2cc buffered 1% lidocaine for subcutaneous anesthesia 2cc Omnipaque-300 iodinated contrast to visualize the joint space Mixture of Kenalog 40 mg, 0.5% Bupivacaine 2 mL and Omnipaque 300 5 mL was injected into the joint space. TECHNIQUE: Anterior approach with prior localization of the femoral artery. A single stick was successful in gaining access to the joint space. CLINICAL: No change in hip pain following the injection. COMPLICATIONS: None. OTHER: Negative. IMPRESSION: 1. Technically successful right hip injection. 2. No improvement of right hip pain following injection (2/10 pre and post injection). Electronically authenticated by: IVY KELLEY Date: 2020-08-23 14:16[facility] Vital Signs Date TimeVital SignValuePerforming TncylvocxUhytvfmo93-29-3872 11:24-0400Body qxlhyz330.5 cmNicholas Brown DPM Work Phone: [facility] HospitalZhateanfwa12-98-9340 11:24-0400Body mass index (BMI) [Ratio]33.62 kg/a4Tdeulaqe Brown DPM Work Phone: [facility] HospitalXqvbptnhvg25-36-7160 11:24-0400Body cgwsyq374.02 kgNicholas Brown DPM Work Phone: [facility] HospitalNggdcztmfg80-72-8236 11:24-0400Respiratory rate16 /minNicholas Brown DPM Work Phone: [facility] HospitalXjnjfvidmc94-40-8953 10:11-0400Body .5 cmNicholas Brown DPM Work Phone: [facility] HospitalRefedjhmvi14-23-2929 10:11-0400Body mass index (BMI) [Ratio]33.62 kg/l3Dxophvml Brown DPM Work Phone: [facility] HospitalZoiwhtitcf93-72-5109 10:11-0400Body ukynfc334.02 kgNicholas Brown DPM Work Phone: [facility] HospitalMnneukrbwq09-09-1053 10:11-0400Respiratory rate18 /minNicholas Brown DPM Work Phone: [facility] HospitalIljleiweec07-97-3431 10:02-0400Body gbdvua371.5 Brea Lamar CLINICAL NURSING INSTRUCTOR Work Phone: [facility] HospitalOqvqvthavv04-75-0059 10:02-0400Body mass index (BMI) [Ratio]33.62 kg/u4PzhpfnJulissa Lamar CLINICAL NURSING INSTRUCTOR Work Phone: [facility] HospitalWtxgyqovdt29-67-6497 10:02-0400Body wlryif734.02 kgJulissa Lamar CLINICAL NURSING INSTRUCTOR Work Phone: [facility] HospitalCcxzoeotsz77-52-3440 10:02-0400Diastolic blood ztpvjyus87 mm[Hg]Julissa Lamar CLINICAL NURSING INSTRUCTOR Work Phone: [facility] HospitalEvtfmfyuuc95-23-7742 10:02-0400Heart rate51 /min Julissa Aida CLINICAL NURSING INSTRUCTOR Work Phone: [facility] HospitalLwqgbbzalh27-67-4064 10:02-0400Respiratory rate17 /minSabraham Lamar CLINICAL NURSING INSTRUCTOR Work Phone: [facility] HospitalUfobfnzqqg80-13-2069 10:02-7882JuR1% (BldA) [Mass fraction]97 %Julissa Blakeslee CLINICAL NURSING INSTRUCTOR Work Phone: [facility] HospitalSkbzvaiejg63-57-6287 10:02-0400Systolic blood linzssqp936 mm[Hg]Julissa Lamar CLINICAL NURSING INSTRUCTOR Work Phone: [facility] HospitalYkiqfmpblf89-90-4920 09:21-0400Body .5 cmPaul Naomie DO Work Phone: [facility] HospitalYckfjqjpfo45-33-2351 09:21-0400Body mass index (BMI) [Ratio]33.75 kg/m2Paul Laffay DO Work Phone: [facility] HospitalOdcbggiubz55-23-0127 09:21-0400Body ywrvsi715.47 kgPaul Laffay DO Work Phone: [facility] HospitalUzukofddoy08-00-0592 09:21-0400Diastolic blood mm[Hg]Anup Akbar DO Work Phone: [facility] HospitalXhznroihpb59-41-7030 09:21-0400Systolic blood sudryjqn643 mm[Hg]Anup Akbar DO Work Phone: [facility] HospitalFfrdehbmfm31-34-9388 09:14-0400Body tfeaxu244 cm Yuri Kuo MD Work Phone: [facility] HospitalNyjgvqzrqo62-83-1257 09:14-0400Body mass index (BMI) [Ratio]33.84 kg/e2NnczjkYuri Kuo MD Work Phone: [facility] HospitalSgziofttdk79-12-0185 09:14-0400Body atdxej837.1 kgYuri Kuo MD Work Phone: [facility] HospitalGogmnsannj96-95-0504 09:14-0400Diastolic blood mbgeppwq32 mm[Hg]Yuri Kuo MD Work Phone: [facility] HospitalPaufjqcqvo10-67-9030 09:14-0400Heart rate54 /min Yuri Kuo MD Work Phone: [facility] HospitalQaxtcxmlfp58-02-4908 09:14-1245KxZ2% (BldA) [Mass fraction]97 %Yuri Kuo MD Work Phone: [facility] HospitalZpmmkphyjc57-60-6676 09:14-0400Systolic blood ixdlxpyy608 mm[Hg]Yuri Kuo MD Work Phone: [facility] HospitalJhrtzvulpl82-84-3238 08:41-0500Body ursenm877 cm Yuri Kuo MD Work Phone: 1(905)[facility]-4779[facility] HospitalNunkomhevd91-89-3812 08:41-0500Body mass index (BMI) [Ratio]33.96 kg/q8WtveqtYuri Kuo MD Work Phone: [facility] HospitalDhpivfgivw95-49-1775 08:41-0500Body hupiqh262.55 kgYuri Kuo MD Work Phone: [facility] HospitalGxfchjimeo78-64-1862 08:41-0500Diastolic blood agaycnqb54 mm[Hg]Yuri Kuo MD Work Phone: [facility] HospitalWdfonfrfbj97-80-8630 08:41-0500Heart rate67 /min Yuri Kuo MD Work Phone: [facility] HospitalHadtgnrhbq78-18-2324 08:41-9091WdF1% (BldA) [Mass fraction]97 %Yuri Kuo MD Work Phone: [facility] HospitalJsifwjpuub53-74-1726 08:41-0500Systolic blood ohxowxci742 mm[Hg]Yuri Kuo MD Work Phone: [facility] HospitalRjnoasezvy06-15-8593 09:18-0500Body xamyex227.04 cmYuri Kuo II Work Phone: 1(571)966-[address] [place], [place] [address]01-13-2025 09:18-0500 Body vlwoae256.37 kgYuri Kuo II Work Phone: 1(173)833-[address] [place], [place] [address]-30-2024 15:42-0400 Body ehyare367 cmEladioapryl Holliday DPM Work Phone: 1(899)115-[address] [place], [place] [address]Jdbcieufwp67-41-1754 15:42-0400Body mass index (BMI) [Ratio]34.33 kg/y2Txvkdulf Brown DPM Work Phone: [facility] HospitalGcrscusdoy02-32-8373 15:42-0400Body jlooiv330.91 kgJanaaissatou Holliday DPM Work Phone: 1(944)643-[address] [place], [place] [address]Ghhclfcdqv20-22-0276 15:42-0400Diastolic blood etmxuryk32 mm[Hg]Haseeb Holliday DPM Work Phone: 1(094)263-[address] [place], [place] [address]Kvumdhfbax17-76-0336 15:42-0400Heart rate84 /min Haseeb Holliday DPM Work Phone: 1(315)627-[address] [place], [place] [address]Klazkqbybv79-64-8158 15:42-0400Systolic blood pegqousj626 mm[Hg]Haseeb Holliday DPM Work Phone: 1(319)7-[address] [place] [address]-16-2024 14:19-0400Body etvwds848 cm Haseeb Brown DPM Work Phone: 1(270)311-[address] [place], [place] [address]Fivqhqjldd41-83-9301 14:19-0400Body mass index (BMI) [Ratio]34.33 kg/f8Spwyybkfapryl Holliday DPM Work Phone: 1(068)699-[address] [place], [place] [address]Tblevfxayc59-61-1077 14:19-0400Body hbshfe947.91 kgJanaaissatou Holliday DPM Work Phone: 1(311)627-[address] [place] [address]-16-2024 14:19-0400Diastolic blood etgbepyj64 mm[Hg]Haseeb Holliday DPM Work Phone: 1(981)134-[address] [place], [place] [address]Seenbseuhz72-30-3241 14:19-0400Heart rate88 /min Haseeb Holliday DPM Work Phone: 1(832)870-[address] [place] [address]-16-2024 14:19-0400Systolic blood vcwfnmxo841 mm[Hg]Haseeb Holliday DPM Work Phone: 1(069)212-[address] [place] [address]-14-2024 13:45-0400Body cm Haseeb Holliday DPM Work Phone: [facility] HospitalTfednhwhvo66-19-2300 13:45-0400Body mass index (BMI) [Ratio]34.33 kg/x9YyqpvshhHaseeb Holliday DPM Work Phone: [facility] HospitalSnngjicecl58-73-2394 13:45-0400Body aacods611.91 kgHaseeb Holliday DPM Work Phone: [facility] HospitalNwxtizrspv79-99-0567 13:45-0400Diastolic blood reohucsh59 mm[Hg]Haseeb Holliday DPM Work Phone: [facility] HospitalRfxlwthpmi78-00-7844 13:45-0400Heart rate82 /min Haseeb Holliday DPM Work Phone: [facility] HospitalGjjxjxnuhw41-59-2349 13:45-0400Systolic blood ivuqlrdf435 mm[Hg]Haseeb Holliday DPM Work Phone: 1(991)491-[address] [place], [place] [address]Nykucyqcxa85-03-3467 10:25-0500Body iqrljx437.6 cmPacc 1 Work Phone: [facility]11-23-2022 10:25-0500Body temperature 97.5 [degF]Pacc 1 Work Phone: [facility]11-23-2022 10:25-0500Body lfftoh832.56 kgPacc 1 Work Phone: [place] [address]-23-2022 10:25-0500Diastolic blood garcsqcf26 mm[Hg]Pacc 1 Work Phone: [place] [address]-23-2022 10:25-0500Heart rate54 /min Pacc 1 Work Phone: [place] [address]-23-2022 10:25-0500Respiratory rate 18 /minPacc 1 Work Phone: [place] [address]-23-2022 10:25-7133JgW9% (BldA) [Mass fraction]99 %Pacc 1 Work Phone: [facility]11-23-2022 10:250500Systolic blood bwulxltr519 mm[Hg]Pacc 1 Work Phone: [facility]07-19-2022 10:49-0400Body .5 cmSondrniall Chavez PA-C Work Phone: [facility]07-19-2022 10:49-0400Body bxrbxi173.56 kgSondra Chavez PA-C Work Phone: [facility] Encounters Encounter DateEncounter TypeCare ProviderFacilityStart: 01-13-2025 End: 46-61-1500Bacbtoyonatan Valero MD Work Phone: no [facility]ermatologyStart: 01-13-2025 End: 61-28-4488Ifnwjnyonatan Valero MD Work Phone: no [facility]ermatologyStart: 01-13-2025 End: 22-72-4203Hfardp outpatient visit 15 minutesEmsruthi Valero MD Work Phone: noMS Kirby DermatologyComment on above:Seborrheic keratosis (Primary Dx); Sebaceous hyperplasia of face; LentiginesStart: 01-13-2025 End: 39-71-7924rmlenlwuokCFXCX A PETITTINot AvailableStart: 11-25-2024 End: 21-10-8382Xpgvqy flowsheetHaseeb Holliday DPM Work Phone: no [facility] PodiatryStart: 11-25-2024 End: 48-33-9199Btdilj flowsheetHaseeb Holliday DPM Work Phone: no [facility] PodiatryStart: 11-25-2024 End: 44-60-7745Zduhdf outpatient visit 15 minutesNicaprly Holliday DPM Work Phone: no [facility] Lares PodiatryComment on above: Onychocryptosis (Primary Dx); Toe pain, leftStart: 11-25-2024 End: 03-96-5028joyjsmeqysSSLVPMFX A BROWNNot AvailableStart: 11-18-2024 End: 09-27-5282Cbfgrb flowsheetNicholas A Brown DPM Work Phone: noMS [facility] Lares PodiatryStart: 11-18-2024 End: 25-15-8038Hsqudt flowsheetNicholas A Brown DPM Work Phone: noMS [facility] Lares PodiatryStart: 11-18-2024 End: 74-74-5290Dtpumy outpatient visit 15 minutesNicholas A Brown DPM Work Phone: noMS [facility] Lares PodiatryComment on above: Onychocryptosis (Primary Dx); Toe pain, leftStart: 11-18-2024 End: 20-95-4043mygzvokqmtZJYBWQXK A BROWNNot AvailableStart: 10-31-2024 End: 02-07-4582Elyiyz flowsheetNicholas A Brown DPM Work Phone: noMS [facility] PodiatryStart: 10-31-2024 End: 04-02-6027Quwhde flowsheetNicholas A Brown DPM Work Phone: noMS [facility] Lares PodiatryStart: 10-31-2024 End: 57-96-7735Dtqipue encounter procedureNicholas A Brown DPM Work Phone: noMS [facility] Lares PodiatryComment on above: Onychocryptosis (Primary Dx); Toe pain, leftStart: 10-31-2024 End: 79-66-8692wzbptrxionXXYEXXQW A BROWNNot AvailableStart: 10-28-2024 End: 45-09-3452Budxtb follow up visit related to original pxAnup Akbar DO Work Phone: NOE[facility] Surgical AssociatesComment on above:Adenomatous polyp of cecum (Primary Dx)Start: 10-28-2024 End: 23-69-1017boofrltrvnVRBF C JUANAFAYNot AvailableStart: 10-16-2024 End: 64-25-7098Gcxanalq Result EncounterPaul C Laffay DO Work Phone: noms External Department UnsolicitedStart: 10-16-2024 End: 83-69-3983Ghlrfjzq Result EncounterPaul C Laffay DO Work Phone: n[facility] External Department UnsolicitedStart: 10-16-2024 End: 49-83-5562cccrjgwheqXmua [facility] Work Phone: Start: 10-16-2024 End: 70-62-2641Qylfwoud ReferredPaul C Laffay DO-Lab [facility] [place] Work Phone: Start: 10-01-2024 End: 75-28-9774Oyirlj Luba Lamar CLINICAL NURSING INSTRUCTOR Work Phone: noms CI FMStart: 10-01-2024 End: 91-20-8221Fvkevw Luba Lamar CLINICAL NURSING INSTRUCTOR Work Phone: [facility] CI FMStart: 10-01-2024 End: 64-95-6469Mgskhffaa Result EncounterSabraham Lamar CLINICAL NURSING INSTRUCTOR Work Phone: [facility] External Department UnsolicitedStart: 10-01-2024 End: 49-70-3450Cwnfjd outpatient visit 25 minutesShdebbie Lamar CLINICAL NURSING INSTRUCTOR Work Phone: [facility] CI FMComment on above:Lumbar spine pain (Primary Dx)Start: 10-01-2024 End: 30-51-6685gwgkkoliivYPCVEW M SHIVELYNot AvailableStart: 09-17-2024 End: 25-44-9807Sxcgfhr encounter procedurePaul C Laffay DO Work Phone: noms ST GENSComment on above:Screening for colon cancerStart: 09-17-2024 End: 33-81-0343cdfznfefmtSBNQ C LAFFAYNot AvailableStart: 08-21-2024 End: 35-92-2405vtwphwlxcqCJFZCU BERRYFacility: SURG CLINICStart: 06-16-2024 End: 17-51-8780Qgdyfw flowsLinnea Kuo MD Work Phone: NOP[facility] CI FMStart: 06-16-2024 End: 32-53-8066Dzbppf Percy Kuo MD Work Phone: [facility] CI FMStart: 06-16-2024 End: 61-69-7038Filzq of hemosiderin, Angela Kuo MD Work Phone: N[facility] HealthcareStart: 06-16-2024 End: 15-85-2333Csqmxeo encounter procedureYuri Kuo MD Work Phone: noms CI FMComment on above:Routine general medical examination at health care facility (Primary Dx); ACP (advance care planning); Factor V Leiden, prothrombin gene mutation (CMS/HCC); Hypercoagulable state (CMS/HCC); Mixed hyperlipidemia (CMS/HCC) ; Edema, unspecified type; History of pulmonary embolus (PE); Elevated PSA; Primary hypertension (CMS/HCC); Prostate cancer screening; High risk medication use; Current use of fci anticoagulation; History of colon polypsStart: 06-16-2024 End: 70-63-9354qqhxqvmqubSNARBS B BERRYNot AvailableStart: 05-29-2024 End: 53-61-2351yoghhobwutClckjb Berry II Work Phone: [facility] Work Phone: Start: 05-29-2024 End: 92-42-5339Oqbbmhoe Bella Kuo II Work Phone: [facility]-LAB Path Spec [facility] HospStart: 05-29-2024 End: 33-24-9918ehxglkhcmrHWYEYI BERRYFacility:[facility] HospitalStart: 05-19-2024 End: 56-18-7473Toczsa Percy Kuo MD Work Phone: noms CI FMStart: 05-19-2024 End: 18-72-1775Fyfwuf Percy Kuo MD Work Phone: n[facility] CI FMStart: 05-19-2024 End: 78-22-9812Xvjtag outpatient visit 25 minutesDaann Kuo MD Work Phone: noms CI FMComment on above:Elevated PSA (Primary Dx); History of pulmonary embolus (PE); Hypercoagulable state (CMS/HCC); Factor V Leiden, prothrombin gene mutation (CMS/HCC)Start: 05-19-2024 End: 05-04-7032nilvkjgqxzNAWWLV B BERRYNot AvailableStart: 05-14-2024 End: 93-08-5386uncrpmnhrxAQXVBO BERRYFacility:[facility] HospitalStart: 03-31-2024 End: 11-08-4503Utzwymf encounter procedureYuri Kuo II Work Phone: [facility]-MRI [facility] [place] Work Phone: Start: 03-31-2024 End: 09-52-2387tfnzqzgihhMtgeql Berry II Work Phone: [facility] Work Phone: Start: 02-06-2024 End: 19-74-8035sohketgbzsTFNMFU [facility] Start: 01-24-2024 End: 09-93-8672Lgewgnged Result EncounterGeneric External Data ProviderNOMS External Department UnsolicitedStart: 01-24-2024 End: 45-66-7015Hzkjgufwq Result EncounterGeneric External Data ProviderNOMS External Department UnsolicitedStart: 01-16-2024 End: 19-93-5414Gibimd outpatient visit 15 Jany Holliday DPM Work Phone: noms [place] PODComment on above:Onychocryptosis (Primary Dx); Toe pain, left; Abscess, toe, leftStart: 01-16-2024 End: 74-83-3393pvamvrtmmzIRVBSPJQ A BROWNNot AvailableStart: 01-16-2024 End: 78-41-3567Ptoqxl flowsheetHaseeb Holliday DPM Work Phone: n[facility] [place] PODStart: 01-16-2024 End: 36-83-2330Qcynct flowsheetNicholas A Brown DPM Work Phone: n[facility] [place] PODStart: 01-02-2024 End: 47-10-5070Yemmiz follow up visit related to original pxNicholas A Brown DPM Work Phone: noms [place] PODComment on above:Onychocryptosis (Primary Dx); Toe pain, left; Abscess, toe, leftStart: 01-02-2024 End: 91-70-9341Snlijs flowsheetNicholas A Brown DPM Work Phone: noms [place] PODStart: 01-02-2024 End: 79-70-7583Xoyapv flowsheetNicholas A Brown DPM Work Phone: n[facility] [place] PODStart: 12-31-2023 End: 95-71-5621Uqjijt Alla Valero MD Work Phone: [facility] DERMStart: 12-31-2023 End: 45-57-7220Blvnno Alla Valero MD Work Phone: noms [facility] DERMStart: 12-31-2023 End: 74-06-5011Szonds outpatient visit 15 minutesNicholas A Brown DPM Work Phone: noms [place] PODComment on above:Abscess, toe, left (Primary Dx); Pain due to onychomycosis of toenails of both feet; Venous insufficiency; Onychocryptosis; Toe pain, leftStart: 12-31-2023 End: 33-62-2228Vvburo outpatient visit 15 minutesClaudia Valero MD Work Phone: noms [facility] DERMComment on above:Seborrheic keratosis (Primary Dx); Lentigines; Sebaceous hyperplasia of face; Angioma of skin; Rash and other nonspecific skin eruption; Skin tagStart: 09-11-2023 End: 21-33-1387ldxcrehltsKYLCRBTMercy Health – The Jewish Hospitaltart: 09-11-2023 End: 81-51-6526Femzvmdfj for general adult medical examination without abnormal findingsMercy Health – The Jewish Hospitaltart: 06-07-2023 End: 05-99-5569tbvllrsvpxPAQZOEFMercy Health – The Jewish Hospitaltart: 87-13-8402Efjdyf OnlyBenny Gallardo MD Work Phone: OrthopaedicsComment on above:Pain in right hip (Primary Dx)Start: 73-43-0614bwyzkqjpauOhotkro Grater IRRIGATION SPECIALIST.DIRECTOR PRODUCT MANAGEMENT Work Phone: orthopaedicsComment on above:Return to workStart: 04-11-2022 End: 67-28-3818Uegwwdz encounter procedureStephen Grater IRRIGATION SPECIALIST.DIRECTOR PRODUCT MANAGEMENT Work Phone: orthopaedicsComment on above:Status post right hip replacement (Primary Dx)Start: 03-14-2022 End: 89-46-2242abxsdrqpikVXDFGA B BERRY IIFacility:[facility]althtart: 03-14-2022 End: 41-46-4043Lvzewji encounter procedureSteptheodora Grater IRRIGATION SPECIALIST.DIRECTOR PRODUCT MANAGEMENT Work Phone: orthopaedicsComment on above:Status post right hip replacement (Primary Dx)Start: 03-14-2022 End: 64-11-9110Ljydugcwaa hospital visit by physicianRadio [facility] Work Phone: RadiologyComment on above:Pain in right hip [M25.551] Start: 04-80-0127Tbiyiqsvd encounterBenny Gallardo MD Work Phone: [place] [address] EastComment on above:[employer]iztalk Consultant - Hospital Follow UpPain in right hip (Primary Dx)Start: 02-27-2022 End: 12-91-4907ezbqvyuinhFTPTY SURACEFacility:[facility]althtart: 02-25-2022 End: 98-57-7602fbggwnaycjBQCWMQ B BERRY IIFacility:[facility] Start: 94-98-0987Hoywwemec for preprocedural laboratory examinationDANIEL AYAAN DUFFYAdams County Regional Medical CenterStart: 02-24-2022 End: 89-01-4734wxbjvuezreETYTHZ B KUO Facility:[facility] Start: 85-26-8832Kekfcfsbx for other preprocedural examinationDANIEL AYAAN DUFFY [facility] CenterStart: 06-05-8379Ytfwguqcc encounterChadwick Harris APRN.CNP Work Phone: Pre AnesthesiaComment on above:Preparations For SurgeryStart: 77-73-8554Wtygmgvto encounterBenny Gallardo MD Work Phone: [place] [address] EastComment on above:Pre-Op Teaching Start: 02-08-2022 End: 88-50-5833mnlmchxnopXERHTL STOLLERFacility:[facility] Healthtart: 02-08-2022 Encounter for other preprocedural examinationJOANANTH ULLOAwarnock HospitalStart: 02-08-2022 End: 03-47-7124vaphtxsqwmOGJHX SURACEFacility:[facility]htart: 02-08-2022 End: 40-61-0225Ijssnroio to [place] [address] Work Phone: [facility] 02-08-2022 End: 16-82-1241dzscowsgltQqsw Med[place] 1 Work Phone: Pre AnesthesiaComment on above:Pre-op evaluation (Primary Dx); Hyperlipidemia, unspecified hyperlipidemia type; Personal history of pulmonary embolism; Obstructive sleep apnea; Factor V Leiden (HCC); Bradycardia; MurmurStart: 02-08-2022 End: 21-18-2781Ofxkfujsdthev examination [place] [address] Work Phone: Pre AnesthesiaStart: 04-81-9833klaffczczzUQHXB SURACE Facility:[facility]: 02-04-2022 End: 16-27-4758Ylenxfihjp hospital visit by physicianCt [facility] HospitalRad[facility] Comment on above:Primary osteoarthritis of right hip [M16.11]Start: 01-02-2022 Orders OnlyBenny Gallardo MD Work Phone: OrthopaedicsComment on above:Primary osteoarthritis of right hip (Primary Dx)Start: 12-15-2021 End: 43-45-6480sxxsjitwidBEEQER B BERRY IIFacility:[facility] Start: 12-15-2021 End: 97-61-4132Fhlaooa encounter procedureBenny Gallardo MD Work Phone: OrthopaedicsComment on above:Primary osteoarthritis of right hip (Primary Dx); Status post total right knee replacementStart: 10-04-2021 End: 56-94-5344zebjfpcfimGGRGQRD PROVIDERFacility:[facility] Healthtart: 10-04-2021 End: 40-54-4573Fjmdowjzcn hospital visit by physicianRadio [facility] Work Phone: RadiologyComment on above:Status post total right knee replacement [Z96.651]Start: 10-04-2021 End: 49-37-9367Vwpltef encounter Aubrie Chavez PA-C Work Phone: OrthopaedicsComment on above:Primary osteoarthritis of right hip (Primary Dx); Status post total right knee replacement; Acute pain of right kneeStart: 07-01-2021 End: 88-88-2935ahmzqmyphyPN GEORGE STEPANICFacility:P9Gxluq: 08-23-2020 End: 13-92-5667pmnzanhwelTU GEORGE STEPANICFacility:H1 Procedures DateProcedureProcedure DetailPerforming ClinicianStart: 40-11-5528Xguedqfapuf Anup Akbar DO Work Phone: Start: 37-26-3348VBQJOCAYO REQUEST FOR LAB CORPPayohana Akbar DO Work Phone: Start: 86-13-2204OZ LUMBAR SPINE 6V W Ashley Lamar CLINICAL NURSING INSTRUCTOR Work Phone: Start: 34-49-1401VF prostate wo/w conDanijosue Kuo II Work Phone: Start: 75-26-9891GRWW PSA, DIAGNOSTICGeneric External Data ProviderStart: 30-25-8075Qfbip hip unilateral with pelvis 2-3 viewsSteptheodora Grater IRRIGATION SPECIALIST.DIRECTOR PRODUCT MANAGEMENT Work Phone: Start: 02-08-2022 End: 93-52-8259Inzlhghw screenPacc 1 Work Phone: Comment on above:Order Comment: Specimen Type: BLOOD SPECIMEN [facility] Address: [address] [place] [address]Performed By: #### [id number] #### [facility] CLIA [id number] [address] [place] [address] AMERICAStart: 10-55-7105Dskhi hip unilateral with pelvis 2-3 Nathalia Chavez PA-C Work Phone: Start: 16-01-0626EqvddpczdxuBstjy Petitti MD Work Phone: Plan of Treatment DateCare ActivityDetailAuthorStart: 10-74-9376Prmsxpmlj for malignant neoplasm of colonNOMS HealthcareStart: 52-08-7752VXQ Vaccine (1 - 1-dose 75+ series)RSV Vaccine (1 - 1-dose 75+ series)[facility] Hospitaltart: 13-74-3252Ffnwesvlo for malignant neoplasm of colonNOMS HealthcareStart: 01-13-2026 End: 33-90-1797Ycjmbst encounter orfphpmno65/28/2026 9:00 AM EDT Office Visit [facility] [address] [place] [address] Claudia Valero MD [address] [place] [address] NOMAlexander Kirby DermatologyStart: 06-16-2025 Medicare Annual Wellness (AWV)Medicare Annual Wellness (AWV)[facility] Healthcare Start: 10-55-7967KGLHPRPC SCREENDIABETES SCREENElyria Memorial Hospitaltart: 02-28-2025 Diabetes ScreeningDiabetes ScreeningElyria Memorial Hospitaltart: 75-64-3085DBKLKWIW SCREENDIABETES SCREENElyria Memorial Hospitaltart: 01-13-2025 End: 70-13-1958Beqpdxa encounter procedureNOMS JOSEFA DERMComment on above:Arrived Start: 12-25-2024 End: 16-72-2168Pppwqxv encounter fbcepplcf41/09/2025 11:05 AM EDT Office Visit [facility] [address] [place] [address] Claudia Valero MD [address] [place] [address] NOMS SWS DERMStart: 11-25-2024 End: 31-25-6712Ivbaaek encounter procedureNOMS Mirta Lares PodiatryComment on above:Onychocryptosis (Primary Dx); Toe pain, leftStart: 11-18-2024 End: 61-89-7632Bqfcxbp encounter xfkkwawdp26/02/2025 10:20 AM EDT Office Visit [facility] [address] [place] [phone] Haseeb Holliday DPM [address] [facility] [address] [place] [address] Onychocryptosis (Primary Dx); Toe pain, leftNOMS Mirta Lares PodiatryComment on above:Onychocryptosis (Primary Dx); Toe pain, leftStart: 09-56-7489OJRIU-19 Vaccine ( season)COVID-19 Vaccine ( season)[facility] HealthcareStart: 10-40-1565Vicxganor vaccinationInfluenza Vaccine (#1)[facility] HealthcareStart: 10-31-2024 End: 48-12-1085Yprsjdv encounter procedureNOMS Mirta Lares PodiatryComment on above:ArrivedStart: 10-28-2024 End: 48-21-9645Xdwzais encounter procedureNOMS ST GENSStart: 04-50-9537ZdzbhiybzSumma Health Barberton Campustart: 10-01-2024 End: 37-08-0799YM Lumbar spine Views W flexion and W extensionXR lumbar spine 4+ views w flexion extension Imaging Routine Lumbar spine pain Expected: 10/01/2024, Expires: 10/01/2025[facility] Work Phone: Comment on above:Expected: 10/01/2024, Expires: 10/01/2025Start: 10-01-2024 End: 58-02-9794Vdxrxwm encounter yribafuym81/16/2025 10:00 AM EDT Office Visit [facility] [address] [facility] [address] [place] [address] Julissa Lamar CLINICAL NURSING INSTRUCTOR [address] [facility] [address] [place] [address] ArrivedNOMS CI FMComment on above:ArrivedStart: 06-16-2024 End: 00-54-5462Yxcwqfdntjpvm metabolic 2000 panel - Serum or PlasmaComprehensive metabolic panel Lab Routine Mixed hyperlipidemia (CMS/HCC) Primary hypertension (CMS/HCC) Expected: 06/16/2024 (Approximate), Expires: 06/16/2025[facility] Work Phone: Comment on above:Expected: 06/16/2024 (Approximate), Expires: 06/16/2025Start: 06-16-2024 End: 96-73-2208Bzduw 1996 panel - Serum or PlasmaLipid panel Lab Routine Mixed hyperlipidemia (CMS/HCC) Expected: 06/16/2024 (Approximate), Expires:06/16/2025 NOMS HealthcareComment on above:Expected: 06/16/2024 (Approximate), Expires: 06/16/2025Start: 06-16-2024 End: 97-26-4815TQD W/REFLEX TO FT4TSH W/REFLEX TO FT4 Lab Routine Mixed hyperlipidemia (CMS/HCC) Primary hypertension (CMS/HCC) Expected: 06/16/2024 (Approximate), Expires: 06/16/2025NOCT HealthcareComment on above:Expected: 06/16/2024 (Approximate), Expires: 06/16/2025Start: 06-16-2024 End: 05-63-6710Nlhohzd encounter wenweiqfy50/31/2025 9:30 AM EDT Office Visit [facility] [address] [place] [address] Yuri Kuo MD [address] [place] [address] ArrivedNOMS CI FMComment on above:ArrivedStart: 06-04-2024 End: 77-60-3866Mcplghh encounter gikjwapxa67/19/2025 11:00 AM EDT Office Visit [facility] [address] [place] [address] Yuri Kuo MD [address] [place] [address] NOMS CI FMStart: 01-88-5240XkzmnioisHenry County Hospital Start: 05-19-2024 End: 51-98-6891Knbcllh encounter aoctigpco74/03/2025 9:00 AM EST Office Visit [facility] [address] [place] [address] Yuri Kuo MD [address] [place] [address] ArrivedNOMS CI FMComment on above:ArrivedStart: 01-16-2024 End: 23-67-1856Iobgaqt encounter procedureNOMS SC PODComment on above: Onychocryptosis (Primary Dx); Toe pain, left; Abscess, toe, leftStart: 01-02-2024 End: 82-45-3366Wfscdtx encounter nsbfnblou07/16/2024 2:30 PM EDT Office Visit [facility] [address] [place] [address] Haseeb Holliday, DPM [address] [address] ArrivedNOMS SC PODComment on above:ArrivedStart: 12-31-2023 End: 95-01-9928Wlmhznf encounter vvqeujrji40/14/2024 1:50 PM EDT Office Visit [facility] [address] [place] [address] Haseeb Holliday DPM [address] [facility] [address] [place] [address] NOMS SC PODStart: 12-31-2023 End: 60-31-2468Wdlfpuz encounter zannyfbee67/14/2024 10:30 AM EDT Office Visit [facility] [address] [place] [address] Claudia Valero MD [address] [place] [address] ArrivedNOMS SWS DERMComment on above:ArrivedStart: 12-42-3263Doxxb-19 Vaccine ( season)Covid-19 Vaccine ( season)[facility] Hospitaltart: 15-49-4082Ufpvrggre vaccinationInfluenza Vaccine (#1)[facility] Hospitaltart: 62-61-8380Dbrebnl Directive DiscussionAdvance Directive DiscussionElyria Memorial Hospitaltart: 70-45-7309Idfxo-19 Vaccine ( season)Covid-19 Vaccine ( season)[facility]: 11-17-2022 Influenza vaccinationInfluenza Vaccine (#1)[facility]tart: 2022 Advance Directive DiscussionAdvance Directive DiscussionElyria Memorial Hospitaltart: 05-37-3824Cncglhwjubpp Vaccine: 65+ (2 - PCV)Pneumococcal Vaccine: 65+ (2 - PCV) [facility]tart: 02-40-3354Yxjlvwwhyqgu Vaccine: 65+ (2 of 2 - PCV) Pneumococcal Vaccine: 65+ (2 of 2 - PCV)[facility] Hospitaltart: 2022 Pneumococcal Vaccine: 65+ Years (2 of 2 - PCV)Pneumococcal Vaccine: 65+ Years (2 of 2 - PCV)[facility] HealthcareStart: 61-36-0388VCXTTEFAUH ASSESSMENTDEPRESSION ASSESSMENTClelake county memorial hospital - west ClinicStart: 93-13-6182Kkirmsceg vaccinationINFLUENZA (#1) [facility] Hospitaltart: 10-04-2021 End: 55-69-8994Ffwlbakyhmb sedimentation rateCleveland Clinic Lutheran Hospital Work Phone: Comment on above:Expected: 10/04/2021, Expires: 12/04/2021tart: 92-46-5137VAKQRNKCQR ASSESSMENTDEPRESSION ASSESSMENTElyria Memorial Hospitaltart: 24-53-8557XKNCR-19 VACCINE (3 - Booster for Pfizer series)COVID-19 VACCINE (3 - Booster for Pfizer series)[facility] Hospitaltart: 85-11-0304LWBRU-19 VACCINE (3 - Booster for Pfizer series)COVID-19 VACCINE (3 - Booster for Pfizer series)[facility] Hospitaltart: 00-21-6813BMM Vaccine (1 - 1-dose 60+ series)RSV Vaccine (1 - 1-dose 60+ series)[facility]tart: 55-16-4715Hksufimviqrg Vaccine: 65+ Years (2 of 2 - PCV)Pneumococcal Vaccine: 65+ Years (2 of 2 - PCV) [facility] HealthcareStart: 27-82-1172HHAJAJZE CANCER SCREENING DISCUSSIONPROSTATE CANCER SCREENING DISCUSSIONElyria Memorial Hospitaltart: 74-48-0859Kogvkmwf specific antigen measurementProstate Cancer Screening DiscussionElyria Memorial Hospitaltart: 97-83-9322UPWBEZMS VACCINE (1 of 2)SHINGRIX VACCINE (1 of 2)[facility] Start: 62-87-3676IUETAGMJR (FIT-DNA)COLOGUARD (FIT-DNA)[facility] Hospitaltart: 85-73-7153AbobosstfhdTJEZMIMXHSPXwtawogie ClinicStart: 37-35-7012DEQDKBVCSZ CANCER SCREENINGCOLORECTAL CANCER SCREENINGElyria Memorial Hospitaltart: 44-02-9254RG COLONOGRAPHYCT COLONOGRAPHYElyria Memorial Hospitaltart: 24-21-4552GVHQXJSH SCREEN DIABETES SCREENElyria Memorial Hospitaltart: 48-80-0857QDTSQ OCCULT BLOODFECAL OCCULT BLOODElyria Memorial Hospitaltart: 33-68-3588Imnrdujue for malignant neoplasm of colon [facility] Hospitaltart: 51-02-6942NYREGKYBKTCCLGTMHBYZEFFWHQQrqeqlsjl Clinic Start: 00-68-3721Kciok 1996 panel - Serum or PlasmaLipid ScreeningElyria Memorial Hospitaltart: 11-45-6605Xnyto panelLipid ScreeningElyria Memorial Hospitaltart: 07-29-1450ECMRR SCREENLIPID SCREENElyria Memorial Hospitaltart: 55-64-1814Zxhbs microalbumin profileElyria Memorial Hospitaltart: 34-26-4790Jswnudu ScreeningAnxiety ScreeningElyria Memorial Hospitaltart: 59-45-4256Exfajvycxa ScreeningDepression ScreeningElyria Memorial Hospitaltart: 12-09-0382HXCIGBTFN C SCREENINGHEPATITIS C SCREENINGElyria Memorial Hospitaltart: 67-77-5260Rhgyfjvdp C screeningHepatitis C ScreeningElyria Memorial Hospitaltart: 17-85-3471YRB SCREENINGHIV SCREENINGElyria Memorial Hospitaltart: 21-61-9946Nxkab depression screening assessmentDEPRESSION SCREENING [facility] Hospitaltart: 22-39-4388ESoR/Tdap/Td Vaccines (1 - Tdap)DTaP/Tdap/Td Vaccines (1 - Tdap)[facility] HealthcareStart: 46-07-3047SOI Vaccines (1 of 1 - Standard series)MMR Vaccines (1 of 1 - Standard series)[facility] HealthcareStart: 24-01-7677Cyycfoqgn Aortic Aneurysm ScreeningAbdominal Aortic Aneurysm Screening [facility]tart: 94-79-5131Kiuqszyaj aortic aneurysm screeningAbdominal Aortic Aneurysm ScreeningElyria Memorial Hospitaltart: 04-23-1958Medicare Annual Wellness (AWV)Medicare Annual Wellness (AWV)[facility] HealthcareStart: 1955 Screening for malignant neoplasm of colonNOCT HealthcareCBC W Auto Differential panel - BloodCBC and differential Lab Routine Hypercoagulable state (CMS/HCC) Current use of fci anticoagulation Ordered: 06/16/2024[facility] Comment on above:Ordered: 06/16/2024 End: 48-87-8895Aq lower extremity w/o contrast materialCT HIP WO IVCON RT Radiology Routine Primary osteoarthritis of right hip 1 Occurrences starting 12/15/2021 until 01/14/2023[facility] Work Phone: Comment on above:1 Occurrences starting 12/15/2021 until 01/14/2023 End: 64-18-8197Pk lower extremity w/o contrast materialCleveland Clinic Lutheran Hospital Work Phone: Comment on above:1 Occurrences starting 02/04/2022 until 02/04/2022 End: 27-52-1753EDY COMPLETEECG COMPLETE ECG Routine Pre-op evaluation 1 Occurrences starting 02/08/[address] [place] [address] Work Phone: Comprzs on above:1 Occurrences starting 02/08/2022 until 02/08/2023 End: 70-01-6251IgquktznzhyhlhblPMYG Cardiology Routine Pre-op evaluation 1 Occurrences starting 02/08/2022 until 02/08/2023[facility] Work Phone: Comlbzh on above:1 Occurrences starting 02/08/2022 until 02/08/2023 End: 23-93-3776HX HIP 2V AP/LAT RIGHT (AK,FL,ME)XR HIP 2V AP/LAT RIGHT (AK,FL,ME) Radiology Routine Pain in right hip 1 Occurrences starting 03/07/[address] [place] [address] Work Phone: comment on above:1 Occurrences starting 03/07/2022 until 04/06/2023 End: 20-45-6697GX HIP 2V AP/LAT RIGHT (AK,FL,ME,UN)XR HIP 2V AP/LAT RIGHT (AK,FL,ME,UN) Radiology Routine Pain in right hip 1 Occurrences starting 01/[address] [place] [address] Work Phone: comment on above:1 Occurrences starting 02/01/[address] [place] [address] Immunizations Immunization DateImmunizationNotesCare YwcgotgsOgcesiog26-33-6817VEEBI-18 booster vaccine, age 12+ yr, bivalent (PFIZER-BIONTClassBug)Benny Gallardo MD Work Phone: [facility]healthLlhenf87-52-9471mayrisnxa, injectable, quadrivalent, preservative Kelvin Gallardo MD Work Phone: [facility]healthKhnuyv00-82-8233iisotsmca virus vaccine, unspecified formulationBenny Gallardo MD Work Phone: [facility]healthTiafuh70-36-1200bywidywkm, injectable, quadrivalent, preservative Consuelo Kuo MD Work Phone: [facility] HospitalZyrlpzvmgw04-68-6419yqpnfqpqf, injectable, quadrivalent, contains preservativeYuri Kuo MD Work Phone: [phone] [place], [place] [address]Eqeteknyvv74-03-4663kmedzhirr, injectable, quadrivalent, preservative Consuelo Kuo MD Work Phone: [phone] [place], [place] [address]Dtbpsztnzu57-90-9842pgwgevypv, seasonal, injectable, preservative Consuelo Kuo MD Work Phone: [phone] [place], [place] [address]Ymsmtkkngz78-00-0634ygsamlqduzju polysaccharide vaccine, 23 valentYuri Kuo MD Work Phone: [phone] [place], [place] [address]Oyqkliozvx19-16-2527udeqzfffi, seasonal, injectableYuri Kuo MD Work Phone: [phone] [place], [place] [address]Elajmvzeel94-36-3759bhitwtpk influenza, intradermal, preservative Consuelo Kuo MD Work Phone: [facility] Payers DatePayer CategoryPayerPolicy [id number]-pay2023Medicare [id number] 2023Medicare (Managed Care)[employer] [id number] Health InsuranceUNIVERSITY H[facility]ALS [facility] CHOICE PLUS NETWORK GENERIC [id number] 2021- Present [phone] [address] [address] [place] [address] [id number] Health Insurance [id number] Health Insurance [id number] 2.16.840.1.265791.3.57[id number] 2.840.1.179596.3.57[id number] 2.840.1.542229.3.57[id number] 2.840.1.811857.3.57[id number] 2.840.1.344390.3.57[id number] 2.840.1.377468.3.57[id number] 2.16.840.1.182964.3.57[id number] 2.16840.1.969149.3.57[id number] 2.840.1.712317.3.57[id number] 2.16840.1.102374.3.57[id number] 2.0.1.741147.3.57[id number] 2.16.840.1.815095.3.57[id number] 2..840.1.428797.3.57[id number] 2.840.1.423952.3.57[id number] 2.840.1.77[id number] 2..840.1.403077.3.579.2.531 [id number] 2.840.1.6[id number] 2.840.1.870708.3.579.2.531 Social History DateTypeDetailFacilityStart: 10-04-2021 End: 01-05-6417Suggfld smoking status NHISEx-smokerElyria Memorial Hospitaltart: 10-04-2021 End: 40-98-8547Ufcdieg use and exposureSmokeless tobacco non-userElyria Memorial Hospitaltart: 10-04-2021 End: 67-87-7478Ammusaj CommentQuit smoking 13 years agoElyria Memorial Hospitaltart: 99-95-5375Kxa Assigned At BirthNot on fileElyria Memorial Hospitaltart: 09-24-2021 End: 22-06-6617Xxykvhik to SARS-CoV-2 (event)Not sureElyria Memorial Hospitaltart: 12-17-2004 End: 95-96-9457Gfrddnb of tobacco useCurrent smokerElyria Memorial Hospitaltart: 12-17-2004 End: 80-03-6160Dsqkdoy of tobacco useCigarette SmokerElyria Memorial Hospitaltart: 02-08-2022 End: 59-02-2552Tnddgeutbe smoked current (pack per day) - Reported0.5[facility] ClinicStart: 60-57-9559Bdbikgx intakeEx-drinker (finding)[facility] Hospitaltart: 02-08-2022 End: 11-55-3000Rzjvynw use panelElyria Memorial Hospitaltart: 72-71-0748Dfumtbas Score (1-100), lower number is lower quep02LNAM HealthcareStart: 37-72-9191Ejzwpwh smoking status NHISNever smoked tobaccoCENTRAL VALLEY MEDICAL [facility]ENTER Healthcare Work Phone: Start: 12-28-2022 End: 92-98-8768Fyfldsvgp beverage intakeCurrent drinker of alcohol (finding)[facility] HealthcareStart: 26-56-8829Isejhhx Commentdrinks alcohol 2-3 times a weekSullivan County Memorial HospitalTolawrence+memorial hospital smoking status NHISUnknown if ever smokedAkron Children'S Hospital Work Phone: Start: 25-91-7552TvzTyrbjqq sex unknown (finding) [facility] Campustart: 92-78-5728Bxx Assigned [facility] Hospitaltart: 73-54-7686TdwWyqe (finding)[facility] Medical Equipment Procedure CodeEquipment CodeEquipment Original TextEquipment IdentifierDatesHead V40 36mm -2.5mm Offset Taper Biolox Delta Femoral Hip - [id number] Start: 34-65-2331Hxmx Accolade Ii 6 127d Femoral - [id number]: 82-55-5118Hituh Trident Ii 6.5mm 25mm Bone Low Profile Hexagonal Sterile - [id number]: 99-72-3280Onsjm Trident Ii 58mm F Tritanium Acetabular 5 Screw Hole Cluster Sterile - [id number]: 02-27-2022 Insert Acetabular 36mm 0d F Hip X3 Trident - [id number]: 02-27-2022 Functional Status BvqmJwrymhyiplAcnaniTnpoflta31-27-3178Rymmtsk Health Questionnaire 2 item (PHQ- 2) [Reported][facility] Clinical Notes 10-04-2021 to 01-13-2025 Note Date & FxsjCxopErmibshx37-55-4582 History of Present illness Narrative* Claudia Valero MD - 01/13/2025 1:30 PM EDT [...] Head, Face Examined , Exam limited by masters and mustache Neck Examined Chest Examined Back [...] 1 year skin check documented in this encounterSullivan County Memorial HospitalZfhlleupuk62-28-3344 History of Present illness Narrative* Haseeb Holliday DPM - 11/18/2024 10:20 AM EDT Patient: Bob Chuahbun : 1955 PCP: Yuri Kuo MD SUBJECTIVE This is a 69 y.o. male that presents today 21 d s/p permanent nail avulsion with nail avulsion to the left hallux Pt states that they have been following all post op instructions and have been taking antibiotic asprescribed. Pt denies n/f/v/c and has slight pain at post op site. Pt states slight drainage from the postop site. Pt presents today for postoperative follow up. 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 PE (pulmonary thromboembolism) (CMS/HCC), bilateral 2013 Medications: Current Outpatient Medications: amLODIPine (Norvasc) 10 MG tablet, Take 10 mg by mouth Daily, Disp: , Rfl: atorvastatin (Lipitor) 40 MG tablet, TAKE 1 TABLET(40 MG) BY MOUTH IN THE MORNING, Disp: 100 tablet, Rfl: 3 Xarelto 20 MG tablet, TAKE 1 TABLET BY MOUTH EVERY DAY, Disp: 100 tablet, Rfl: 3 ROS: General: denies fever, chills, fatigue, malaise GI: denies loose or watery stool on antibiotic OBJECTIVE LE EXAM: DERM: Negative erythema, slight serous drainage from the left hallux VASC: Palpable pedal pulses bilaterally NEURO: Gross sensation intact to bilateral feet ORTHO: Minimal pain on palpation to the left hallux ASSESSMENT 23 d s/p permanent nail avulsion to the left hallux 1. Onychocryptosis 2. Toe pain, left PLAN Pt to d/c abx. Patient to continue with OTC oral anti - inflammatories as needed for pain. Pt to keep DSD on area of interest while in shoegear, otherwise may expose to air in a clean environment. Haseeb Holliday DPM documented in this encounterSullivan County Memorial [id number] History of Present illness Narrative* Haseeb Holliday DPM - 10/31/2024 10:20 AM EDT Patient: Bob Khanna : 1955 PCP: Yuri Kuo MD SUBJECTIVE This is a 69 y.o. male that presents today with a CC of ingrowing left hallux toenail Pt states problem has been present for the past few weeks. Pt has noticed positive drainage to the affected area and states pain is achey in nature. Treatments have consisted of soaking and trying to remove the ingrown nail on their own with no relief. Patient has had longstanding issue with ingrowing nail and presents today for treatment 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 PE (pulmonary thromboembolism) (CMS/HCC), bilateral 2013 Medications: Current Outpatient Medications: amLODIPine (Norvasc) 10 MG tablet, Take 10 mg by mouth Daily, Disp: , Rfl: atorvastatin (Lipitor) 40 MG tablet, TAKE 1 TABLET(40 MG) BY MOUTH IN THE MORNING, Disp: 100 tablet, Rfl: 3 Xarelto 20 MG tablet, TAKE 1 TABLET BY MOUTH EVERY DAY, Disp: 100 tablet, Rfl: 3 Social History: Social History Socioeconomic History Marital status: Spouse name: Not on file Number of children: Not on file Years of education: Not on file Highest education level: Not on file Occupational History Not on file Tobacco Use Smoking status: Former Current packs/day: 0.50 Average packs/day: 0.5 packs/day for 19.9 years (9.9 ttl pk-yrs) Types: Cigarettes Start date: 12/2004 Quit date: 1972 Smokeless tobacco: Never Vaping Use Vaping status: Never Used Substance and Sexual Activity Alcohol use: Yes Comment: drinks alcohol 2-3 times a week Drug use: Not on file Sexual activity: Not on file Other Topics Concern Not on file Social History Narrative Not on file Social Drivers of Health Financial Resource Strain: Not on file Food Insecurity: Not on file Transportation Needs: Not on file Physical Activity: Not on file Stress: Not on file Social Connections: Not on file Intimate Partner Violence: Unknown (05/10/2023) Received from [facility] Fear of Current or Ex-Partner: Not on file Emotionally Abused: Not on file Physically Abused: Not on file Sexually Abused: Not on file Physically or Sexually Abused: Not on file Housing Stability: Not on file ROS: General: denies fever, chills, fatigue, malaise Gastrointestinal: denies abdominal pain, ulcers, or changes in appetite or bowel habits Musculoskeletal: denies arthritis, denies loss of strength, pain to hip, knees, back. Positive history of total knee replacement in the past Cardiovascular: denies CP, palpitations, irregular rhythms. Positive history of PE in the past OBJECTIVE LE EXAM: DERM: Positive erythema and negative drainage from the left hallux with hair growth noted to b/l feet. VASC: Palpable pedal pulsed b/l with warm to cool tibia to toes b/l NEURO: Gross sensation intact digits 1-10 and b/l feet ORTHO: Ankle ROM less than 10 degrees b/l. Positive pain on palpation to left hallux ASSESSMENT 1. Onychocryptosis 2. Toe pain, left PLAN Perfomed TPN avulsion to the left toenail. Informed pt of risks/ benefits of procedure including infection,reoccurance,pain, bleeding. Pt consents. 3cc of xylocaine 2% plain injected into the affected digit and tournicut applied to affected digit for 3 minutes. The affected toe was prepped/draped in a sterile manner and the offending nail border removed and 3phenol applications of 30 seconds a peice to nail matrix. Alcohol flush applied and tournicut released with prompt hyperemic response. Patient was given a prescription for an antibiotic Haseeb Holliday DPM documented in this encounterSullivan County Memorial [id number] History of Present illness Narrative* Anup Akbar DO - 10/28/2024 9:15 AM EDT Images from the original note were not included. Bob Khanna 1955 Bob Khanna is a 69 y.o. male presents for 1st po colonoscopy HPI: HPI Patient had no problems with the colonoscopy. He did not have any bleeding or abdominal pain. OBJECTIVE: Physical Exam Constitutional: Appearance: Normal appearance. He is not toxic-appearing. Cardiovascular: Rate and Rhythm: Regular rhythm. Abdominal: General: There is no distension. Tenderness: There is no abdominal tenderness. ASSESSMENT AND PLAN: Assessment/Plan Diagnoses and all orders for this visit: Adenomatous polyp of cecum Status post colonoscopy, removal of cecal polyp which was a tubular adenoma. Additionally some other polypoid lesions that were polypoid mucosa. We discussed pathology report and ramifications of that. Should have repeat colonoscopy in 5 years. No follow-ups on file. documented in this encounterSullivan County Memorial HospitalUuakrycgij05-34-4283 History of Present illness Narrative* Julissa Lamar NP - 10/01/2024 10:00 AM EDT Images from the original note were not included. Subjective Patient ID: Bob Khanna is a 69 y.o. male who presents for back pain. Bob presents today for left side back pain [...] KNEE ARTHROSCOPY W/ ACL RECONSTRUCTION Right 2003 VT ANES OPEN/SURG ARTHROSCOPIC PROC KNEE JOINT NOS Left x2 VT HAND/FINGER SURGERY UNLISTED Left REPLACEMENT TOTAL KNEE [...] No follow-ups on file. documented in this encounterSullivan County Memorial [id number] History of Present illness Narrative* Anup Akbar, - 09/17/2024 9:30 AM EDT Images from the original note were not included. Bob Khanna 1955 Bob Khanna is a 69 y.o. male presents [...] his heart rate. He has seen a psych arnp for that. SUBJECTIVE: MEDICATIONS: ALLERGIES Current Outpatient [...] KNEE ARTHROSCOPY W/ ACL RECONSTRUCTION Right 2004 [place] ANES OPEN/SURG ARTHROSCOPIC PROC KNEE JOINT NOS Left x2 VT HAND/FINGER SURGERY UNLISTED Left REPLACEMENT TOTAL KNEE [...] 6' 3 Wt 270 lb BMI 33.75 kg/m Smoking Status Never BSA 2.54 m Physical Exam Constitutional: Appearance: Normal appearance. He [...] Xarelto 2 days prior. documented in this encounterSullivan County Memorial HospitalLcngghqljm68-65-0090 History of Present illness Narrative* Yuri Kuo MD - 06/16/2024 9:30 AM EDT Subjective : Chief Complaint: Bob Khanna is an 68 y.o. male here for an annual wellness visit. I have reviewed and reconciled the history and medication list with the patient today. Current Outpatient Medications Medication Sig Dispense Refill amLODIPine (Norvasc) 10 MG tablet Take 10 mg by mouth Daily atorvastatin (Lipitor) 40 MG tablet TAKE 1 TABLET(40 MG) BY MOUTH IN THE MORNING 100 tablet 3 rivaroxaban (Xarelto) 20 MG tablet TAKE 1 TABLET BY MOUTH EVERY DAY 100 tablet 3 No current facility-administered medications for this visit. Review of Systems Constitutional: Negative for appetite change, fatigue and unexpected weight change. Respiratory: Negative for cough, chest tightness and shortness of breath. Cardiovascular: Negative for chest pain, palpitations and leg swelling. Gastrointestinal: Negative for abdominal pain, nausea and vomiting. Genitourinary: Negative for difficulty urinating, hematuria and urgency. List of current healthcare providers: Patient Care Team: Yuri Kuo MD as PCP - General (Internal Medicine) Yuri Kuo MD as PCP - [employer] Annual Visit Over the past 2 weeks, how often have you been bothered by any of the following problems? Little interest or pleasure in doing things: Not at all Feeling down, depressed, or hopeless: Not at all Patient Health Questionnaire-2 Score: 0 Herzog Fall Risk History of Falling, Immediate or Within 3 Months: No Secondary Diagnosis: No Ambulatory Aid: Walks without aid/bedrest/nurse assist Health Risk Assessment Form Do you need help eating, bathing, using the toilet, dressing, or getting around your home?: No Can you prepare your own meals?: Yes Can you do your own housework without help?: Yes Can you shop for groceries or clothes without help?: Yes Do you exercise for about 20 minutes 3 or more days a week?: Yes How confident are you that you can control and manage most of your health problems?: Very confident Can you mange your money, credit cards and accounts, pay bills and taxes?: Yes Cognitive Screening Three Word Registration: Apple, Watch, Bridget Clock Drawing: Normal Clock - 2 Three Word Recall: All 3 words correct - 3 Total Score (0-5 Points): 5 Pain Assessment Pain Score: 2 Advance Care Planning Do you have a living will?: Yes Do you have a medical power of personal injury attorney?: Yes Who is your medical power of personal injury attorney?: Objective : BP 128/70 Pulse 54 Ht 6' 4 Wt 278 lb SpO2 97% BMI 33.84 kg/m No results found. Physical Exam Constitutional: General: He is not in acute distress. Appearance: He is normal weight. He is not ill-appearing. HENT: Head: Normocephalic. Cardiovascular: Rate and Rhythm: Normal rate and regular rhythm. Heart sounds: Normal heart sounds. No murmur heard. Pulmonary: Effort: Pulmonary effort is normal. Breath sounds: Normal breath sounds. Musculoskeletal: General: No swelling. Right lower leg: No edema. Left lower leg: No edema. Neurological: Mental Status: He is alert. Psychiatric: Mood and Affect: Mood normal. Thought Content: Thought content normal. Judgment: Judgment normal. Assessment/Plan : The following health maintenance schedule was reviewed with the patient and provided in printed form in the after visit summary: Health Maintenance Topic Date Due Pneumococcal Vaccine: 65+ Years (2 of 2 - PCV) 2022 Influenza Vaccine (1) 11/18/2023 Medicare Annual Wellness (AWV) 06/16/2025 Colorectal Cancer Screening 01/01/2029 Advance Care Planning Assessment/Plan Diagnoses and all orders for this visit: Routine general medical examination at health care facility ACP (advance care planning) Factor V Leiden, prothrombin gene mutation (CMS/HCC) Hypercoagulable state (CMS/HCC) - CBC and differential Mixed hyperlipidemia (CMS/HCC) - Comprehensive metabolic panel; Future - Lipid panel; Future - TSH W/REFLEX TO FT4; Future Edema, unspecified type History of pulmonary embolus (PE) Elevated PSA Primary hypertension (CMS/HCC) - Comprehensive metabolic panel; Future - TSH W/REFLEX TO FT4; Future Prostate cancer screening High risk medication use 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 Orders Placed This Encounter Procedures Comprehensive metabolic panel Standing Status: Future Number of Occurrences: 1 Standing Expiration Date: 06/16/2025 Order Specific Question: Print requisition? Answer: No Lipid panel Standing Status: Future Number of Occurrences: 1 Standing Expiration Date: 06/16/2025 TSH W/REFLEX TO FT4 Standing Status: Future Number of Occurrences: 1 Standing Expiration Date: 06/16/2025 Order Specific Question: Print requisition? Answer: No CBC and differential Order Specific Question: Print requisition? Answer: No Ambulatory referral to General Surgery Standing Status: Future Standing Expiration Date: 12/16/2024 Referral Priority: Routine Referral Type: Consultation Referral Reason: Specialty Services Required Referred to Provider: Anup Akbar DO Requested Specialty: General Surgery Number of Visits Requested: 1 Electronically signed by Yuri Kuo MD on June 16, 2024 documented in this encounterSullivan County Memorial [id number] Note [id number]03-14-2025 [id number] 05-29-2024 [facility] SURGERY Clinical Discharge Summary PERSON INFORMATION Name BOB KHANNA Age 68 Years 1955 Sex MALE Language [place] PCP YURI KUO Marital Status Phone Med Service Ambulatory Surgery Acct# Arrival 05/29/2024 07:02:02 Visit Reason SURGERY - FUSION PROSTATE BIOPSY - ELEVATED PSA Acuity LOS 055 02:45 Address: [address] [place] [address] Comment: PROVIDER INFORMATION VITALS INFORMATION Vital Sign Triage Latest Temp Oral Temp Temporal Temp Intravascular Temp Axillary Temp Rectal 02 Sat 100 % 97 % Respiratory Rate Peripheral Pulse Rate Apical Heart Rate Blood Pressure / 93 mmHg / 71 mmHg Comment: MEDICAL INFORMATION Allergy Info: contrast media (gadolinium-based) Prescriptions Given: amLODIPine (amLODIPine 10 mg oral tablet) 1 tab(s) Oral (given by mouth) every day. atorvastatin (atorvastatin 40 mg oral tablet) 1 tab(s) Oral (given by mouth) every day. ciprofloxacin (ciprofloxacin 500 mg oral tablet) TAKE 1 TABLET BY MOUTH EVERY 12 HOURS FOR 3 DAYS. rivaroxaban (Xarelto 20 mg oral tablet) TAKE 1 TABLET BY MOUTH EVERY DAY. Medication List: Medications to Continue That Have Not Changed Other Medications amLODIPine (amLODIPine 10 mg oral tablet) 1 tab(s) Oral (given by mouth) every day. atorvastatin (atorvastatin 40 mg oral tablet) 1 tab(s) Oral (given by mouth) every day. ciprofloxacin (ciprofloxacin 500 mg oral tablet) TAKE 1 TABLET BY MOUTH EVERY 12 HOURS FOR 3 DAYS. rivaroxaban (Xarelto 20 mg oral tablet) TAKE 1 TABLET BY MOUTH EVERY DAY. Medications to Continue That Have Not Changed Other Medications amLODIPine (amLODIPine 10 mg oral tablet) 1 tab(s) Oral (given by mouth) every day. atorvastatin (atorvastatin 40 mg oral tablet) 1 tab(s) Oral (given by mouth) every day. ciprofloxacin (ciprofloxacin 500 mg oral tablet) TAKE 1 TABLET BY MOUTH EVERY 12 HOURS FOR 3 DAYS. rivaroxaban (Xarelto 20 mg oral tablet) TAKE 1 TABLET BY MOUTH EVERY DAY. Medications to Continue That Have Not Changed Other Medications amLODIPine (amLODIPine 10 mg oral tablet) 1 tab(s) Oral (given by mouth) every day. atorvastatin (atorvastatin 40 mg oral tablet) 1 tab(s) Oral (given by mouth) every day. ciprofloxacin (ciprofloxacin 500 mg oral tablet) TAKE 1 TABLET BY MOUTH EVERY 12 HOURS FOR 3 DAYS. rivaroxaban (Xarelto 20 mg oral tablet) TAKE 1 TABLET BY MOUTH EVERY DAY. Comment: Lab and Radiology Results Laboratory or Other Results This Visit (last charted value for your 05/29/2024 visit) No Laboratory or Other Results This Visit DIET & ACTIVITY Patient Activity Level: Patient Diet: Patient Activity Restrictions: DISCHARGE INFORMATION Discharge Disposition: Discharge Location: DEPART REASON INCOMPLETE INFORMATION PATIENT EDUCATION INFORMATION Instructions: Follow up: With: Address: When: Martinez Herrera MD DIAGNOSIS 1:Elevated PSA Comment: PHYS [facility]03-03-2025 History of Present illness Narrative* Yuri Kuo MD - 05/19/2024 9:00 AM EST Images from the original note were not included. HPI surgical clearance Additional comments: Sched 05/29/24 for prostate biopsy with Dr Javier hunter Last edited by Missy Vera LPN on 05/19/2024 8:41 AM. Subjective Patient ID: Bob Khanna is a 68 y.o. male who presents for surgical clearance (Sched 05/29/24 for prostate biopsy with Dr Javier hunter/). HPI Current Outpatient Medications on File Prior to Visit Medication Sig Dispense Refill amLODIPine (Norvasc) 10 MG tablet Take 10 mg by mouth Daily amoxicillin (Amoxil) 500 MG capsule Take all 4 pills postprocedure by mouth 4 capsule 0 atorvastatin (Lipitor) 40 MG tablet TAKE 1 TABLET(40 MG) BY MOUTH IN THE MORNING 100 tablet 3 furosemide (Lasix) 20 MG tablet Take 1 tablet (20 mg) by mouth in the morning. 30 tablet 2 rivaroxaban (Xarelto) 20 MG tablet TAKE 1 TABLET BY [...] of skin) Crushing injury of left thumb History of total right knee replacement PE (pulmonary thromboembolism) (CMS/HCC), bilateral 2013 Past Surgical History: Procedure Laterality Date KNEE ARTHROSCOPY W/ ACL RECONSTRUCTION Right 2003 [place] ANES OPEN/SURG ARTHROSCOPIC PROC KNEE JOINT NOS Left x2 VT HAND/FINGER SURGERY UNLISTED Left REPLACEMENT TOTAL KNEE ONCOLOGIC Right patient reported 2020 TONSILLECTOMY 1967 TOTAL KNEE ARTHROPLASTY 11/11/2019 Dr. Gill VASECTOMY 1993 Visit Vitals BP 138/86 Pulse 67 Ht 6' 4 Wt 279 lb SpO2 97% BMI 33.96 kg/m Smoking Status Never BSA 2.61 m Review of Systems Respiratory: Negative for chest tightness and shortness of breath. Cardiovascular: Negative for chest pain, palpitations and leg swelling. Objective Physical Exam Constitutional: General: He is not in acute distress. Appearance: He is normal weight. He is not ill-appearing. HENT: Head: Normocephalic. Cardiovascular: Rate and Rhythm: Normal rate and regular rhythm. Heart sounds: Normal heart sounds. No murmur heard. Pulmonary: Effort: Pulmonary effort is normal. Breath sounds: Normal breath sounds. Musculoskeletal: General: No swelling. Right lower leg: No edema. Left lower leg: No edema. Neurological: Mental Status: He is alert. Psychiatric: Mood and Affect: Mood normal. Thought Content: Thought content normal. Judgment: Judgment normal. Assessment/Plan Diagnoses and all orders for this visit: Elevated PSA - Medically cleared for prostate biopsy without additional testing. PAT was reviewed, all normal. Patient has no cardio-pulmonary symptoms and is active. History of pulmonary embolus (PE) Hypercoagulable state (CMS/HCC) - Should stop OAC 3 days prior to biopsy, resume when bleeding has stopped + 48 hours. - This is not without risk, but must be done. This was discussed with him in detail. Factor V Leiden, prothrombin gene mutation (CMS/HCC) Follow up in about 2 months (around 07/19/2024) for Wellness. documented in this encounterSullivan County Memorial [id number] NoteUT Cardiology - [facility] Subjective Bob Khanna is a 68 y.o. year old male patient being seen for 5 mo follow up hypertension, non-obstructive CAD, hx of PE, Factor V Leiden, and hyperlipidemia. Amlodipine was started at last visit in August 2023. Had routine labs w/ lipid profile after last visit. Says the amlodipine hasn't made a difference in his BP's. He denies chest pain, SOB, palpitations, and lightheadedness. Patient Active Problem List Diagnosis Pulmonary embolism (CMS/HCC) Personal history of pulmonary embolism Crushing injury of finger Open fracture of distal phalanx or phalanges of hand Obstructive sleep apnea Murmur Hyperlipidemia Factor V Leiden (CMS/HCC) ELAINE (dyspnea on exertion) Bradycardia Arthritis of right knee PVC (premature ventricular contraction) Abnormal nuclear stress test Artificial knee joint present Difficulty walking Edema Osteoarthritis of knee Family History Problem Relation Name Age of Onset Atrial fibrillation Mother Heart failure Mother Social History Tobacco Use Smoking status: Former Types: Cigarettes Smokeless tobacco: Never Substance Use Topics Alcohol use: Yes Comment: occasionally HPI He is seen in follow-up. He has history of pulmonary embolism maintained on anticoagulation therapy. He was previously evaluated in cardiology clinic due to shortness of breath, PVCs and abnormal stress test. Cardiac catheterization performed October 2022 showed nonobstructive coronary artery disease appropriate for medical therapy. He has hypertension and is currently maintained on amlodipine 2.5 mg once daily. he denies chest pain, shortness of breath, palpitations, dizziness, syncope and leg edema. he has good exercise tolerance. There is no claudication. Review of Systems Cardiovascular: Negative for chest pain, dyspnea on exertion, irregular heartbeat, leg swelling, orthopnea, palpitations and syncope. Respiratory: Negative for cough and shortness of breath. Musculoskeletal: Negative for arthritis, falls and neck pain. Gastrointestinal: Negative for diarrhea and dysphagia. Neurological: Negative for light-headedness and loss of balance. Objective Visit Vitals BP 155/85 (BP Location: Left arm, Patient Position: Sitting) Pulse 55 Ht 1.93 m (6' 4 ) Wt 126 kg (277 lb) SpO2 98% BMI 33.72 kg/m??? Smoking Status Former BSA 2.6 m??? Physical Exam Constitutional: Appearance: He is well-developed. He is obese. He is not ill-appearing. HENT: Head: Normocephalic and atraumatic. Nose: Nose normal. Eyes: General: No scleral icterus. Pupils: Pupils are equal, round, and reactive to light. Neck: Thyroid: No thyromegaly. Vascular: No JVD. Cardiovascular: Rate and Rhythm: Normal rate and regular rhythm. Pulses: Radial pulses are 2+ on the right side and 2+ on the left side. Heart sounds: Normal heart sounds. No murmur heard. No friction rub. No gallop. Pulmonary: Effort: Pulmonary effort is normal. No respiratory distress. Breath sounds: Normal breath sounds. No wheezing or rales. Chest: Chest wall: No tenderness. Abdominal: General: Bowel sounds are normal. There is no distension. Palpations: Abdomen is soft. Tenderness: There is no abdominal tenderness. Musculoskeletal: General: No swelling. Cervical back: Neck supple. Skin: General: Skin is warm and dry. Neurological: General: No focal deficit present. Mental Status: He is alert and oriented to person, place, and time. Psychiatric: Mood and Affect: Mood normal. Behavior: Behavior is cooperative. Judgment: Judgment normal. Allergies Allergies Allergen Reactions Gadoteridol Hives Patient became itchy and developed hives Patient became itchy and developed hives Medications Current Outpatient Medications: atorvastatin (Lipitor) 40 mg tablet, Take 40 mg by mouth in the morning., Disp: , Rfl: furosemide (Lasix) 20 mg tablet, Take 20 mg by mouth if needed., Disp: , Rfl: Xarelto 20 mg tablet, Take 1 tablet (20 mg) by mouth in the morning. Resume on 10/21/2022 Do not start before October 21, 2022., Disp: 30 tablet, Rfl: amLODIPine (Norvasc) 10 mg tablet, Take 1 tablet (10 mg) by mouth in the morning., Disp: 90 tablet, Rfl: 3 Recent Labs No visits with results within 6 Month(s) from this visit. Latest known visit with results is: Admission on 10/19/2022, Discharged on 10/19/2022 Component Date Value Ventricular Rate 10/19/2022 45 Atrial Rate 10/19/2022 45 VT Interval 10/19/2022 186 QRS DURATION 10/19/2022 142 QT Interval 10/19/2022 494 QTC CALCULATION(BAZETT) 10/19/2022 427 P [place] 10/19/2022 41 R-[place] 10/19/2022 -57 T Wave [place] 10/19/2022 13 Blood testing 08/14/2023: Hemoglobin 15, platelets 234, potassium 4.2, BUN 11, creatinine 0.95, EGFR more than 60, LFTs normal, triglycerides 57, cholesterol 134, HDL 59, LDL 64. Imaging and other tests ECHO 07/11/2023 Global LV systolic (more content not included)...[facility]10-30-2024 History of Present illness Narrative* Haseeb Holliday, DPM - 01/16/2024 3:30 PM EDT Patient: Bob Khanna : 1955 PCP: Yuri Kuo MD SUBJECTIVE This is a 68 y.o. male that presents today 16d s/p permanent nail avulsion with nail avulsion to the left hallux Pt states that they have been following all post op instructions and have been taking antibiotic asprescribed. Pt denies n/f/v/c and states negative drainage from postop site Allergies: Allergies Allergen Reactions Iodinated Contrast Media Hives Past Medical History: Past Medical History: Diagnosis Date Arthritis BCC (basal cell carcinoma of skin) Crushing injury of left thumb History of total right knee replacement PE (pulmonary thromboembolism) (CMS/HCC), bilateral 2013 Medications: Current Outpatient Medications: amoxicillin (Amoxil) 500 MG capsule, Take all 4 pills postprocedure by mouth, Disp: 4 capsule, Rfl:0 atorvastatin (Lipitor) 40 MG tablet, TAKE 1 TABLET(40 MG) BY MOUTH IN THE MORNING, Disp: 100 tablet, Rfl: 3 cephalexin (Keflex) 500 MG capsule, Take 1 capsule (500 mg) by mouth in the morning and 1 capsule (500 mg) in the evening and 1 capsule (500 mg) before bedtime. Do all this for 10 days. Take one tablet by mouth three times daily., Disp: 30 capsule, Rfl: 0 furosemide (Lasix) 20 MG tablet, Take 1 tablet (20 mg) by mouth in the morning., Disp: 30 tablet, Rfl: 2 rivaroxaban (Xarelto) 20 MG tablet, TAKE 1 TABLET BY MOUTH EVERY DAY, Disp: 100 tablet, Rfl: 3 ROS: General: denies fever, chills, fatigue, malaise GI: denies loose or watery stool on antibiotic OBJECTIVE LE EXAM: DERM: Negative erythema, negative drainage from the left hallux. VASC: Palpable pedal pulses bilaterally NEURO: Gross sensation intact to bilateral feet ORTHO: Minimal pain on palpation to the left hallux ASSESSMENT 16 d s/p permanent nail avulsion to the left hallux 1. Onychocryptosis 2. Toe pain, left 3. Abscess, toe, left PLAN Pt to d/c abx. Patient to continue with OTC oral anti - inflammatories as needed for pain. Pt to keep DSD on area of interest while in shoegear, otherwise may expose to air in a clean environment. Haseeb Holliday DPM documented in this encounterSullivan County Memorial [id number] History of Present illness Narrative* Haseeb Holliday DPM - 01/02/2024 2:30 PM EDT Patient: Bob Khanna : 1955 PCP: Yuri Kuo MD SUBJECTIVE This is a 68 y.o. male that presents today 2d s/p permanent nail avulsion with nail avulsion to theleft hallux Pt states that they have been following all post op instructions and have been taking antibiotic asprescribed. Pt denies n/f/v/c and has some pain at post op site. he has not been able to remove her dressing has been sticking to the wound and presents today for removal Allergies: Allergies Allergen Reactions Iodinated Contrast Media Hives Past Medical History: Past Medical History: Diagnosis Date Arthritis BCC (basal cell carcinoma of skin) Crushing injury of left thumb History of total right knee replacement PE (pulmonary thromboembolism) (CMS/HCC), bilateral 2013 Medications: Current Outpatient Medications: amoxicillin (Amoxil) 500 MG capsule, Take all 4 pills postprocedure by mouth, Disp: 4 capsule, Rfl:0 atorvastatin (Lipitor) 40 MG tablet, TAKE 1 TABLET(40 MG) BY MOUTH IN THE MORNING, Disp: 100 tablet, Rfl: 3 cephalexin (Keflex) 500 MG capsule, Take 1 capsule (500 mg) by mouth in the morning and 1 capsule (500 mg) in the evening and 1 capsule (500 mg) before bedtime. Do all this for 10 days. Take one tablet by mouth three times daily., Disp: 30 capsule, Rfl: 0 furosemide (Lasix) 20 MG tablet, Take 1 tablet (20 mg) by mouth in the morning., Disp: 30 tablet, Rfl: 2 rivaroxaban (Xarelto) 20 MG tablet, TAKE 1 TABLET BY MOUTH EVERY DAY, Disp: 100 tablet, Rfl: 3 ROS: General: denies fever, chills, fatigue, malaise GI: denies loose or watery stool on antibiotic OBJECTIVE LE EXAM: DERM: Negative erythema, serous drainage from the left hallux. Dressing noted intact of 2 x 2 to the left hallux VASC: Palpable pedal pulses bilaterally NEURO: Gross sensation intact to bilateral feet ORTHO: Minimal pain on palpation to the left hallux ASSESSMENT 2d s/p permanent nail avulsion to the left hallux 1. Onychocryptosis 2. Toe pain, left 3. Abscess, toe, left PLAN Removal of dressing today with application of Neosporin and Band-Aid and patient to continue with Neosporin and Band-Aid daily and follow up for normal postoperative timeframe Continue with Neosporin and Band-Aid daily to the toe and continue with oral antibiotics with removal of stuck dressing today and follow up for normal follow up Haseeb Holliday DPM documented in this encounterSullivan County Memorial [id number] History of Present illness Narrative* Haseeb Holliday DPM - 12/31/2023 1:50 PM EDT Patient: Bob Khanna : 1955 PCP: Yuri Kuo MD SUBJECTIVE This is a 68 y.o. male that presents today with a CC of ingrowing left hallux toenail Pt states problem has been present for the past few weeks. Pt has noticed positive drainage to the affected area and states pain is achey in nature. Treatments have consisted of soaking and trying to remove the ingrown nail on their own with no relief. Patient has had longstanding issue with ingrowing nail and presents today for treatment Patient like total permanent nail avulsion today to left hallux if possible Allergies: Allergies Allergen Reactions Iodinated Contrast Media Hives Past Medical History: Past Medical History: Diagnosis Date Arthritis BCC (basal cell carcinoma of skin) Crushing injury of left thumb History of total right knee replacement PE (pulmonary thromboembolism) (CMS/HCC), bilateral 2013 Medications: Current Outpatient Medications: atorvastatin (Lipitor) 40 MG tablet, TAKE 1 TABLET(40 MG) BY MOUTH IN THE MORNING, Disp: 100 tablet, Rfl: 3 furosemide (Lasix) 20 MG tablet, Take 1 tablet (20 mg) by mouth in the morning., Disp: 30 tablet, Rfl: 2 rivaroxaban (Xarelto) 20 MG tablet, TAKE 1 TABLET BY MOUTH EVERY DAY, Disp: 100 tablet, Rfl: 3 Social History: Social History Socioeconomic History Marital status: Spouse name: Not on file Number of children: Not on file Years of education: Not on file Highest education level: Not on file Occupational History Not on file Tobacco Use Smoking status: Never Smokeless tobacco: Never Vaping Use Vaping status: Never Used Substance and Sexual Activity Alcohol use: Yes Comment: drinks alcohol 2-3 times a week Drug use: Not on file Sexual activity: Not on file Other Topics Concern Not on file Social History Narrative Not on file Social Drivers of Health Financial Resource Strain: Not on file Food Insecurity: Not on file Transportation Needs: Not on file Physical Activity: Not on file Stress: Not on file Social Connections: Not on file Intimate Partner Violence: Unknown (05/10/2023) [facility] [place] Safety & Environment Fear of Current or Ex-Partner: Not on file Emotionally Abused: Not on file Physically Abused: Not on file Sexually Abused: Not on file Physically or Sexually Abused: Not on file Housing Stability: Not on file ROS: General: denies fever, chills, fatigue, malaise OBJECTIVE LE EXAM: DERM: Positive erythema and slight serous drainage from the left hallux with hair growth noted to b/l feet. VASC: Palpable pedal pulsed b/l with warm to cool tibia to toes b/l NEURO: Gross sensation intact digits 1-10 and b/l feet ORTHO: Ankle ROM less than 10 degrees b/l. Positive pain on palpation to left hallux ASSESSMENT 1. Pain due to onychomycosis of toenails of both feet 2. Venous insufficiency 3. Abscess, toe, left 4. Onychocryptosis 5. Toe pain, left PLAN Patient to continue with oral anti - inflammatories as needed for pain and recommended OTC medications such as tylenol or Ibuprofen Discussed possible treatment options including a permanent nail avulsion and patient would like total permanent nail avulsion to left hallux due to longstanding issues Perfomed TPN avulsion to the left toenail. Informed pt of risks/ benefits of procedure including infection,reoccurance,pain, bleeding. Pt consents. 3cc of xylocaine 2% plain injected into the affected digit and tournicut applied to affected digit for 3 minutes. The affected toe was prepped/draped in a sterile manner and the offending nail border removed and 3phenol applications of 30 seconds a peice to nail matrix. Alcohol flush applied and tournicut released with prompt hyperemic response. Patient was given a prescription for an antibiotic Haseeb Holliday DPM documented in this encounterSullivan County Memorial [id number] History of Present illness Narrative* Claudia Valero MD - 12/31/2023 10:30 AM EDT Skin Check Location: Patient requests a [...] recommendation: From the waist down Scalp, Examined Head, Face Examined Neck Examined Chest Examined Back Examined Abdomen Examined Right arm Examined Left arm Examined Hands Examined Digits,nails: Examined Lymphatics: 1. Seborrheic keratosis (3) Arms, Head, Trunk Stuck on verrucous, de jesus-brown papules and plaques. Patient was counseled regarding these benign growths. Removal is normally not necessary, but they may be removed if they are symptomatic or for cosmetic reasons. 2. Lentigines (3) Arms, Head - Anterior (Face), Trunk Scattered de jesus macules in sun-exposed areas. The patient was informed that lentigines are benign pigmented lesions that occur on sun-exposed andsun-damaged skin. No treatment is necessary. Recommended regular use of broad spectrum sunscreen SPF 30 or higher 3. Sebaceous hyperplasia of face Head - Anterior (Face) Small yellow papules with a central dell. Reassure, benign. Discussed these can be removed for a cosmetic fee with the hyfrecator if desired. 4. Angioma of skin Trunk Scattered ricardo-red papule(s). The patient was informed that angiomas are benign growths on the the skin. No treatment is necessary. 5. Rash and other nonspecific skin eruption No rash present today Patient reports rash comes and goes on sarabia and crease of buttocks that is itchy and lasts about 2-3 weeks, patient reports rash always resolves before he can get in to see a doctor. Instructed patient if rash returns to contact office and ask to speak with a nurse for a same day or next day appointment with any of the providers. 6. Skin tag Fleshy, skin-colored sessile and pedunculated papules. The patient was informed that skin tags are benign growths usually found around the neck or in the axillae. No treatment is necessary, but at times they can get caught on jewelry or clothing or become inflamed. Skin tags can be removed with scissors or liquid nitrogen. Next Visit: 1 year skin exam documented in this encounterSullivan County Memorial [id number] NoteCardiovascular Medicine [facility] SUBJECTIVE Chief Complaint Patient presents with Hypertension Coronary Artery Disease Hyperlipidemia Bob Khanna is a 68 y.o. male here for follow-up. HPI PMHx: PVCs, PE 2013 on Xarelto, non obstructive CAD per 2022 cath, ELIEZER He states he has been doing well. He is watching his diet, he has lost almost 30#. No issues with dizziness or palpitations. He has ELAINE with heavier exertion, this is unchanged. BP at home still trending 140s/80s. He plays golf a couple times a week, but no routine exercise. Patient Active Problem List Diagnosis Pulmonary embolism ([facility]) Personal history of pulmonary embolism Crushing injury of finger Open fracture of distal phalanx or phalanges of hand Obstructive sleep apnea Murmur Hyperlipidemia Factor V Leiden (CMS/HCC) ELAINE (dyspnea on exertion) Bradycardia Arthritis of right knee PVC (premature ventricular contraction) Abnormal nuclear stress test Artificial knee joint present Difficulty walking Edema Osteoarthritis of knee Past Medical History: Diagnosis Date Abnormal ECG Arrhythmia Atrial fibrillation ([facility]) Hyperlipidemia Family History Problem Relation Name Age of Onset Atrial fibrillation Mother Heart failure Mother Social History Tobacco Use Smoking status: Former Types: Cigarettes Smokeless tobacco: Never Substance Use Topics Alcohol use: Yes Comment: occasionally Allergies Allergen Reactions Gadoteridol Hives Patient became itchy and developed hives Patient became itchy and developed hives ROS Constitutional: Positive for weight loss (28# since May 2023). Cardiovascular: Positive for palpitations ( every once in awhile , even less ). All other systems reviewed and are negative. OBJECTIVE Visit Vitals BP 148/84 (BP Location: Left arm, Patient Position: Sitting) Pulse (!) 47 Ht 1.93 m (6' 4 ) Wt 117 kg (258 lb) SpO2 97% BMI 31.40 kg/m??? Smoking Status Former BSA 2.5 m??? Medications: Current Outpatient Medications: atorvastatin (Lipitor) 40 mg tablet, Take 40 mg by mouth in the morning., Disp: , Rfl: furosemide (Lasix) 20 mg tablet, Take 20 mg by mouth if needed., Disp: , Rfl: Xarelto 20 mg tablet, Take 1 tablet (20 mg) by mouth in the morning. Resume on 10/21/2022 Do not start before October 21, 2022., Disp: 30 tablet, Rfl: amLODIPine (Norvasc) 2.5 mg tablet, Take 1 tablet (2.5 mg) by mouth in the morning., Disp: 90 tablet, Rfl: 3 Physical Exam Constitutional: Appearance: Normal appearance. HENT: Head: Normocephalic and atraumatic. Right Ear: External ear normal. Left Ear: External ear normal. Eyes: Extraocular Movements: Extraocular movements intact. Pupils: Pupils are equal, round, and reactive to light. Neck: Vascular: No carotid bruit. Cardiovascular: Rate and Rhythm: Regular rhythm. Bradycardia present. Pulses: Normal pulses. Heart sounds: Normal heart sounds. Pulmonary: Effort: Pulmonary effort is normal. Breath sounds: Normal breath sounds. Abdominal: General: Bowel sounds are normal. Palpations: Abdomen is soft. Musculoskeletal: General: Normal range of motion. Cervical back: Neck supple. Right lower leg: No edema. Left lower leg: No edema. Skin: General: Skin is warm and dry. Neurological: General: No focal deficit present. Mental Status: He is alert and oriented to person, place, and time. Psychiatric: Mood and Affect: Mood normal. Behavior: Behavior normal. Thought Content: Thought content normal. Judgment: Judgment normal. Labs: Admission on 10/19/2022, Discharged on 10/19/2022 Component Date Value Ref Range Status Ventricular Rate 10/19/2022 45 BPM Final Atrial Rate 10/19/2022 45 BPM Final VT Interval 10/19/2022 186 ms Final QRS DURATION 10/19/2022 142 ms Final QT Interval 10/19/2022 494 ms Final QTC CALCULATION(BAZETT) 10/19/2022 427 ms Final P [place] 10/19/2022 41 degrees Final R-[place] 10/19/2022 -57 degrees Final T Wave [place] 10/19/2022 13 degrees Final No results found for: EXTCMP , BMPR1A , CBCDIF , BNP , LASAP , RED Testing/Procedures: ECHO 07/11/2023 Global LV systolic function is normal. Estimated EF 60-65%. Normal RV size and systolic function Normal diastolic function No significant valvular abnormalities Coronary angiogram: 10/19/22 Hemodynamic Data: AO: 147/77 (103) Coronary angiography: This is a right dominant circulation. Left Main: This arises from the left coronary cusp. It bifurcates into left anterior sending and circumflex vessels. The left main is angiographically normal. Left anterior descending: This is a large vessel. It has a 20% mid segment tubular stenosis but no obstructive lesions. There is minimal disease elsewhere. Circumflex: This is a non-dominant vessel. It has mild luminal irregularities. Right coronary artery: This arises from the right coronary cusp. It is a dominant vessel. It (more content not included)...[facility]06-25-2024 NotePatient here for 3 mo follow up hypertension, bradycardia, CAD, and hx of PE. Echo was performed in June 2023. He has lost almost 30# since last visit in May 2023. Says his BP's at home have been trending down . He denies chest pain, SOB, lightheadedness/syncope, and bleeding on Xarelto. Hasn't had to take lasix in a few months he says. Review of Systems Constitutional: Positive for weight loss (28# since May 2023). Cardiovascular: Positive for palpitations ( every once in awhile , even less ). All other systems reviewed and are negative.[facility] 06-07-2023 NotePatient here for 6 mo follow up PVC's, ELAINE, hx of PE, and hyperlipidemia. Denies chest pain and SOB. His palpitations are not often and no more than usual for him. LE edema is well controlled with lasix being taking prn. He sees PCP soon for annual visit with routine labs. Review of Systems Cardiovascular: Positive for palpitations ( every once in awhile ). Neurological: Positive for light-headedness. All other systems reviewed and are negative.[facility] 06-07-2023 NoteCardiovascular Medicine [facility] SUBJECTIVE Chief Complaint Patient presents with PVCs Coronary Artery Disease Bob Khanna is a 67 y.o. male here for follow-up. HPI PMHx: PVCs, PE 2014 on Xarelto, non obstructive CAD He states he has been doing well overall since last seen. He has some intermittent dizziness. He had one episode last week that lasted longer than usual, >1 minute. He sat down and it resolved within another minute or so. He has some intermittent palpitations, lasts 30 seconds, feels like his heart is beating harder, no accompanied sx's. He has ELAINE with heavier exertion, this is unchanged. His BP is elevated today, 140/96. Prior visits with similar readings. He states his BP will run around 140s/80s at home He does not add salt to foods. No current exercise regimen. Patient Active Problem List Diagnosis Pulmonary embolism (CMS/HCC) Personal history of pulmonary embolism Crushing injury of finger Open fracture of distal phalanx or phalanges of hand Obstructive sleep apnea Murmur Hyperlipidemia Factor V Leiden (CMS/HCC) ELAINE (dyspnea on exertion) Bradycardia Arthritis of right knee PVC (premature ventricular contraction) Abnormal nuclear stress test Artificial knee joint present Difficulty walking Edema Osteoarthritis of knee Past Medical History: Diagnosis Date Abnormal ECG Arrhythmia Atrial fibrillation (CMS/HCC) Hyperlipidemia Family History Problem Relation Name Age of Onset Atrial fibrillation Mother Heart failure Mother Social History Tobacco Use Smoking status: Former Types: Cigarettes Smokeless tobacco: Never Substance Use Topics Alcohol use: Yes Comment: occasionally Allergies Allergen Reactions Gadoteridol Hives Patient became itchy and developed hives Patient became itchy and developed hives ROS Cardiovascular: Positive for palpitations ( every once in awhile ). Neurological: Positive for light-headedness. All other systems reviewed and are negative. OBJECTIVE Visit Vitals BP (!) 140/96 (BP Location: Left arm, Patient Position: Sitting) Pulse 55 Ht 1.93 m (6' 4 ) Wt 130 kg (286 lb) SpO2 97% BMI 34.81 kg/m??? Smoking Status Former BSA 2.64 m??? Medications: Current Outpatient Medications: atorvastatin (Lipitor) 40 mg tablet, Take 40 mg by mouth in the morning., Disp: , Rfl: furosemide (Lasix) 20 mg tablet, Take 20 mg by mouth if needed., Disp: , Rfl: Xarelto 20 mg tablet, Take 1 tablet (20 mg) by mouth in the morning. Resume on 10/21/2022 Do not start before October 21, 2022., Disp: 30 tablet, Rfl: Physical Exam Constitutional: Appearance: Normal appearance. HENT: Head: Normocephalic and atraumatic. Right Ear: External ear normal. Left Ear: External ear normal. Eyes: Extraocular Movements: Extraocular movements intact. Pupils: Pupils are equal, round, and reactive to light. Neck: Vascular: No carotid bruit. Cardiovascular: Rate and Rhythm: Normal rate and regular rhythm. Pulses: Normal pulses. Heart sounds: Normal heart sounds. Pulmonary: Effort: Pulmonary effort is normal. Breath sounds: Normal breath sounds. Abdominal: General: Bowel sounds are normal. Palpations: Abdomen is soft. Musculoskeletal: General: Normal range of motion. Cervical back: Neck supple. Right lower leg: No edema. Left lower leg: No edema. Skin: General: Skin is warm and dry. Neurological: General: No focal deficit present. Mental Status: He is alert and oriented to person, place, and time. Psychiatric: Mood and Affect: Mood normal. Behavior: Behavior normal. Thought Content: Thought content normal. Judgment: Judgment normal. Labs: Admission on 10/19/2022, Discharged on 10/19/2022 Component Date Value Ref Range Status Ventricular Rate 10/19/2022 45 BPM Final Atrial Rate 10/19/2022 45 BPM Final VT Interval 10/19/2022 186 ms Final QRS DURATION 10/19/2022 142 ms Final QT Interval 10/19/2022 494 ms Final QTC CALCULATION(BAZETT) 10/19/2022 427 ms Final P [place] 10/19/2022 41 degrees Final R-[place] 10/19/2022 -57 degrees Final T Wave [place] 10/19/2022 13 degrees Final No results found for: EXTCMP , BMPR1A , CBCDIF , BNP , LASAP , RED Testing/Procedures: Coronary angiogram: 10/19/22 Hemodynamic Data: AO: 147/77 (103) Coronary angiography: This is a right dominant circulation. Left Main: This arises from the left coronary cusp. It bifurcates into left anterior sending and circumflex vessels. The left main is angiographically normal. Left anterior descending: This is a large vessel. It has a 20% mid segment tubular stenosis but no obstructive lesions. There is minimal disease elsewhere. Circumflex: This is a non-dominant vessel. It has mild luminal irregularities. Right coronary artery: This arises from the right coronary cusp. It is a dominant vessel. It has mild 20% mid segment and distal segment narrowing but no obstructive l (more content not included)...[facility]01-24-2023 History of Present illness Narrative* Rafael Mejia APRN.DIRECTOR PRODUCT MANAGEMENT - 04/11/2022 12:41 PM EST Post-op Office Visit Bob Khanna 66 year old April 11, 2022 12:41 PM Surgery Date: 02/27/22 History: Bob Khanna Is now 6 weeks out from S/P Right Posterior JAMES. Post-operative course has been without complication. No readmission/complications Subjective: Patient reports no pain. Overall is doing well. No ambulatory aid No opioid pain medication Objective: Ambulates with none Incision well-approximated, no drainage, normal alee-incisional erythema Arcs of motion at hip are comfortable and fluid Distally DP/PT palpable Distally S/S/SP/DP/T intact at baseline Distally DF/EHL/PF intact at baseline Negative emerson/calf tenderness Xrays: No new today Assessment and Plan: Bob Khanna Is here for a second post-op appointment, overall doing well -continued ice, rest, and use of non-narcotic analgesia as needed -wean off ambulatory aids -discussed home exercises and therapy -WBAT on operative extremity -reinforced posterior precautions through 8 weeks: avoid extremes of flexion, internal rotation, and adduction -continue ankle pumps and dvt ppx through 4 weeks -discussed driving requirement: 4 weeks post-op, off narcotic pain medication, adequate brake time -will see back at 1 year appointment for clinical exam and post-op xrays--can see earlier if needed -discussed red flag symptoms of acutely increasing pain, new erythema, new swelling, drainage, shortness of breath Rafael Mejia APRN.CNP Orthopaedic Surgery documented in this encounterOhiohealth12-28-2022 NoteHNO ID: [id number] Author: Rafael Mejia APRN.CNP Service: ? Author Type: Nurse Practitioner Type: Progress Notes Filed: 03/15/2022 8:10 AM Note Text: Post-op Office Visit Bob Khanna 66 year old March 15, 2022 8:08 AM Surgery Date: 02/27/22 History: Bob Khanna Is now 2 weeks out from S/P Right Posterior JMAES. Post-operative course has been without complication. No readmission/complications Subjective: Patient reports lateral hip pain that is mild and improving daily. Overall is doing well. Walker ambulatory aid Stopped opioid pain medication last week and only taking tylenol as needed Objective: Ambulates with walker Incision well-approximated, no drainage, normal alee-incisional erythema Full ROM not tested do to early post-operative period, but smaller arcs of motion fluid and comfortable Distally DP/PT palpable Distally S/S/SP/DP/T intact at baseline Distally DF/EHL/PF intact at baseline Negative emerson/calf tenderness Xrays: Well aligned total hip replacement in appropriate position with no evidence of loosening Assessment and Plan: Bob Khanna Is here for a first post-op appointment, overall doing well -continued ice, rest, and use of non-narcotic analgesia as needed -wean off ambulatory aids -discussed home exercises and therapy -WBAT on operative extremity -reinforced posterior precautions through 8 weeks: avoid extremes of flexion, internal rotation, and adduction -continue ankle pumps and dvt ppx through 4 weeks -discussed driving requirement: 4 weeks post-op, off narcotic pain medication, adequate brake time. We discussed he is a very tall gentleman and he needs to be cautious getting in and out of the car. He also needs to be aware of hip flexion when in drivers seat as well as transitioning from gas to brake to prevent breaking 90 degrees. -will see back at 6 week appointment for clinical exam -discussed red flag symptoms of acutely increasing pain, new erythema, new swelling, drainage, shortness of breath Rafael Mejia APRN.DIMAS [facility]Ad[facility] History of Present illness Narrative* Rafael Mejia APRN.CNP - 03/15/2022 8:08 AM EST Post-op Office Visit Bob Khanna 66 year old March 15, 2022 8:08 AM Surgery Date: 02/27/22 History: Bob Khanna Is now 2 weeks out from S/P Right Posterior JAMES. Post-operative course has been without complication. No readmission/complications Subjective: Patient reports lateral hip pain that is mild and improving daily. Overall is doing well. Walker ambulatory aid Stopped opioid pain medication last week and only taking tylenol as needed Objective: Ambulates with walker Incision well-approximated, no drainage, normal alee-incisional erythema Full ROM not tested do to early post-operative period, but smaller arcs of motion fluid and comfortable Distally DP/PT palpable Distally S/S/SP/DP/T intact at baseline Distally DF/EHL/PF intact at baseline Negative emerson/calf tenderness Xrays: Well aligned total hip replacement in appropriate position with no evidence of loosening Assessment and Plan: Bob Khanna Is here for a first post-op appointment, overall doing well -continued ice, rest, and use of non-narcotic analgesia as needed -wean off ambulatory aids -discussed home exercises and therapy -WBAT on operative extremity -reinforced posterior precautions through 8 weeks: avoid extremes of flexion, internal rotation, and adduction -continue ankle pumps and dvt ppx through 4 weeks -discussed driving requirement: 4 weeks post-op, off narcotic pain medication, adequate brake time.We discussed he is a very tall gentleman and he needs to be cautious getting in and out of the car.He also needs to be aware of hip flexion when in drivers seat as well as transitioning from gas to brake to prevent breaking 90 degrees. -will see back at 6 week appointment for clinical exam -discussed red flag symptoms of acutely increasing pain, new erythema, new swelling, drainage, shortness of breath Rafael Mejia APRN.CNP Orthopaedic Surgery documented in this encounterOhiohealth12-27-2022 NoteHNO ID: [id number] Author: LUANN Mares Service: Radiology Author Type: Technologist Type: Progress Notes Filed: 03/14/2022 2:50 PM Note Text: Radiology Service Progress Note PATIENT NAME: Bob Khanna DATE OF SERVICE: March 14, 2022 TIME: 2:49 PM PATIENT IDENTITY VERIFICATION COMPLETED USING TWO (2) IDENTIFIERS: Name and Date of confirmed by patient verbally. FALL SCREENING: Has the patient had 2 falls in the last year or 1 fall with injury or currently using an Ambulatory Assistive Device (Walker, Cane, Wheelchair, Crutches, etc.)? Yes, Patient High Risk for Falls What interventions were put in place to prevent falls during this visit? Offered Assistance with Transfers/Clothing and Increased Observations by Caregivers PATIENT GENDER DATA: Male PATIENT RELEVANT IMPLANT DATA REVIEWED: Not Applicable RADIOLOGY DEPARTMENT: General X-ray: Exam(s) Completed: Pelvis X-Ray: Pelvis with Hip Right PERIPHERAL IV DATA: Not applicable SIGNED BY: LUANN Mares March 14, 2022 2:49 PMFostoria City [id number] History of Present illness Narrative* Breanne Reece CT - 03/14/2022 2:40 PM EST Radiology Service Progress Note PATIENT NAME: Bob Khanna DATE OF SERVICE: March 14, 2022 TIME: 2:49 PM PATIENT IDENTITY VERIFICATION COMPLETED USING TWO (2) IDENTIFIERS: Name and Date of confirmedby patient verbally. FALL SCREENING: Has the patient had 2 falls in the last year or 1 fall with injury or currently using an Ambulatory Assistive Device (Walker, Cane, Wheelchair, Crutches, etc.)? Yes, Patient High Riskfor Falls What interventions were put in place to prevent falls during this visit? Offered Assistance with Transfers/Clothing and Increased Observations by Caregivers PATIENT GENDER DATA: Male PATIENT RELEVANT IMPLANT DATA REVIEWED: Not Applicable RADIOLOGY DEPARTMENT: General X-ray: Exam(s) Completed: Pelvis X-Ray: Pelvis with Hip Right PERIPHERAL IV DATA: Not applicable SIGNED BY: LUANN Mares March 14, 2022 2:49 PM documented in this encounterOhiohealth12-19-2022 Miscellaneous Notes* Telephone Encounter - YAS Toribio - 03/06/2022 1:28 PM EST Patient doing well. Took dressing off today. PT to be out later today. Denies needs at this time. documented in this encounterOhiohealth12-13-2022 NoteHNO ID: [id number] Author: Anthony Montiel MD Service: General Internal Medicine Author Type: Physician Type: Progress Notes Filed: 02/28/2022 10:52 AM Note Text: INPATIENT CONSULT PROGRESS NOTES Patient Name: Bob Khanna DATE of SERVICE: 02/28/22 TIME of SERVICE: 7:51 CONSULTING SERVICE: Medicine Plan of care discussed with: Provider, RN, Patient. INTERVAL HPI: Uneventful night, pain is well controlled. Patient seen and examined: Vitals/Meds/Labs/U/O reviewed Alert Oriented NO nausea, vomiting NOlight headedness NOshortness of breathe,No palpitation O/E; Dry oral mucosa CVS - RRR Lungs - Clear to auscultation Abdomen - soft,Nontender, normal bowel sounds LLE - Ankle No edema RLE - Ankle No edema MEDICATIONS: Current Facility-Administered Medications Medication Dose Route Frequency scopolamine - VERIFY patch OTHER q 8 H scopolamine - REMOVE PATCH OTHER ONCE atorvastatin 40 mg tab(s) (LIPITOR) 40 mg ORAL DAILY lactated ringers iv infusion 75 mL/hr INTRAVENOUS CONTINUOUS acetaminophen 1,000 mg tab(s) (TYLENOL) 1,000 mg ORAL q 8 H keTORolac 15 mg injection (TORADOL) 15 mg INTRAVENOUS q 6 H oxyCODONE IR 5-10 mg tab(s) (ROXICODONE) 5-10 mg ORAL q 3 H PRN HYDROmorphone 0.2 mg injection (DILAUDID) 0.2 mg INTRAVENOUS q 2 H PRN ondansetron orally disintegrating 4 mg tab(s) (ZOFRAN ODT) 4 mg ORAL q 6 H PRN Or ondansetron (PF) 4 mg injection (ZOFRAN) 4 mg INTRAVENOUS q 6 H PRN polyethylene glycol 3350 17 g packet (MIRALAX, GLYCOLAX) 17 g ORAL DAILY aluminum-magnesium hydroxide-simethicone 200-200-20 mg/5 mL 30 mL (MAALOX,MYLANTA,MAG-AL PLUS) 30 mL ORAL q 2 H PRN ferrous sulfate 325 mg tab(s) 325 mg ORAL DAILY wLUNCH ascorbic acid (vitamin C) 500 mg tab(s) (VITAMIN C) 500 mg ORAL BID w MEALS docusate sodium 100 mg cap(s) (COLACE) 100 mg ORAL BID rivaroxaban 10 mg tab(s) (XARELTO) 10 mg ORAL DAILY sodium chloride 0.9 % (flush) 3-5 mL (BD POSIFLUSH) 3-5 mL INTRAVENOUS q 12 H influenza vaccine qs 60 mcg (Patients 6 months to 64 years) 0.5 mL injection (FLUZONE ) 0.5 mL INTRAMUSCULAR ONCE (IMMUNIZATION) COVID-19 vaccine bivalent BOOSTER (PF) 30 mcg injection (PFIZER) 30 mcg INTRAMUSCULAR ONCE (IMMUNIZATION) PHYSICAL EXAM: Patient Vitals for the past 24 hrs: BP Temp Temp src Pulse Resp SpO2 02/28/22 1012 139/88 -- -- 68 -- -- 02/28/22 0938 151/71 -- -- 64 -- -- 02/28/22 0916 129/77 -- -- 72 -- -- 02/28/22 0811 136/67 36.3 ?C (97.3 ?F) Oral 60 16 93 % 02/28/22 0438 125/67 36.4 ?C (97.5 ?F) Oral 64 18 98 % 02/28/22 0058 119/50 36.4 ?C (97.5 ?F) Oral (!) 55 18 98 % 02/27/22 2007 120/56 36.4 ?C (97.5 ?F) Oral (!) 56 18 96 % 02/27/22 1736 124/63 36.7 ?C (98.1 ?F) Oral (!) 48 20 95 % 02/27/22 1616 129/65 36.5 ?C (97.7 ?F) Oral (!) 45 16 98 % 02/27/22 1605 -- 36.1 ?C (97 ?F) Temporal (!) 49 16 96 % 02/27/22 1600 130/70 -- -- (!) 44 16 93 % 02/27/22 1545 134/69 -- -- (!) 43 17 94 % 02/27/22 1530 137/68 -- -- (!) 43 15 96 % 02/27/22 1515 131/68 -- -- (!) 43 21 96 % 02/27/22 1500 142/67 -- -- (!) 43 14 97 % 02/27/22 1445 156/70 -- -- (!) 47 24 97 % 02/27/22 1430 133/66 -- -- (!) 43 13 97 % 02/27/22 1415 119/77 -- -- (!) 53 13 95 % 02/27/22 1400 114/80 -- -- (!) 57 18 98 % 02/27/22 1345 120/61 -- -- (!) 39 13 94 % 02/27/22 1330 128/59 -- -- (!) 40 17 100 % 02/27/22 1315 123/59 -- -- (!) 37 14 100 % 02/27/22 1300 131/66 -- -- (!) 42 18 99 % 02/27/22 1258 131/70 36 ?C (96.8 ?F) Temporal (!) 42 14 95 % Body mass index is 33.5 kg/m?. DATA: CBC: Recent Labs 02/28/22 0610 WBC 7.08 RBC 4.35 HB 13.2 HCT 39.3 PLT 202 MCV 90.3 MCH 30.3 MPV 9.9 Coags: No results for input(s): PT, INR, APTT in the last 24 hours. CMP: Recent Labs 02/28/22 0610 NA 141 K 4.9 CHLOR 104 CO2 31* BUN 14 CREAT 0.93 GLUC 102* CA 8.7 ANION 6* ASSESSMENT AND PLAN: A. OA S/P - Total Hip Unilateral: right P. Continue PT/OT DVT/PE, history/factor V Leyden positive continue Xarelto Sinus bradycardia stable Obstructive sleep apnea currently not on CPAP Hyperlipidemia continue statin Possible discharge today Home-going meds reviewed SIGNATURE: Anthony Montiel, [facility] [id number] NoteHNO ID: [id number] Author: Yuri Rogers PA-C Service: Orthopaedic Surgery Author Type: Physician Computer Operations Supervisor Type: Progress Notes Filed: 02/28/2022 8:02 AM Note Text: POSTOP NOTE ORTHOPAEDIC SURGERY SERVICE DATE: 02/28/2022 SERVICE TIME: 8:01 AM IMPRESSION/PLAN: S/P Procedure(s) (LRB): ROBOTIC ASSISTED TOTAL HIP ARTHROPLASTY (Right) on 02/27/2022 Physical Therapy evaluation PWB 50% RLE Posterior hip precautions DVT prophylaxis: Intermittent pneumatic compression device (IPCD) and Xarelto Pain control Case Management for discharge planning Plan of care discussed with: Provider, RN, Patient. Patient Active Hospital Problem List: No active hospital problems. POST OPERATIVE COMPLICATIONS: Complicated by uneventful/none SUBJECTIVE: Patient states that they are comfortable Well Controlled hip pain. Denies incisional pain. OBJECTIVE: VITAL SIGNS: BP 125/67 Pulse 64 Temp 36.4 ?C (97.5 ?F) (Oral) Resp 18 Ht 190.5 cm (6' 3 ) Wt 121.6 kg (268 lb) SpO2 98% BMI 33.50 kg/m? INTAKE AND OUTPUT: Intake/Output Summary (Last 24 hours) at 02/28/2022 0801 Last data filed at 02/28/2022 0438 Gross per 24 hour Intake 1400 ml Output 950 ml Net 450 ml LABS: Hemoglobin Date Value Ref Range Status 02/28/2022 13.2 13.0 - 17.0 g/dL Final 02/08/2022 15.1 13.0 - 17.0 g/dL Final Hematocrit Date Value Ref Range Status 02/28/2022 39.3 39.0 - 51.0 % Final 02/08/2022 45.8 39.0 - 51.0 % Final Platelet Count Date Value Ref Range Status 02/28/2022 202 150 - 400 k/uL Final 02/08/2022 255 150 - 400 k/uL Final WBC Date Value Ref Range Status 02/28/2022 7.08 3.70 - 11.00 k/uL Final 02/08/2022 6.22 3.70 - 11.00 k/uL Final Creatinine Date Value Ref Range Status 02/28/2022 0.93 0.73 - 1.22 mg/dL Final 02/08/2022 0.91 0.73 - 1.22 mg/dL Final Potassium Date Value Ref Range Status 02/28/2022 4.9 3.7 - 5.1 mmol/L Final 02/08/2022 4.3 3.7 - 5.1 mmol/L Final VTE Prophylaxis: Active VTE Risk Category Order: 02/27/22 163 VTE RISK CATEGORY: SURGICAL HIGH RISK ([place], [place]) Active VTE Medication Orders: Anticoagulant AND Antiplatelet Medications (From admission, onward) Start Dose Route Frequency Last Action Ordered Stop 02/28/22 0900 rivaroxaban 10 mg tab(s) (XARELTO) (Surgical Risk Categories) 10 mg ORAL DAILY Ordered 02/27/22 1619 -- Active VTE Prophylaxis Orders: 02/27/22 1630 PNEUMATIC COMPRESSION STOCKINGS ([place], [place]) 02/27/22 163 ACTIVITY - MOBILIZE PATIENT ([place], [place]) PHYSICAL EXAMINATION: Right Lower Extremity: Dorsalis pedis pulses palpable. Posterior tibial pulses palpable. Dorsi flexion 5/5. Plantar flexion 5/5. Extensor hallucis extension: 5/5. Sensory intact to light touch L1-S1. Dressing clean, dry, and intact. Surgical site no drainage and Silverlon intact. Thigh is not swollen, calf is not tender, no signs of DVT or infection Problem Review and Assessment: Skin and Abdominal Wall: Patient monitored, no new events overnight Cardiovascular and Vascular: Patient monitored, no new events overnight Respiratory: Patient monitored, no new events overnight Endocrine and Metabolic: Patient monitored, no new events overnight Gastrointestinal: Patient monitored, no new events overnight Genitourinary and Nephrology: Patient monitored, no new events overnight Behavioral, Cerebrovascular and Nervous: Patient monitored, no new events overnight Infectious: Patient monitored, no new events overnight DATA: Diagnostic tests reviewed for today's visit: Most recent labs and imaging results. SIGNATURE: Yuri Rogers PA-C PATIENT NAME: Bob Khanna DATE: February 28, 2022 TIME: 8:01 AM The patient has undergone major orthopedic surgery and participating in therapy. Pain cannot be managed within an average of 30 MED per day. Patient requiring average of higher than 30 MED per day in order to control pain and allow patient to actively and safely participate in therapy and this is the lowest dose consistent with patient's medical condition. Non-narcotic medication options have been discussed. In addition, the patient has been advised of the benefits and risks of the opioid (including the potential for addiction). Patient demonstrated understanding of risks versus benefits.[facility] [id number] NoteHNO ID: [id number] Author: Nelsy Agudelo RN Service: Care Management Author Type: Registered Nurse Type: Care Mgt Initial Assessment Filed: 02/27/2022 5:28 PM Note Text: CARE MANAGEMENT: ASSESSMENT AND DISCHARGE PLAN SERVICE DATE: February 27, 2022 SERVICE TIME: 5:25 PM PRIMARY CARE PHYSICIAN: Yuri Kuo II, MD Primary Contact: Extended Emergency Contact Information Primary Emergency Contact: Lanie Kahnna Address: [address] [place] [address] Mobile Relation: Spouse ADMISSION STATUS: Ambulatory Surgery Insurance Provider: [facility] [employer] GENERIC NEEDS PRIOR TO DISCHARGE Needs Prior to Discharge: To Be Determined;Discharge Prescriptions;Facility or Agency Choices;OT/PT Evaluation;Home Care Order POTENTIAL TRANSITION PLANS Home Care;Home OT/PT;Alf Facility/Intermediate Care Facility;To Be Determined Based on clinical judgement, Care Management will address the following needs: Medical;Functional Patient's perception of need for this admission: S/P R JAMES ADVANCE DIRECTIVES Current Advance Directive: None 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 scores in the EMR?: No Any potential risks related to substance abuse and/or behavioral health?: No Based on clinical judgement, Care Management will address the following needs: Medical;Functional CAREGIVER ASSESSMENT Caregiver is ready, willing and able to meet the patient's needs as recommended by the inter-professional team:: Other: See Comment (TBD) MEDICAL S/P R JAMES FUNCTIONAL S/P R JAMES No social discharge barriers identified at this time. No behavioral/cognitive discharge barriers identified at this time. FREEDOM OF CHOICE EXPLAINED: Are you interested in bedside delivery of your medications? No ASSESSMENT AND PLAN: 66 yr male S/P R JAMES. Pt. is Independent with no outside services in the home. Pt has a Walker. Pt. plans to return home with HHC.Pt. ahs no preference of HHC /agency. Referral sent to local Agencies for Home PT. SIGNATURE: Nelsy Agudelo RN,BSN, ACM PATIENT NAME: Bob Khanna DATE: February 27, 2022 TIME: 5:25 PM CONTACT #: [phone] [id number] NoteHNO ID: [id number] Author: Ibis Echevarria APRN.SECURITY INVESTIGATOR Service: Anesthesiology Author Type: Nurse Food And Nutrition Professor Type: Anesthesia Procedure Notes Filed: 02/27/2022 11:06 AM Note Text: ANESTHESIOLOGY PROCEDURE NOTE Spinal Block General Information Procedure Start Time/Medication Administration: 02/27/2022 10:40 AM Patient location during procedure: OR Timeout Performed Pre-procedure: timeout performed Consent Obtained: Yes 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 Reason for Block: primary surgical anesthetic Staffing SECURITY INVESTIGATOR: Ibis Echevarria APRN.SECURITY INVESTIGATOR Preparation Sterility Preparation: hand hygiene performed prior to procedure, sterile gloves, drapes, and procedure tray, gown used during line insertion, surgical cap used, mask used, sterile drape used during line insertion, skin prep agent completely dried prior to procedure Site Prep: Betadine Procedure Details Patient Position: sitting Ultrasound Guided: No Monitoring: Pulse Ox, EKG and NIBP Approach: Midline Location: L2-3 Injection Technique: single-shot Needle Needle Type: pencil-tip Needle Gauge: 25 G Needle Length: 3.5 in Assessment Sensory Level: T6 Events: tolerated well Comments Injected 1.8cc 0.75% Marcaine with 20 mcgs fentanyl. Total volume 2.2cc SIGNATURE: Ibis Echevarria APRN.SECURITY INVESTIGATOR PATIENT NAME: Bob Khanna DATE: February 27, 2022 TIME: 11:01 AM CSN: [id number] NoteHNO ID: [id number] Author: Debra Duffy RN Service: Nursing Author Type: Registered Nurse Type: Nursing Progress Note Filed: 02/27/2022 9:38 AM Note Text: Other: pt ready for OR, call light in reach, family called to bedside.[facility] [id number] Miscellaneous Notes* Telephone Encounter - Kylie Mane RN - 02/17/2022 9:19 AM EST Received letter from Dr. Kuo (scanned into chart) stating ok for patient to hold Xarelto X 3 daysprior to surgery. Called and reviewed instructions with patient. Patient repeated back and verbalized an understanding. documented in this encounterOhiohealth11-30-2022 Miscellaneous Notes* Telephone Encounter - YAS Toribio - 02/15/2022 3:14 PM EST TOTAL JOINT COMPLETE CARE PROGRAM PRE-OPERATIVE TEACHING Service Date: 02/16/2022 Service Time: 3:31 PM Date of : 1955 Gender: male Date of Surgery: 02/27/22 Procedure: Right Total Hip Replacement Complete Care Program was discussed with the patient: 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 Pt owns walker, crutches, cane, shower chair, raised toilet seat, shoe horn and business support associate.. Plans to get sock aide. Discussed with patient importance of attending joint education class and provided date and times ofclass: YES paper copy. Had TKA few years ago. Patient received Joint Education Binder: Yes Patient plans discharge home with [facility]. SIGNATURE: YAS Toribio PATIENT NAME: Bob Khanna DATE: February 15, 2022 TIME: 3:14 PM documented in this encounterOhiohealth11-23-2022 Instructions* Patient Instructions* Chadwick Harris APRN.DIRECTOR PRODUCT MANAGEMENT - 02/08/2022 11:15 AM EST PATIENT PREOPERATIVE INSTRUCTIONS Benny Gallardo MD MD has scheduled you for your procedure at this [facility] center: [facility]: [phone] -- [address] [facility] [address]. Please read below carefully for your personalized instructions. Dietary Restrictions: - No solid food after midnight. - You may have 12 ounces of clear liquids (water, clear juices such as apple juice or gatorade, carbonated beverages, clear tea, black coffee, jello) until 2 hours before scheduled arrival at facility. - Do not drink any alcohol after midnight the night before your surgery. Medications: Unless instructed differently below, stay on all of your medications until your surgery. Approved medications to take the morning of surgery with a sip of water: atorvastatin (lipitor) Blood Thinning Medications: - Stop NSAIDS (Ibuprofen, Advil, Aleve, Motrin, Celebrex, Mobic, etc.) 7 days before surgery, as directed by your surgeon. - Plan to hold your xarelto for 3 days prior to surgery - Stop Vitamin E, ALL multi-vitamins, herbals and dietary supplements 7 days before surgery. - You may take Tylenol (Acetaminophen) or any of your pain medications that do not contain aspirin or NSAIDS as needed. Important Reminders: - Candy, mints, and tobacco products are NOT permitted the morning of surgery. - Hearing aids, dentures and glasses may be worn the morning of surgery. - NO jewelry, body piercings, makeup, hairpins or contacts are to be worn the day of surgery. If you develop symptoms such as a fever, cold, or flu, or have other changes to your health within TWO DAYS of scheduled surgery or the morning of surgery, please contact the surgery center above. Personal Belongings: -Please have photo ID and insurance cards. -If you do not have a copy of advance directives on file with us, please bring a copy with you on the day of surgery. - Leave ALL valuables and money at home or with family members. For Outpatient Procedures: - YOU MUST HAVE A RESPONSIBLE LEAD SEWAGE PLANT OPERATOR TAKE YOU HOME. A OPTICAL FABRICATOR OR CARDIAC REHAB NURSE CANNOT BE MADE A RESPONSIBLE LEAD SEWAGE PLANT OPERATOR. - We recommend that a responsible person stays with you overnight to take care of you. - You cannot stay in a hotel alone after outpatient surgery. You will not be permitted to have yoursurgery, if you do not have someone to take care of you. Arrival Time for Surgery: - The Surgery Center or hospital where you are having surgery will call the afternoon before surgery (or Sunday for Sunday surgery) with a scheduled arrival time. - If you have not heard by 4 pm, please contact the surgery center above. Please be aware that emergency situations arise, which may delay or change your surgical time. If this happens, we will notify you as soon as possible and regret any inconvenience. If you already have an Advance Directive, please fax a copy to [phone] or email to for it to be added to your chart. If you do not have an Advance Directive, you can find the appropriate form and more information at [email or web address]. We recommend that youcomplete the Advance Directive form found on the website and bring it with you the day of your surgery. It can be witnessed and scanned into your chart that day. Chadwick Harris APRN.CNP documented in this encounterOhiohealth11-23-2022 History and physical note * Chadwick Harris APRN.CNP - 02/08/2022 10:40 AM EST HISTORY AND PHYSICAL EXAMINATION SERVICE DATE: 02/08/2022 SERVICE TIME: 10:43 AM PRIMARY CARE PHYSICIAN: Yuri Kuo II, MD REASON FOR VISIT: Bob Khanna is a 66 year old male who is scheduled for Procedure(s): ROBOTIC ASSISTED TOTAL HIP ARTHROPLASTY (Right) at the request of Dr. Benny Gallardo for consultation. My final recommendation will be communicated back to the requesting physician by way of shared medical record or letter. Subjective The patient has the following: ACTIVE PROBLEM LIST Personal History of Pulmonary Embolism Hyperlipidemia Obstructive Sleep Apnea Factor V Leiden (Hcc) Bradycardia Murmur COVID-19 Immunization Status Overdue - COVID-19 VACCINE (3 - Booster for Pfizer series) Overdue since 09/02/2020 07/08/2020 Imm Admin: COVID-19 vaccine, age 12+ yr (PFIZER-BIONTECH - PURPLE TOP) 06/17/2020 Imm Admin: COVID-19 vaccine, age 12+ yr (PFIZER-BIONTECH - PURPLE TOP) CHIEF COMPLAINT: Pre-op evaluation HPI: 66 year old male here for pre-op evaluation. Patient has had right Hip pain for about 3 years.Treated with injection with 3 days of pain relief. Today complains of intermittent pain currently rated 4/10, described as aching. Denies numbness or tingling. Recommended for above surgery. REVIEW OF SYSTEMS: General: No weight loss, malaise or fevers. Neurological: No history of TIA's, stroke, SURGICAL SALES REPRESENTATIVE tumor, impaired sensorium, hemiplegia, paraplegia orquadraplegia. No neurological symptoms or problems. Respiratory: Positive for: obstructive sleep apnea. Negative for: asthma, COPD, current cough, dyspnea, orthopnea and tobacco use. Cardiovascular: Positive for: DVT/PE and hyperlipidemia Negative for: angina, arrhythmia, atrial fibrillation, chest pain, hypertension and murmur/valvularheart disease. GI: No history of GI symptoms or problems. No history of esophageal varices, recent ascites, or ETOH greater than 2 drinks per day. : Positive for: nocturia >1 time per night and urgency. Negative for: dysuria, frequent urination, hematuria, urinary incontinence and renal failure. Endocrine: No history of diabetes. Has not taken steroids within the past 30 days. No history of endocrinological symptoms or problems. Hematology: Positive for: factor V Leiden. Negative for: anemia. Oncology: BCC- treated Psych: No history of psychiatric symptoms or problems. Musculoskeletal: See HPI. Positive for: joint pain. Negative for: swelling. Skin: Negative for lesions, rash and itching. History reviewed. No pertinent past medical history. PAST SURGICAL HISTORY Procedure Laterality Date HAND SURGERY HX 3-4 surgeries on left thumb KNEE SURGERY HX left knee x2 KNEE SURGERY HX right knee scope and right knee replacement SCREENING COLONSCOPY NOT HIGH RISK VASECTOMY FAMILY HISTORY Problem Relation Age of Onset Hypertension Mother COPD Mother Heart Failure Mother COPD Father Heart Failure Father Social History Tobacco Use Smoking status: Former Packs/day: 0.50 Years: 30.00 Pack years: 15.00 Types: Cigarettes Smokeless tobacco: Never Tobacco comments: Quit smoking 13 years ago Vaping Use Vaping Use: Never used Substance Use Topics Alcohol use: Not Currently Drug use: Never Prior to Admission medications as of 02/08/22 1041 Medication Sig Last Dose Taking atorvastatin (LIPITOR) 40 mg tablet Take 40 mg by mouth once daily. Taking Yes rivaroxaban (XARELTO) 20 mg tablet Take 20 mg by mouth once daily. Taking Yes mupirocin (BACTROBAN) 2 % ointment twice daily for 5 days. Apply 0.5 inch with cotton swab (Q-tip) to each nostril in the morning and evening for 5 days prior to and including day of surgery. No medication comments found. ALLERGIES Allergen Reactions Gadoteridol Hives Patient became itchy and developed hives Objective PHYSICAL EXAM: General: alert and oriented and obese. Pertinent negatives noted - not distressed. Skin: normal color, no rash or lesions. HEENT: pupils equal round and pupils reactive to light. Pertinent negatives noted - no carotid bruit. Cardiovascular: Pulse characterized as regular.Positive for murmur. Findings of a 2/6 grade heart murmur, low pitched with a harsh quality, and a location of: URSB and ULSB. Respiratory: normal breath sounds, no wheezes or crackles. Abdomen: soft. Pertinent negatives noted - not tender. Extremities: no deformity, no edema or tenderness, no joint swelling or clubbing. Neurological: normal cognition and motor skills. Gait normal. No weakness or sensory deficit. PAIN ASSESSMENT: Pain Pain Level: 5 Pain Location: Hip-Right Description: Aching Frequency: Intermittent Intervention/Comfort measure: Relaxation;Reposition;Medication VITALS: BP 145/78 Pulse 54 Temp 97.5 Resp 18 Ht 6' 5 (1.96m) Wt 268 lb (121.6kg) SpO2 99% BMI 31.77 kg/(m^2). Diagnostic tests reviewed for today's visit: Lab Value Units Date High Low HB No results within date range. HCT No results within date range. WBC No results within date range. PLT No results within date range. NA No results within date range. K No results within date range. GLUC No results within date range. BUN No results within date range. CREAT No results within date range. PTSEC No results within date range. INR No results within date range. APTT No results within date range. ALT No results within date range. AST No results within date range. TBILI No results within date range. TSH No results within date range. Lab Value Units Date High Low HCGQT No results within date range. UHCG No results within date range. HCG, BODY* No results within date range. Lab Value Units Date High Low ABORHD No results within date range. ABSCREEN No results within date range. No results found for: HBA1C No results found for this or any previous visit (from the past 8760 hour(s)). No results found for this or any previous visit (from the past 03767 hour(s)). Assessment Hyperlipidemia Assessment: on rx, follows with PCP Personal history of pulmonary embolism Assessment: Follows with PCP, letter sent for xarelto instructions. Diagnosed with factor 5 Leiden. Obstructive sleep apnea Assessment: Was told years ago his ELIEZER was borderline and he didn't need a CPAP. Factor V Leiden (HCC) Assessment: on xarelto, h/o PE. Bradycardia Assessment: Chronic- PCP is aware. Generally runs in the high 40's- low 50's. Denies SOB, CP, dizziness, or palpitations. Manual check 54 BMP, on ekg 46 BMP. Murmur Assessment: new on exam today. Ordered echo to evaluate. Denies SOB, CP, palpitations, or dizziness. Tang Activity Status Index: METS: Climb a flight of stairs or walk up a hill (5.50 METs) DASI Score: 5.5 Patient denies any chest pain or undue shortness of breath with the above physical activity. Clinical Frailty Scale: 3. Well, with treated comorbid disease STOP-Bang Score: Patient over 50 years old Male patient BMI less than or equal to 35 kg/m^2 STOP-Bang Score: 2 (H/o ELIEZER doesn't have CPAP) [id number] Score: Age: <65 Sex: male CHF history: No Hypertension history: No Stroke/TIA/thromboembolism history: Yes Vascular disease history: No Diabetes history: No [id number] Score: 2 ARISCAT Score: Age: 51-80 ARISCAT Score: ASA Class: 2 ANESTHESIA FINDINGS: Intubation History: No history of difficult intubation. No abnormal airway history Significant Anesthesia Considerations: none Airway History: No history of difficult airway No abnormal airway history I - PHYSICAL EVALUATION AIRWAY Patient intubated: No. Tracheostomy tube not present Mallampati: III. TM distance: >3 FB. Neck ROM: full ROM without neurological symptoms. Mouth opening: adequate. Short neck: yes. Thick neck: yes Masters present: yes DENTAL Dental findings: teeth intact and missing tooth/teeth. Additional comments: crown. II - ANESTHESIA PLAN ASA Score: 2 Beta Ruth Monitoring Plan Post Procedure Analgesic Plan Prepared for Surgery: optimally prepared for surgery, pending [see comment]. Labs and ekg Letter sent to PCP for xarelto instructions Scheduled for 02/24 echo CONSULTS: Patient does not require consults for optimization at this time Planned Anesthetic: anesthesia choice The Following Tests/Procedures Have Been Initiated: Orders Placed This Encounter CBC with Differential Standing Status: Future Number of Occurrences: 1 Standing Expiration Date: 04/10/2022 IRON + TIBC Standing Status: Future Number of Occurrences: 1 Standing Expiration Date: 04/10/2022 FERRITIN BLD Standing Status: Future Number of Occurrences: 1 Standing Expiration Date: 04/10/2022 Comp Metabolic Panel Standing Status: Future Number of Occurrences: 1 Standing Expiration Date: 04/10/2022 Confirm Blood Type Standing Status: Future Number of Occurrences: 1 Standing Expiration Date: 04/10/2022 Order Specific Question: Did Blood Bank direct you to place this order: Answer: No - Presurgical Workflow Type and Screen, 30 day Standing Status: Future Number of Occurrences: 1 Standing Expiration Date: 04/10/2022 mupirocin (BACTROBAN) 2 % ointment Sig: twice daily for 5 days. Apply 0.5 inch with cotton swab (Q-tip) to each nostril in the morningand evening for 5 days prior to and including day of surgery. Dispense: 22 g Refill: 0 perflutren lipid microspheres 1.3 mL in NaCl (PF) 0.9% 10 mL injection (DEFINITY) sodium chloride 0.9 % (flush) 10 mL (BD POSIFLUSH) ECG COMPLETE Standing Status: Future Number of Occurrences: 1 Standing Expiration Date: 02/08/2023 ECHO Standing Status: Future Standing Expiration Date: 02/08/2023 Order Specific Question: Disease / Condition: Answer: Murmur - initial evaluation when reasonable suspicion of valvular or structural heart disease Instructions Given to Patient: Instructions located in the after visit summary. Patient given verbal and written preop instructions and voices comprehension and compliance. SIGNATURE: Chadwick Harris APRN.CNP PATIENT NAME: Bob Khanna DATE: February 08, 2022 TIME: 9:45 AM PAGER/CONTACT #: documented in this encounterOhiohealth11-19-2022 Miscellaneous Notes* [facility] - Zoraida Carranza, RT(R) - 02/04/2022 10:30 AM EST Radiology Service Progress Note PATIENT NAME: Bob Khanna DATE OF SERVICE: February 04, 2022 TIME: 10:17 AM PATIENT IDENTITY VERIFICATION COMPLETED USING TWO (2) IDENTIFIERS: Name and Date of confirmedby patient verbally and Name and Date of confirmed by identification band. FALL SCREENING: Has the patient had 2 falls in the last year or 1 fall with injury or currently using an Ambulatory Assistive Device (Walker, Cane, Wheelchair, Crutches, etc.)? No PATIENT GENDER DATA: Male PATIENT RELEVANT IMPLANT DATA REVIEWED: Not Applicable RADIOLOGY DEPARTMENT: CT; Exam(s) Completed: Lower extremity PERIPHERAL IV DATA: Not applicable SIGNED BY: RT Anant(R) February 04, 2022 10:17 AM documented in this encounterOhiohealth09-29-2022 NoteHNO ID: [id number] Author: Benny Gallardo MD Service: ? Author Type: Physician Type: Progress Notes Filed: 12/15/2021 11:55 AM Note Text: Orthopaedic Office Note: December 15, 2021 11:50 AM Bob Khanna 66 year old History: Bob is a 66-year-old man referred to me by physician microbiology lab assistant Heena for evaluation of his right knee and his right hip. He had a right knee replacement done at an outside hospital in 2019. This was complicated by stiffness and he went on to a manipulation under anesthesia 4 months later. He reports that he still has pain essentially across the tibia anteriorly medially and laterally. He still has some stiffness. He reports the swelling that he had preoperatively is gone but otherwise his symptoms are unchanged from before surgery. His inflammatory markers are negative. His right hip gives him more trouble than his right knee. He reports stiffness and groin pain with activity. This is making it difficult for him to do daily activities and is difficult for him at work. Subjective: Right hip and right knee pain as abov Updated ROS: No changes Updated Exam: Right lower Extremity Knee: Well-healed incision No erythema No effusion Stable ligamentous exam Range of motion is 15 degrees to 95 degrees Patella tracks appropriately Tender palpation along the proximal tibia medially and laterally anteriorly Hip: Painful logroll 10 degree flexion contracture Flexes to 90, no internal rotation, external rotation to 15, AD and abduction to approximately 20 degrees Painful Stinchfield Updated Imaging: Right hip severe osteoarthritis with joint space narrowing, subchondral sclerosis and significant osteophyte formation Right knee replacement in appropriate position alignment with no evidence of loosening Assessment and Plan: I had a long discussion with Bob today about his hip and his knee. From a knee standpoint, I do think he is infected because inflammatory markers are negative, his patella tracks well, and his ligamentous exam is intact. He has some residual arthrofibrosis. His ligamentous exam is intact. He has some residual arthrofibrosis. I do think will change much. We could perform a work-up potential subtle loosening of the implants with bone scan, but will hold off on this for now because he would like his hip addressed first. Regarding his hip, he does have substantial arthritis, decreased range of motion and pain there. He is an active man and still working. I think we can improve this significantly for him with a right robotic hip replacement. I discussed risks and benefits at long length today, expected outcomes recovery, and potential complications at length. He understands these well and would like to proceed. We will order CT scan for robotic surgery. All questions were answered today. He does have a blood clot history and will stay overnight. I spent a total of approximately 25 minutes on the date of the service which included preparing to see the patient, [id number] patient care, completing clinical documentation, obtaining and/or reviewing separately obtained history, performing a medically appropriate examination, counseling and educating the patient/family/caregiver, ordering medications, tests, or procedures, independently interpreting results (not separately reported), communicating results to the patient/family/caregiver, and care coordination (not separately reported). Total Joint Arthroplasty: Risk Calculator Bob Khanna has a 3.29% chance of NOT returning home at discharge for a Primary total Hip replacement. Bob's estimated Length of Stay is 1 day. Bob's 30 day chance of readmission is 1.67%. Readmission Probability 1.67 % (within 30 days following surgery) Estimated LOS 1 day Discharge Disposition Probability D/C to Home 96.71 % D/C to SNF 3.29 % These calculations are based on the following factors: - 66 years of age - sex is male - BMI of 33 kg/m2 - NarxCare score of 30 - 0 hospitalizations in the last 12 months - no history of heart disease - no history of diabetes - no history of COPD - no history of anemia - preoperative ambulation: independent community distances - 2 step(s) to enter home - bed location is NOT on the first floor - bath location is on the first floor - caregiver is consistent - home is not more than 150 miles away - PROMIS-10 Mental Health T score not available - Marital status: Benny Gallardo MD [facility]Ad[facility] History of Present illness Narrative* Benny Gallardo MD - 12/15/2021 11:41 AM EDT Orthopaedic Office Note: December 15, 2021 11:50 AM Bob Khanna 66 year old History: Bob is a 66-year-old man referred to me by physician microbiology lab assistant Heena for evaluation of his rightknee and his right hip. He had a right knee replacement done at an outside hospital in 2019. This was complicated by stiffness and he went on to a manipulation under anesthesia 4 months later. He reports that he still has pain essentially across the tibia anteriorly medially and laterally. He stillhas some stiffness. He reports the swelling that he had preoperatively is gone but otherwise his symptoms are unchanged from before surgery. His inflammatory markers are negative. His right hip gives him more trouble than his right knee. He reports stiffness and groin pain with activity. This is making it difficult for him to do daily activities and is difficult for him at work. Subjective: Right hip and right knee pain as abov Updated ROS: No changes Updated Exam: Right lower Extremity Knee: Well-healed incision No erythema No effusion Stable ligamentous exam Range of motion is 15 degrees to 95 degrees Patella tracks appropriately Tender palpation along the proximal tibia medially and laterally anteriorly Hip: Painful logroll 10 degree flexion contracture Flexes to 90, no internal rotation, external rotation to 15, AD and abduction to approximately 20 degrees Painful Stinchfield Updated Imaging: Right hip severe osteoarthritis with joint space narrowing, subchondral sclerosis and significant osteophyte formation Right knee replacement in appropriate position alignment with no evidence of loosening Assessment and Plan: I had a long discussion with Bob today about his hip and his knee. From a knee standpoint, I do think he is infected because inflammatory markers are negative, his patella tracks well, and his ligamentous exam is intact. He has some residual arthrofibrosis. His ligamentous exam is intact. He has some residual arthrofibrosis. I do think will change much. We could perform a work-up potential subtle loosening of the implants with bone scan, but will hold off on this for now because he would likehis hip addressed first. Regarding his hip, he does have substantial arthritis, decreased range of motion and pain there. Heis an active man and still working. I think we can improve this significantly for him with a right robotic hip replacement. I discussed risks and benefits at long length today, expected outcomes recovery, and potential complications at length. He understands these well and would like to proceed. Candice order CT scan for robotic surgery. All questions were answered today. He does have a blood clot history and will stay overnight. I spent a total of approximately 25 minutes on the date of the service which included preparing to see the patient, [id number] patient care, completing clinical documentation, obtaining and/or reviewing separately obtained history, performing a medically appropriate examination, counseling and educating the patient/family/caregiver, ordering medications, tests, or procedures, independently interpreting results (not separately reported), communicating results to the patient/family/caregiver, and care coordination (not separately reported). Total Joint Arthroplasty: Risk Calculator Bob Khanna has a 3.29% chance of NOT returning home at discharge for a Primary total Hip replacement. Bob's estimated Length of Stay is 1 day. Bob's 30 day chance of readmission is 1.67%. Readmission Probability 1.67 % (within 30 days following surgery) Estimated LOS 1 day Discharge Disposition Probability D/C to Home 96.71 % D/C to SNF 3.29 % These calculations are based on the following factors: - 66 years of age - sex is male - BMI of 33 kg/m2 - NarxCare score of 30 - 0 hospitalizations in the last 12 months - no history of heart disease - no history of diabetes - no history of COPD - no history of anemia - preoperative ambulation: independent community distances - 2 step(s) to enter home - bed location is NOT on the first floor - bath location is on the first floor - caregiver is consistent - home is not more than 150 miles away - PROMIS-10 Mental Health T score not available - Marital status: Benny Gallardo MD Orthopaedic Surgery documented in this encounterOhiohealth07-19-2022 NoteHNO ID: [id number] Author: Sandra Carvalho Service: ? Author Type: C Software Engineer Type: Progress Notes Filed: 10/04/2021 1:03 PM Note Text: PT ASSESSMENT - CASTING ROOM Bob presents for Application of brace. Applied hinged knee support to Right knee Patient has been instructed in Care and proper application of brace.. Maxim Davilaon, Cast Tech Beeper: [id number]07-19-2022 NoteHNO ID: [id number] Author: Heena Chavez PA-C Service: ? Author Type: Physician Computer Operations Supervisor Type: Progress Notes Filed: 10/04/2021 1:03 PM Note Text: Heena Chavez PA-C Department of Orthopaedics Orthopaedics [address] [place] [id number] Dept: [phone] October 04, 2021 CHIEF COMPLAINT: New and Pain of the Right Hip Mr. Bob Khanna is a 66 year old male who presents with right hip pain and also some right knee issues after a replacement in 2019. Patient started having right hip pain about 3 to 4 years ago, pain is in the right groin area and is a 6 out of 10 sharp aching. He has difficulty bringing his knee to his chest and abducting the right leg. He states that his hip often feels as though it is getting stuck . He was seeing a provider and [facility] and was told that he had a labrum tear in his hip. He did receive an intra-articular right hip injection 1 year ago, the injection was only helpful for about 3 days. 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 Patient also complains of right knee pain after a knee replacement in October 2019. He states that following the replacement he was unable to obtain full extension, he reports extension lag of 15 degrees. He did have a manipulation following his replacement, it did help with the extension but he still feels as though he is limited in flexion. Knee is painful with walking pain is mostly anterior, he does get some intermittent swelling as well. ASSESSMENT: M16.11 Primary osteoarthritis of right hip (primary encounter diagnosis) Z96.651 Status post total right knee replacement M25.561 Acute pain of right knee PLAN: He has an MRI from the spring showing some moderate degenerative changes of the hip joint and some labral tearing. Unfortunately does not seem to be getting much relief with hip injection. We discussed getting him into see Dr. Gallardo to further evaluate his issues with the right knee before discussing his surgical options for the hip. Plain films of the knee and sed rate and CRP were ordered. Also get him into a hinged knee brace during activity to see if that helps with some of his pain. Mr. Bob Khanna was advised as to contrast therapies and/or to take analgesics/anti-inflammatories as needed and all contraindications were reviewed. OBJECTIVE: Mr. Bob Khanna is a pleasant 66 year old in no apparent distress. Gen:Ht 6' 3 (1.91m) Wt 268 lb (121.6kg) BMI 33.50 kg/(m2). nl development, obese, no deformities ENT: Normocephalic, normal hearing, moist mucosa CV: Pulses:DP/PT= 2+ and symmetric, capillary refill < 2 secs, no peripheral edema/varicosities Skin: no rash, bruising or lesions. Good turgor. Psych: cooperative and appropriate, alert and oriented x 3, good mood and affect. Musculoskeletal: KNEE EXAM: Right: Alignment: Neutral Range of motion is 5 degrees in extension and 100 degrees of flexion. Extension Lag: < 10 degrees Pain with ROM: No Effusion: Slight Tender to the palpation of Medial femoral condyle and Medial joint line Pain with patellar compression: No Stability: Anterior/Posterior not stable. HIP EXAM: Right: ROM: Extension: slight flexion contracture Flexion: 100 degrees Internal Rotation: 10 degrees External Rotation: 25 degrees Abduction: 20 degrees Adduction: 25 degrees Strength: Pain with resisted abduction and Pain with resisted hip flexion Palpation: No tenderness Log roll: painful. Straight leg raise: Negative Neurovascular Status: Sensation Intact, Moves foot and ankle up AND down and 2+ dorsalis pedis Imaging: IMPRESSION: Moderate narrowing of the RIGHT hip joint Billiard Player: RADHA ? Transcribe Date/Time: Oct 04 2021 12:44P Dictated by : SOULEYMANE KWON DO This examination was interpreted and the report reviewed and electronically signed by: SOULEYMANE KWON DO on Oct 04 2021 12:44PM ?EST Results-Findings * * *Final Report* * * DATE OF EXAM: Oct 04 2021 12:29PM ? MDO ? [id number] ?- ?XR HIP 3V PELV+ AP/LAT RT ?/ PROCEDURE REASON: M16.11-Primary osteoarthritis of right hip ?? ? * * * * Physician Interpretation * * * * ?Pelvis and right ?hip HISTORY: Indication: Primary osteoarthritis of right hip TECHNIQUE: Images: ?XR HIP 3V PELV+ AP/LAT RT Comparison: ?None. RESULT: Findings: Pelvis: ? ?No fractures or dislocations are seen. Right hip: ? ?No fractures or dislocations are seen. Moderate narrowing of the RIGHT hip joint. IMPRESSION: Stable right total knee arthroplasty Billiard Player: RADHA ? Transcribe Date/Time: Oct 04 2021 12:43P Dictated by : SOULEYMANE KWON DO This examination was interpreted and the report reviewed and electronically signed by: SOULEYMANE KWON DO on Oct 04 2021 12:44PM ?EST Results-Findings * * *Final Report* * * DATE OF EXAM: (more content not included)...[facility]07-19-2022 Miscellaneous Notes* [facility] - RT Arthur(R) - 10/04/2021 11:40 AM EDT Radiology Service Progress Note PATIENT NAME: Bob Khanna DATE OF SERVICE: October 04, 2021 TIME: 12:31 PM PATIENT IDENTITY VERIFICATION COMPLETED USING TWO (2) IDENTIFIERS: Name and Date of confirmedby patient verbally. FALL SCREENING: Has the patient had 2 falls in the last year or 1 fall with injury or currently using an Ambulatory Assistive Device (Walker, Cane, Wheelchair, Crutches, etc.)? No PATIENT GENDER DATA: Male PATIENT RELEVANT IMPLANT DATA REVIEWED: Not Applicable RADIOLOGY DEPARTMENT: General X-ray: Exam(s) Completed: Pelvis X-Ray: Pelvis with Hip Right Lower Extremity X-Ray(s): Knee, AP / Lat / Merchant Right PERIPHERAL IV DATA: Not applicable SIGNED BY: RT Arthur(R) October 04, 2021 12:31 PM documented in this encounterOhiohealth07-19-2022 History of Present illness Narrative* Sandra Carvalho - 10/04/2021 11:33 AM EDT PT ASSESSMENT - CASTING ROOM Bob presents for Application of brace. Applied hinged knee support to Right knee Patient has been instructed in Care and proper application of brace.. Sandra Carvalho Beeper: [id number] * Heena Chavez PA-C - 10/04/2021 11:28 AM EDT Heena Chavez PA-C Department of Orthopaedics Orthopaedics [address] [place] [id number] Dept: [phone] October 04, 2021 CHIEF COMPLAINT: New and Pain of the Right Hip Mr. Bob Khanna is a 66 year old male who presents with right hip pain and also some right kneeissues after a replacement in 2019. Patient started having right hip pain about 3 to 4 years ago, pain is in the right groin area and is a 6 out of 10 sharp aching. He has difficulty bringing his knee to his chest and abducting the right leg. He states that his hip often feels as though it is getting stuck . He was seeing a provider and [facility] and was told that he had a labrum tear in his hip.He did receive an intra-articular right hip injection 1 year ago, the injection was only helpful for about 3 days. 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 Patient also complains of right knee pain after a knee replacement in October 2019. He states that following the replacement he was unable to obtain full extension, he reports extension lag of 15 degrees. He did have a manipulation following his replacement, it did help with the extension but he still feels as though he is limited in flexion. Knee is painful with walking pain is mostly anterior, he does get some intermittent swelling as well. ASSESSMENT: M16.11 Primary osteoarthritis of right hip (primary encounter diagnosis) Z96.651 Status post total right knee replacement M25.561 Acute pain of right knee PLAN: He has an MRI from the spring showing some moderate degenerative changes of the hip joint andsome labral tearing. Unfortunately does not seem to be getting much relief with hip injection. We discussed getting him into see Dr. Gallardo to further evaluate his issues with the right knee before discussing his surgical options for the hip. Plain films of the knee and sed rate and CRP were ordered. Also get him into a hinged knee brace during activity to see if that helps with some of his pain. Mr. Bob Khanna was advised as to contrast therapies and/or to take analgesics/anti-inflammatories as needed and all contraindications were reviewed. OBJECTIVE: Mr. Bob Khanna is a pleasant 66 year old in no apparent distress. Gen:Ht 6' 3 (1.91m) Wt 268 lb (121.6kg) BMI 33.50 kg/(m^2). nl development, obese, no deformities ENT: Normocephalic, normal hearing, moist mucosa CV: Pulses:DP/PT= 2+ and symmetric, capillary refill < 2 secs, no peripheral edema/varicosities Skin: no rash, bruising or lesions. Good turgor. Psych: cooperative and appropriate, alert and oriented x 3, good mood and affect. Musculoskeletal: KNEE EXAM: Right: Alignment: Neutral Range of motion is 5 degrees in extension and 100 degrees of flexion. Extension Lag: < 10 degrees Pain with ROM: No Effusion: Slight Tender to the palpation of Medial femoral condyle and Medial joint line Pain with patellar compression: No Stability: Anterior/Posterior not stable. HIP EXAM: Right: ROM: Extension: slight flexion contracture Flexion: 100 degrees Internal Rotation: 10 degrees External Rotation: 25 degrees Abduction: 20 degrees Adduction: 25 degrees Strength: Pain with resisted abduction and Pain with resisted hip flexion Palpation: No tenderness Log roll: painful. Straight leg raise: Negative Neurovascular Status: Sensation Intact, Moves foot and ankle up & down and 2+ dorsalis pedis Imaging: IMPRESSION: Moderate narrowing of the RIGHT hip joint Billiard Player: RADHA Transcribe Date/Time: Oct 04 2021 12:44P Dictated by : SOULEYMANE KWON DO This examination was interpreted and the report reviewed and electronically signed by: SOULEYMANE KWON DO on Oct 04 2021 12:44PM EST Results-Findings * * *Final Report* * * DATE OF EXAM: Oct 04 2021 12:29PM [facility] - XR HIP 3V PELV+ AP/LAT RT / PROCEDURE REASON: M16.11-Primary osteoarthritis of right hip * * * * Physician Interpretation * * * * Pelvis and right hip HISTORY: Indication: Primary osteoarthritis of right hip TECHNIQUE: Images: XR HIP 3V PELV+ AP/LAT RT Comparison: None. RESULT: Findings: Pelvis: No fractures or dislocations are seen. Right hip: No fractures or dislocations are seen. Moderate narrowing of the RIGHT hip joint. IMPRESSION: Stable right total knee arthroplasty Billiard Player: RADHA Transcribe Date/Time: Oct 04 2021 12:43P Dictated by : SOULEYMANE KWON DO This examination was interpreted and the report reviewed and electronically signed by: SOULEYMANE KWON DO on Oct 04 2021 12:44PM EST Results-Findings * * *Final Report* * * DATE OF EXAM: Oct 04 2021 12:29PM [facility] - XR KNEE 4V AP/PA BOTH+LAT/NNAMDI RT / PROCEDURE REASON: Z96.651-Status post total right knee replacement * * * * Physician Interpretation * * * * EXAM(s): XR KNEE 4V AP/PA BOTH+LAT/NNAMDI RT EXAM DATE/TIME: 10/04/2021 12:29 PM HISTORY: 66 years old Clinical information: Status post total right knee replacement pain TECHNIQUE: Images: XR KNEE 4V AP/PA BOTH+LAT/NNAMDI RT Comparison: None. RESULT: Findings: Right :No fractures or dislocations are seen. The components of the arthroplasty are in good alignment with the respective bones and each other. There is no evidence of loosening of the components. Left :No fractures or dislocations are seen. Severe narrowing medial compartment and moderate narrowing lateral compartment Supporting Subjective Information Below: Past Surgical History: No past surgical history on file. Medications: Current Outpatient Medications Medication Sig rivaroxaban (XARELTO) 20 mg tablet Take 20 mg by mouth once daily. terbinafine HCl (LAMISIL) 250 mg tablet Take 1 tablet by mouth once daily. No current facility-administered medications for this visit. Allergies: Gadoteridol ROS: General (negative for fatigue, malaise, weight loss/gain) HEENT (negative for headache, earache, recent vision changes, sinus pain, sore throat) Respiratory (no recent shortness of breath, hemoptysis) CV (negative for chest tightness, palpitations) Musculoskeletal (see HPI) Psych (no depression, anxiety) This note was partially generated using [employer] voice recognition system, and there may be some incorrect words, spellings, and punctuation that were not noted in checking the note before saving. Heena Chavez PA-C documented [facility]* Diagnosis Primary osteoarthritis of right hip- Primary Primary localized osteoarthrosis, pelvic region and thigh Status post total right knee replacement Acute pain of right knee [facility]* Diagnosis Status post total right knee replacement Primary osteoarthritis of right hip Primary localized osteoarthrosis, pelvic region and thigh [facility] Diagnosis Primary osteoarthritis of right hip- Primary Primary localized osteoarthrosis, pelvic region and thigh Status post total right knee replacement Encounter for screening for COVID-19 [facility]* Diagnosis Primary osteoarthritis of right hip- Primary Primary localized osteoarthrosis, pelvic region and thigh Encounter for screening for COVID-19 Primary osteoarthritis of right hip Primary localized osteoarthrosis, pelvic region and thigh [facility]* Diagnosis Primary osteoarthritis of right hip Primary localized osteoarthrosis, pelvic region and thigh Encounter for screening for COVID-19 Primary osteoarthritis of right hip Primary localized osteoarthrosis, pelvic region and thigh [facility] Pre-op evaluation- Primary Preoperative examination, unspecified Hyperlipidemia, unspecified hyperlipidemia type Personal history of pulmonary embolism Obstructive sleep apnea Obstructive sleep apnea (adult) (pediatric) Factor V Leiden (HCC) Primary hypercoagulable state Bradycardia Other specified cardiac dysrhythmias Murmur Undiagnosed cardiac murmurs Encounter for screening for COVID-19 Primary osteoarthritis of right hip Primary localized osteoarthrosis, pelvic region and thigh [facility]* Diagnosis Pain in right hip- Primary Pain in joint, pelvic region and thigh [facility]* Diagnosis Status post right hip replacement- Primary Hip joint replacement by other means [facility]* Diagnosis Status post right hip replacement- Primary Hip joint replacement by other means [facility]* Diagnosis Pain in right hip- Primary Pain in joint, pelvic region and thigh [facility]* Diagnosis Pre-op evaluation- Primary Preoperative examination, unspecified Hyperlipidemia, unspecified hyperlipidemia type Personal history of pulmonary embolism Obstructive sleep apnea Obstructive sleep apnea (adult) (pediatric) Factor V Leiden (HCC) Primary hypercoagulable state Bradycardia Other specified cardiac dysrhythmias Murmur Undiagnosed cardiac murmurs Pain in right hip Pain in joint, pelvic region and thigh [facility]* Diagnosis Seborrheic keratosis- Primary Lentigines Sebaceous hyperplasia of face Angioma of skin Rash and other nonspecific skin eruption Skin tag Unspecified hypertrophic and atrophic condition of skin Pain due to onychomycosis of toenails of both feet- Primary Venous insufficiency Unspecified venous (peripheral) insufficiency documented in this encounter [facility]* Diagnosis Abscess, toe, left- Primary Pain due to onychomycosis of toenails of both feet Venous insufficiency Unspecified venous (peripheral) insufficiency Onychocryptosis Ingrowing nail Toe pain, left Pain in soft tissues of limb documented in this encounter [facility]* Diagnosis Onychocryptosis- Primary Ingrowing nail Toe pain, left Pain in soft tissues of limb Abscess, toe, left documented in this encounter [facility]* Diagnosis Onychocryptosis- Primary Ingrowing nail Toe pain, left Pain in soft tissues of limb Abscess, toe, left documented in this encounter [facility] HealthcareEvaluation noteNo assessment information availableAkron Children'[facility] Work Phone: Evaluation note* Diagnosis Elevated PSA- Primary Elevated prostate specific antigen (PSA) History of pulmonary embolus (PE) Hypercoagulable state (CMS/HCC) Primary hypercoagulable state Factor V Leiden, prothrombin gene mutation (CMS/HCC) Primary hypercoagulable state documented in this encounter [facility]* Diagnosis Routine general medical examination at health care facility- Primary Routine general medical examination at a health care facility ACP (advance care planning) Other specified counseling Factor V Leiden, prothrombin gene mutation (CMS/HCC) Primary hypercoagulable state Hypercoagulable state (CMS/HCC) Primary hypercoagulable state Mixed hyperlipidemia (CMS/HCC) Mixed hyperlipidemia Edema, unspecified type History of pulmonary embolus (PE) Elevated PSA Elevated prostate specific antigen (PSA) Primary hypertension (CMS/HCC) Unspecified essential hypertension Prostate cancer screening Special screening for malignant neoplasm of prostate High risk medication use Current use of fci anticoagulation History of colon polyps [facility]* Diagnosis Screening for colon cancer Special screening for malignant neoplasms, colon documented [facility]* Diagnosis Lumbar spine pain- Primary [facility]* Diagnosis Adenomatous polyp of cecum- Primary [facility]* Diagnosis Onychocryptosis- Primary Ingrowing nail Toe pain, left Pain in soft tissues of limb documented [facility]* Diagnosis Onychocryptosis- Primary Ingrowing nail Toe pain, left Pain in soft tissues of limb documented [facility]* Diagnosis Onychocryptosis- Primary Ingrowing nail Toe pain, left Pain in soft tissues of limb documented [facility]* Diagnosis Seborrheic keratosis- Primary Sebaceous hyperplasia of face Lentigines documented [facility] Healthcare[facility] Present illness Narrative* Haseeb Holliday, JESSY - 11/25/2024 11:40 AM EDT Patient: Bob Khanna : 1955 PCP: Yuri Kuo MD SUBJECTIVE This is a 69 y.o. male that presents today 28 d s/p permanent nail avulsion with nail avulsion to the left hallux Pt states that they have been following all post op instructions Pt denies n/f/v/c and has slight pain at post op site. Pt states negative drainage from the postop site. Pt presents today for postoperative follow up. 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 PE (pulmonary thromboembolism) (CMS/HCC), bilateral 2013 Medications: Current Outpatient Medications: amLODIPine (Norvasc) 10 MG tablet, Take 10 mg by mouth Daily, Disp: , Rfl: atorvastatin (Lipitor) 40 MG tablet, TAKE 1 TABLET(40 MG) BY MOUTH IN THE MORNING, Disp: 100 tablet, Rfl: 3 Xarelto 20 MG tablet, TAKE 1 TABLET BY MOUTH EVERY DAY, Disp: 100 tablet, Rfl: 3 ROS: General: denies fever, chills, fatigue, malaise GI: denies loose or watery stool on antibiotic OBJECTIVE LE EXAM: DERM: Negative erythema, negative serous drainage from the left hallux VASC: Palpable pedal pulses bilaterally NEURO: Gross sensation intact to bilateral feet ORTHO: Minimal pain on palpation to the left hallux ASSESSMENT 21 d s/p permanent nail avulsion to the left hallux 1. Onychocryptosis 2. Toe pain, left PLAN Pt to d/c abx. Patient to continue with OTC oral anti - inflammatories as needed for pain. Pt to keep DSD on area of interest while in shoegear, otherwise may expose to air in a clean environment. Haseeb Holliday DPM [facility] (n[facility]ative)* Diagnostic Procedure Only (Routine) - Pending ReviewSpecialtyDiagnoses / ProceduresReferred By ContactReferred To ContactXR IMAGING Diagnoses Pain in right hip Procedures XR HIP 2V AP/LAT RIGHT (AK,FL,ME) RADEX HIP UNILATERAL WITH PELVIS 2-3 VIEWS Rafael Mejia APRN.CNP [address] [place] [address] Xr Imaging Referral IDStatusResaint [facility] DateExpiration DateVisits RequestedVisits [id number] Review Auto-Generated Referral / [facility] for referral (narrative)* Diagnostic Procedure Only (Routine) - Pending ReviewSpecialtyDiagnoses / ProceduresReferred By Contact Referred To ContactXR IMAGING Diagnoses Pain in right hip Procedures XR HIP 2V AP/LAT RIGHT (AK,FL,ME,UN) RADEX HIP UNILATERAL WITH PELVIS 2-3 VIEWS Rafael Mejia APRN.CNP [address] [address] [place] [address] Referral IDStatusReasonStart DateExpiration DateVisits RequestedVisits [id number] Review Auto-Generated Referral / [facility] for referral (narrative)* Diagnostic Procedure Only (Routine) - ClosedSpecialtyDiagnoses / ProceduresReferred By ContactReferred To ContactXR IMAGING Diagnoses Pain in right hip Procedures XR HIP 2V AP/LAT RIGHT (AK,FL,ME) RADEX HIP UNILATERAL WITH PELVIS 2-3 VIEWS Rafael Mejia APRN.CNP [address] [place] [address] Xr Imaging [facility] Referral IDStatusReasonStart DateExpiration DateVisits RequestedVisits [id number] Auto-Generated Referral / [facility] for referral (narrative)No reason for referral information availableCleveland Clinic [facility] Work Phone: Summary Purpose Family History No Family History Records FoundNo Family History Records FoundNo Family History Records FoundNo Family History Records FoundNo Family History Records FoundNo Family History Records FoundNo Family History Records FoundNo Family History Records Found Advance Directives No Advanced Directives Records Found Advance Directive Response Recorded Date/ Time Advance Directives No February 10:49am Advance Directive Response Recorded Date/ Time Advance Directives No February 11:49am Reason for Referral SpecialtyDiagnoses / ProceduresReferred By ContactReferred To ContactXR IMAGING Diagnoses Primary osteoarthritis of right hip Procedures XR HIP GENERAL 3V PELV/AP/LAT RIGHT RADEX HIP UNILATERAL WITH PELVIS 2-3 VIEWS Heena Chavez PA-C [address] [place] [address] Xr Imaging Referral IDStatusReasonStart DateExpiration DateVisits RequestedVisits [id number]/19/202212/31/205541FcberelybIkqrfqplw / Procedures Referred By ContactReferred To ContactXR IMAGING Diagnoses Status post total right knee replacement Procedures XR KNEE GENERAL 4V AP BOTH/PA BOTH/LAT/MERC RIGHT RADIOLOGIC EXAM KNEE COMPLETE 4/MORE VIEWS Heena Chavez PA-C [address] [place] [address] Xr Imaging Referral IDStatusReasonStart DateExpiration DateVisits RequestedVisits [id number]/19/202212/31/971747RbvauuiolBhdhgpmqe / Procedures Referred By ContactReferred To ContactCT IMAGING Diagnoses Primary osteoarthritis of right hip Procedures CT HIP WO IVCON RT CT LOWER EXTREMITY W/O CONTRAST MATERIAL Benny Gallardo MD [address] [place] [address] Ct Imaging Referral IDStatusReasonStart DateExpiration DateVisits RequestedVisits [id number] Auto-Generated Referral /[id number] IDStatusReasonStart DateExpiration DateVisits RequestedVisits [id number] Auto-Generated Referral /[id number] / ProceduresReferred By ContactReferred To [facility] [place] Diagnoses Pre-op evaluation Procedures ECHO ECHO TTHRC R-T 2D W/WOM-MODE COMPL SPEC&COLR D Chadwick Harris APRN.DIRECTOR PRODUCT MANAGEMENT [address] [place] [address] [facility] [address] [place] [address] Referral IDStatusReasonStart DateExpiration DateVisits RequestedVisits [id number] Auto-Generated Referral /[id number] / ProceduresReferred By ContactReferred To [facility] [place] Diagnoses Pre-op evaluation Procedures ECG COMPLETE ECG ROUTINE ECG W/LEAST 12 LDS W/I&R Camelia, Chadwick, IRRIGATION SPECIALIST.DIRECTOR PRODUCT MANAGEMENT [address] [place] [address] [facility] [place] [address] Referral IDStatusReasonStart DateExpiration DateVisits RequestedVisits [id number] Auto-Generated Referral Chief Complaint and Reason for Visit Chief Complaint Admit Date r97.20 March 31, 2024 8 :57am Chief Complaint Admit Date r97.20 March 31, 2024 8 :57am Unknown May 29, 2024 9:1 4am Chief Complaint Admit Date Screening October 16, 2024 9:00 am Additional Source Comments (unrecognized sect ion and content) No Status Records FoundNo Status Records FoundNo Status Records FoundNo Status Records FoundNo Status Records FoundNo Status Records FoundNo Status Records FoundNo Status Records Found INFORMATION SOURCE (unrecogn ized section and content) DATE CREATED AUTHOR 07/07/2021 [facility] DATE CREATED AUTHOR AUTHOR'S ORGANIZ ATION 03/15/2022 [facility] DATE CREATED AUTHOR AUTHOR'S ORGANIZ ATION 03/15/2022 [facility] DATE CREATED AUTHOR AUTHOR'S ORGANIZ ATION 05/16/2024 [facility] DATE CREATED AUTHOR AUTHOR'S ORGANIZ ATION 06/20/2024 [facility] DATE CREATED AUTHOR AUTHOR'S ORGANIZ ATION 08/23/2024 [facility] DATE CREATED AUTHOR AUTHOR'S ORGANIZ ATION 11/04/2024 [facility] DATE CREATED AUTHOR AUTHOR'S ORGANIZ ATION 01/14/2025 [facility] EPIC Source Comments (unrecognize d section and content) In the event this informatio n is protected by the Federal Confidentiality of Alcohol and Drug Abuse Patient Records regulations: The Federal rules restrict any use of the information to criminally investigate or prosecute any alcohol or drug abuse patient.OhiohealthIn the event this information is protected by the Federal Confidentiality of Alcohol and Drug Abuse Patient Records regulations: The Federal rules restrict any use of the information to criminally investigate or prosecute any alcohol or drug abuse patient.OhiohealthIn the event this information is protected by the Federal Confidentiality of Alcohol and Drug Abuse Patient Records regulations: The Federal rules restrict any use of the information to criminally investigate or prosecute any alcohol or drug abuse patient.OhiohealthIn the event this information is protected by the Federal Confidentiality of Alcohol and Drug Abuse Patient Records regulations: The Federal rules restrict any use of the information to criminally investigate or prosecute any alcohol or drug abuse patient.OhiohealthIn the event this information is protected by the Federal Confidentiality of Alcohol and Drug Abuse Patient Records regulations: The Federal rules restrict any use of the information to criminally investigate or prosecute any alcohol or drug abuse patient.OhiohealthIn the event this information is protected by the Federal Confidentiality of Alcohol and Drug Abuse Patient Records regulations: The Federal rules restrict any use of the information to criminally investigate or prosecute any alcohol or drug abuse patient.OhiohealthIn the event this information is protected by the Federal Confidentiality of Alcohol and Drug Abuse Patient Records regulations: The Federal rules restrict any use of the information to criminally investigate or prosecute any alcohol or drug abuse patient.OhiohealthIn the event this information is protected by the Federal Confidentiality of Alcohol and Drug Abuse Patient Records regulations: The Federal rules restrict any use of the information to criminally investigate or prosecute any alcohol or drug abuse patient.OhiohealthIn the event this information is protected by the Federal Confidentiality of Alcohol and Drug Abuse Patient Records regulations: The Federal rules restrict any use of the information to criminally investigate or prosecute any alcohol or drug abuse patient.OhiohealthIn the event this information is protected by the Federal Confidentiality of Alcohol and Drug Abuse Patient Records regulations: The Federal rules restrict any use of the information to criminally investigate or prosecute any alcohol or drug abuse patient.OhiohealthIn the event this information is protected by the Federal Confidentiality of Alcohol and Drug Abuse Patient Records regulations: The Federal rules restrict any use of the information to criminally investigate or prosecute any alcohol or drug abuse patient.OhiohealthIn the event this information is protected by the Federal Confidentiality of Alcohol and Drug Abuse Patient Records regulations: The Federal rules restrict any use of the information to criminally investigate or prosecute any alcohol or drug abuse patient.OhiohealthIn the event this information is protected by the Federal Confidentiality of Alcohol and Drug Abuse Patient Records regulations: The Federal rules restrict any use of the information to criminally investigate or prosecute any alcohol or drug abuse patient.OhiohealthIn the event this information is protected by the Federal Confidentiality of Alcohol and Drug Abuse Patient Records regulations: The Federal rules restrict any use of the information to criminally investigate or prosecute any alcohol or drug abuse patient.OhiohealthIn the event this information is protected by the Federal Confidentiality of Alcohol and Drug Abuse Patient Records regulations: The Federal rules restrict any use of the information to criminally investigate or prosecute any alcohol or drug abuse patient.[facility] Reason for Visit (unrecogniz ed section and content) ReasonCommentsNewPainSpecialtyDiagnoses / ProceduresReferred By ContactReferred To ContactOrthopedics / ORTHOPAEDIC SURGERY Diagnoses Encounter for general adult medical examination without abnormal findings Tear of RT Acetabular labrum *Hand Carry Imaging Procedures OFFICE/OUTPATIENT ESTABLISHED MOD MDM 30-39 MIN CORIE ACUTE Yuri Kuo II [address] [facility] [address] [place] [address] Heena Chavez PA-C [address] [place] [address] Referral IDStatusReasonStart DateExpiration DateVisits RequestedVisits [id number]/19/202212/805218YaiubcltdJeufipeoa / Procedures Referred By ContactReferred To ContactXR IMAGING Diagnoses Primary osteoarthritis of right hip Procedures XR HIP GENERAL 3V PELV/AP/LAT RIGHT RADEX HIP UNILATERAL WITH PELVIS 2-3 VIEWS Heena Chavez PA-C [address] [place] [address] Xr Imaging Referral IDStatusReasonStart DateExpiration DateVisits RequestedVisits [id number]/19/202212/231590PislarGxnhqvteMwiwbs UpSpecialty Diagnoses / ProceduresReferred By ContactReferred To ContactOrthopedics / ORTHOPAEDIC SURGERY Diagnoses Encounter to discuss test results right hip and right knee (ref by Heena) xrays in epic Procedures OFFICE/OUTPATIENT ESTABLISHED MOD MDM 30-39 MIN CORIE ACUTE Heena Chavez PA-C [address] [place] [address] Benny Gallardo MD [address] [place] [address] Referral IDStatusReasonStart DateExpiration DateVisits RequestedVisits [id number]/23/202212/009902QtflyupusZioqxtwgm / Procedures Referred By ContactReferred To ContactCT IMAGING Diagnoses Primary osteoarthritis of right hip Procedures CT HIP WO IVCON RT CT LOWER EXTREMITY W/O CONTRAST MATERIAL Benny Gallardo MD [address] [place] [address] Ct Imaging Referral IDStatusReasonStart DateExpiration DateVisits RequestedVisits [id number] Auto-Generated Referral /[id number] ConsultSpecialtyDiagnoses / ProceduresReferred By ContactReferred To ContactAnesthesiology / ANESTHESIOLOGY Diagnoses ROBOTIC ASSISTED TOTAL HIP ARTHROPLASTY [19689] - Hip - Right Procedures [facility] Benny Gallardo MD [address] [place] [address] 1, [facility] [address] [place] [address] Referral IDStatusReasonStart DateExpiration DateVisits RequestedVisits [id number] Financial Clearance Not Required /[id number]-Ii TeachingReasonCommentsPreparations For SurgeryReasonCommentsCare Coordinator - Hospital Follow UpReasonComments Established PatientFollow UpPost OpHip ReplacementSpecialtyDiagnoses / ProceduresReferred By ContactReferred To ContactOrthopedics / ORTHOPAEDIC SURGERY Diagnoses Follow-up examination S/P Robotic R JAMES Procedures OFFICE/OUTPATIENT ESTABLISHED MOD MDM 30-39 MIN POST OP Self Rafael Mejia APRN.DIRECTOR [employer]ODUCT MANAG[employer] [address] [place] [address] Referral IDStatusReasonStart DateExpiration DateVisits RequestedVisits [id number]/27/202212/314454BukslipqrKsdjiitnq / Procedures Referred By ContactReferred To ContactOrthopedics / ORTHOPAEDIC SURGERY Diagnoses S/P Robotic R JAMES 02/27/22 Procedures OFFICE/OUTPATIENT ESTABLISHED MOD MDM 30-39 MIN POST OP Rafael Mejia APRN.DIRECTOR PRODUCT MANAGEMENT [address] [place] [address] Benny Gallardo MD [address] [place] [address] Referral IDStatusReasonStart DateExpiration DateVisits RequestedVisits [id number]/24/202312/106324WspedafvrSforfueru / Procedures Referred By ContactReferred To ContactRadiology / RADIO GEN [facility] Diagnoses Pain in right hip R hip Procedures RADEX HIP UNILATERAL WITH PELVIS 2-3 VIEWS XR CORIE GENERAL Self [facility] [address] [place] [address] Referral IDStatusReasonStart DateExpiration DateVisits RequestedVisits [id number]/27/202212/31/971345DpjgqbLhspgwegDuln CheckReason CommentsIngrown ToenailLR GT ingrownReasonCommentsFoot ProblemGauze stuck on toesReasonCommentsIngrown Qdywtux33 D perm avulsionReasonCommentssurgical clearanceSched 05/29/[address] [place] with [place] CommentsMedicare Annual Wellness Visit SubsequentReasonCommentsSchedule colonoscopySpecialtyDiagnoses / ProceduresReferred By ContactReferred To Contact General Surgery Diagnoses History of colon polyps Procedures [place] OFFICE/OUTPATIENT NEW HIGH MDM 60 MINUTES Yuri Kuo MD 112 [facility] [address] [place] [address] Phone: tel: fax: Anup Akbar, DO [address] [address] Phone: tel: fax: Referral IDStatusReasonStart DateExpiration DateVisits RequestedVisits [id number] Specialty Services Required [id number] po colonoscopyReasonCommentsFollow-up14d s/p lt permReasonCommentsFollow-up28d s/p tpn Care Teams (unrecognized sec tion and content) Team MemberRelationshipSpecialtyStart DateEnd Date Yuri Kuo II 112 [facility] [address] [place] [address] PCP - GeneralInternal Medicine08/31/21 Yuri Kuo II [address] [address] ReferringInternal Medicine08/31/21Team MemberRelationshipSpecialtyStart DateEnd Date Yuri Kuo II [address] [address] PCP - GeneralInternal Medicine08/31/21 Yuri Kuo II [address] [place] [address] [place] [address] ReferringInternal Medicine08/31/21Team MemberRelationshipSpecialtyStart DateEnd Date Yuri Kuo II [address] [place] [address] [place] [address] PCP - GeneralInternal Medicine08/31/21 Yuri Kuo II [address] [place] [address] [place] [address] ReferringInternal Medicine08/31/21Team MemberRelationshipSpecialtyStart DateEnd Date Yuri Kuo II [address] [place] [address] [place] [address] PCP - GeneralInternal Medicine08/31/21 Yuri Kuo II [address] [place] [address] [place] [address] ReferringInternal Medicine08/31/21 Lori Tolentino, [facility] [address] [place] [address] Specialty Care LsayelxhmrqLghqkgppvsh13/17/221Team MemberRelationship SpecialtyStart DateEnd Date uYri Kuo II [address] [place] [address] [place] [address] PCP - GeneralInternal Medicine08/31/21 Yuri Kuo II [address] [place] [address] [place] [address] ReferringInternal Medicine08/31/21 Lori Tolentino, [facility] [address] [place] [address] Specialty Care KptqxyckwcuDrvnbfnfhwq10/17/221Team MemberRelationship SpecialtyStart DateEnd Date Yuri Kuo II [address] [place] [address] [place] [address] PCP - GeneralInternal Medicine08/31/21 Yuri Kuo II [address] [place] [address] [place] [address] ReferringInternal Medicine08/31/21 Siswilliam, Lori, [facility] [address] [place] [address] Specialty Care WgteqxgropkObfwvbuuobm72/17/221Team MemberRelationship SpecialtyStart DateEnd Date Yuri Kuo II [address] [place] [address] [place] [address] PCP - GeneralInternal Medicine08/31/21 Yuri Kou II [address] [place] [address] [place] [address] ReferringInternal Medicine08/31/21 Siswilliam, Lori, [facility] [address] [place] [address] Specialty Care YzyrarsuabkXzjowcodnpr88Team MemberRelationship SpecialtyStart DateEnd Date Yuri Kuo II [address] [place] [address] [place] [address] PCP - GeneralInternal Medicine08/31/21 Yuri Kuo II [address] [place] [address] [place] [address] ReferringInternal Medicine08/31/21 Sissen, Lori, P[facility] [address] [place] [address] Specialty Care JclsrqgdrdgLebwaiddxgk61/17/221Team MemberRelationship SpecialtyStart DateEnd Date Yuri Kuo II [address] [place] [address] [place] [address] PCP - GeneralInternal Medicine08/31/21 Yuri Kuo II [address] [place] [address] [place] [address] ReferringInternal Medicine08/31/21 Lori Tolentino, P[facility] [address] [place] [address] Specialty Care LwbrmvemwcrUypiijxixtt05/17/221Team MemberRelationship SpecialtyStart DateEnd Date Yuri Kuo II [address] [place] [address] [place] [address] PCP - GeneralInternal Medicine08/31/21 Yuri Kuo II [address] [place] [address] [place] [address] ReferringInternal Medicine08/31/21 Lori Tolentino, P[facility] [address] [place] [address] Specialty Care FcpkccssvobWyepctcwdax99/17/221Team MemberRelationship SpecialtyStart DateEnd Date Yuri Kuo II [address] [place] [address] [place] [address] PCP - GeneralInternal Medicine08/31/21 Yuri Kuo II [address] [place] [address] [place] [address] ReferringInternal Medicine08/31/21Team MemberRelationshipSpecialtyStart DateEnd Date Yuri Kuo II [address] [place] [address] [place] [address] PCP - GeneralInternal Medicine08/31/21 Yuri Kuo II [address] [place] [address] [place] [address] ReferringInternal Medicine08/31/21Team MemberRelationshipSpecialtyStart DateEnd Date Yuri Kuo II, MD [address] [place] [address] [place] [address] PCP - GeneralInternal Medicine08/31/21 Yuri Kuo II, MD [address] [place] [address] [place] [address] ReferringInternal Medicine08/31/21Team MemberRelationshipSpecialtyStart DateEnd Date Yuri Kuo II, MD [address] [place] [address] [place] [address] PCP - GeneralInternal Medicine08/31/21 Yuri Kuo II, MD [address] [place] [address] [place] [address] ReferringInternal Medicine08/31/21 [facility] [address] [place] [address] Specialty Care BxswxrgycopWcpezsghelj03/17/221Team MemberRelationship SpecialtyStart DateEnd Date Yuri Kuo MD [address] [place] [address] [place] [address] PCP - Human Yuri Kuo MD [address] [place] [address] [place] [address] PCP - GeneralInternal Medicine08/18/22Te MemberRelationshipSpecialtyStart Date End Date Yuri Kuo MD [address] [place] [address] [place] [address] PCP - Human Yuri Kuo MD [address] [place] [address] [place] [address] PCP - GeneralInternal Medicine08/18/22Team MemberRelationshipSpecialtyStart Date End Date Yuri Kuo MD [address] [place] [address] [place] [address] PCP - Humana4 Yuri Kuo MD [address] [place] [address] [place] [address] PCP - GeneralInternal Medicine08/18/22Team MemberRelationshipSpecialtyStart Date End Date Yuri Kuo MD [address] [place] [address] [place] [address] PCP - Human Yuri Kuo MD [address] [place] [address] [place] [address] PCP - GeneralInternal Medicine08/18/22Team MemberRelationshipSpecialtyStart Date End Date Yuri Kuo MD [address] [place] [address] [place] [address] PCP - Human Yuri Kuo MD [address] [place] [address] [place] [address] PCP - GeneralInternal Medicine08/18/22Te MemberRelationshipSpecialtyStart Date End Date Yuri Kuo MD [address] [place] [address] [place] [address] PCP - [place] [address] Yuri Kuo MD [address] [place] [address] [place] [address] PCP - GeneralInternal Medicine08/18/22Team MemberRelationshipSpecialtyStart Date End Date Yuri Kuo MD [address] [place] [address] PCP - Human Yuri Kuo MD [address] [place] [address] PCP - GeneralInternal Medicine08/18/22 Team Status: Active Member Role Status Dates Yuri Kuo II MD Primary Care Provider Active Team Status: Inactive Member Role Status Dates Martinez Herrera MD Attending Provider Active Start: March 31, 2024 End: March 31, 2024Danan Kuo II [facility] ProviderActiveStart: March 31, 2024 End: March 31, 2024Team MemberRelationshipSpecialtyStart DateEnd Date Yuri Kuo MD [address] [place] [address] PCP - Humana4 Yuri Kuo MD [address] [place] [address] PCP - GeneralInternal Medicine08/18/22 Team Status: Inactive Member Role Status Dates Martinez Herrera MD Attending Provider Active Start: May 29, 2024 End: May 29, 2024Team MemberRelationshipSpecialtyStart DateEnd Date Yuri Kuo MD [address] [place] [address] [place] [address] PCP - Humana4 Yuri Kuo MD [address] [place] [address] PCP - GeneralInternal Medicine08/18/22Team MemberRelationshipSpecialtyStart Date End Date Yuri Kuo MD [address] [place] [address] PCP - Humana4 Yuri Kuo MD [address] [place] [address] PCP - GeneralInternal Medicine08/18/22Team MemberRelationshipSpecialtyStart Date End Date Yuri Kuo MD [address] [place] [address] PCP - Humana4 Yuri Kuo MD [address] [place] [address] PCP - GeneralInternal Medicine08/18/22Team MemberRelationshipSpecialtyStart Date End Date Yuri Kuo MD [address] [place] [address] PCP - Humana4 Yuri Kuo MD [address] [place] [address] PCP - GeneralInternal Medicine08/18/22Team MemberRelationshipSpecialtyStart Date End Date Yuri Kuo MD [address] [place] [address] PCP - Humana4 Yuri Kuo MD [address] [place] [address] PCP - GeneralInternal Medicine08/18/22Team MemberRelationshipSpecialtyStart Date End Date Yuri Kuo MD [address] [place] [address] PCP - Humana4 Yuri Kuo MD [address] [place] [address] PCP - GeneralInternal Medicine08/18/22 Team Status: Inactive Member Role Status Dates Anup Akbar DO Attending Provider Active Start : October 16, 2024 End: October 16, 2024Team MemberRelationshipSpecialtyStart DateEnd Date Yuri Kuo MD [address] [place] [address] PCP - Humana4 Yrui Kuo MD [address] [place] [address] [place] [address] PCP - GeneralInternal Medicine08/18/22Team MemberRelationshipSpecialtyStart Date End Date Yuri Kuo MD [address] [place] [address] PCP - Humana4 Yuri Kuo MD [address] [place] [address] PCP - GeneralInternal Medicine08/18/22Team MemberRelationshipSpecialtyStart Date End Date Yuri Kuo MD [address] [place] [address] PCP - Humana4 Yuri Kuo MD [address] [place] [address] PCP - GeneralInternal Medicine08/18/22Team MemberRelationshipSpecialtyStart Date End Date Yuri Kuo MD [address] [place] [address] [place] [address] PCP - Humana4/23 Yuri Kuo MD 112 [facility] [address] [place] [address] PCP - GeneralInternal Medicine08/18/22 Goals (unrecognized section and content) Goals may be documented in a n alternate sectionGoals may be documented in an alternate sectionGoals may be documented in an alternate section FOR RECORDS PERTAINING TO PATIENTS WHO ARE OR HAVE BEEN ENROLLED IN A CHEMICAL DEPENDENCY/SUBSTANCEABUSE PROGRAM, SOME INFORMATION MAY BE OMITTED. This clinical summary was aggregated from multiple sources. Caution should be exercised in using it in the provision of clinical care. This summary normalizes information from multiple sources, and as a consequence, information in this document may materially change the coding, format and clinical context of patient data. In addition, data may be omitted in some cases. CLINICAL DECISIONS SHOULD BE BASED ON THE PRIMARY CLINICAL RECORDS. [facility]. provides no warranty or guarantee of the accuracy or completeness of information in this document.
[2025-01-15] MEDS: DILTIAZEM HCL 25 MG/5 ML VIAL 5 MG IV (16:00)
[2025-01-15] MEDS: 0.9 % SODIUM CHLORIDE 1,000 ML 1000 ML IV (16:00)
[2025-01-15] MEDS: DILTIAZEM HCL 25 MG/5 ML VIAL 10 MG IV (16:10)
--- NOTE | 2025-01-15 16:13 | ED.ARRPALP1 ---
HPI - Arrhythmia/Palpitations General Chief Complaint: Arrhythmia/Palpitations Stated Complaint: Heart Rate Up Time Seen by Provider: 01/15/25 15:43 Source: patient Mode of arrival: walk-in Limitations: no limitations History of Present Illness HPI narrative: cc - fast/racing heart About an hour or so before coming to the ED the pt developed sensation of fast heart rate/racing heart/ He wqas slightly dizzy as well. He denied any chest pain or shortness of breath. No recent injury or illness. No cough, leg swelling outside of normal or pain in the legs/calves. He takes eliquis since being diagnosed with Factor V Leiden after he was found to have PEs. Related Data Home Medications ?Medication ?Instructions ?Recorded ?Confirmed amlodipine 10 mg tablet 10 mg PO DAILY 01/15/25 01/15/25 atorvastatin 40 mg tablet 40 mg PO DAILY 01/15/25 01/15/25 rivaroxaban 20 mg tablet (Xarelto) 20 mg PO DAILY 01/15/25 01/15/25 Allergies Allergy/AdvReac Type Severity Reaction Status Date / Time Iodinated Contrast Media AdvReac Mild Hives Verified 01/15/25 15:46 [facility] Medical History (Updated 01/15/25 @ 16:20 by Eddie Dutta) Pulmonary emboli ?I26.99 - Other pulmonary embolism without acute cor pulmonale (ICD-10) Factor 5 Leiden mutation, heterozygous ?D68.51 - Activated protein C resistance (ICD-10) HTN (hypertension) ?I10 - Essential (primary) hypertension (ICD-10) HLD (hyperlipidemia) ?E78.5 - Hyperlipidemia, unspecified (ICD-10) Bradycardia ?R00.1 - Bradycardia, unspecified (ICD-10) Social History Little interest or pleasure in doing things: not at all Feeling down, depressed, or hopeless: not at all Exam Narrative Exam Narrative: Nurses notes and vital signs reviewed and patient is not hypoxic. afebrile General: Well-appearing and in no apparent distress. Skin: Warm, dry, no pallor noted. No rash. Head: Normocephalic, atraumatic. Cardiovascular: Regular Rate and Rhythm without murmur, gallop or rub. Respiratory: No accessory muscle use or respiratory distress. Lungs are clear to auscultation, no wheezing, rales or rhonchi Chest Wall: no tenderness Musculoskeletal: normal ROM, no calf or popliteal tenderness, no lower extremity edema/swelling GI: Abdomen is soft, non-distended. Normal bowel sounds. No tenderness to palpation. No rebound, guarding, or rigidity noted. Neurological: A&O x4. No cranial nerve dysfunction observed. No truncal ataxia. Moves all extremities. Sensation intact. Psychiatric: Cooperative and interactive. Normal mood and affect. Constitutional Vital Signs, click to edit/add: Last Vital Signs Temp 98.1 F 01/15/25 15:46 Pulse 95 H 01/15/25 16:50 Resp 21 H 01/15/25 16:50 BP 112/81 01/15/25 16:31 Pulse Ox 92 L 01/15/25 16:50 O2 Del Method Room Air 01/15/25 16:03 Course Vital Signs Vital signs: Vital Signs Temperature 98.1 F 01/15/25 15:46 Pulse Rate 126 H 01/15/25 15:46 Respiratory Rate 18 01/15/25 15:46 Blood Pressure 149/98 H 01/15/25 15:46 Pulse Oximetry 97 01/15/25 15:46 Oxygen Delivery Method Room Air 01/15/25 15:46 Temperature 98.1 F 01/15/25 15:46 Pulse Rate 95 H 01/15/25 16:50 Respiratory Rate 21 H 01/15/25 16:50 Blood Pressure 112/81 01/15/25 16:31 Pulse Oximetry 92 L 01/15/25 16:50 Oxygen Delivery Method Room Air 01/15/25 16:03 MDM - Arrhythmia/Palpitations MDM Narrative Medical decision making narrative: 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 Blood drawn and sent for evaluation. The patient is in rapid atrial fibrillation - this is new for him. He has never received Cardizem so I ordered 5 mg IV dose to start. He did not have much improvement so we gave an additional 10 mg IV. CBC, BMP unremarkable., BNP, TSH normal. UA negative. chest X-ray unremarkable. The patient's heart rate improved and repeat EKG showed rate controlled atrial fibrillation at 74 bpm. The patient's case was discussed with the on-call hospitalist. Dr. Khalil agreed to admit the patient to [facility] with telemetry on an observation basis for further monitoring and treatment. At this point, due to the patient's history of bradycardia, we will not put him on a Cardizem drip. Medical Records Attestation: I reviewed the patient's medical records. Medical records narrative: Patient had a stress test in 2022 that did not show any worrisome findings. Old EKG from 2013 shows sinus bradycardia with left axis deviation but no ST elevation or deep ischemic changes. No PVCs noted. Lab Data Attestation: I reviewed the patient's lab results. Labs: Lab Results 01/15/25 01/15/25 Range/Units 15:55 16:17 WBC 4.8 (4.0-11.0) 10^3/uL RBC 5.42 (4.70-6.10) 10^6/uL Hgb 16.4 (14.0-18.0) g/dL Hct 47.8 (42.0-54.0) % MCV 88.2 (80.0-94.0) fL MCH 30.3 (25.9-34.0) pg MCHC 34.3 (29.9-35.2) g/dL RDW 14.2 (11.0-15.0) % Plt Count 247 (150-450) 10^3/uL MPV 10.2 (9.5-13.5) fL Neut % (Auto) 40.8 L (43.0-75.0) % Lymph % (Auto) 41.5 (20.5-60.0) % Dickinson % (Auto) 15.7 H (1.7-12.0) % Eos % (Auto) 1.2 (0.9-7.0) % Baso % (Auto) 0.6 (0.2-2.0) % Neut # (Auto) 2.0 (1.4-6.5) 10^3/uL Lymph # (Auto) 2.0 (1.2-3.8) 10^3/uL Dickinson # (Auto) 0.8 (0.3-0.8) 10^3/uL Eos # (Auto) 0.1 (0.0-0.7) 10^3/uL Baso # (Auto) 0.0 (0.0-0.1) 10^3/uL Abs Immat Gran (auto) 0.01 (0.00-0.03) 10^3/uL Imm/Tot Granulo (auto) 0.2 (0.0-0.5) % PT 10.9 (9.0-11.6) sec INR 1.03 APTT 35.0 (22.3-36.2) sec Sodium 144 (136-145) mmol/L Potassium 3.4 L (3.5-5.1) mmol/L Chloride 104 (98-107) mmol/L Carbon Dioxide 29.2 (21.0-32.0) mmol/L Anion Gap 14.2 BUN 13.0 (7.0-18.0) mg/dL Creatinine 0.95 (0.70-1.30) mg/dL Est GFR ( Amer) >60 (>=60 mL/min/1.73m^2) Est GFR (Non-Af Amer) >60 (>=60 mL/min/1.73m^2) BUN/Creatinine Ratio 13.7 Glucose 115 H (74-106) mg/dL Calcium 9.5 (8.5-10.1) mg/dL Troponin I High Sens 12.8 (4.0-76.1) pg/mL NT-Pro-B Natriuret Pep 63.0 (<=900.0) pg/mL TSH 1.116 (0.358-3.740) uIU/mL Free T4 0.93 (0.76-1.46) ng/dL Free T3 2.91 (2.18-3.98) pg/mL Urine Color Lt. yellow (YELLOW) Urine Clarity Clear (CLEAR) Urine pH 6.0 (5.0-9.0) Ur Specific [place] 1.010 (1.005-1.025) Urine Protein Negative (NEG/TRACE) mg/dL Urine Glucose (UA) Negative (NEGATIVE) mg/dL Urine Ketones Negative (NEGATIVE) mg/dL Urine Occult Blood Trace-i (NEGATIVE) Urine Nitrite Negative (NEGATIVE) Urine Bilirubin Negative (NEGATIVE) Urine Urobilinogen 0.2 (0.2-1.0) EU/dL Ur Leukocyte Esterase Negative (NEGATIVE) Urine RBC 0-2 (0-2) #/HPF Urine WBC None seen (NONE SEEN) #/HPF Ur Squamous Epith Cells None seen (NONE/RARE) #/LPF Urine Crystals None seen (None Seen) #/HPF Urine Bacteria None seen (NONE SEEN) #/HPF Urine Casts None seen (NONE SEEN) #/LPF Urine Mucus None seen (NONE SEEN) Imaging Data Chest x-ray: Attestation: I have reviewed the pertinent imaging results. Radiologist's impression: ITS Impressions Chest X-Ray 01/15/25 16:30 IMPRESSION: Minor CHF findings. Negative acute pleural-parenchymal disease. Impression dictated by: Stepan Zamora M.D. 01/15/2025 5:21 PM Dictation Location: [place] [address] Electronically authenticated by: [id number] Y Date: 01/15/2025 17:21 ECG Data Attestation: I personally reviewed and interpreted this ECG as follows: Interpretation: EKG interpretation:Emergency Department physician interpretation.rapid atrial fibrillation at 117bpm.criteria for LVH, nonspecific intraventricular conduction delay with QRS widening. #2 EKG = EKG interpretation:Emergency Department physician interpretation. atrial fibrillation at 74bpm. LVH criteria. No delta wave noted. Nonspecific intraventricular conduction delay. Discharge Plan Discharge Chief Complaint: Arrhythmia/Palpitations Clinical Impression: Atrial fibrillation, new onset Patient Disposition: Admitted as Observation Time of Disposition Decision: 16:48
[2025-01-15 16:15] LABS: Hematocrit 47.8 % (42.0-54.0); Hemoglobin 16.4 g/dL (14.0-18.0); Immature Granulocytes Abs Auto 0.01 10^3/uL (0.00-0.03); Immature Granulocytes Pct Auto 0.2 % (0.0-0.5); Lymphocytes Absolute Auto 2.0 10^3/uL (1.2-3.8); Mean Corpuscular HGB Conc 34.3 g/dL (29.9-35.2); Mean Corpuscular Hemoglobin 30.3 pg (25.9-34.0); Mean Corpuscular Volume 88.2 fL (80.0-94.0); Platelet Count 247 10^3/uL (150-450); Red Blood Count 5.42 10^6/uL (4.70-6.10); White Blood Count 4.8 10^3/uL (4.0-11.0)
--- NOTE | 2025-01-15 16:22 | ECG_ITS ---
[facility] Test Date: 2025-01-15 Pat Name: BOB LÓPEZ Department: Room: - Gender: Male Chief Physical Therapist: : 1955 Requested By: Eddie Dutta Order Number: [id number] Christian[place] MD: COMFORT PELAEZ M.D. Measurements Intervals [place] Rate: 74 P: -[address] [place]: -[address] QRS: -57 QRSD: 136 T: 82 QT: 408 QTc: 435 Interpretive Statements 1210 Atrial fibrillation 2330 Nonspecific intraventricular conduction block 5233 Voltage criteria for LVH 9150 abnormal ECG Compared to ECG 01/15/2025 15:50:56 No significant changes Electronically Signed On 01-15-2025 16:43:02 EDT by COMFORT PELAEZ M.D.
[2025-01-15 16:24] LABS: INR 1.03; Partial Thromboplastin Time 35.0 sec (22.3-36.2); Prothrombin Time 10.9 sec (9.0-11.6)
[2025-01-15 16:30] LABS: Glucose Urine UA NEGATIVE (NEGATIVE)
[2025-01-15 16:30] LABS: Anion Gap 14.2; Blood Urea Nitrogen 13.0 mg/dL (7.0-18.0); Calcium 9.5 mg/dL (8.5-10.1); Carbon Dioxide 29.2 mmol/L (21.0-32.0); Chloride 104 mmol/L (98-107); Estimated GFR (African America >60 (>=60 mL/min/1.73m^2); Estimated GFR (Non-African Ame >60 (>=60 mL/min/1.73m^2); Glucose 115 mg/dL (74-106); NT Pro B Type Natriuretic Pept 63.0 pg/mL (<=900.0); Potassium 3.4 mmol/L (3.5-5.1); Sodium 144 mmol/L (136-145); Thyroid Stimulating Hormone 1.116 uIU/mL (0.358-3.740)
--- NOTE | 2025-01-15 16:30 | XR_ITS ---
[address] [address] Patient Name: BOB LÓPEZ MRN: [id number] date: 1955 Sex: M Assigned Patient Location: ER Current Patient Location: ED.MAIN Accession/Order Number: [id number] Exam Date: 01/15/2025 16:25 Report Date: 01/15/2025 17:21 At the request of: BRITTANEY STERLING Procedure: XR chest 1V PA CHEST: CLINICAL HISTORY: tachycardia COMPARISON: None Findings: mildly enlarged cardiomediastinal with minor central hilar congestion. No focal airspace opacity effusion or pneumothorax.. XR/XR chest 1V IMPRESSION: Minor CHF findings. Negative acute pleural-parenchymal disease. Impression dictated by: Stepan Zamora M.D. 01/15/2025 5:21 PM Dictation Location: [place] [address] Electronically authenticated by: [id number] Y Date: 01/15/2025 17:21
[2025-01-15 16:39] LABS: Cast Seen? NONE SEEN #/LPF (NONE SEEN); Crystals Seen? None Seen #/HPF (None Seen)
[2025-01-15 16:54] LABS: Free T3 2.91 pg/mL (2.18-3.98)
--- OUTSIDE RECORDS SUMMARY | 2025-01-15 17:44 | XMS_ITS | CCD ---
Author Organization [facility] Inform ion [facility] Care Team Providers Care Director Of Instruction Name Role Phone AYAZ, DR MOYER Admitting [...] [phone] Kuo II, Yuri B Unavailable Lori Freitas Unavailable Unavailable Kuo II, Yuri B Primary Care Provider [phone] Kuo II, Yuri B Unavailable [phone] CHADWICK HARRIS Referring Unavailable KUO II, YURI [...] DUFFY MD, Daniel B Primary Care Provider [phone] Ayaan DUFFY MD, Daniel B Unavailable [phone] Ayaan DUFFY MD, Daniel B Primary Care Provider Lori Freitas Unavailable Unavailable Yuri Kuo MD Unavailable [phone] Yuri Kuo MD Primary Care Provider Martinez Herrera MD Attending Provider [phone] Yuri Kuo II Primary Care Provider COMFORT PELAEZ Attending Unavailable PASQUALE HOLT Attending Unavailable PASQUALE HOLT Attending Unavailable Martinez Herrera MD Attending Provider Yuri Kuo II Primary Care Provider YURI KUO Primary Care Unavailable Martinez Herrera [...] of OnsetReaction(s) Facility (18 sources)gadoteridol; Translations: [GADOTERIDOL]Drug Tstxghm33-73-6469Csrzt [facility] (20 sources)Iodinated Contrast MediaDrug Sgwrbrc49-89-7410DhylzLGKH [facility] (20 sources)gadoteridolDrug Smkivdh04-55-0604YhhusUUAS Healthcare (1 source)Contrast media; Translations: [contrast media (gadolinium-based)] Propensity to adverse reactions (disorder)[facility] Repository (1 source)Unable to AssessDrug allergy (disorder)71-95-9256[facility] Medications Current Medications MedicationDrug Class(es)DatesSig (Normalized)Sig (Original)acetaminophen 500 mg oral tablet (7 sources)Start: 01-67-0434fcbf 2 tablets by mouth every eight hours as needed acetaminophen (TYLENOL) 500 mg tablet Take 2 tablets by mouth every 8 hours as needed for pain. 90 tablet 02/28/2022 ActiveComment on above:Take 2 tablets by mouth every 8 hours as needed for pain.amLODIPine 10 mg oral tablet (20 sources)Dihydropyridine Calcium Channel BlockerStart: 57-80-9254opyl 1 tablet by mouth once dailyamLODIPine (Norvasc) 10 MG tablet Take 10 mg by mouth Daily 02/06/2024 Activeamoxicillin 500 mg oral capsule (15 sources)Penicillin-class AntibacterialStart: 12-31-2023 End: 78-22-7550frmnrepqelm (Amoxil) 500 MG capsule Indications: Abscess, toe, left Take all 4 pills postprocedure by mouth 4 capsule 12/31/2023 06/16/2024 Discontinuedascorbic acid 500 mg oral tablet (7 sources)Vitamin CStart: 02-28-2022 End: 67-60-3708oeay 1 tablet by mouth twice daily at mealtimeascorbic acid, vitamin C, (VITAMIN C) 500 mg tablet Take 1 tablet by mouth twice daily with meals for 27 doses. 27 tablet 02/28/2022 ActiveComment on above:Take 1 tablet by mouth twice daily with meals for 27 doses.atorvastatin 40 mg oral tablet (20 sources)HMG-CoA Reductase InhibitorStart: 38-99-7206escx 1 tablet by mouth in the morningatorvastatin (Lipitor) 40 MG tablet Indications: Mixed hyperlipidemia TAKE 1 TABLET(40 MG) BY MOUTHIN THE MORNING 100 tablet 3 11/14/2024 ActiveStart: 20-44-0623wnhj 1 tablet by mouth in the morning atorvastatin (Lipitor) 40 MG tablet Indications: Mixed hyperlipidemia TAKE 1 TABLET(40 MG) BY MOUTHIN THE MORNING 100 tablet 3 11/15/2023 ActiveComment on above:Take 40 mg by mouth once daily.cephalexin 500 mg oral capsule (5 sources)Cephalosporin AntibacterialStart: 12-31-2023 End: 98-26-1854bgkr 1 capsule by mouth in the morning, [...] oral capsule (2 sources)Lincosamide AntibacterialStart: 10-31-2024 End: 75-15-4294zdam 1 capsule by mouth in the morning, [...] mg oral tablet (2 sources)Start: 02-28-2022 End: 21-37-3539bxxa 1 tablet by mouth once daily at lunchferrous sulfate 325 mg (65 mg iron) tablet Take 1 tablet by mouth daily with lunch for 7 doses. 7 ta blet 0 02/28/2022 03/07/2022 ActiveComment on above:Take 1 tablet by mouth daily with lunch for 7 doses.furosemide 20 mg oral tablet (18 sources)Loop DiureticStart: 11-13-2022 End: 31-35-2361cdxb 1 tablet by mouth in the morningfurosemide (Lasix) 20 MG tablet Indications: Edema, unspecified type Take 1 tablet (20 mg) by mouthin the morning. 30 tablet 2 11/13/2022 06/16/2024 DiscontinuedmethylPREDNISolone (3 sources)CorticosteroidStart: 10-01-2024 End: 65-52-5696rqlbhbSNFBEFFmgkmi (Medrol Dospak) 4 MG tablets Indications: Lumbar spine pain Follow schedule on package instructions 21 tablet 10/01/2024 10/08/2024 Activemupirocin 0.02 mg/mg topical ointment (1 source)RNA Synthetase Inhibitor AntibacterialStart: 02-08-2022 End: 35-99-3395qlptgdguf (BACTROBAN) 2 % ointment Indications: Pre-op evaluation [...] 5 mg oral tablet (7 sources)Opioid AgonistStart: 55-80-9576wmjx 1 tablet by mouth every six hours as neededoxyCODONE IR (ROXICODONE) 5 mg immediate release tablet Indications: S/P total right hip arthroplasty Take 1-2 tablets by mouth every 6 hours as needed for pain. 30 tablet 02/28/2022 ActiveComment on above:Take 1-2 tablets by mouth every 6 hours as needed for pain.rivaroxaban 20 mg oral tablet (20 sources)Factor Xa InhibitorStart: 16-87-4301esxi 1 tablet by mouth once dailyXarelto 20 MG tablet Indications: Edema, unspecified type TAKE 1 TABLET BY MOUTH EVERY DAY 100 tablet 3 06/20/2024 ActiveStart: 63-23-9162dwlo 1 tablet by mouth once dailyrivaroxaban (Xarelto) 20 MG tablet Indications: Edema, unspecified type TAKE 1 TABLET BY MOUTH EVERY DAY 100 tablet 3 06/11/2023 Active Comment on above:Take 20 mg by mouth once daily. Completed/Discontinued Medications MedicationDrug Class(es)DatesSig (Normalized)Sig (Original)docusate sodium 100 mg oral capsule (4 sources)Start: 02-28-2022 End: 74-54-3211xfsa 1 capsule by mouth twice dailydocusate sodium (COLACE) 100 mg capsule Take 1 capsule by mouth twice daily. 60 capsule 02/28/2022 03/30/2022 ExpiredComment on above:Take 1 capsule by mouth twice daily.perflutren lipid microspheres 1.3 mL in NaCl (PF) 0.9% 10 mL injection (DEFINITY) (10 sources)Start: 02-08-2022 End: 32-36-0705lzqswcxkhu lipid microspheres 1.3 mL in NaCl (PF) 0.9% 10 mL injection (DEFINITY)polyethylene glycol 3350 28139 mg powder for oral solution (4 sources)Osmotic LaxativeStart: 03-01-2022 End: 72-68-9401vppukyqrvvuu glycol 3350 (MIRALAX, GLYCOLAX) 17 gram packet [...] mg/ml prefilled syringe (10 sources)Start: 02-08-2022 End: 44-47-3323kihzzf chloride 0.9 % (flush) 10 mL (BD POSIFLUSH)terbinafine 250 mg oral tablet (6 sources)Allylamine AntifungalStart: 09-30-2021 End: 14-62-6924hrfz 1 tablet by mouth once dailyterbinafine HCl (LAMISIL) 250 mg tablet Take 1 tablet by mouth once daily. 0 09/30/2021 02/08/2022 Discontinued Comment on above:Take 1 tablet by mouth once daily. Problems Active Problems Problem ClassificationProblemDateDocumented DateEpisodic/Chronic Administrative/social admission (2 sources)Patient encounter status; Translations: [Other specified counseling] 95-23-7950YvsxrrjxWqrmwyc dysrhythmias (2 sources)Ventricular premature depolarization; Translations: [Ventricular premature depolarization]Onset: 09-80-7081SrovwttOdbfszvefua and hemorrhagic disorders (20 sources)Factor V Leiden mutation; Translations: [Activated protein C resistance]Onset: 42-06-0865GgdvwnzXrgypvay atherosclerosis and other heart disease (2 sources)Atherosclerotic heart disease of enterprise coronary artery without angina pectoris; Translations: [Atherosclerotic heart disease of enterprise coronary artery without angina pectoris]Onset: 03-44-3578VbgbhkdYmslebxic of lipid metabolism (20 sources)Hyperlipidemia; Translations: [Hyperlipidemia, unspecified]Onset: 22-62-1215OyerwykQozusqzoz hypertension (20 sources)Essential (primary) hypertension; Translations: [Essential hypertension]Onset: 11-47-8060ZbqklzpMtitmoybdosa with complications and secondary hypertension (2 sources)Hypertensive heart disease without heart failure; Translations: [Hypertensive heart disease withoutheart failure]Onset: 72-54-5715FarzeiyLwafpkf (2 sources)Pain in toe; Translations: [Tinea unguium]10-58-5044Pogtzmwc Osteoarthritis (20 sources)Osteoarthritis of right hip joint; Translations: [Unilateral primary osteoarthritis, right hip]Onset: 63-75-0676TqhcxikIzmjv and unspecified benign neoplasm (2 sources)Skin lesion; Translations: [Hemangioma of skin and subcutaneous tissue]64-09-2563ZcdlqesaQprhb and unspecified benign neoplasm (4 sources)History of polyp of colon; Translations: [History of colon polyps] 68-79-7637FfafjyiaOccaj and unspecified benign neoplasm (15 sources)Polyp of cecum; Translations: [Benign neoplasm of cecum]Onset: 365154-63-0626BzrrkhpuAmsfp bone disease and musculoskeletal deformities (4 sources)Idiopathic aseptic necrosis of unspecified bone; Translations: [IDIOPATH ASEPTIC NECROSIS UNS BONE]Onset: 20-35-2735AvgrdmvEhpes connective tissue disease (3 sources)History of total knee arthroplasty; Translations: [Presence of right artificial knee joint]ChronicOther connective tissue disease (1 source)Presence of right artificial hip joint; Translations: [S/P total right hip arthroplasty]Onset: 83-89-4915ArijalrGrmmi connective tissue disease (1 source)Presence of right artificial knee joint; Translations: [Status post total right knee replacement]Onset: 51-69-8293BymydjaGqdtr connective tissue disease (2 sources)History of repair of hip joint; Translations: [Presence of right artificial hip joint]ChronicOther connective tissue disease (20 sources)Artificial knee joint present; Translations: [Presence of unspecified artificial knee joint]Onset: 853018-55-6416LuxyodiRcupk connective tissue disease (12 sources)Pain of toe of left foot; Translations: [Pain in left toe(s)] 05-25-9817JzuftdprRcmaz diseases of veins and lymphatics (2 sources)Vascular insufficiency; Translations: [Venous insufficiency (chronic) (peripheral)]90-38-7786MaazoxmuMzrue nervous system disorders (20 sources)Difficulty walking; Translations: [Difficulty in walking, not elsewhere classified]Onset: 254235-12-9435GugtqymUmxlu non-traumatic joint disorders (5 sources)Pain in right hip; Translations: [PAIN IN RIGHT HIP]Onset: 08-23-2020 EpisodicOther non-traumatic joint disorders (1 source)Pain in right knee; Translations: [Pain in joint, lower leg]Episodic Other non-traumatic joint disorders (2 sources)Pain in right hip joint; Translations: [Pain in right hip]Episodic Other non-traumatic joint disorders (1 source)Hip pain; Translations: [Pain in right hip]98-67-8420HdukkjvfZtnlb skin disorders (3 sources)Seborrheic keratosis; Translations: [Other seborrheic keratosis] 93-04-6289AqcgiqweHxdsc skin disorders (3 sources)Lentiginosis; Translations: [Other melanin hyperpigmentation] 66-69-7953RcvghfomKwvyp skin disorders (3 sources)Sebaceous hyperplasia; Translations: [Other specified follicular disorders]14-27-5307OhjkfoctKirhm skin disorders (2 sources)Eruption; Translations: [Rash and other nonspecific skin eruption] 97-81-9162FfhymjocCfzve skin disorders (2 sources)Skin tag; Translations: [Other hypertrophic disorders of the skin] 46-73-7490UtemcywxJaqyq skin disorders (12 sources)Ingrowing nail; Translations: [Ingrowing nail]75-96-1338Tdaydkdr Residual codes; unclassified (11 sources)Obstructive sleep apnea syndrome; Translations: [Obstructive sleep apnea (adult) (pediatric)]Onset: 09-59-7678CtrzaqyNsgggjfu codes; unclassified (1 source)Obstructive sleep apnea (adult) (pediatric); Translations: [Obstructive sleep apnea]Onset: 43-66-2091OhxzjngRzpq and subcutaneous tissue infections (6 sources)Abscess of toe of left foot; Translations: [Cutaneous abscess of left foot]06-22-6293JbmzuxrfWypluxeknoy; intervertebral disc disorders; other back problems (2 sources)Pain in lumbar spine ; Translations: [Lumbar spine pain]10-01-2024 EpisodicUnclassified (1 source)S/P Robotic R THAOnset: 20-41-5706Qjzjnmyaxqmb (1 source)Encounter for screening for COVID-19; Translations: [Encounter for screening for COVID-19]Onset: 61-78-1649Ivaelyjicryk (1 source)Encounter for preoperative screening laboratory testing for COVID-19 virus; Translations: [Encounter for preoperative screening laboratory testing for COVID-19 virus]Onset: 02-25-2022 Past or Other Problems Problem ClassificationProblemDateDocumented DateEpisodic/ChronicCardiac dysrhythmias (12 sources)Bradycardia; Translations: [Bradycardia, unspecified]Onset: 03-55-1008IqgzvnfzXbmna valve disorders (11 sources)Heart murmur; Translations: [Cardiac murmur, unspecified]Onset: 63-65-2557CozoigevEacrz aftercare (20 sources)Taking high risk medication; Translations: [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]Onset: 738375-94-4824AoufoipnOyyxq aftercare (20 sources)Long-term current use of anticoagulant; Translations: [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]Onset: 620619-94-8188IdxpdnqxMgrgo screening for suspected conditions (not mental disorders or infectious disease) (20 sources)Encounter for screening for malignant neoplasm of prostate; Translations: [Raised prostate specificantigen]Onset: 85-93-9125Lechvxzc Pulmonary heart disease (20 sources)H/O: pulmonary embolus; Translations: [Personal history of pulmonary embolism]Onset: 07-34-9559GmbhsbgvDswmcmul codes; unclassified (20 sources)Edema; Translations: [Edema, unspecified]Onset: 84-78-790029 Episodic Results Test NameValueInterpretationReference RangeFacilityPATHOLOGY REQUEST FOR LAB CORPon 64-04-6594UIZPCOAPK REQUEST FOR LAB CORPNOMS HealthcareComment on above: See report. Scanned copy available in EMR.GI SPECIMENFIRChildren's Hospital of Philadelphia Pathology Request for Lab Corpon 17-77-8440Nxfipucnf Request for Lab CorpNormal The [facility] Physician GroupComment on above:Order Comment: GI SPECIMENResult Comment: See report. Scanned copy available in EMR. PERFORMED BY: [place] [address] PATHOLOGIST INTERNET MARKETING SPECIALIST KEE LARIOS M.D.Performed By: #### PATH TO [facility] #### [place] [address] USAXR LUMBAR SPINE 6V W BENDINGon 35-77-9938[place] [address] XRay Report Signed Patient: BOB KHANNA MR#: [id number] : 1955 Acct:[id number] Age/Sex: 69 / M ADM Date: 10/01/24 Loc: RAD Attending Dr: JULISSA LAMAR Ordering Physician: JULISSA LAMAR Date of Service: 10/01/24 Procedure(s): XR lumbar spine 6V w bending Accession Number(s): [id number] cc: YURI KUO ; JULISSA LAMAR [place] [id number] Patient Name: BOB KHANNA MRN: [id number] date: 1955 Sex: M Assigned Patient Location: RAD Current Patient Location: RAD Accession/Order Number: [id number] Exam Date: 10/01/2024 11:39 Report Date: 10/01/2024 [...] Vera M.D. 10/01/2024 11:42 AM Dictation Location: [place] [address] Electronically authenticated by: [id number] Y Date: 10/01/2024 11:42 Dictated By: Brenda Vera M.D. Signed By: 10/01/24 1144 DD/ 1142 TD/TT: Meat Boner:TBHRadiology, Radiologist, MD - 10/01/2024 [place] [address] XRay Report Signed Patient: BOB KHANNA MR#: [id number] : 1955 Acct:[id number] Age/Sex: 69 / M ADM Date: 10/01/24 Loc: [facility] Attending Dr: JULISSA LAMAR Ordering Physician: JULISSA LAMAR Date of Service: 10/01/24 Procedure(s): XR lumbar spine 6V w bending Accession Number(s): [id number] cc: YURI KUO SHERRI The [address] [address] Patient Name: BOB KHANNA MRN: [id number] date: 1955 Sex: M Assigned Patient Location: RAD Current Patient Location: RAD Accession/Order Number: [id number] Exam Date: 10/01/2024 11:39 Report Date: 10/01/2024 [...] Vera M.D. 10/01/2024 11:42 AM Dictation Location: [place] [address] Electronically authenticated by: [id number] Y Date: 10/01/2024 11:42 Dictated By: Brenda Vera M.D. Signed By: 10/01/24 1144 DD/ 1142 TD/TT: Meat Boner: LANI HealthcareRadiology Study observation (narrative)NOM HealthcareXR LUMBAR SPINE 6V W BENDINGOrdered By: Radiologist Radiology on 62-85-2692[facility] Work Phone: Outside Recordson 16-53-4337Ycvwlhj Records [id number]#1.00OTGTDo[facility] Hospital Outside [id number]#1.00OTGTVan Wert County HospitalOutside Records [id number]#1.00OTGTDoctors HospitalCBC (INCLUDES DIFF/PLT)on 56-64-2687Vyeuidcbg (Bld) [#/Vol]0.029 10*3/uLNormal0-200 [facility] DiagnosticsComment on above:Performed By: #### 6399, 14319, 7600 #### [facility] of [address], [address] [place] [address] Drencher: Azael Hopkins MDBasophils/100 WBC (Bld)0.8 %NormalQuest DiagnosticsComment on above:Performed By: #### 6399, 92320, 7600 #### [facility] of [address], [address] [place] [address] Drencher: Azael Hopkins MDEosinophils (Bld) [#/Vol]0.05 10*3/uLNormal 15-500Quest DiagnosticsComment on above:Performed By: #### 6399, 23806, 7600 #### [facility] of [address], [address] [place] [address] Drencher: Azael DOMINGUEZosinophils/100 WBC (Bld)1.4 %NormalQuest DiagnosticsComment on above:Performed By: #### 6399, 91174, 7600 #### [facility] [place] [address] Drencher: Azael Hopkins MDErythrocyte distribution width (RBC) [Ratio] 13.1 %Gkqsvy82.0-15.0Quest DiagnosticsComment on above:Performed By: #### 6399, 37023, 7600 #### [facility] of [place] [address] Drencher: Azael Hopkins MDHematocrit (Bld) [Volume fraction]45.1 %Normal 38.5-50.0Quest DiagnosticsComment on above:Performed By: #### 6399, 64010, 7600 #### [facility] of [place] [address] Drencher: Azael Hopkins MDHemoglobin (Bld) [Mass/Vol]15.1 g/dLNormal 13.2-17.1Quest DiagnosticsComment on above:Performed By: #### 6399, 71793, 7600 #### [facility] of [address], [address] [place] [address] Drencher: Azael Hopkins MDLymphocytes (Bld) [#/Vol]1.667 10*3/uLNormal 850-3900Quest DiagnosticsComment on above:Performed By: #### 6399, 03589, 7600 #### [facility] of [address], [address] [place] [address] Drencher: Azael Hopkins MDLymphocytes/100 WBC (Bld)46.3 %NormalQuest DiagnosticsComment on above:Performed By: #### 6399, 49590, 7600 #### [facility] [address], [address] [place] [address] Drencher: Azael Hopkins MDMCH (RBC) [Entitic mass]29.4 mwAjukbw23.0-33.0 [facility] DiagnosticsComment on above:Performed By: #### 6399, 88339, 0 #### [facility] [place] [address] Drencher: Azael Hopkins MDMCHC (RBC) [Mass/Vol]33.5 g/xTPuhzjv37.0-36.0 [facility] DiagnosticsComment on above:Result Comment: For adults, a slight decrease in the calculated MCHC value (in the range of 30 to 32 g/dL) is most likely not clinically significant; however, it should be interpreted with caution in correlation with other red cell parameters and the patient's clinical condition.Performed By: #### 6399, 26524, 7600 #### [facility] of [place] [address] Drencher: Azael Hopkins MDMCV (RBC) [Entitic vol]87.9 qPJolofl12.0-100.0 [facility] DiagnosticsComment on above:Performed By: #### 6399, 26217, 7600 #### [facility] of [address], [address] [place] [address] Drencher: Azael Hopkins MDMonocytes (Bld) [#/Vol]0.389 10*3/uLNormal 200-950Quest DiagnosticsComment on above:Performed By: #### 6399, 32317, 7600 #### [facility] of [address], [address] [place] [address] Drencher: Azael Hopkins MDMonocytes/100 WBC (Bld)10.8 %NormalQuest DiagnosticsComment on above:Performed By: #### 6399, 55994, 7600 #### [facility] of [address], [address] [place] [address] Drencher: Azael Hopkins MDNeutrophils (Bld) [#/Vol]1.465 10*3/uLLow 1500-7800Quest DiagnosticsComment on above:Performed By: #### 6399, 43173, 7600 #### [facility] of [address], [address] [place] [address] Drencher: Azael Hopkins MDNeutrophils/100 WBC (Bld)40.7 %NormalQuest DiagnosticsComment on above:Performed By: #### 6399, 84816, 7600 #### [facility] of [address], [address] [place] [address] Drencher: Azael Hopkins MDPlatelet mean volume (Bld) [Entitic vol]10.4 fLNormal7.5-12.5Quest DiagnosticsComment on above:Performed By: #### 6399, 28882, 7600 #### [facility] of [address], [address] [place] [address] Drencher: Azael Hopkins MDPlatelets (Bld) [#/Vol]266 10*3/uLNormal 140-400Quest DiagnosticsComment on above:Performed By: #### 6399, 02466, 7600 #### [facility] of [address], [address] [place] [address] Drencher: Azael Hopkins MDRBC ([facility]) [#/Vol]5.13 10*6/uLNormal4.20-5.80 [facility] DiagnosticsComment on above:Performed By: #### 6399, 79434, 7600 #### [facility] of [address], [address] [place] [address] Drencher: Azael Hopkins MDKALEIDA HEALTH ([facility]) [#/Vol]3.6 10*3/uLLow3.8-10.8Quest DiagnosticsComment on above:Performed By: #### 6399, 69176, 7600 #### [facility] of [place] [address] Drencher: Azael Hopkins MDCOMPREHENSIVE METABOLIC PANELon 06-17-2024 Albumin [Mass/Vol]4.9 g/dLNormal3.6-5.1Quest DiagnosticsComment on above: Performed By: #### 6399, 97739, 7600 #### [facility] of [place] [address] Drencher: Azael Hopkins MDAlbumin/Globulin [Mass ratio]1.8 {ratio}Normal 1.0-2.5Quest DiagnosticsComment on above:Performed By: #### 6399, 70030, 7600 #### [facility] of [place] [address] Drencher: Azael Hopkins MDALP [Catalytic activity/Vol]52 U/NAvwepr57-517 [facility] DiagnosticsComment on above:Performed By: #### 6399, 88783, 7600 #### [facility] of [place] [address] Drencher: Azael Hopkins MDALT [Catalytic activity/Vol]21 U/LNormal9-46 [facility] DiagnosticsComment on above:Performed By: #### 6399, 10370, 7600 #### [facility] of [address], [address] [place] [address] Drencher: Azael Hopkins MDAST [Catalytic activity/Vol]17 U/QRlekgc71-60 [facility] DiagnosticsComment on above:Performed By: #### 6399, 53548, 7600 #### [facility] of [address], [address] [place] [address] Drencher: Azael Hopkins MDBilirubin [Mass/Vol]0.9 mg/dLNormal0.2-1.2 [facility] DiagnosticsComment on above:Performed By: #### 6399, 68208, 7600 #### [facility] of [address], [address] [place] [address] Drencher: Azael Hopkins MDBUN/CREATININE RATIOSEE NOTE:Normal6-22Quest DiagnosticsComment on above:Result Comment: Not Reported: BUN and Creatinine are within reference range.Performed By: #### 6399, 72633, 7600 #### [facility] of [address], [address] [place] [address] Drencher: Azael Hopkins MDCalcium [Mass/Vol]9.3 mg/dLNormal8.6-10.3Quest DiagnosticsComment on above:Performed By: #### 6399, 01832, 7600 #### [facility] of [address], [address] [place] [address] Drencher: Azael Hopkins MDChloride [Moles/Vol]103 mmol/LDfnuhp17-885 [facility] DiagnosticsComment on above:Performed By: #### 6399, 05306, 7600 #### [facility] of [address], [address] [place] [address] Drencher: Azael Hopkins MDCO2 [Moles/Vol]27 mmol/IXvsomm73-23Xgvhb DiagnosticsComment on above:Performed By: #### 6399, 87768, 7600 #### [facility] of [address], [address] [place] [address] Drencher: Azael Hopkins MDCreatinine [Mass/Vol]1.05 mg/dLNormal0.70-1.35 [facility] DiagnosticsComment on above:Performed By: #### 6399, 86072, 7600 #### [facility] [place] [address] Drencher: Azael Hopkins MDGFR/1.73 sq M.predicted among non-blacks MDRD (S/P/Bld) [Vol rate/Area]78 mL/min/{1.73_m2}Normal> OR = 60[facility] Comment on above:Performed By: #### 6399, 46758, 0 #### [facility] [place] [address] Drencher: Azael Hopkins MDGlobulin (S) [Mass/Vol]2.8 g/dLNormal1.9-3.7 [facility] DiagnosticsComment on above:Performed By: #### 6399, 16756, 0 #### [facility] [place] [address] Drencher: Azael Hopkins MDGlucose [Mass/Vol]94 mg/wITyarnk01-87Drnuy DiagnosticsComment on above:Result Comment: Fasting reference intervalPerformed By: #### 6399, 90835, 7600 #### [facility] [place] [address] Drencher: Azael Hopkins MDPotassium [Moles/Vol]4.9 mmol/LNormal3.5-5.3 [facility] DiagnosticsComment on above:Performed By: #### 6399, 56526, 7600 #### [facility] [place] [address] Drencher: Azael Hopkins MDProtein [Mass/Vol]7.7 g/dLNormal6.1-8.1Quest DiagnosticsComment on above:Performed By: #### 6399, 49023, 7600 #### [facility] [place] [address], [address] [place] [address] Drencher: Azael BUSHodium [Moles/Vol]141 mmol/ILmrcvl927-898Udrlo DiagnosticsComment on above:Performed By: #### 6399, 31797, 7600 #### [facility] [address], [address] [place] [address] Drencher: Azael Hopkins MDUrea nitrogen [Mass/Vol]13 mg/dLNormal7-25 [facility] DiagnosticsComment on above:Performed By: #### 6399, 80600, 7600 #### [facility] [address], [address] [place] [address] Drencher: Azael Hopkins MDLIPID PANEL, STANDARD 97-67-2713Xjtempoufdy [Mass/Vol]165 mg/dLNormal<200Quest DiagnosticsComment on above:Order Comment: FASTING:YES FASTING: YESPerformed By: #### 6399, 24891, 7600 #### [facility] [address], [address] [place] [address] Drencher: Azael Hopkins MDCholesterol in HDL [Mass/Vol]52 mg/dLNormal> OR = 40Quest DiagnosticsComment on above:Order Comment: FASTING:YES FASTING: YESPerformed By: #### 6399, 51928, 7600 #### [facility] [address], [address] [place] [address] Drencher: Azael Hopkins MDCholesterol in LDL [Mass/Vol]98 mg/dLNormal [...] LDL-C. Fadi PHAM et al. ERNESTINE. 2013;310(19): 9255-5243 (http://education.AkeLex/faq/SUI571)Performed By: #### 6399, 39884, 7600 #### [facility] [address], [address] [place] [address] Drencher: Azael PERSONholesterol.total/Cholesterol in HDL [Mass ratio]3.2 {ratio}Normal<5.0Quest DiagnosticsComment on above:Order Comment: FASTING:YES FASTING: YESPerformed By: #### 6399, 48507, 7600 #### [facility] [address], [address] [place] [address] Drencher: Azael SANDRA HDL PRMYJESZWAR886 mg/dL (calc)Normal<130 [facility] DiagnosticsComment on above:Order Comment: FASTING:YES FASTING: YESResult Comment: For patients with diabetes plus 1 major ASCVD risk factor, treating to a non-HDL-C goal of <100 mg/dL (LDL-C of <70 mg/dL) is considered a therapeutic option.Performed By: #### 6399, 07591, 7600 #### [facility] [address], [address] [place] [address] Drencher: Azael Hopkins MDTriglyceride [Mass/Vol]63 mg/dLNormal<150Quest DiagnosticsComment on above:Order Comment: FASTING:YES FASTING: YESPerformed By: #### 6399, 11480, 7600 #### [facility] [address], [address] [place] [address] Drencher: Azael Hopkins MDMAGR Intraoperative Recordon 56-24-9631IALQ Intraoperative RecordMAGR Intra-Op Record Summary Primary Physician: Martinez Herrera MD Finalized Date/Time: 06/17/24 08:58:31 Pt. Name: BOB KHANNA/Sex: 1955 MALE Med Rec #: [id number] Physician: Martinez Herrera MD Financial #: [id number] Pt. Type: D Room/Bed: / Admit/Disch: 05/29/24 [...] Role Performed Surgeon - Primary Anesthesiologist of Linux Unix System Administrator Record Time In 05/29/24 09:38:00 05/29/24 09:27:00 05/29/24 09:27:00 Time Out 05/29/24 09:46:00 05/29/24 09:51:00 05/29/24 09:51:00 Procedure Biopsy Prostate Biopsy Prostate Biopsy Prostate Last Modified By: Sabiha Ross RN, Diane RN Kokinda, Diane RN 05/29/24 09:51:06 05/29/24 09:51:06 05/29/24 09:51:06 Entry 4 Entry 5 Entry 6 Case Attendee Brenda Hughes RN, Denia JOURNAL CLERK Yvan, Annie Villasenor JOURNAL CLERK CSFA Role Performed Linux Unix System Administrator Scrub Personnel Library Monitor Time In 05/29/24 09:27:00 05/29/24 09:27:00 05/29/24 [...] 09:39:00 Participants Martinez Herrera MD, Denia Mathew JOURNAL CLERK, Annie Santoro JOURNAL CLERK CSFA, Sabiha Ross RN, Brenda Hughes RN [...] positioning Cultures and Specimens (more content not included)...[facility] W/REFLEX TO FT4on 99-98-4987WRQ W/REFLEX TO FT40.79 mIU/LNormal0.40-4.50Quest DiagnosticsComment on above:Performed By: #### 6399, 02690, 7600 #### [facility] [address], [address] [place] [address] Drencher: Azael Hopkins MDCoding Summaryon 48-74-7942Nlmpxx Summary HTMLBase 64 LijbiihzMSk1dZp+PGhlYWQ+PY8XZLSoW31pjPRjcH3kG8IVZZuYHvojKAVDCBxISjTlpaRfOJ3hcXYe ZXJu [file] bGF (more content not included)...[facility] - AP Resultson 48-21-1780Ofg - AP [id number]#1.00OTGTIFF [facility] HospitalPathology Sendout Teston 74-25-6624Ftxlxbabc Send Out.See [facility] CenterComment on above:Performed By: #### [id number] #### [facility] (DEFAULT) [address] [place] [address] 51402Syzqfrtqo Send Out.See [facility] Comment on above:Performed By: #### [id number] #### [facility] (DEFAULT) [address] [place] [address] 42907Sijulpzmx Send Out.See [facility] Comment on above:Performed By: #### [id number] #### [facility] (DEFAULT) [address] [place] [address] 29023Xpyhxalij Send Out.See [facility] Comment on above:Performed By: #### [id number] #### [facility] (DEFAULT) [address] [place] [address] 62605Oiqhnircb Send Out.See [facility] Comment on above:Performed By: #### [id number] #### [facility] (DEFAULT) [address] [place] [address] 10335Wbfqpcekb Send Out.See [facility] Comment on above:Order Comment: AREA OF INTEREST #2 PROSTATE BIOPSY - CONTAINER #14Performed By: #### [id number] ####[facility] (DEFAULT)[address] [place] [address] 13430Tknlrdwmt Send Out.See [facility] Comment on above:Order Comment: AREA OF INTEREST #1 PROSTATE BIOPSY - #13 CONTAINERPerformed By: #### [id number] #### [facility] (DEFAULT) [address] [place] [address] 68790Qmstiqvze Send Out.See [facility] Comment on above:Performed By: #### [id number] #### [facility] (DEFAULT) [address] [place] [address] 05618Irbpjedsz Send Out.See [facility] Comment on above:Performed By: #### [id number] #### [facility] (DEFAULT) [address] [place] [address] 64770Euezxtxrc Send Out.See [facility] Comment on above:Performed By: #### [id number] #### [facility] (DEFAULT) [address] [place] [address] 73373Npexoqycy Send Out.See [facility] Comment on above:Performed By: #### [id number] #### [facility] (DEFAULT) [address] [place] [address] 89895Bbowwtqmo Send Out.See [facility] Comment on above:Performed By: #### [id number] #### [facility] (DEFAULT) [address] [place] [address] 72501Cvjehtgyr Send Out.See [facility] Comment on above:Performed By: #### [id number] ####[facility] (DEFAULT)[address] [place] [address] 99651Cccvrdoyw Send Out.See Cleveland ClinicComment on above:Performed By: #### [id number] #### [facility] (DEFAULT) [address] [place] [address] 43924Razuvpm Formson 78-63-1848Quhccxq Forms [id number]#1.00[facility] Consultation/Specialist Noteon 96-87-7577Qgccneidmwtb/Specialist Note [id number]#1.00[facility] Outside Recordson 95-77-9778Jvkweej Records [id number]#1.00[facility] Provider Orderson 29-88-5014Phpfdmhr Orders [id number]#1.00[facility] Anesthesia Noteon 89-02-7156Dtlyfmupwu NotePatient: BOB KHANNA Age: 68 years Sex: MALE : 1955 Associated Diagnoses: None Author: Hal Verma MD Postoperative Information Anesthetic utilized: Monitored anesthesia care. Assessment Anesthetic outcome No anesthetic complications noted. Plan Transfer/ Discharge: Patient can be discharged from PACU when criteria met. Condition good. [Electronically Signed on: 05/29/2024 09:51 EDT] Hal Verma MD [Verified on: 05/29/2024 09:51 EDT] Hal Verma MDCleveland Clinic Marymount HospitalAnesthesia NotePatient: BOB KHANNA Age: 68 years Sex: [...] list: All Problems Bradycardia / SNOMED CT 99535135 / Confirmed Factor V Leiden, prothrombin gene mutation / SNOMED CT 3986141713 / Confirmed Hypertension / SNOMED CT 8933873996 / Confirmed Histories Family History: No family history items have been selected or recorded. Procedure history: Arthroplasty of right knee (0279201940). Arthroscopy of knee (926187509). Comments: 05/14/2024 8:59 Latonia Hager RN right H/O: vasectomy (031877404). Thumb (236864799). Knee (885876764). Comments: 05/14/2024 8:59 Latonia Hager RN left knee surgery x2 d/t birht defect Tonsillectomy and adenoidectomy (102225869). Arthroplasty of right hip (1156687827). Big toe (056606042). Comments: 05/14/2024 9:00 Latonia Hager RN left Colonoscopy (222083245). Cardiac catheterization (65862456). Social History Electronic Cigarette/Vaping Assessment Electronic Cigarette [...] Oriented. Review / Management Laboratory Results Plan [place] Society of Anesthesiologists (ASA) physical status classification: Class II. Anesthetic Preoperative Plan Anesthesia: Monitored anesthesia care. Anesthetic plan, risks, benefits, and alternatives discussedwith the patient and/or family. Patient verbalized understanding. Informed consent was given. Anesthetic technique: Monitored anesthesia care. [Electronically Signed on: 05/29/2024 09:13 EDT] Hal Verma MD [Verified on: 05/29/2024 09:13 EDT] Hal Verma MDCleveland Clinic Marymount HospitalInpatient Patient Summaryon 05-29-2024 [place] [address] Patient Discharge Instructions Name: BOB KHANNA A : 1955 Patient Address: [address] [place] [address] Primary Care Provider: Name: YURI KUO After you are discharged if you find you have any questions, please, call [phone] ext [phone] to speak to a nurse. Discharge Diagnosis: 1:Elevated PSA Prescription Information: If you have been given a prescription for narcotics, seek immediate medical attention if you have any difficulty breathing or any sudden status changes such as confusion andsleepiness. If you or anyone you know is experiencing suicidal thoughts, mental health, alcohol and/or drug addiction problems; contact the [facility] 09/10 Crisis Hotline -Text 4HGAT to 363922. If you received any narcotics, sedation, or [...] or sign any legal documents [facility] would like to thank you [...] Centers for Disease Control and Prevention November 2013[facility] MAGR Postoperative Recordon 52-81-4604KZLQ Postoperative RecordMAGR Phase II Record Summary Primary Physician: Martinez Herrera MD Finalized Date/Time: 05/29/24 13:25:30 Pt. Name: CLEMENCIABOB./Sex: 1955 MALE Med Rec #: [id number] Physician: Martinez Herrera MD Financial #: [id number] Pt. Type: D Room/Bed: / Admit/Disch: 05/29/24 [...] Signatures Signed By: Demetra Chapin RN 05/29/24 13:25[facility] Preoperative Recordon 17-41-2265CNUI Preoperative RecordMAGR Pre-Op Record Summary Primary Physician: Martinez Herrera MD Finalized Date/Time: 05/29/24 09:32:38 Pt. Name: BOB KHANNA Niall Fiore./Sex: 1955 MALE Med Rec #: [id number] Physician: Martinez Herrera MD Financial #: [id number] Pt. Type: D Room/Bed: / Admit/Disch: 05/29/24 [...] consent correct. General Comments: Pt arrives to [facility] ambulatory. PT denies cp, sob, cough or flu like symptoms. PT denies pacemaker/defibillator or sleep apnea. Finalized By: Brenda Hughes RN Document Signatures Signed By: Brenda Hughes RN 05/29/24 09:32[facility] HospitalPathology Request for Lab Corpon 94-73-4267Kshmgmbrt Request for Lab CorpOrlando Health [facility] Room [facility] Lake Mary Physician GroupComment on above:Order Comment: PATH SPECIMEN- PROSTATE BIOPSYResult Comment: See report. Scanned copy available in EMR. PERFORMED BY: [place] [id number] PATHOLOGIST INTERNET MARKETING SPECIALIST NICOLE GUERRA M.D.Performed By: #### PATH TO [facility] #### [place] [id number] USAPatient Handouton 43-86-6692Sffnrkk HandoutNoOhioHealth Doctors HospitalProgress Note - Nurseon 79-53-5772Amzsvgot Note - NursePre-op call for 05-29-2024 surgery made. Pt denies sickness. Pt given arrival time of 0715 tomorrow.Pt reminded of NPO status after midnight except for any meds that he was instructed to take including oral antibiotic. Pt states he started his oral antibiotic today. 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 [Electronically Signed on: 05/28/2024 10:56 EDT] Saloni Bauer RN [Verified on: 05/28/2024 10:56 EDT] Saloni Bauer RNNoProMedica Toledo Hospital HospitalCoding Summaryon 61-03-5896Raseui Summary HTMLBase 64 MnvvyixpKDi6cLs+PGhlYWQ+ZD4OIICpE55jqNRdbZ8pS7XMHOoLKqckXJUZLOdXFuXyjdDmEY7cmRTw ZXJu [file] bGx (more content not included)...[facility] HospitalProgress Note - Nurseon 49-29-2268Bimabkss Note - NurseDr Nain box pt chart and no new orders were received. [Electronically Signed on: 05/15/2024 10:38 EST] Latonia Carrington RN [Verified on: 05/15/2024 10:38 EST] Latonia Carrington RNNormalOhiohealth Grady Memorial Hospital Hospital.Auto Diff 1on 32-41-6875Lgau [place] %10 %Normal1-12Magruder HospitalComment on above:Performed By: #### 7666080, 33675645, [id number] ####[facility] (DEFAULT)[address] [place] [address] 35719Clpd Abs#0.1 b68Tqbbef6.0-0.2[facility]uder HospitalComment on above: Performed By: #### 8216395, 36097199, [id number] ####[facility] (DEFAULT)[address] [place] [address] 58749Fvymgwaox/100 WBC (Bld)1.2 % Normal0.2-2.0[facility]uder HospitalComment on above:Performed By: #### 7217475, 68487001, [id number] ####[facility] (DEFAULT)[address] [place] [address] 03495Xnp Abs#0.1 v08Gajriv0.0-0.4Mag[facility]uder HospitalComment on above: Performed By: #### 7904736, 90206220, [id number] ####[facility] (DEFAULT)[address] [place] [address] 43973Cxfivoecjbx/100 WBC (Bld)1.3 % Normal0.9-4.0[facility]uder HospitalComment on above:Performed By: #### 1542624, 94359842, [id number] ####[facility] (DEFAULT)[address] [place] [address] 06206Codoy Abs#1.7 l93Ymmykm1.3-2.9[facility]uder HospitalComment on above:Performed By: #### 4937042, 09102419, [id number] ####[facility] (DEFAULT)[address] [place] [address] 15617Zprqpmfdrxv/100 WBC (Bld)38 % Zfwzuc24-97Svzoyoqs HospitalComment on above:Performed By: #### 4420066, 53161340, [id number] ####[facility] (DEFAULT)[address] [place] [address] 47465Dvxo Abs#0.4 f22Vfrbkf9.0-0.8[facility] HospitalComment on above: Performed By: #### 8310824, 86571113, [id number] ####[facility] (DEFAULT)[address] [place] [address] 43788Xhfs Abs#2.2 d08Pupkkc2.5-9.2 [facility] HospitalComment on above:Performed By: #### 0116148, 83884757, 4411753331 ####[facility] (DEFAULT)[address] [place] [address] 64726Xbcgkbdhrpc/100 WBC (Bld)50 %Safkvy99-60Eunhldrd HospitalComment on above: Performed By: #### 0848161, 64275708, [id number] ####[facility] (DEFAULT)[address] [place] [address] 8504935an 95-85-769071Jxnlilbs hospital request last office note from January for upcoming surgery. Faxed office noted to [phone].[facility] HospitalBMP Standardon 71-29-0829fHEU Non AA>60Invalid Interpretation [facility] Hospital Comment on above:Performed By: #### 9693387, 78939160, [id number] ####[facility] (DEFAULT)[address] [place] [address] 66296xTDL AA>60Invalid Interpretation [facility] HospitalComment on above:Performed By: #### 0002161, 03229647, [id number] ####[facility] (DEFAULT)[address] [place] [address] 30904Kxslx gap [Moles/Vol]13.4 mmol/LNormal5.0-19.0[facility] Comment on above:Performed By: #### 6574979, 69368846, [id number] ####[facility] (DEFAULT)[address] [place] [address] 32006Elqukju [Mass/Vol]9.4 mg/dLNormal8.9-10.3Mmetrohealth cleveland heights medical center HospitalComment on above:Performed By: #### 6375614, 39319757, [id number] ####[facility] (DEFAULT)[address] [place] [address] 06062Xassnlis [Moles/Vol]102 mmol/QXgtzgi522-682[facility] Comment on above:Performed By: #### 8182737, 76022712, 4592812946 ####[facility] (DEFAULT)[address] [place] [address] 89998PY3 [Moles/Vol]27 mmol/DMfphee53-77Askmrqko HospitalComment on above:Performed By: #### 3543988, 99857749, [id number] ####[facility] (DEFAULT)[address] [place] [address] 25557Ybtayqwpon [Mass/Vol]1.00 mg/dLNormal0.90-1.30[facility] Comment on above:Performed By: #### 1532999, 23971068, [id number] ####[facility] (DEFAULT)[address] [place] [address] 27740Jhxwzls [Mass/Vol]103.0 mg/eHJhdiqj34.0-118.0[facility] Medical CenterComment on above:Performed By: #### 1568997, 85437199, [id number] ####[facility] (DEFAULT)[address] [place] [address] 02287Mcvurykphl968 mOsm/LInvalid Interpretation Code [facility] Medical CenterComment on above:Performed By: #### 8425639, 71100444, [id number] ####[facility] (DEFAULT)[address] [place] [address] 11758Psjuvtqsd [Moles/Vol]4.4 mmol/LNormal3.6-5.1Mmetrohealth clevel[facility] heights medical center HospitalComment on above:Performed By: #### 8753285, 51870480, 2250356092 ####[facility] (DEFAULT)[address] [place] [address] 09206Buluin [Moles/Vol]138.0 mmol/L Vunwem853.0-144.0[facility] HospitalComment on above:Performed By: #### 2268209, 98822937, [id number] ####[facility] (DEFAULT)[address] [place] [address] 20290Mzeg nitrogen [Mass/Vol]13 mg/dLNormal8-26[facility] Hospital Comment on above:Performed By: #### 2559316, 08821206, [id number] ####[facility] (DEFAULT)[address] [place] [address] 19959Tpxc nitrogen/Creatinine [Mass ratio]13.0 mg/mgNormal4.6-16.2Mmetrohealth clevel[facility] heights medical center HospitalComment on above:Performed By: #### 4992463, 72417403, [id number] ####[facility] (DEFAULT)[address] [place] [address] 85154LHG w/ Auto Diffon 05-14-2024 Erythrocyte distribution width (RBC) [Ratio]14.5 %Dbxdzz59.5-15.0[facility] HospitalComment on above:Performed By: #### 2880061, 67405743, [id number] ####[facility] (DEFAULT)[address] [place] [address] 62728Fumkkyngkz (Bld) [Volume fraction]45.6 %Ypmabp32.8-51.9Maparkview health montpelier hospital HospitalComment on above: Performed By: #### 6390137, 68055203, 2120696368 ####[facility] (DEFAULT)[address] [place] [address] 47190Dzvpdyrkua (Bld) [Mass/Vol]15.6 g/jGWprrvv34.8-17.7[facility] HospitalComment on above:Performed By: #### 2231181, 86838282, 3048953574 ####[facility] (DEFAULT)[address] [place], [place] [address]Man Diff?AutoInvalid Interpretation CodeOhiohealth Grady Memorial Hospital Hospital Comment on above:Performed By: #### 4277378, 22848947, [id number] ####[facility] (DEFAULT)[address] [place], [place] [address]H (RBC) [Entitic mass]30 vcRpbggb22-21Jkyfalcu HospitalComment on above:Performed By: #### 9188830, 01756607, [id number] ####[facility] (DEFAULT)[address] [place], [place] [address]HC (RBC) [Mass/Vol]34 g/xVNefyqu41-78Xrktbnhv HospitalComment on above:Performed By: #### 2756427, 04696365, [id number] ####[facility] (DEFAULT)[address] [place], [place] [address]V (RBC) [Entitic vol]88 nWHlmvar42-471Lixmuyrf HospitalComment on above:Performed By: #### 4565322, 94228191, 5238651018 ####[facility] (DEFAULT)[address] [place] [address] 76912Jkqrrnnk893 q68Gmdeww403-059Ekpxclks HospitalComment on above:Performed By: #### 9310425, 61268223, 8971059222 ####[facility] (DEFAULT)[address] [place] [address] 41935Niwbbqdc mean volume (Bld) [Entitic vol]8.5 fLNormal6.3-10.2Magrmagruder hospital HospitalComment on above:Performed By: #### 8385936, 28079898, [id number] ####[facility] (DEFAULT)[address] [place] [address] 25471OSI2.17 x87Reinkf2.70-5.30[facility] HospitalComment on above:Performed By: #### 5363829, 02314369, [id number] ####[facility] (DEFAULT)[address] [place], [place] [address]ZBY7.4 e93Pfmwks8.5-10.5[facility] Medical CenterComment on above:Performed By: #### 3418355, 98703844, 0773122359 ####[facility] (DEFAULT)[address] [place], [place] [address]Eencjkdple (Bld) [Mass/Vol]Ordered By: Martinez Herrera on 12-46-9864Oqmrnsxhri [Mass/Vol]Whole blood creatinine measurement0.6-1.3FDayton Osteopathic HospitalComment on above:ER/ESD physician is notified/shown all ISTAT results.Critical values may be confirmed by laboratorytesting ifdeemed necessary by ER attending doctor. ISTAT XRay CREon 31-63-8223Dvxduycibv [Mass/Vol]0.9 mg/dLNormal0.6-1.3[facility] Physician GroupComment on above:Result Comment: ER/ESD physician is notified/shown all ISTAT results. Critical values may be confirmed by laboratory testing if deemed necessary by ER attending doctor.Performed By: #### ISCRE #### [facility] [address] [place] [address] USAISTAT GFR>60.0NormalThe [facility] Physician GroupComment on above:Result Comment: PERFORMED BY: [place] [address] PATHOLOGIST INTERNET MARKETING SPECIALIST NICOLE GUERRA M.D.Performed By: #### ISCRE #### [facility] [address] [place], [place] [address] USAMR prostate wo/w conon 94-68-3866RQ prostate wo/w con [facility] Main [place] [id number] MRI Report Signed Patient: Bob Khanna MR#: [id number] : 1955 Acct:[id number] Age/Sex: 68 / M ADM Date: 03/31/24 Loc: MR Room: Type: [facility] Attending Dr: Martinez Herrera MD Copies [...] 12:59 PM Dictation Location: RADIO-PC-19 Transcribed By: [facility] 03/31/24 1259 Dictated By: Bobby Durand Jr, DO 03/31/24 1255 Signed By: 03/31/24 1259[facility] Physician GroupIdgnetic resonance imaging reportOrdered By: Bobby Durand on 62-88-1085Dcasf reportSELECT [facility]ICAL SPECIAL[facility] [place] [address] MRI Report Signed Patient: Bob Khanna MR#: [id number] : 1955 Acct:[id number] Age/Sex: 68 / M ADM Date: 5 Loc: Room: Type: [facility] Attending Dr: Martinez Herrera MD Copies [...] Durand Jr., D.OVerenice03/31/2024 12:59 PM Dictation Location: [facility]-PC-19 Transcribed By: [place] 03/31/24 1259 Dictated By: Bobby Durand Jr, DO 03/31/24 1255 Signed By: 03/31/24 1259 [facility] HospitalNo Panel InformationOrdered By: Martinez Herrera on 93-18-7765Zckmarw Estimated GFR (eGFR)> 60.0[facility] Office [place] 94-11-2991Uwvelr-up [id number] ClemenciaBob Teirney 1955 Date Provider Department Center 02/06/2024 [place] Family History Problem Relation Age of Onset Atrial fibrillation Mother Heart failure Mother Family Status - Relation Status Age at Mother Level of Service:39974 ND OFFICE/OUTPATIENT ESTABLISHED MOD MDM 30 MINNoMetroHealth Main Campus Medical CenterMHPT PSA, DIAGNOSTICon 01-24-2024 Interpretation and review of laboratory resultsAbnoWilkes-Barre General HospitalPROSTATE SPECIFIC ANTIGEN DX5.94 ng/mLHighNINF - 4.00 ng/mLNOMS HealthcareCLINISYNOMS Vjonbjkrmd75iw 57-75-395117Zvyvuwfrk lab results from 09/14/2023: YOMAIRA Cruz MA [...] and made an apt for the elevated PSA.NormalUnUniversity Hospitals Samaritan Medical CenterOffice Visiton 45-60-0383Rueojp-up [id number] [place] CityBob [place] 1955 Date Provider Department Center 09/11/2023 [place] CONROY Family History Problem Relation Age of Onset Atrial fibrillation Mother Heart failure Mother Family Status - Relation Status Age at Mother Level of Service:27093 ND OFFICE/OUTPATIENT ESTABLISHED MOD MDM 30 MIN Reason for Visit and Comments: Hypertension [180351] Coronary Artery Disease [187] Hyperlipidemia [182]NormalUnUniversity Hospitals Samaritan Medical CenterOffice Visiton 13-96-7674Qawexw-up [id number] Bob Khanna A 1955 Date Provider Department Center 06/07/2023 PASQUAEL CONROY Family History Problem Relation Age of Onset Atrial fibrillation Mother Heart failure Mother Family Status - Relation Status Age at Mother Level of Service:28112 ND OFFICE/OUTPATIENT ESTABLISHED MOD MDM 30 MIN Reason for Visit and Comments: PVCs [Other] Coronary Artery Disease [187]NormalSumma Health Wadsworth - Rittman Medical CenterCNOVon 69-79-4992SUTRMlekqm Visit (SOPHIEBABATUNDE) BOB KHANNA ([id number]) 1955 M Date Time Provider Department 03/14/22 [...] swelling, drainage, shortness of breath Rafael Mejia APRN.MAIN LINE STATION ENGINEER Orthopaedic Surgery Referring Provider: SELF [200] Allergies [...] 02/08/2022 Encounter Status:Closed by RAFAEL MEJIA on 03/15/22[facility]XR HIP 2V AP/LAT RTon 85-93-1482TP HIP 2V AP/LAT RT* * *Final Report* [...] seen. IMPRESSION: Stable right total hip arthroplasty Meat Boner: RADHA Transcribe Date/Time: Mar 14 2022 4:28P Dictated by : SOULEYMANE KWON DO This examination was interpreted and the report reviewed and electronically signed by: SOULEYMANE KWON DO on Mar 14 2022 4:28PM EST [id number] HospitalXR Hip - right AP and Lateralon 04-52-4756HQLWFZDRZT: Stable right total hip arthroplasty Meat Boner: PSCBrandon Transcribe Date/Time: Mar 14 2022 4:28P Dictated by : SOULEYMANE KWON DO This examination was interpreted and the report reviewed and electronically signed by: SOULEYMANE KWON DO on Mar 14 2022 4:28PM EST [facility]* * *Final Report* * * DATE [...] well-preserved. No fractures or dislocations are seen. [facility]Provider, [facility] [place] - 03/14/2022 * * *Final Report* * [...] IMPRESSION IMPRESSION: Stable right total hip arthroplasty Meat Boner: PSCB Transcribe Date/Time: Mar 14 2022 4:28P Dictated by : SOULEYMANE KWON DO This examination was interpreted and the report reviewed and electronically signed by: SOULEYMANE KWON DO on Mar 14 2022 4:28PM [facility] DaytonRadiology Study observation (narrative)[facility] HospitalXR Hip - right AP and LateralOrdered By: Ccf Provider on 90-84-0071Fbyodzoqi ClinicCNPNon 92-37-2111PZMGNjtranygg (ME2E) CLEMENCIABOB Tierney ([id number]) 1955 M Date Time Provider Department 03/06/22 [...] IVETTE - Fully Assessed 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 [1595] Prescriptions as of 03/06/2022 - ferrous sulfate [...] 02/08/2022 Encounter Status:Closed by LORI TOLENTINO on 03/06/22NoEast Liverpool City HospitalBasi metabolic 2000 panelon 55-88-5199Dhagu gap [Moles/Vol]6 mmol/LLow9-18[place] HospitalComment on above:Order Comment: Specimen Type: BLOOD SPECIMENOrdering Facility: [facility] Address:[address] [place], [place] [address]Performed By: #### 07693-6 ####[facility]ATORYCLIA [id number] [place] [address] [place] AMERICACalcium [Mass/Vol]8.7 mg/dLNormal8.5-10.2Mlisbon HospitalComment on above:Order Comment: Specimen Type: BLOOD SPECIMENOrdering Facility: [facility] Address:[address] [place], [place] [address]Performed By: #### 81901-3 ####[facility] LABORATORYCLIA [id number] [place] [address] [place] AMERICAChloride [Moles/Vol]104 mmol/OEabewl93-192Zkijop HospitalComment on above:Order Comment: Specimen Type: BLOOD SPECIMENOrdering Facility: [facility] Address:[address] [place], [place] [address]Performed By: #### 47232-6 ####[facility] LABORATORYCLIA [id number] [place] [address] [place] AMERICACO2 [Moles/Vol]31 mmol/KOfrt17-15Pimytk HospitalComment on above:Order Comment: Specimen Type: BLOOD SPECIMENOrdering Facility: [facility] Address:[address] [place], [place] [address]Performed By: #### 29382-7 ####[facility] LABORATORYCLIA [id number] [place] [address] [place] AMERICACreatinine [Mass/Vol] 0.93 mg/dLNormal0.73-1.22[facility] on above:Order Comment: Specimen Type: BLOOD SPECIMENOrdering Facility: [facility] Address:[address] [place], [place] [address]Performed By: #### 21260-1 ####[facility] LABORATORYCLIA [id number] [place] [id number] [place] OF AMERICAESTIMATED GLOMERULAR FILTRATION RATE92 mL/min/1.73m???Normal>=60[facility] on above:Order Comment: Specimen Type: BLOOD SPECIMENOrdering Facility: [facility] Address:[address] [place], [place] [address]Result Comment: Estimated Glomerular Filtration Rate (eGFR) is [...] accurately reflect actual GFR. Performed By: #### 43358-0 ####[facility] LABORATORYCLIA [id number] [place] [id number] [place] OF AMERICAGlucose [Mass/Vol]102 mg/hRAksl88-39Ogghwp[address] on above:Order Comment: Specimen Type: BLOOD SPECIMENOrdering Facility: [facility] Address:[address] [place], [place] [address]Result Comment: The [place] Diabetes Association (ADA) provides guidance for cutoff [...] Standards of Medical Care in Diabetes 2016, [place] Diabetes Association. Diabetes Care. 2016.39(Suppl 1).Performed By: #### 22355-2 ####[facility] LABORATORYCLIA [id number] [address] AMERICAPotassium [Moles/Vol]4.9 mmol/LNormal3.7-5.1Mlisbon HospitalComment on above:Order Comment: Specimen Type: BLOOD SPECIMENOrdering Facility: [facility] Address:[address] [place], [place] [address]Performed By: #### 64547-3 ####[facility] LABORATORYCLIA [id number] [address]ETSodium [Moles/Vol]141 mmol/QHxsrow523-644Xtqgdq HospitalComment on above:Order Comment: Specimen Type: BLOOD SPECIMENOrdering Facility: [facility] Address:[address] [place], [place] [address]Performed By: #### 34459-8 ####[facility] LABORATORYCLIA [id number] [address]ETUrea nitrogen [Mass/Vol]14 mg/dLNormal9-24[facility] [place] HospitalComment on above:Order Comment: Specimen Type: BLOOD SPECIMENOrdering Facility: [facility] Address:[address] [place], [place] [address]Performed By: #### 89671-8 ####[facility] LABORATORYCLIA [id number] [address]ETCASE MANAGECapital Region Medical Center 51-50-1446VSSH MANAGEMHNO ID: [id number] Author: Nery Deal RN Service: ? Author Type: Registered Nurse Type: Care Mgt Progress Note Filed: 02/28/2022 12:55 PM Note Text: CARE MANAGEMENT DISCHARGE NOTE SERVICE DATE: 02/28/2022 SERVICE TIME: 12:54 PM LOS: 0 days Admission Date: 02/27/2022 DISCHARGE ARRANGEMENT (list agency and phone number) Discharge Arrangement: Home with Home Health Provider Name: [facility] CAREGIVER ASSESSMENT: Caregiver is ready, willing and able to meet the patient's needs as recommended by the inter-professional team:: Yes Patient's transition needs and plan for meeting these needs: Home PT HANDOFF COMMUNICATION: Handoff to: Primary Care Physician Primary Care Physician Name/Phone: Dr. Yuri Kuo - [phone] TRANSPORTATION ARRANGEMENTS: Transportation Arrangements: Car Discharge Information Row Name Admission (Current) from 02/27/[address] [facility] Agency [facility] Needs Prior to Discharge: Ready for Discharge Discharge order written for today. [facility] will be seeing the patient for Home PT , they will contact the patient with a start of care date. Notified [facility] of the patients discharge home today, discharge instructions sent to [facility] via Youku. SIGNATURE: Nery Deal RN PATIENT NAME: Bob Khanna DATE: February 28, 2022 TIME: 12:54 PM PAGER/CONTACT #: [phone] Hospital [place] [facility] – Oklahoma CityNO ID: [id number] Author: Nery Deal RN Service: ? Author Type: Registered Nurse Type: Care Mgt Progress Note Filed: 02/28/2022 11:30 AM Note Text: CARE MANAGEMENT PROGRESS NOTE SERVICE DATE: 02/28/2022 SERVICE TIME: 11:30 AM LOS: 0 days Needs Prior to Discharge: To Be Determined [facility] able to accept. CM department will continue to follow for DC needs. SIGNATURE: Nery Deal RN PATIENT NAME: Bob Khanna DATE: February 28, 2022 TIME: 11:30 AM PAGER/CONTACT #: [phone] HospitalCBC panel Auto (Bld)on 82-56-0365Vdbppbfczhm distribution width (RBC) [Ratio]14.3 %Normal 11.5-15.0[facility] HospitalComment on above:Order Comment: Specimen Type: BLOOD SPECIMEN [facility] Address: [address] [place] [phone] By: #### 01935-0 #### [facility] CLIA [id number] [address] [place] [address] [place] OF AMERICAHematocrit (Bld) [Volume fraction]39.3 %Baknrd54.0-51.0[facility] [place] HospitalComment on above:Order Comment: Specimen Type: BLOOD SPECIMEN [facility] Address: [address] [place], [place] [address]Performed By: #### 53523-1 #### [facility] CLIA [id number] [address]ETHemoglobin (Bld) [Mass/Vol]13.2 g/dL Aktogv06.0-17.0[facility] [place] HospitalComment on above:Order Comment: Specimen Type: BLOOD SPECIMEN [facility] Address: [address] [place], [place] [address]Performed By: #### 79776-0 #### [facility] CLIA [id number] [address] (RBC) [Entitic mass]30.3 pgNormal 26.0-34.0[facility] HospitalComment on above:Order Comment: Specimen Type: BLOOD SPECIMEN [facility] Address: [address] [place], [place] [address]Performed By: #### 74469-7 #### [facility] CLIA [id number] [address] (RBC) [Mass/Vol]33.6 g/dLNormal 30.5-36.0[facility] HospitalComment on above:Order Comment: Specimen Type: BLOOD SPECIMEN [facility] Address: [address] [place], [place] [address]Performed By: #### 99472-9 #### [facility] CLIA [id number] [address] (RBC) [Entitic vol]90.3 fLNormal 80.0-100.0[facility] [place] HospitalComment on above:Order Comment: Specimen Type: BLOOD SPECIMEN [facility] Address: [address] [place], [place] [address]Performed By: #### 67449-4 #### [facility] CLIA [id number] [address] [place] [address] [place] AMERICANucleated RBC (Bld) [#/Vol]10*3/uL Normal<0.01[facility] Hospitalna HospitalComment on above:Order Comment: Specimen Type: BLOOD SPECIMEN [facility] Address: [address] [place], [place] [address]Performed By: #### 44337-3 #### [facility] CLIA [id number] [address] [place] [address] [place] AMERICAPlatelet mean volume (Bld) [Entitic vol]9.9 fLNormal9.0-12.7Medina HospitalComment on above:Order Comment: Specimen Type: BLOOD SPECIMEN [facility] Address: [address] [place], [place] [address]Performed By: #### 31086-2 #### [facility] CLIA [id number] [address] STATES OF AMERICAPlatelets (Bld) [#/Vol]202 10*3/uL Ecodkk401-288Swntpa HospitalComment on above:Order Comment: Specimen Type: BLOOD SPECIMEN [facility] Address: [address] [place], [place] [address]Performed By: #### 46056-4 #### [facility] CLIA [id number] [address] AMERICARBC (Bld) [#/Vol]4.35 10*6/uLNormal 4.20-6.00[facility] Hospitalna HospitalComment on above:Order Comment: Specimen Type: BLOOD SPECIMEN [facility] Address: [address] [place], [place] [address]Performed By: #### 22179-4 #### [facility] CLIA [id number] [address]WBC (Bld) [#/Vol]7.08 10*3/uLNormal 3.70-11.00[facility] Hospitalna HospitalComment on above:Order Comment: Specimen Type: BLOOD SPECIMEN [facility] Address: [address] [place], [place] [address] [address]Idrtvdrrv By: #### 35780-0 #### [facility] [id number] 1000 [place] [address] [place] AMERICACNCOon 18-80-4530TQKBVgrpbf TextNoSalem Regional Medical CenterTHERAPY NTon 33-19-1341EIATNIL NTHNO ID: [id number] Author: Joan Browne OTR/L Service: Occupational Therapy Author Type: Occupational Therapist Type: Therapy (PT/OT/Speech/Resp) Filed: 02/28/2022 1:59 PM Note Text: Occupational Therapy Evaluation SERVICE DATE: 02/28/2022 SERVICE TIME: 50 to 1044 ROOM: [place] [address] Recommended Discharge Disposition: Home OT Recommended Discharge [...] don underwear and pants successfully using a traffic engineering director to stay within precautions. Pt required Mimi [...] basement laundry Equipment Owned: Cane;Crutch(es);Wheeled Walker;Other: See Comment;Deck Cadet;Long Handled Shoe Horn (adjustable bed) Prior Functional Level: Within Functional Limits Prior Functional Level Comments: Pt reports independence with all ADLs, shares IADLs with family. Currently drives. 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 Denies any falls within the last 6 months. 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 Occupational Factors Life Roles: Employed;Parent;Spouse/Significant Other;Family Member [...] activity not attemp (more content not included)...Normal [facility] HospitalTHERAPY NTHNO ID: [id number] Author: Yumiko Ingram, PT Service: Physical Therapy Author Type: Physical Therapist Type: Therapy (PT/OT/Speech/Resp) Filed: 02/28/2022 10:30 AM Note Text: Physical Therapy Evaluation SERVICE DATE: 02/28/2022 SERVICE TIME: 824 ROOM: [place] [address] Recommended Discharge Disposition: Home PT Recommended Discharge [...] however able to use cane as leg grinder setup operator to complete supine to sit and instructed [...] and 2nd attempt cane used as leg grinder setup operator and CGA for right LE mgmt. education regarding how family can assist right LE mgmt with transfer to sitting Sit to Supine Contact Guard Assistance;Additional Information with use of cane as leg grinder setup operator Scooting Contact Guard Assistance;Additional Information with cues [...] Device: Wheeled Walker attempt (more content not included)...[facility] 27-75-0976SVAHQW HEALTHHNO ID: [id number] Author: LUANN Grant Service: Radiology Author Type: [...] BY: LUANN Grant February 27, 2022 1:49 PMNGrant HospitalANES POSTPROC EVALon 02-27-2022 ANES POSTPROC EVALHNO ID: [id number] Author: Haseeb Clemente MD Service: Anesthesiology Author Type: Anesthesiologist Type: Anesthesia Postprocedure Evaluation Filed: 02/27/2022 1:44 PM Note Text: POST ANESTHESIA EVALUATION NOTE : 1955 Procedure Summary Date: 02/27/22 Room / Location: [facility] OR / [place] OR Anesthesia Start: 1036 Anesthesia Stop: 1301 Procedure: ROBOTIC ASSISTED TOTAL HIP ARTHROPLASTY (Right: Hip) Diagnosis: Primary osteoarthritis of right hip (Primary osteoarthritis of right hip [M16.11]) Surgeons: eBnny Gallardo MD Responsible Provider: Haseeb Clemente MD [...] February 27, 2022 TIME: 1:44 PM CSN: [id number] City Hospital PRE-OPon 18-19-8707ISTH PRE-OPHNO ID: [id number] Author: Haseeb Clemente MD Service: Anesthesiology Author Type: Anesthesiologist Type: Anesthesia Preprocedure Evaluation Filed: 02/27/2022 9:16 AM Note Text: ANESTHESIOLOGY DAY OF SURGERY NOTE : 1955 Procedure Information Date/Time: 02/27/22 1130 Procedure: ROBOTIC ASSISTED TOTAL HIP ARTHROPLASTY (Right: Hip) Location: [place] [address] / [place] Surgeons: Benny Gallardo MD Estimated body [...] February 27, 2022 TIME: 9:16 AM CSN: [id number] Regional Medical Center 89-09-7039DVACTZJ ID: [id number] Author: Yuri Rogers PA-C Service: Orthopaedic Surgery Author Type: Physician Purchaser Type: Discharge Summary Filed: 02/28/2022 12:10 PM [...] These instructions explain what you or your patient care manager need to do to continue your care at home or at another healthcare facility Please go over these instructions with your nurse and patient care manager. If you are not sure about something, [...] to 4-6 weeks after (more content not included)...[facility] Health CenterCONSULT on 00-17-4671NGMROUSICI ID: [id number] Author: Anthony Montiel MD Service: General Internal Medicine Author Type: Physician Type: Consults Filed: 02/28/2022 12:59 PM Note Text: [facility]- Consultation BOB KHANNA : 1955 AGE: 66 SEX: M ACCTNUM: [id number] [facility] LOC[facility]: [facility] ATTENDING PHYSICIAN: BENNY GALLARDO DATE OF SERVICE: [...] the hospital. Anthony Montiel M.D. Internal Medicine SKAmarjit:[id number] /[id number] Hospital in Anadarko [place] 99-34-0173TQSEUAYMA [facility] ID: [id number] Author: Benny Gallardo MD Service: Orthopaedic Surgery Author Type: Physician Type: Operative Report Filed: 02/27/2022 12:31 PM Note Text: PATIENT NAME: Bob Khanna CSN: [id number] LOG ID: [id number] Surgery Date: 02/27/2022 Surgeon(s) and Purchaser(s): Rafael Mejia NP - Steam Turbine Assembler Surgeon(s) and Role: * Benny Gallardo MD [...] performed all critical portions of the case. sales assistant was necessary for safe patient positioning, sterile [...] progressed significantly over time . X-rays reveal oibtpnvs-ah-xwxycu loss of articular cartilage of the hip [...] split posteriorly over the (more content not included)...NormalSan Antonio HospitalSURGICAL PATHOLOGYon 34-13-6582ABPG REPORTNormalElyria Memorial HospitalComment on above:Order Comment: Specimen Type: BLOOD SPECIMEN [facility] Address: [address] [place] [id number] Comment: Surgical Pathology Report Case: [id number] Authorizing Provider: Benny Gallardo MD Collected: 02/27/2022 11:18 AM Ordering Location: [facility] Surgery Received: 02/27/2022 02:38 PM Pathologist: Tracy Orellana MD Specimen: FEMORAL HEAD RIGHTPerformed By: #### 4537-7 #### [facility] CLIA [id number] [address] [place] [address] HospitalComment on above:Order Comment: Specimen Type: BLOOD SPECIMEN [facility] Address: [address] [place] [address]Result Comment: Pre-op diagnosis: Primary osteoarthritis of right hip [M16.11]Performed By: #### 4537-7 #### [facility] CLIA [id number] [address] [place], [place] [address] [facility] HospitalComment on above:Order Comment: Specimen Type: BLOOD SPECIMEN [facility] Address: [address] [place] [address]Result Comment: A. Right femoral head, arthroplasty: - Degenerative joint disease. - Chronic nonproliferative synovitis. Performed By: #### 4537-7 #### [facility] CLIA [id number] [address] [place], [place] [address]Comment on above:Order Comment: Specimen Type: BLOOD SPECIMEN Ordering [facility] Address: [address] [place], [place] [address] Comment: Diagnostic interpretation performed at [facility], [address] [place], [place] [address] CLIA# [id number] Supervisor [place]: Angel Ocampo M.D.Performed By: #### 4537-7 #### [facility] CLIA [id number] [address] [place] [address] DESCRIPTIONSuburban Community Hospital & Brentwood HospitalCombeaumont hospital on above:Order Comment: Specimen Type: BLOOD SPECIMEN [facility] Address: [address] [place], [place] [address] Comment: A. FEMORAL HEAD RIGHT Received in formalin labeled as femoral head right 6.6 x 5.8 x 5.4 cm. The articular surface is remarkable for an area of eburnation. The recognizable cartilage is roughened and osteophytes are present. Weiser-de jesus soft tissue are mildly adherent to the bone. Sectioning reveals hard trabecular cut surfaces. No areas of necrosis are identified. Field Mechanical Meter Tester sections are submitted as follows: A1 soft tissue; A2-A3 bone after decalcification (A2 weightbearing end; A3 nonweightbearing end). Gross examination performed at [facility], [address] [place] [address] RSA February 27, 2022 5:04 PMPerformed By: #### 4537-7 #### [facility] CLIA [id number] [address] [place] [address] OF AMERICAXR PELVIS 1V APon 02-27-2022 [...] No acute fracture. IMPRESSION: Postop right JAMES Meat Boner: RADHA Transcribe Date/Time: Feb 27 2022 1:56P Dictated by : CAROLINA CHAWLA MD This examination was interpreted and the report reviewed and electronically signed by: CAROLINA CHAWLA MD on Feb 27 2022 1:57PM EST [id number] HospitalARS-CoV-2 RNA Resp Ql ULICES+probeon 12-18-4537MSMK-CoV-2 (COVID-19) RNA ULICES+probe Ql (Resp)COVID 19 RESULT: SARS-CoV-2 (Agent of COVID-19) Not Detected by RT-PCR or equivalent method. This test was developed and its performance characteristics determined by [facility]'s [facility] CenterVeren[facility] [place]. This test has been authorized by FDA under an Emergency Use Authorization (EUA). This test has been validated in accordance with the FDA's Guidance Document Policy for DiagnosticsTesting in Laboratories Certified to Perform High Complexity Testing under CLIA prior to Emergency use Authorization for Coronavirus Disease 2019 during the Public Health Emergency issued on May 17, 2019. Test performed by [facility], [facility] [place], [address] [place] [address].NormalMemorial Health System Selby General HospitalComment on above:Performed By: #### 02591- 6 #### [facility] CLIA [id number] [address] [place], [place] [address] [address]ETECHOon 02-24-2022 EchocardiographyEchocardiography Report: Transthoracic Echo [facility] Office Date of service: 02/24/2022 10:18:36 AM STAFF WORKER Ordering physician: CHADWICK HARRIS Indication: Pre Op [...] * * Final * * * CC [employer] [facility] : [id number]u [facility] Medical CenterPrasad 83-65-0779ZNJAKzkcueaph (KISHA) BOB KHANNA ([id number]) 1955 M Date Time Provider Department 02/17/22 [...] Date Reviewed: 02/08/2022 Reviewed by: Chadwick Harris APRN.MAIN LINE STATION ENGINEER - Fully Assessed Reason for Visit: Preparations [...] 02/08/2022 Encounter Status:Closed by KYLIE MANE on 02/17/22[facility] HospitalPrasad 17-27-1200INQGBrrrhipbn (ME2E) BOB KHANNA ([id number]) 1955 M Date Time Provider Department 02/15/22 BENNY GALLARDO During your visit today, we recorded the following information about you: YAS Toribio 02/16/2022 3:36 PM Signed TOTAL JOINT COMPLETE CARE PROGRAM PRE-OPERATIVE TEACHING Service Date: 02/16/2022 Service Time: 3:31 PM Date of : 1955 Gender: male Date of Surgery: 02/27/22 Procedure: Right Total Hip Replacement Complete Care Program was discussed with the patient: Jersey Knitter Identification: Patient identified a patient care manager to help when discharged to home: and children Home Environment: Home Layout: Ranch, Entry Steps: 3 with rail, Bedroom Location: 1st floor, Bathroom Location: 1st floor, and walk in shower. Pt owns walker, crutches, cane, shower chair, raised toilet seat, shoe horn and traffic engineering director.. Plans to get sock aide. Discussed with patient importance of attending joint education class and provided date and times of class: YES paper copy. Had TKA few years ago. Patient received Joint Education Binder: Yes Patient plans discharge home with [facility]. SIGNATURE: YAS Toribio PATIENT NAME: Bob Khanna DATE: February 15, 2022 TIME: 3:14 PM Allergies As of Date: 02/15/2022 Noted Allergy Reaction GADOTERIDOL 03/02/2021 4 - Hives Comments: Patient became itchy and developed hives Date Reviewed: 02/08/2022 Reviewed by: Chadwick Harris APRN.MAIN LINE STATION ENGINEER - Fully Assessed Reason for Visit: Pre-Op [...] 02/08/2022 Encounter Status:Closed by LORI TOLENTINO on 02/16/22NormalSan Antonio HospitalTHE MEDICAL CENTER W Auto Differential panel (Bld)on 45-52-3705Tnonjfmow (Bld) [#/Vol]0.04 10*3/uL Normal<0.11Medina HospitalComment on above:Order Comment: Specimen Type: BLOOD SPECIMENOrdering Facility: [facility] Address:[address] [place], [place] [address]Performed By: #### 10927-6 ####[facility] LABORATORYCLIA [id number] [place] [address] [place] Basophils/100 WBC (Bld)0.6 %NormalSan Antonio HospitalComment on above:Order Comment: Specimen Type: BLOOD SPECIMENOrdering Facility: [facility] Address:[address] [place], [place] [address]Performed By: #### 51248-2 ####SOL[facility] LABORATORYCLIA [id number] [place] [address] [place] AMERICADifferential cell count method Nom (Bld)AutoNormalSan Antonio HospitalComment on above:Order Comment: Specimen Type: BLOOD SPECIMENOrdering Facility: [facility] Address:[address] [place], [place] [address]Performed By: #### 04982-7 ####SOLIS LABORATORYCLIA [id number] [place] [address] [place] AMERICAEosinophils (Bld) [#/Vol]0.09 10*3/uLNormal<0.46Medina HospitalComment on above:Order Comment: Specimen Type: BLOOD SPECIMENOrdering Facility: [facility] Address:[address] [place], [place] [address]Performed By: #### 11653-0 ####SOLIS LABORATORYCLIA [id number] [place] [address] [place] AMERICAEosinophils/100 WBC (Bld)1.4 %NormalSan Antonio Hospital Comment on above:Order Comment: Specimen Type: BLOOD SPECIMENOrdering Facility: [facility] Address:[address] [place] [address] Performed By: #### 81213-9 ####SOLIS LABORATORYCLIA [id number] [place] [address] [place] AMERICAErythrocyte distribution width (RBC) [Ratio]14.1 %Cefpvr73.5-15.0San Antonio HospitalComment on above:Order Comment: Specimen Type: BLOOD SPECIMENOrdering Facility: [facility] Address:[address] [place], [place] [address]Performed By: #### 49210-3 ####SOLIS LABORATORYCLIA [id number] [place] [address] [place] AMERICAHematocrit (Bld) [Volume fraction]45.8 %Normal 39.0-51.0San Antonio HospitalComment on above:Order Comment: Specimen Type: BLOOD SPECIMENOrdering Facility: [facility] Address:[address] [place], [place] [address]Performed By: #### 34811-9 ####SOLIS LABORATORYCLIA [id number] [place] [address] [place] Hemoglobin (Bld) [Mass/Vol]15.1 g/eFPdlhpo96.0-17.0San Antonio HospitalComment on above:Order Comment: Specimen Type: BLOOD SPECIMENOrdering Facility: [facility] Address:[address] [place], [place] [address]Performed By: #### 18613-4 ####SOLIS LABORATORYCLIA [id number] [place] [address] [place] AMERICAImmature granulocytes (Bld) [#/Vol]10*3/uL Normal<0.10San Antonio HospitalComment on above:Order Comment: Specimen Type: BLOOD SPECIMENOrdering Facility: [facility] Address:[address] [place], [place] [address]Performed By: #### 64444-2 ####SOLIS LABORATORYCLIA [id number] [place] [address] [place] Immature granulocytes/100 WBC (Bld)0.2 %NormalSan Antonio HospitalComment on above: Order Comment: Specimen Type: BLOOD SPECIMENOrdering Facility: [facility] Address:[address] [place], [place] [address]Performed By: #### 25066-7 ####SOLIS LABORATORYCLIA [id number] [place] [address] [place] [facility] MEDICAL CENTERLymphocytes (Bld) [#/Vol]2.03 10*3/uLNormal 1.00-4.00Medina HospitalComment on above:Order Comment: Specimen Type: BLOOD SPECIMENOrdering Facility: [facility] Address:[address] [place], [place] [address]Performed By: #### 60045-8 ####SOLIS LABORATORYCLIA [id number] [place] [address] [place] Lymphocytes/100 WBC (Bld)32.6 %NormalSan Antonio HospitalComment on above:Order Comment: Specimen Type: BLOOD SPECIMENOrdering Facility: [facility] Address:[address] [place], [place] [address]Performed By: #### 22059-6 ####SOLIS LABORATORYCLIA [id number] [address] (RBC) [Entitic mass]29.4 ytCrcdpa91.0-34.0 San Antonio HospitalComment on above:Order Comment: Specimen Type: BLOOD SPECIMENOrdering Facility: [facility] Address:[address] [place], [place] [address]Performed By: #### 27955-5 ####SOLIS LABORATORYCLIA [id number] [place] [address] [facility]AVIOR[facility] MEDICAL CENTERMCHC (RBC) [Mass/Vol]33.0 g/vPCpcsmx39.5-36.0[facility] Hospitalna HospitalComment on above:Order Comment: Specimen Type: BLOOD SPECIMENOrdering Facility: [facility] Address:[address] [place], [place] [address]Performed By: #### 17514-9 ####SOL[facility] LABORATORYCLIA [id number] [address] (RBC) [Entitic vol]89.3 hVEnlbkk32.0-100.0 [facility] HospitalComment on above:Order Comment: Specimen Type: BLOOD SPECIMENOrdering Facility: [facility] Address:[address] [place], [place] [address]Performed By: #### 81853-0 ####SOLIS LABORATORYCLIA [id number] [place] [address] [place] Monocytes (Bld) [#/Vol]0.59 10*3/uLNormal<0.87San Antonio HospitalComment on above: Order Comment: Specimen Type: BLOOD SPECIMENOrdering Facility: [facility] Address:[address] [place], [place] [address]Performed By: #### 23791-5 ####SOLIS LABORATORYCLIA [id number] [place] [address] [place] AMERICAMonocytes/100 WBC (Bld)9.5 %NormalElyria Memorial Hospital Comment on above:Order Comment: Specimen Type: BLOOD SPECIMENOrdering Facility: [facility] Address:[address] [place] [address] Performed By: #### 86407-8 ####SOLIS LABORATORYCLIA [id number] [place] [address] [place] AMERICANeutrophils (Bld) [#/Vol] 3.46 10*3/uLNormal1.45-7.50San Antonio HospitalComment on above:Order Comment: Specimen Type: BLOOD SPECIMENOrdering Facility: [facility] Address:[address] [place], [place] [address]Performed By: #### 22560-7 ####SOLIS LABORATORYCLIA [id number] [place] [address] [place] AMERICANeutrophils/100 WBC (Bld)55.7 %NormalElyria Memorial Hospital Comment on above:Order Comment: Specimen Type: BLOOD SPECIMENOrdering Facility: [facility] Address:[address] [place] [address] Performed By: #### 72339-9 ####SOLIS LABORATORYCLIA [id number] [place] [address] [place] AMERICANucleated RBC (Bld) [#/Vol]10*3/uLNormal<0.01San Antonio HospitalComment on above:Order Comment: Specimen Type: BLOOD SPECIMENOrdering Facility: [facility] Address:[address] [place], [place] [address]Performed By: #### 38603-8 ####SOLIS LABORATORYCLIA [id number] [place] [address] [place] AMERICANucleated RBC/100 WBC (Bld) [Ratio]0.0 /100 WBCNormalSan Antonio Hospital Comment on above:Order Comment: Specimen Type: BLOOD SPECIMENOrdering Facility: [facility] Address:[address] [place] [address] Performed By: #### 50576-6 ####SOLIS LABORATORYCLIA [id number] [place] [address] [place] AMERICAPlatelet mean volume (Bld) [Entitic vol]10.3 fLNormal9.0-12.7San Antonio HospitalComment on above:Order Comment: Specimen Type: BLOOD SPECIMENOrdering Facility: [facility] Address:[address] [place], [place] [address]Performed By: #### 75563-8 ####SOLIS LABORATORYCLIA [id number] [place] [address] [place] AMERICAPlatelets (Bld) [#/Vol]255 10*3/nSBjlqud174-175 San Antonio HospitalComment on above:Order Comment: Specimen Type: BLOOD SPECIMENOrdering Facility: [facility] Address:[address] [place], [place] [address]Performed By: #### 00663-7 ####SOLIS LABORATORYCLIA [id number] [place] [address] [place] AMERICARBC (Bld) [#/Vol]5.13 10*6/uLNormal4.20-6.00San Antonio HospitalComment on above:Order Comment: Specimen Type: BLOOD SPECIMENOrdering Facility: [facility] Address:[address] [place], [place] [address]Performed By: #### 06326-8 ####SOLIS LABORATORYCLIA [id number] [place] [address] [place] AMERICAWBC (Bld) [#/Vol]6.22 10*3/uLNormal3.70-11.00 [facility] HospitalComment on above:Order Comment: Specimen Type: BLOOD SPECIMENOrdering Facility: [facility] Address:[place] [address]Sjxcfwvrf By: #### 93593-9 ####[facility]ORATORYCLIA [id number] [place] [address] [facility] Basophils (Bld) [#/Vol]0.04 10*3/uL<0.11 k/uLCleveland Clinic South Pointe HospitalBasophils/100 WBC (Bld)0.6 %[facility] HospitalDifferential cell count method Nom (Bld)AutoCleveland ClinicEosinophils (Bld) [#/Vol]0.09 10*3/uL<0.46 k/uLCleveland Clinic South Pointe Hospital Eosinophils/100 WBC (Bld)1.4 %[facility]inte HospitalErythrocyte distribution width (RBC) [Ratio]14.1 %11.5 - 15.0 %[facility] HospitalHematocrit (Bld) [Volume fraction]45.8 %39.0 - 51.0 %[facility] HospitalHemoglobin (Bld) [Mass/Vol]15.1 g/dL 13.0 - 17.0 g/dLCleveland Clinic South Pointe HospitalImmature granulocytes (Bld) [#/Vol]<0.10 k/uL [facility] HospitalImmature granulocytes/100 WBC (Bld)0.2 %[facility] Lymphocytes (Bld) [#/Vol]2.03 10*3/uL1.00 - 4.00 k/uLCleveland Clinic South Pointe Hospital Lymphocytes/100 WBC (Bld)32.6 %[facility] Po[facility] HospitalMCH (RBC) [Entitic mass]29.4 pg 26.0 - 34.[address] john medical centerand Meeker Memorial HospitalHC (RBC) [Mass/Vol]33.0 g/dL30.5 - 36.0 g/dL [facility] HospitalV (RBC) [Entitic vol]89.3 fL80.0 - 100.0 fLClevelKettering Health – Soin Medical Center Monocytes (Bld) [#/Vol]0.59 10*3/uL<0.87 k/uLCleveland ClinicMonocytes/100 WBC (Bld)9.5 %[facility] Christi ClinicNeutrophils (Bld) [#/Vol]3.46 10*3/uL1.45 - 7.50 k/uL Crow ClinicNeutrophils/100 WBC (Bld)55.7 %[facility] Christi ClinicNucleated RBC (Bld) [#/Vol]<0.01 k/uLCorpus Christi ClinicNucleated RBC/100 WBC (Bld) [Ratio]0.0 /100 WBCCorpus Christi ClinicPlatelet mean volume (Bld) [Entitic vol]10.3 fL9.0 - 12.7 fLCleveland ClinicPlatelets (Bld) [#/Vol]255 10*3/uL150 - 400 k/uLCorpus Christi ClinicRBC (Bld) [#/Vol]5.13 10*6/uL4.20 - 6.00 m/uLCorpus Christi ClinicWBC (Bld) [#/Vol]6.22 10*3/uL3.70 - 11.00 k/uLCorpus Christi ClinicCNCOon 46-70-2103CAWEQicdlw TextNoAlameda Hospital HospitalCONFIRM BLOOD TYPEon 37-76-9382TRWDHhycekzfe ClinicRh Nom (Bld)PositiveCleveland Clinic South Pointe HospitalABOANoAlameda Hospital HospitalComment on above:Order Comment: Specimen Type: BLOOD SPECIMEN [facility] Address: [address] [place], [place] [address]Performed By: #### CONABO #### [facility] CLIA [id number] [address] STATES [facility]ITAL CENTERRh Nom (Bld)PositiveNormWestside Hospital– [place] HospitalComment on above:Order Comment: Specimen Type: BLOOD SPECIMEN [facility] Address: [address] [place], [place] [address]Performed By: #### CONABO #### [facility] CLIA [id number] [address] OF AMERICAComprehensive metabolic 2000 panelon 33-65-6537Bexbsxm [Mass/Vol]4.3 g/dLNormal3.9-4.9San Antonio HospitalComment on above:Order Comment: Specimen Type: BLOOD SPECIMENOrdering Facility: [facility] Address:[address] [place] [address]Performed By: #### 40907-9, 2275-06, ####SOL[facility] LABORATORYCLIA [id number] [place] [address] [place] AMERICAALP [Catalytic activity/Vol]62 U/UJinqwt32-633Ejhpom HospitalComment on above:Order Comment: Specimen Type: BLOOD SPECIMENOrdering Facility: [facility] Address:[address] [place], [place] [address]Performed By: #### 88171-8, 2275-06, 04055-6 ####SOL[facility] LABORATORYCLIA [id number] [place] [address] [place] AMERICAALT [Catalytic activity/Vol]16 U/L Ffntae69-93Dvwity HospitalComment on above:Order Comment: Specimen Type: BLOOD SPECIMENOrdering Facility: [facility] Address:[address] [place], [place] [address]Performed By: #### 06725-0, 2275-06, ####SOL[facility] LABORATORYCLIA [id number] [place] [address] [place] AMERICAAnion gap [Moles/Vol]10 mmol/LNormal9-18Medina HospitalComment on above:Order Comment: Specimen Type: BLOOD SPECIMENOrdering Facility: [facility] Address:[address] [place], [place] [address]Performed By: #### 38572-1, 2275-06, 48354-3 ####[facility] LABORATORYCLIA [id number] [place] [address] [place] AMERICAAST [Catalytic activity/Vol]16 U/IYhwhae67-41Kdvfoz HospitalComment on above:Order Comment: Specimen Type: BLOOD SPECIMENOrdering Facility: [facility] Address:[address] [place], [place] [address] [address]Performed By: #### 25599-3, 2275-06, 39422-2 ####[facility] LABORATORYCLIA [id number] [place] [address] [place] AMERICABilirubin [Mass/Vol]0.7 mg/dLNormal 0.2-1.3Medroxbury HospitalComment on above:Order Comment: Specimen Type: BLOOD SPECIMENOrdering Facility: [facility] Address:[address] [place] [address]Performed By: #### 67059-8, 2275-06, ####SOL[facility] LABORATORYCLIA [id number] [place] [address] [place] AMERICACalcium [Mass/Vol]9.3 mg/dLNormal8.5-10.2Medroxbury HospitalComment on above:Order Comment: Specimen Type: BLOOD SPECIMENOrdering Facility: [facility] Address:[address] [place] [address]Performed By: #### 82910-7, 2275-06, ####SOL[facility] LABORATORYCLIA [id number] [place] [address] [place] AMERICAChloride [Moles/Vol]103 mmol/SWzjvir97-109Cccynp HospitalComment on above:Order Comment: Specimen Type: BLOOD SPECIMENOrdering Facility: [facility] Address:[address] [place] [address]Performed By: #### 46659-9, 2275-06, ####[facility] LABORATORYCLIA [id number] [place] [address] [place] AMERICACO2 [Moles/Vol]28 mmol/CWxftmz49-01Vfkcla Hospital Comment on above:Order Comment: Specimen Type: BLOOD SPECIMENOrdering Facility: [facility] Address:[address] [place] [address] Performed By: #### 21360-6, 2275-06, ####SOL[facility] LABORATORYCLIA [id number] [place] [address] [place] Creatinine [Mass/Vol]0.91 mg/dLNormal0.73-1.22San Antonio HospitalComment on above: Order Comment: Specimen Type: BLOOD SPECIMENOrdering Facility: [facility] Address:[address] [place] [address]Performed By: #### 26570-0, 4, ####[facility] LABORATORYCLIA [id number] [address]ETESTIMATED GLOMERULAR FILTRATION RATE94 mL/min/1.73m???Normal>=60Medi HospitalComment on above:Order Comment: Specimen Type: BLOOD SPECIMENOrdering Facility: [facility] Address:[address]Result Comment: Estimated Glomerular Filtration Rate (eGFR) [...] not accurately reflect actual GFR.Performed By: #### 75982-5, 2275-06, ####SOLIS LABORATORYCLIA [id number] [address] STATES OF AMERICAGlucose [Mass/Vol]83 mg/dVWshvag15-73Riqeac24 Graves StreetComment on above:Order Comment: Specimen Type: BLOOD SPECIMENOrdering Facility: [facility] Address:[address] [place]Result Comment: The [place] Diabetes Association (ADA) provides guidance for cutoff [...] Standards of Medical Care in Diabetes 2016, [place] [employer] Association. Diabetes Care. 2016.39(Suppl 1).Performed By: #### 53222-3, 4, 10678-6 ####[facility] LABORATORYCLIA [id number] [place] [address] [place] AMERICAPotassium [Moles/Vol]4.3 mmol/LNormal3.7-5.1Medina HospitalComment on above:Order Comment: Specimen Type: BLOOD SPECIMENOrdering Facility: [facility] Address:[address] [place], [place] [address]Performed By: #### 34159-5, 2275-06, ####SOL[facility] LABORATORYCLIA [id number] [place] [address] [place] Protein [Mass/Vol]7.6 g/dLNormal6.3-8.0San Antonio HospitalComment on above:Order Comment: Specimen Type: BLOOD SPECIMENOrdering Facility: [facility] Address:[address] [place], [place] [address]Performed By: #### 72201-2, 2275-06, ####[facility] LABORATORYCLIA [id number] [place] [address] [place] AMERICASodium [Moles/Vol]141 mmol/FHkzxqd592-164Nnxurt HospitalComment on above:Order Comment: Specimen Type: BLOOD SPECIMENOrdering Facility: [facility] Address:[address] [place], [place] [address]Performed By: #### 94408-6, 2275-06, ####[facility] LABORATORYCLIA [id number] [place] [address] [place] AMERICAUrea nitrogen [Mass/Vol]13 mg/dLNormal9-24San Antonio HospitalComment on above:Order Comment: Specimen Type: BLOOD SPECIMENOrdering Facility: [facility] Address:[address] [place], [place] [address]Performed By: #### 56067-2, 2275-06, ####SOL[facility] LABORATORYCLIA [id number] [place] [address] [place] Albumin [Mass/Vol]4.3 g/dL3.9 - 4.9 g/dLCity Hospitalveland ClinicALP [Catalytic activity/Vol]62 U/L38 - 113 U/LCleveland ClinicALT [Catalytic activity/Vol]16 U/L10 - 54 U/LCleveland ClinicAnion gap [Moles/Vol]10 mmol/L9 - 18 mmol/L [facility] HospitalAST [Catalytic activity/Vol]16 U/L14 - 40 U/LCuniversity hospitals st. john medical centerand [facility] Bilirubin [Mass/Vol]0.7 mg/dL0.2 - 1.3 mg/dLCleveland Clinic South Pointe HospitalCalcium [Mass/Vol] 9.3 mg/dL8.5 - 10.2 mg/dLCleveland Clinic South Pointe HospitalChloride [Moles/Vol]103 mmol/L97 - 105 mmol/LCleveland Essentia HealthCO2 [Moles/Vol]28 mmol/L22 - 30 mmol/LCleveland [facility] Creatinine [Mass/Vol]0.91 mg/dL0.73 - 1.22 mg/dLCleveland Clinic South Pointe HospitalEstimated Glomerular Filtration Rate94 mL/min/1.73m>=60 mL/min/1.73mCuniversity hospitals st. john medical centerand [facility] Glucose [Mass/Vol]83 mg/dL74 - 99 mg/dLCleveland Clinic South Pointe HospitalPotassium [Moles/Vol]4.3 mmol/L3.7 - 5.1 mmol/LCleveland ClinicProtein [Mass/Vol]7.6 g/dL6.3 - 8.0 g/dL [facility] Hospitalodium [Moles/Vol]141 mmol/L136 - 144 mmol/LCleveland Essentia HealthUrea nitrogen [Mass/Vol]13 mg/dL9 - 24 mg/dLCleveland Clinic South Pointe HospitalECG01on 61-14-7907XKI94 Ventricular Rate : 46 BPM Atrial Rate : 46 BPM P-R Interval : 160 ms QRS Duration : 138 ms Q-T Interval : 474 ms QTC Calculation(Bazett) : 414 ms Calculated P [place] : 49 degrees Calculated R [place] : -56 degrees Calculated T [place] : 44 degrees MARKED SINUS BRADYCARDIA LEFT AXIS DEVIATION RIGHT BUNDLE BRANCH BLOCK SEPTAL INFARCT , AGE UNDETERMINED ABNORMAL ECG NO PREVIOUS ECGS AVAILABLE Confirmed by MD GABRIELA, QAB ([id number]) on 02/10/2022 11:17:17 AM NAME : BOB KHANNA PID : [id number] : 1955 Gender : Male Race : ORD : [id number] Procedure Date : Feb 08 2022 10:30:39 Edit Date : Feb 10 2022 11:17:20 Diagnosis: MARKED SINUS BRADYCARDIA LEFT AXIS DEVIATION RIGHT BUNDLE BRANCH BLOCK SEPTAL INFARCT , AGE UNDETERMINED ABNORMAL ECG NO PREVIOUS ECGS AVAILABLE Confirmed by MD OCHOA QARAB ([id number]) on 02/10/2022 11:17:17 AM Test Reason : Location : 10 : PAT/LB Overread By : MD OCHOA QARAB Edited By : MD OCHOA QARAB Referred By : CHADWICK HARRIS Acquired by : KE,NormalSan Antonio HospitalFERRITIN BLDon 66-02-2972Cdwkxafc [Mass/Vol]174.4 ng/mL30.3 - 565.7 ng/mLCleveland ClinicFerritin SerPl-mCncon 21-82-7617Cdhxixhn [Mass/Vol]174.4 ng/wUJuipmp59.3-565.7San Antonio HospitalComment on above:Order Comment: Specimen Type: BLOOD SPECIMENOrdering Facility: [facility] Address:[address] [place] [address] Performed By: #### 22050-0, 2276-4, 62164-5 ####[facility] LABORATORYCLIA [id number] [address] OF [facility] HISTORY PHYSICALon 10-29-1643BLHXFSX PHYSICALHNO ID: [id number] Author: Chadwick Harris APRN.MAIN LINE STATION ENGINEER Service: ? Author Type: Nurse Practitioner Type: [...] Imm Admin: COVID-19 vaccine, age 12+ yr ([employer] | [employer] - [facility]) 06/17/2020 Imm Admin: COVID-19 vaccine, age 12+ yr ([employer] - [facility]) CHIEF COMPLAINT: Pre-op evaluation HPI: 66 year [...] fevers. Neurological: No history of TIA's, stroke, DELIVERY SUPERVISOR tumor, impaired sensorium, hemiplegia, paraplegia or quadraplegia. [...] BP 145/78 Pulse 54 (more content not included)...NormalSan Antonio HospitalIron and Iron binding capacity panelon 38-36-8727Wwqt [Mass/Vol]129 ug/sIJyidrv27-433 [facility] HospitalComment on above:Order Comment: Specimen Type: BLOOD SPECIMENOrdering Facility: [facility] Address:[address] [place] [id number] By: #### 25953-1, 2276-4, 78621-5 ####[facility]ORATORYCLIA [id number] [place] [address] [place] STATES OF AMERICAIron binding capacity [Mass/Vol]310 ug/hURufxun355-230Ytlwdw Hospital Comment on above:Order Comment: Specimen Type: BLOOD SPECIMENOrdering Facility: [facility] Address:[address] [place] [place] [address] Performed By: #### 86223-8, 2276-4, 31800-9 ####[facility] LABORATORYCLIA [id number] [place] [address] [place] Iron/TIBC [Molar ratio]41.6 %Zobnsb12.0-57.0San Antonio HospitalComment on above: Order Comment: Specimen Type: BLOOD SPECIMENOrdering Facility: [facility] Address:[address] [place] [address]Performed By: #### 85081-3, 6-4, 36420-1 ####[facility] LABORATORYCLIA [id number] [place] [address] [place] AMERICAIron [Mass/Vol]129 ug/dL41 - 186 ug/dLCleveland Clinic South Pointe HospitalIron binding capacity [Mass/Vol]310 ug/dL232 - 386 ug/dLCleveland Clinic South Pointe HospitalIron/TIBC [Molar ratio]41.6 %15.0 - 57.0 %[facility] TYPE AND SCREEN,30 DAYon 12-17-9678XGDMYyxhhquvm ClinicHIstorical Ab Scr Status NegativeCleveland Clinic South Pointe HospitalRh Nom (Bld)PositiveCleveland Clinic South Pointe HospitalABOANormalParkview Health Montpelier Hospitalna HospitalComment on above:Order Comment: Specimen Type: BLOOD SPECIMEN [facility] Address: [address] [place], [place] [address]Performed By: #### 4537-7 #### [facility] CLIA [id number] [address] [place] [address] [place] OF AMERICAHISTORICAL AB SCR STATUS NegativeNormalMedina HospitalComment on above:Order Comment: Specimen Type: BLOOD SPECIMEN Ordering Facility: [facility] Address: [address] [place], [place] [id number] By: #### 4537-7 #### [facility] CLIA [id number] [address] [place] [address] [place] OF AMERICARh Nom (Bld)PositiveNormal Solis HospitalComment on above:Order Comment: Specimen Type: BLOOD SPECIMEN Ordering Facility: [facility] Address: [address] [place], [place] [id number] By: #### 4537-7 #### [facility] CLIA [id number] [address] [place] [address] [place] [id number] [facility] 02-04-2022 ALLIED HEALTHHNO ID: [id number] Author: RT Anant(R) Service: Radiology Author Type: [...] RT Anant(R) February 04, 2022 10:17 [facility]CT H[facility] IVCON RTon [id number] HIP WO IVCON RT* * *Final Report* * * DATE OF EXAM: Feb 04 2022 10:18AM [facility] [place]80 - CT HIP WO IVCON RT / PROCEDURE REASON: M16.11-Primary osteoarthritis of right hip * * * * Physician Interpretation * * * * EXAM: CT HIP WO IVCON RT HISTORY: Primary osteoarthritis of right hip TECHNIQUE: CT right hip without contrast ([facility] CT protocol) CT Radiation dose: Integrated Dose-length product (DLP) for this visit = 836 mGy*cm. CT Dose Reduction Employed: Automated exposure control (AEC) COMPARISON: FINDINGS: Right hip osteoarthritis. No fracture or acute soft tissue abnormality. Right total knee arthroplasty with small joint effusion. . IMPRESSION: Right hip osteoarthritis, preoperative [facility] CT protocol for robotic assisted total joint replacement. Meat Boner: RADHA Transcribe Date/Time: Feb 05 2022 7:19A Dictated by : CAROLINA CHAWLA MD This examination was interpreted and the report reviewed and electronically signed by: CAROLINA CHAWLA MD on Feb 05 2022 7:22AM EST [id number] Hospitals Portage Medical Center [id number] Visit (ORMDNA) CLEMENCIABOB Tierney ([id number]) 1955 M Date Time Provider Department 12/15/21 11:00 AM BENNY GALLARDO During your visit today, we recorded the following information about you: Benny Gallardo MD 12/15/2021 11:55 AM Signed Orthopaedic Office Note: December 15, 2021 11:50 AM Bob Khanna 66 year old History: Bob is a 66-year-old man referred to me by physician aquatics assistant department head Heena for evaluation of his right knee [...] and abduction to approximately 20 degrees Painful [facility] Updated Imaging: Right hip severe osteoarthritis [...] which included preparing to see the patient, okuo-qh-tukx patient care, completing clinical documentation, obtaining and/or [...] MD Orthopaedic Surgery Referring Provider: HEENA CHAVEZ [[id number]] Allergies As of Date: 12/15/2021 Noted Allergy Reaction GADOTERIDOL 03/02/2021 4 - Hives Comments: Patient became itchy and developed hives Date Reviewed: 12/15/2021 (more content not included)...[facility] [id number] HEALTHHNO ID: [id number] Author: RT Arthur(R) Service: ? Author Type: Synthetic Cloth Binding Cutter Type: Allied Health Filed: 10/04/2021 12:32 PM [...] BY: RT Arthur(R) October 04, 2021 12:31 PMNGrant HospitalC-REACTIVE PROTEIN (CRP)on 10-04-2021 CRP [Mass/Vol]mg/L<0.9 mg/dLCleveland Clinic South Pointe HospitalCNOVon 15-38-1971UHGFEeukhs Visit (ORMDNA) BOB KHANNA ([id number]) 1955 M Date Time Provider Department 10/04/21 11:00 AM HEENA CHAVEZ During your visit today, we recorded the following information about you: Weight Height 121.6 kg 1.905 m Heena Chavez PA-C 10/04/2021 1:03 PM Signed Heena Chavez PA-C Department of Orthopaedics Orthopaedics [address] [place] [address] Dept: [phone] October 04, 2021 CHIEF COMPLAINT: New and [...] . He was seeing a provider and [place] and was told that he had a [...] Moderate narrowing of the RIGHT hip joint Meat Boner: RADAH ? Transcribe Date/Time: Oct 04 2021 12:44P [...] joint. IMPRESSION: Stable right total knee arthroplasty Meat Boner: RADHA ? Transcribe Date/Time: Oct 04 2021 12:43P Dictated by (more content not included)...NormalMemorial Health System Selby General HospitalCRP SerPl-mCncon 05-38-7515LTU [Mass/Vol]mg/LNormal<0.9[facility] Memorial HospitalComment on above:Order Comment: Specimen Type: BLOOD SPECIMENOrdering Facility: [facility] Address:[address] [place], [place] [id number] By: #### 1988-5 ####[facility] LABORATORYCLIA [id number] [place] [address] [facility]ENTERR Westergren method (Bld) [Velocity]on 14-26-9509GSU (Bld) [Velocity]2 mm/hNormal0-15[facility] Antonio HospitalComment on above: Order Comment: Specimen Type: BLOOD SPECIMEN [facility] Address: [address] [place], [place] [id number] By: #### 4537-7 #### [facility] CLIA [id number] [address] [place] [address] Panel Informationon 39-02-1258Urqlellrn ClinicXR HIP 3V PELV+ AP/LAT RTon 61-07-8439ZP HIP 3V PELV+ AP/LAT RT* * *Final [...] Moderate narrowing of the RIGHT hip joint Meat Boner: RADHA Transcribe Date/Time: Oct 04 2021 12:44P Dictated by : SOULEYMANE KWON DO This examination was interpreted and the report reviewed and electronically signed by: SOULEYMANE KWON DO on Oct 04 2021 12:44PM EST [id number] Shelby HospitalXR KNEE 4V AP/PA BOTH+LAT/NNAMDI RTon 98-70-3360YO KNEE 4V AP/PA BOTH+LAT/NNAMDI RT* * *Final [...] compartment IMPRESSION: Stable right total knee arthroplasty Meat Boner: RADHA Transcribe Date/Time: Oct 04 2021 12:43P Dictated by : SOULEYMANE KWON DO This examination was interpreted and the report reviewed and electronically signed by: SOULEYMANE KWON DO on Oct 04 2021 12:44PM EST [id number] Shelby HospitalMRI HIP RT WO CONon [id number] HIP RT WO CONEXAMINATION: MRI HIP RT [...] Electronically authenticated by: IVY KELLEY Date: 2021-07-01 14:41[facility] HospitalXR HIP RT INJon [id number] HIP RT INJEXAMINATION: XR HIP RT INJ [...] Electronically authenticated by: IVY KELLEY Date: 2020-08-23 14:16[facility] Vital Signs Date TimeVital SignValuePerforming PyshdgoldTnklqvzj89-68-4300 11:24-0400Body .5 cmNicholas Brown DPM Work Phone: [facility] SystemsYegmosbrnm17-35-5977 11:24-0400Body mass index (BMI) [Ratio]33.62 kg/r2Epcbngqx Brown DPM Work Phone: [facility] SystemsWspbvtaptd37-76-3450 11:24-0400Body ybgphr380.02 kgNicholas Brown DPM Work Phone: [facility] SystemsGwudkyfqzl83-19-9169 11:24-0400Respiratory rate16 /minNicholas Brown DPM Work Phone: [facility] SystemsBruelnjpio07-69-8436 10:11-0400Body mtgvok105.5 cmNicholas Brown DPM Work Phone: [facility] SystemsLvxljlcrmz57-40-1083 10:11-0400Body mass index (BMI) [Ratio]33.62 kg/o7Dqcuzwux Brown DPM Work Phone: [facility] SystemsXlkefbblfg75-99-0222 10:11-0400Body .02 kgNicholas Brown DPM Work Phone: [facility] SystemsWuuztxnlcs77-50-6475 10:11-0400Respiratory rate18 /minNicholas Brown DPM Work Phone: [facility] SystemsVyxvqphydb31-19-5470 10:02-0400Body iojdaf507.5 Brea Lamar CORE LOADER Work Phone: [facility] SystemsOvknnjrogq76-01-6079 10:02-0400Body mass index (BMI) [Ratio]33.62 kg/v9WeavkwJulissa Lamar CORE LOADER Work Phone: [facility] SystemsEpuyzcsqsy26-64-9667 10:02-0400Body pnybnx333.02 kgJulissa Lamar CORE LOADER Work Phone: [facility] SystemsBmedkxzpxy78-55-4777 10:02-0400Diastolic blood yizqhwpw36 mm[Hg]Julissa Lamar CORE LOADER Work Phone: [facility] SystemsAiwqbhneqn51-06-8644 10:02-0400Heart rate51 /min Julissa Aida CORE LOADER Work Phone: [facility] SystemsTobbvoobqm64-12-4947 10:02-0400Respiratory rate17 /minSabraham Lamar CORE LOADER Work Phone: [facility] SystemsDkbvoydcyy42-16-6444 10:02-1163QkX5% (BldA) [Mass fraction]97 %Julissa [place] CORE LOADER Work Phone: [facility] SystemsFlehdogobh93-08-8712 10:02-0400Systolic blood vhajacxy904 mm[Hg]Julissa Lamar CORE LOADER Work Phone: [facility] SystemsZgfzsocora56-12-1489 09:21-0400Body .5 cmPaul Naomie DO Work Phone: [facility] SystemsTlajkokend56-46-6101 09:21-0400Body mass index (BMI) [Ratio]33.75 kg/m2Paul Laffay DO Work Phone: [facility] SystemsCbxzrlikbm96-04-8325 09:21-0400Body tvllaj855.47 kgPaul Laffay DO Work Phone: [facility] SystemsWheqtoexky88-90-9102 09:21-0400Diastolic blood yjjeuskv83 mm[Hg]Anup Akbar DO Work Phone: [facility] SystemsFzbycevpjs35-56-5339 09:21-0400Systolic blood yoeaoowt198 mm[Hg]Anup Akbar DO Work Phone: [facility] SystemsMadtcpjype30-03-5748 09:14-0400Body atgfjl179 cm Yuri Kuo MD Work Phone: [facility] SystemsVgjzrzrtqu22-94-1483 09:14-0400Body mass index (BMI) [Ratio]33.84 kg/e9OdpahzYuri Kuo MD Work Phone: [facility] SystemsQqayryavuc42-10-6012 09:14-0400Body idvwog756.1 kgYuri Kuo MD Work Phone: [facility] SystemsZpldopznvy04-49-7046 09:14-0400Diastolic blood kmvkyxgm60 mm[Hg]Yuri Kuo MD Work Phone: [facility] SystemsUliekwqcwm38-63-5822 09:14-0400Heart rate54 /min Yuri Kuo MD Work Phone: [facility] SystemsMvsswekdku29-91-3553 09:14-9202QwU0% (BldA) [Mass fraction]97 %Yuri Kuo MD Work Phone: [facility] SystemsBquodonpjm71-73-5534 09:14-0400Systolic blood ejyjohpo447 mm[Hg]Yuri Kuo MD Work Phone: [facility] SystemsOdntukfrcn60-53-4543 08:41-0500Body cm Yuri Kuo MD Work Phone: 1(385)[facility]-6051[facility] SystemsZbxhxwmjkg22-41-5007 08:41-0500Body mass index (BMI) [Ratio]33.96 kg/o1EjthacYuri Kuo MD Work Phone: [facility] SystemsSydmiwsfnv07-33-3889 08:41-0500Body evtygp429.55 kgYuri Kuo MD Work Phone: [facility] SystemsMegrvamsxf70-44-3868 08:41-0500Diastolic blood jbnydrzi15 mm[Hg]Yuri Kuo MD Work Phone: [facility] SystemsZgaitrkvkq15-81-4805 08:41-0500Heart rate67 /min Yuri Kuo MD Work Phone: [facility] SystemsWhebqtlqfj01-77-6142 08:41-8655PoE3% (BldA) [Mass fraction]97 %Yuri Kuo MD Work Phone: [facility] SystemsIfuhvacbab25-37-1740 08:41-0500Systolic blood mjxalloj783 mm[Hg]Yuri Kuo MD Work Phone: [facility] SystemsPglxeheoru45-18-6045 09:18-0500Body qrezcf811.04 cmYuri Kuo II Work Phone: 1(696)416-[address] [place], [place] [address]13[address]01-13-2025 09:18-0500 Body .37 kgYuri Kuo II Work Phone: 1(702)397-[address] [place], [place] [address]-30-2024 15:42-0400 Body pisftd324 cmEladioapryl Holliday DPM Work Phone: 1(674)905-[address] [place], [place] [address]Otjvgrvnmz17-31-7603 15:42-0400Body mass index (BMI) [Ratio]34.33 kg/o9Adadaxmp Brown DPM Work Phone: [facility] SystemsWcfcvjchio10-55-5093 15:42-0400Body .91 kgJanaaissatou Holliday DPM Work Phone: 1(276)381-[address] [place], [place] [address]Awmizdkqlt30-87-6409 15:42-0400Diastolic blood scawcxfj22 mm[Hg]Haseeb Holliday DPM Work Phone: 1(364)180-[address] [place], [place] [address]Thqbqabdhy34-47-1779 15:42-0400Heart rate84 /min Haseeb Holliday DPM Work Phone: 1(681)581-[address] [place], [place] [address]Unklimwnql28-44-0540 15:42-0400Systolic blood plenqgdr782 mm[Hg]Haseeb Holliday DPM Work Phone: 1(453)5-[address] [place] [address]-16-2024 14:19-0400Body cm Haseeb Brown DPM Work Phone: 1(721)472-[address] [place], [place] [address]Wmmntiklmh84-70-6366 14:19-0400Body mass index (BMI) [Ratio]34.33 kg/c9Vgbwctpfapryl Holliday DPM Work Phone: 1(333)923-[address] [place], [place] [address]Ihhhozvmrd25-55-6371 14:19-0400Body jghron330.91 kgJanaaissatou Holliday DPM Work Phone: 1(406)594-[address] [place] [address]-16-2024 14:19-0400Diastolic blood htqultlk37 mm[Hg]Haseeb Holliday DPM Work Phone: 1(978)117-[address] [place], [place] [address]Iwsocsevqe18-40-9071 14:19-0400Heart rate88 /min Haseeb Holliday DPM Work Phone: 1(709)251-[address] [place] [address]-16-2024 14:19-0400Systolic blood sjtftoaq772 mm[Hg]Haseeb Holliday DPM Work Phone: 1(009)747-[address] [place] [address]-14-2024 13:45-0400Body ktniqs132 cm Haseeb Holliday DPM Work Phone: [facility] SystemsVvutcytmit04-05-6168 13:45-0400Body mass index (BMI) [Ratio]34.33 kg/q9XdyztodhHaseeb Holliday DPM Work Phone: [facility] SystemsCawbtcsiln93-05-1381 13:45-0400Body .91 kgHaseeb Holliday DPM Work Phone: [facility] SystemsMwvwnwzyre81-94-8390 13:45-0400Diastolic blood pwglnvuw45 mm[Hg]Haseeb Holliday DPM Work Phone: [facility] SystemsQpklujsvaq39-14-0688 13:45-0400Heart rate82 /min Haseeb Holliday DPM Work Phone: [facility] SystemsFdykqkpqbb06-41-3213 13:45-0400Systolic blood mm[Hg]Haseeb Holliday DPM Work Phone: 1(885)238-[address] [place], [place] [address]Gpvigfxfgx32-99-8994 10:25-0500Body xqcoux101.6 cmPacc 1 Work Phone: [facility]11-23-2022 10:25-0500Body temperature 97.5 [degF]Pacc 1 Work Phone: [facility]11-23-2022 10:25-0500Body umiyhw724.56 kgPacc 1 Work Phone: [place] [address]-23-2022 10:25-0500Diastolic blood ranwommq05 mm[Hg]Pacc 1 Work Phone: [place] [address]-23-2022 10:25-0500Heart rate54 /min Pacc 1 Work Phone: [place] [address]-23-2022 10:25-0500Respiratory rate 18 /minPacc 1 Work Phone: [place] [address]-23-2022 10:25-2921OdQ5% (BldA) [Mass fraction]99 %Pacc 1 Work Phone: [facility]11-23-2022 10:250500Systolic blood zbzyemax535 mm[Hg]Pacc 1 Work Phone: [facility]07-19-2022 10:49-0400Body vsipce196.5 cmSondrniall Chavez PA-C Work Phone: [facility]07-19-2022 10:49-0400Body dzoojk937.56 kgSondra Chavez PA-C Work Phone: [facility] Encounters Encounter DateEncounter TypeCare ProviderFacilityStart: 01-13-2025 End: 98-33-1081Obfleoyonatan Valero MD Work Phone: no [facility]ermatologyStart: 01-13-2025 End: 83-01-6171Twleysyonatan Valero MD Work Phone: no [facility]ermatologyStart: 01-13-2025 End: 81-94-9748Aprxsz outpatient visit 15 minutesEmsruthi Valero MD Work Phone: noMS Kirby DermatologyComment on above:Seborrheic keratosis (Primary Dx); Sebaceous hyperplasia of face; LentiginesStart: 01-13-2025 End: 96-63-8057dgwvklvbcoLBRTK A PETITTINot AvailableStart: 11-25-2024 End: 49-58-9036Hnruec flowsheetHaseeb Holliday DPM Work Phone: no [facility] PodiatryStart: 11-25-2024 End: 20-49-7056Jpfbcb flowsheetHaseeb Holliday DPM Work Phone: no [facility] PodiatryStart: 11-25-2024 End: 16-65-0814Egyavk outpatient visit 15 minutesNicapryl Holliday DPM Work Phone: no [facility] PodiatryComment on above: Onychocryptosis (Primary Dx); Toe pain, leftStart: 11-25-2024 End: 20-06-6755gdkgrkhekcPMHHWCWE A BROWNNot AvailableStart: 11-18-2024 End: 30-47-7401Mckpgu flowsheetNicholas A Brown DPM Work Phone: noMS [facility]res PodiatryStart: 11-18-2024 End: 24-62-2375Lealzs flowsheetNicholas A Brown DPM Work Phone: noMS [facility] PodiatryStart: 11-18-2024 End: 88-82-3245Ekvvdx outpatient visit 15 minutesNicholas A Brown DPM Work Phone: noMS [facility] Lares PodiatryComment on above: Onychocryptosis (Primary Dx); Toe pain, leftStart: 11-18-2024 End: 31-47-6641qmuggzuibeIUOTNBOR A BROWNNot AvailableStart: 10-31-2024 End: 11-01-7938Naimok flowsheetNicholas A Brown DPM Work Phone: noMS [facility] PodiatryStart: 10-31-2024 End: 88-55-9411Msffoy flowsheetNicholas A Brown DPM Work Phone: noMS [facility]res PodiatryStart: 10-31-2024 End: 43-64-7147Aiokdub encounter procedureNicholas A Brown DPM Work Phone: noMS [facility] Lares PodiatryComment on above: Onychocryptosis (Primary Dx); Toe pain, leftStart: 10-31-2024 End: 81-75-6509pcdqspagdrMANYEIWK A BROWNNot AvailableStart: 10-28-2024 End: 65-38-9519Byhmet follow up visit related to original pxAnup Akbar DO Work Phone: [facility] Surgical AssociatesComment on above:Adenomatous polyp of cecum (Primary Dx)Start: 10-28-2024 End: 35-10-5535bywmbfvzdkQSHX C JUANAFAYNot AvailableStart: 10-16-2024 End: 70-29-9368Rptxsoxd Result EncounterPaul C Laffay DO Work Phone: noms External Department UnsolicitedStart: 10-16-2024 End: 03-12-7292Kmszlgga Result EncounterPaul C Laffay DO Work Phone: noms External Department UnsolicitedStart: 10-16-2024 End: 80-38-4756taavseegorAxju [facility] Work Phone: Start: 10-16-2024 End: 48-19-2114Fdnzbjkt ReferredPaul C Laffay DO-Lab [place] Work Phone: Start: 10-01-2024 End: 94-38-6436Mthdip Luba Lamar CORE LOADER Work Phone: noms CI FMStart: 10-01-2024 End: 95-13-1212Dcvejc Luba Lamar CORE LOADER Work Phone: [facility] CI FMStart: 10-01-2024 End: 43-04-9997Rjdrfedod Result EncounterSabraham Lamar CORE LOADER Work Phone: NODI External Department UnsolicitedStart: 10-01-2024 End: 32-15-5680Jtdpuk outpatient visit 25 minutesShdebbie Lamar CORE LOADER Work Phone: [facility] CI FMComment on above:Lumbar spine pain (Primary Dx)Start: 10-01-2024 End: 15-62-6431elwruelopqTAUXQS M SHIVELYNot AvailableStart: 09-17-2024 End: 58-36-8088Wgmgghl encounter procedurePaul C Laffay DO Work Phone: noms ST GENSComment on above:Screening for colon cancerStart: 09-17-2024 End: 06-03-5023syclgokuvoLXNJ C LAFFAYNot AvailableStart: 08-21-2024 End: 47-98-2559liikjbsjcnUKOEMK BERRYFacility: SURG CLINICStart: 06-16-2024 End: 01-72-6568Zqfoll flowsLinnea Kuo MD Work Phone: NOTP CI FMStart: 06-16-2024 End: 39-94-1232Tsbkng Percy Kuo MD Work Phone: NOOQ CI FMStart: 06-16-2024 End: 56-10-3781Zpwku of hemosiderin, Angela Kuo MD Work Phone: [facility] HealthcareStart: 06-16-2024 End: 62-92-3269Gredhwb encounter procedureYuri Kuo MD Work Phone: noms CI FMComment on above:Routine general medical examination at health care facility (Primary Dx); ACP (advance care planning); Factor V Leiden, prothrombin gene mutation (CMS/HCC); Hypercoagulable state (CMS/HCC); Mixed hyperlipidemia (CMS/HCC) ; Edema, unspecified type; History of pulmonary embolus (PE); Elevated PSA; Primary hypertension (CMS/HCC); Prostate cancer screening; High risk medication use; Current use of usp anticoagulation; History of colon polypsStart: 06-16-2024 End: 29-56-2900pkwiischmhEYUZFV B BERRYNot AvailableStart: 05-29-2024 End: 17-54-1510feccpsecakXpjnki Berry II Work Phone: [facility] Work Phone: Start: 05-29-2024 End: 20-63-0834Hkeuzgdf Bella Kuo II Work Phone: [facility]-LAB Path Spec [facility] HospStart: 05-29-2024 End: 26-16-4178vmtgwkcduyKRGDOU BERRYFacility:[facility] HospitalStart: 05-19-2024 End: 75-10-4627Bvlmfc Percy Kuo MD Work Phone: noms CI FMStart: 05-19-2024 End: 74-13-9058Bewvmm Percy Kuo MD Work Phone: noms CI FMStart: 05-19-2024 End: 08-78-0048Oslubo outpatient visit 25 minutesDaann Kuo MD Work Phone: noms CI FMComment on above:Elevated PSA (Primary Dx); History of pulmonary embolus (PE); Hypercoagulable state (CMS/HCC); Factor V Leiden, prothrombin gene mutation (CMS/HCC)Start: 05-19-2024 End: 47-87-1887cqdhpnblnyCJBURH B BERRYNot AvailableStart: 05-14-2024 End: 72-51-2476ruwfolrkfnXTQWIX BERRYFacility:[facility] HospitalStart: 03-31-2024 End: 68-86-1148Jooidvg encounter procedureYuri Kuo II Work Phone: [facility]-MRI [place] Work Phone: Start: 03-31-2024 End: 83-10-7393mlrcyzkpbuMiigme Berry II Work Phone: [facility] Work Phone: Start: 02-06-2024 End: 89-27-0789zxnafldfrtFUYGOJ [facility] Start: 01-24-2024 End: 22-27-8671Zfvkxxrqs Result EncounterGeneric External Data ProviderNOMS External Department UnsolicitedStart: 01-24-2024 End: 44-11-4148Nfqupjcfd Result EncounterGeneric External Data ProviderNOMS External Department UnsolicitedStart: 01-16-2024 End: 57-11-3263Jtcnnm outpatient visit 15 Jany Holliday DPM Work Phone: noms NE PODComment on above:Onychocryptosis (Primary Dx); Toe pain, left; Abscess, toe, leftStart: 01-16-2024 End: 67-20-9188vemnrtpkvbZIXEOHRE A BROWNNot AvailableStart: 01-16-2024 End: 45-42-7225Kstqkv flowsheetHaseeb Holliday DPM Work Phone: noms NE PODStart: 01-16-2024 End: 82-13-9344Boiddn flowsheetNicholas A Brown DPM Work Phone: noms [place] PODStart: 01-02-2024 End: 06-30-7321Ggqznf follow up visit related to original pxNicholas A Brown DPM Work Phone: noms [place] PODComment on above:Onychocryptosis (Primary Dx); Toe pain, left; Abscess, toe, leftStart: 01-02-2024 End: 23-37-7189Wdpwoo flowsheetNicholas A Brown DPM Work Phone: noms [place] PODStart: 01-02-2024 End: 05-45-8356Vrofrx flowsheetNicholas A Brown DPM Work Phone: noms [place] PODStart: 12-31-2023 End: 28-94-2210Qsbgdi Alla Valero MD Work Phone: [facility]ERMStart: 12-31-2023 End: 37-45-7109Lhhnth Alla Valero MD Work Phone: noms [facility] DERMStart: 12-31-2023 End: 61-73-7003Izqqwk outpatient visit 15 minutesNicholas A Brown DPM Work Phone: noms [place] PODComment on above:Abscess, toe, left (Primary Dx); Pain due to onychomycosis of toenails of both feet; Venous insufficiency; Onychocryptosis; Toe pain, leftStart: 12-31-2023 End: 71-40-7841Qxadkl outpatient visit 15 minutesClaudia Valero MD Work Phone: noms [facility] DERMComment on above:Seborrheic keratosis (Primary Dx); Lentigines; Sebaceous hyperplasia of face; Angioma of skin; Rash and other nonspecific skin eruption; Skin tagStart: 09-11-2023 End: 24-62-4646hnqejrxslzMWTBFDFUniversity Hospitals TriPoint Medical Centertart: 09-11-2023 End: 80-34-6342Knhqeikkm for general adult medical examination without abnormal findingsUniversity Hospitals TriPoint Medical Centertart: 06-07-2023 End: 04-90-9930wkjaqsbcmxCHTYIUZUniversity Hospitals TriPoint Medical Centertart: 38-19-7862Icvspw OnlyBenny Gallardo MD Work Phone: OrthopaedicsComment on above:Pain in right hip (Primary Dx)Start: 84-38-3110vpkqmlhqxjXazpaqz Grater BALANCE WEIGHER.MAIN LINE STATION ENGINEER Work Phone: orthopaedicsComment on above:Return to workStart: 04-11-2022 End: 04-05-8494Fdhbdqs encounter procedureStephen Grater BALANCE WEIGHER.MAIN LINE STATION ENGINEER Work Phone: orthopaedicsComment on above:Status post right hip replacement (Primary Dx)Start: 03-14-2022 End: 30-44-6398wghqwinixoMYOVWU B BERRY IIFacility:[facility]art: 03-14-2022 End: 18-29-5740Xelsmzr encounter procedureSteptheodora Grater BALANCE WEIGHER.MAIN LINE STATION ENGINEER Work Phone: orthopaedicsComment on above:Status post right hip replacement (Primary Dx)Start: 03-14-2022 End: 20-84-4324Emjjpvubve hospital visit by physicianRadio [facility] Work Phone: RadiologyComment on above:Pain in right hip [M25.551] Start: 50-34-6330Qfnvaycej encounterBenny Gallardo MD Work Phone: [place] [phone] EastComment on above:Soft Tile Setter - Hospital Follow UpPain in right hip (Primary Dx)Start: 02-27-2022 End: 08-31-1168nrfibycvrhZUCTR SURACEFacility:[facility]althtart: 02-25-2022 End: 44-83-1448iegflfswybXXSCQI B BERRY IIFacility:[facility] Start: 07-65-1352Pdiagtjhy for preprocedural laboratory examinationDANIEL AYAAN DUFFYMemorial Health System Selby General HospitalStart: 02-24-2022 End: 02-99-5512qhtqwwhiewHIRVEE B KUO Facility:[facility] Start: 88-97-5272Isybidbvh for other preprocedural examinationDANIEL AYAAN DUFFY [facility] HospitalStart: 81-50-2526Gpstwblef encounterChadwick Harris APRN.CNP Work Phone: Pre AnesthesiaComment on above:Preparations For SurgeryStart: 60-79-7558Zsztovuyg encounterBenny Gallardo MD Work Phone: [place] [phone] EastComment on above:Pre-Op Teaching Start: 02-08-2022 End: 15-75-1892pwfcnllwfhSJYMAT STOLLERFacility:[facility]althtart: 02-08-2022 Encounter for other preprocedural examinationJOANANTH ULLOAlisbon HospitalStart: 02-08-2022 End: 43-08-0361vtujccqiphLWHXZ SURACEFacility:[facility]althtart: 02-08-2022 End: 13-00-8194Iwumjpoib to [place] [address] Work Phone: [facility]ALTHtart: 02-08-2022 End: 20-79-2393bbkvhkvuiwXhge Medina 1 Work Phone: Pre AnesthesiaComment on above:Pre-op evaluation (Primary Dx); Hyperlipidemia, unspecified hyperlipidemia type; Personal history of pulmonary embolism; Obstructive sleep apnea; Factor V Leiden (HCC); Bradycardia; MurmurStart: 02-08-2022 End: 65-16-7933Naczbkoflenaj examination [place] [address] Work Phone: Pre AnesthesiaStart: 37-27-5895tzvowhbegtNMXVV SURACE Facility:[facility]art: 02-04-2022 End: 18-64-1231Kqdpjwrcty hospital visit by physicianCt [facility] Hospital[facility] Comment on above:Primary osteoarthritis of right hip [M16.11]Start: 01-02-2022 Orders OnlyBenny Gallardo MD Work Phone: OrthopaedicsComment on above:Primary osteoarthritis of right hip (Primary Dx)Start: 12-15-2021 End: 24-99-8098ziyuwyrwyzPROPGW B BERRY IIFacility:[facility] Start: 12-15-2021 End: 81-98-5133Uuelcqc encounter procedureBenny Gallardo MD Work Phone: OrthopaedicsComment on above:Primary osteoarthritis of right hip (Primary Dx); Status post total right knee replacementStart: 10-04-2021 End: 08-27-0561sqnoyuzgtlIEYVDOL PROVIDERFacility:[facility]: 10-04-2021 End: 09-73-4283Bokwhiyycu hospital visit by physicianRadio [facility] Work Phone: RadiologyComment on above:Status post total right knee replacement [Z96.651]Start: 10-04-2021 End: 97-54-8074[place]weaf encounter Aubrie Chavez PA-C Work Phone: OrthopaedicsComment on above:Primary osteoarthritis of right hip (Primary Dx); Status post total right knee replacement; Acute pain of right kneeStart: 07-01-2021 End: 66-36-1083ueqncyctsrHN GEORGE STEPANICFacility:M5Hawsg: 08-23-2020 End: 02-78-9193lkdpimwkctAG GEORGE STEPANICFacility:H1 Procedures DateProcedureProcedure DetailPerforming ClinicianStart: 82-47-1483Nltyvornnxt Anup Akbar DO Work Phone: Start: 74-11-8365JYALFLXFG REQUEST FOR LAB CORPPayohana Akbar DO Work Phone: Start: 47-15-1457AY LUMBAR SPINE 6V W Ashley Lamar CORE LOADER Work Phone: Start: 25-70-9206PR prostate wo/w conDanijosue Kuo II Work Phone: Start: 35-99-7696DDGG PSA, DIAGNOSTICGeneric External Data ProviderStart: 66-63-5568Gogcq hip unilateral with pelvis 2-3 viewsSteptheodora Grater BALANCE WEIGHER.MAIN LINE STATION ENGINEER Work Phone: Start: 02-08-2022 End: 11-80-2843Iuhgpevi screenPacc 1 Work Phone: Comment on above:Order Comment: Specimen Type: BLOOD SPECIMEN Ordering Facility: [facility] Address: [address] [place] [place] [address]Performed By: #### [id number] #### [facility] CLIA [id number] [address] [place] [address] AMERICAStart: 27-86-7384Yhlxl hip unilateral with pelvis 2-3 Nathalia Chavez PA-C Work Phone: Start: 42-14-4656UpwpubinjafHxjae Petitti MD Work Phone: Plan of Treatment DateCare ActivityDetailAuthorStart: 72-11-8118Jkqolaxir for malignant neoplasm of colonNOMS HealthcareStart: 75-29-8268VOZ Vaccine (1 - 1-dose 75+ series)RSV Vaccine (1 - 1-dose 75+ series)[facility]art: 63-24-5724Itlswyzzd for malignant neoplasm of colonNOMS HealthcareStart: 01-13-2026 End: 29-22-4539Olrfpyn encounter fejgqjkxg09/28/2026 9:00 AM EDT Office Visit [facility] [address] [place] [address] Claudia Valero MD [address] [place] [address] NOMAlexander Kirby DermatologyStart: 06-16-2025 Medicare Annual Wellness (AWV)Medicare Annual Wellness (AWV)[facility] Healthcare Start: 68-63-0747PRENYMUF SCREENDIABETES SCREENAvita Health System Galion Hospitaltart: 02-28-2025 Diabetes ScreeningDiabetes ScreeningAvita Health System Galion Hospitaltart: 88-71-7142ZYKMPSDU SCREENDIABETES SCREENAvita Health System Galion Hospitaltart: 01-13-2025 End: 43-75-4722Dvzavei encounter procedureNOMS JOSEFA DERMComment on above:Arrived Start: 12-25-2024 End: 93-83-6772Sxbvtoz encounter mzvtruldv67/09/2025 11:05 AM EDT Office Visit [facility] [address] [place] [address] Claudia Valero MD [address] [place] [address] NOMS SWS DERMStart: 11-25-2024 End: 96-96-7021Ehyxuyw encounter procedureNOMS Mirta Lares PodiatryComment on above:Onychocryptosis (Primary Dx); Toe pain, leftStart: 11-18-2024 End: 12-84-3565Dswntjk encounter ylbjnmoao21/02/2025 10:20 AM EDT Office Visit [facility] [address] [place] [address] Haseeb Holliday DPM [address] [facility] [address] [place] [address] Onychocryptosis (Primary Dx); Toe pain, leftNOMS Mirta Lares PodiatryComment on above:Onychocryptosis (Primary Dx); Toe pain, leftStart: 73-63-7602NIRUN-19 Vaccine ( season)COVID-19 Vaccine ( season)[facility]OMS HealthcareStart: 97-27-0388Uqtdsersj vaccinationInfluenza Vaccine (#1)NOMS HealthcareStart: 10-31-2024 End: 89-33-2867Lwztrgo encounter procedureNOMS Mirta Lares PodiatryComment on above:ArrivedStart: 10-28-2024 End: 53-45-6656Ruraxud encounter procedureNOMS ST GENSStart: 59-59-8307UyaggxcsgUniversity Hospitals Portage Medical Centertart: 10-01-2024 End: 05-41-5586JL Lumbar spine Views W flexion and W extensionXR lumbar spine 4+ views w flexion extension Imaging Routine Lumbar spine pain Expected: 10/01/2024, Expires: 10/01/2025[facility] Work Phone: Comment on above:Expected: 10/01/2024, Expires: 10/01/2025Start: 10-01-2024 End: 95-05-0617Piyzahf encounter aifoxlqjo17/16/2025 10:00 AM EDT Office Visit [facility] [address] [facility] [address] [place] [address] Julissa Lamar CORE LOADER [address] [facility] [address] [place] [address] ArrivedNOMS CI FMComment on above:ArrivedStart: 06-16-2024 End: 35-70-6458Asavclkyzdxnm metabolic 2000 panel - Serum or PlasmaComprehensive metabolic panel Lab Routine Mixed hyperlipidemia (CMS/HCC) Primary hypertension (CMS/HCC) Expected: 06/16/2024 (Approximate), Expires: 06/16/2025[facility] Work Phone: Comment on above:Expected: 06/16/2024 (Approximate), Expires: 06/16/2025Start: 06-16-2024 End: 25-91-1048Ibpgi 1996 panel - Serum or PlasmaLipid panel Lab Routine Mixed hyperlipidemia (CMS/HCC) Expected: 06/16/2024 (Approximate), Expires:06/16/2025 NOMS HealthcareComment on above:Expected: 06/16/2024 (Approximate), Expires: 06/16/2025Start: 06-16-2024 End: 46-31-9646FBD W/REFLEX TO FT4TSH W/REFLEX TO FT4 Lab Routine Mixed hyperlipidemia (CMS/HCC) Primary hypertension (CMS/HCC) Expected: 06/16/2024 (Approximate), Expires: 06/16/2025NO[facility] HealthcareComment on above:Expected: 06/16/2024 (Approximate), Expires: 06/16/2025Start: 06-16-2024 End: 04-09-7993Pvirlcb encounter uoemjrsuh88/31/2025 9:30 AM EDT Office Visit [facility] [address] [place] [address] Yuri Kuo MD [address] [place] [address] ArrivedNOMS CI FMComment on above:ArrivedStart: 06-04-2024 End: 99-27-9154Rkfzclr encounter rlcostwyd44/19/2025 11:00 AM EDT Office Visit [facility] [address] [place] [address] Yuri Kuo MD [address] [place] [address] NOMS CI FMStart: 50-41-9094MeroasqxsChillicothe Hospital Start: 05-19-2024 End: 90-92-4751Ydxpuzu encounter yatkfonlz56/03/2025 9:00 AM EST Office Visit [facility] [address] [place] [address] Yuri Kuo MD [address] [place] [address] ArrivedNOMS CI FMComment on above:ArrivedStart: 01-16-2024 End: 14-09-1561Iexoxzf encounter procedureNOMS SC PODComment on above: Onychocryptosis (Primary Dx); Toe pain, left; Abscess, toe, leftStart: 01-02-2024 End: 80-05-7894Iygfgeq encounter rnfvrabqq37/16/2024 2:30 PM EDT Office Visit [facility] [address] [place] [address] Haseeb Holliday, DPM [address] [address] ArrivedNOMS SC PODComment on above:ArrivedStart: 12-31-2023 End: 54-49-8868Bithxup encounter /14/2024 1:50 PM EDT Office Visit [facility] [address] [place] [address] Haseeb Holliday DPM [address] [facility] [address] [place] [address] NOMS SC PODStart: 12-31-2023 End: 76-42-9855Dhdbrbs encounter xyendxchm86/14/2024 10:30 AM EDT Office Visit [facility] [address] [place] [address] Claudia Valero MD [address] [place] [address] ArrivedNOMS SWS DERMComment on above:ArrivedStart: 81-72-1988Botez-19 Vaccine ( season)Covid-19 Vaccine ( season)[facility]art: 75-85-3202Orbpxykir vaccinationInfluenza Vaccine (#1)[facility]tart: 51-50-7850Gbwzbid Directive DiscussionAdvance Directive DiscussionAvita Health System Galion Hospitaltart: 03-05-1615Nzhdo-19 Vaccine ( season)Covid-19 Vaccine ( season)[facility]: 11-17-2022 Influenza vaccinationInfluenza Vaccine (#1)[facility]: 2022 Advance Directive DiscussionAdvance Directive DiscussionAvita Health System Galion Hospitaltart: 64-63-4648Jndyoqgzxqgn Vaccine: 65+ (2 - PCV)Pneumococcal Vaccine: 65+ (2 - PCV) [facility]: 72-64-2129Kqyeyjrdzygt Vaccine: 65+ (2 of 2 - PCV) Pneumococcal Vaccine: 65+ (2 of 2 - PCV)[facility]tart: 2022 Pneumococcal Vaccine: 65+ Years (2 of 2 - PCV)Pneumococcal Vaccine: 65+ Years (2 of 2 - PCV)[facility] HealthcareStart: 87-22-2827AWGHZQBLBB ASSESSMENTDEPRESSION ASSESSMENTCleohiohealth berger hospital ClinicStart: 49-84-2130Caemaubms vaccinationINFLUENZA (#1) [facility] Hospitaltart: 10-04-2021 End: 84-75-3211Nimmnldwrrj sedimentation rateTwin City Hospital Work Phone: Comment on above:Expected: 10/04/2021, Expires: 12/04/2021tart: 49-50-5404XOWYIUJVQC ASSESSMENTDEPRESSION ASSESSMENTAvita Health System Galion Hospitaltart: 02-20-5016VEMRH-19 VACCINE (3 - Booster for Pfizer series)COVID-19 VACCINE (3 - Booster for Pfizer series)[facility]: 70-63-4660PRNUL-19 VACCINE (3 - Booster for Pfizer series)COVID-19 VACCINE (3 - Booster for Pfizer series)[facility]: 48-86-5557WGR Vaccine (1 - 1-dose 60+ series)RSV Vaccine (1 - 1-dose 60+ series)[facility]: 49-00-3028Jzhajwaglhys Vaccine: 65+ Years (2 of 2 - PCV)Pneumococcal Vaccine: 65+ Years (2 of 2 - PCV) [facility] HealthcareStart: 65-88-7961OBMZRFRG CANCER SCREENING DISCUSSIONPROSTATE CANCER SCREENING DISCUSSIONAvita Health System Galion Hospitaltart: 01-86-5281Wpraxepv specific antigen measurementProstate Cancer Screening DiscussionAvita Health System Galion Hospitaltart: 44-55-9368HAXRZTNG VACCINE (1 of 2)SHINGRIX VACCINE (1 of 2)[facility] Start: 95-20-8914MFPGFDQHJ (FIT-DNA)COLOGUARD (FIT-DNA)[facility]tart: 92-13-5662BcktvixuwgvYXBEERVAKCAAyszpyreg ClinicStart: 36-95-2729EVQXRMQMLX CANCER SCREENINGCOLORECTAL CANCER SCREENINGAvita Health System Gal[facility] Hospitaltart: 26-16-7491QL COLONOGRAPHYCT COLONOGRAPHYAvita Health System Galion Hospitaltart: 37-79-8651FNYCQOAW SCREEN DIABETES SCREENAvita Health System Galion Hospitaltart: 44-11-6129MLCIO OCCULT BLOODFECAL OCCULT BLOODAvita Health System Galion Hospitaltart: 98-30-8056Relibpyjh for malignant neoplasm of colon [facility]tart: 44-05-8295SKZEXXNEDPRIERQQDVIGKHKXZLRmbirlcsy Clinic Start: 37-54-1809Rzwmp 1996 panel - Serum or PlasmaLipid ScreeningAvita Health System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 Transcribe Date/Time: Oct 04 2021 [...] joint. IMPRESSION: Stable right total knee arthroplasty Meat Boner: RADHA ? Transcribe Date/Time: Oct 04 2021 12:43P Dictated by : SOULEYMANE KWON DO This examination was interpreted and the report reviewed and electronically signed by: SOULEYMANE KWON DO on Oct 04 2021 12:44PM ?EST Results-Findings * * *Final Report* * * DATE OF EXAM: (more content not included)...[facility]07-19-2022 Miscellaneous Notes* Allied Health - RT Arthur(R) [...] 04, 2021 12:31 PM documented in this encounterCleveland Clinic South Pointe Hospital07-19-2022 History of Present illness Narrative* Sandra Carvalho - 10/04/2021 11:33 AM EDT PT ASSESSMENT - CASTING ROOM Bob presents for Application of brace. Applied hinged knee support to Right knee Patient has been instructed in Care and proper application of brace.. Sandra Carvalho Beeper: [phone] * Heena Chavez PA-C - 10/04/2021 11:28 AM EDT Heena Chavez PA-C Department of Orthopaedics Orthopaedics [address] [place] [address] Dept: [phone] October 04, 2021 CHIEF COMPLAINT: New and [...] . He was seeing a provider and [place] and was told that he had a [...] Moderate narrowing of the RIGHT hip joint Meat Boner: RADHA Transcribe Date/Time: Oct 04 2021 12:44P Dictated by : SOULEYMANE WKON DO This examination was interpreted and the [...] joint. IMPRESSION: Stable right total knee arthroplasty Meat Boner: RADHA Transcribe Date/Time: Oct 04 2021 12:43P [...] anxiety) This note was partially generated using Jounce voice recognition system, and there may be some incorrect words, spellings, and punctuation that were not noted in checking the note before saving. Heena Chavez PA-C documented in this encounterCleveland Clinic South Pointe HospitalEvalubayhealth medical center note* Diagnosis Primary osteoarthritis of right hip- Primary Primary localized osteoarthrosis, pelvic region and thigh Status post total right knee replacement Acute pain of right knee documented in this encounter [facility] HospitalEvalubay[facility] note* Diagnosis Status post total right knee replacement Primary osteoarthritis of right hip Primary localized osteoarthrosis, pelvic region and thigh [facility] Diagnosis Primary osteoarthritis of right hip- Primary Primary localized osteoarthrosis, pelvic region and thigh Status post total right knee replacement Encounter for screening for COVID-19 documented [facility] this [facility]* Diagnosis Primary osteoarthritis of right hip- Primary Primary localized osteoarthrosis, pelvic region and thigh Encounter for screening for COVID-19 Primary osteoarthritis of right hip Primary localized osteoarthrosis, pelvic region and thigh documented in this encounter [facility]Evaluation [facility]* Diagnosis Primary osteoarthritis of right hip Primary localized osteoarthrosis, pelvic region and thigh Encounter for screening for COVID-19 Primary osteoarthritis of right hip Primary localized osteoarthrosis, pelvic region and thigh [facility] Pre-op evaluation- Primary Preoperative examination, unspecified Hyperlipidemia, unspecified hyperlipidemia type Personal history of pulmonary embolism Obstructive sleep apnea Obstructive sleep apnea (adult) (pediatric) Factor V Leiden (HCC) Primary hypercoagulable state Bradycardia Other specified cardiac dysrhythmias Murmur Undiagnosed cardiac murmurs Encounter for screening for COVID-19 Primary osteoarthritis of right hip Primary localized osteoarthrosis, pelvic region and thigh documented in this encounter [facility]Evaluation [facility]* Diagnosis Pain in right hip- Primary Pain in joint, pelvic region and thigh documented in this encounter [facility]* Diagnosis Status post right hip replacement- Primary Hip joint replacement by other means documented [facility]* Diagnosis Status post right hip replacement- Primary Hip joint replacement by other means documented in this encounter [facility]* Diagnosis Pain in right hip- Primary Pain in joint, pelvic region and thigh documented in this encounter [facility]* Diagnosis Pre-op evaluation- Primary Preoperative examination, unspecified Hyperlipidemia, unspecified hyperlipidemia type Personal history of pulmonary embolism Obstructive sleep apnea Obstructive sleep apnea (adult) (pediatric) Factor V Leiden (HCC) Primary hypercoagulable state Bradycardia Other specified cardiac dysrhythmias Murmur Undiagnosed cardiac murmurs Pain in right hip Pain in joint, pelvic region and thigh documented in this encounter [facility]* Diagnosis Seborrheic keratosis- Primary Lentigines Sebaceous hyperplasia of face Angioma of skin Rash and other nonspecific skin eruption Skin tag Unspecified hypertrophic and atrophic condition of skin Pain due to onychomycosis of toenails of both feet- Primary Venous insufficiency Unspecified venous (peripheral) insufficiency documented in this encounter [facility]* Diagnosis Abscess, toe, left- Primary Pain due to onychomycosis of toenails of both feet Venous insufficiency Unspecified venous (peripheral) insufficiency Onychocryptosis Ingrowing nail Toe pain, left Pain in soft tissues of limb documented in this encounter [facility]* Diagnosis Onychocryptosis- Primary Ingrowing nail Toe pain, left Pain in soft tissues of limb Abscess, toe, left documented in this encounter [facility]* Diagnosis Onychocryptosis- Primary Ingrowing nail Toe pain, left Pain in soft tissues of limb Abscess, toe, left documented in this encounter [facility] HealthcareEvaluation noteNo assessment information availableOhiohealth Doctors Hospital Work Phone: Evaluation note* Diagnosis Elevated PSA- Primary Elevated prostate specific antigen (PSA) History of pulmonary embolus (PE) Hypercoagulable state (CMS/HCC) Primary hypercoagulable state Factor V Leiden, prothrombin gene mutation (CMS/HCC) Primary hypercoagulable state documented in this encounter [facility]* Diagnosis Routine general medical examination [...] High risk medication use Current use of usp anticoagulation History of colon polyps documented in [...] environment. Haseeb Holliday DPM [facility] (narrative)* Diagnostic Procedure Only (Routine) - Pending ReviewSpecialtyDiagnoses / ProceduresReferred By ContactReferred To ContactXR IMAGING Diagnoses Pain in right hip Procedures XR HIP 2V AP/LAT RIGHT (AK,FL,ME) RADEX HIP UNILATERAL WITH PELVIS 2-3 VIEWS Rafael Mejia APRN.CNP [address] [place] [address] Xr Imaging Referral IDStatusRemineral area regional medical centerStwharncliffe DateExpiration DateVisits RequestedVisits [id number] Review Auto-Generated Referral / [facility] for referral (narrative)* Diagnostic Procedure Only (Routine) - Pending ReviewSpecialtyDiagnoses / ProceduresReferred By Contact Referred To ContactXR IMAGING Diagnoses Pain in right hip Procedures XR HIP 2V AP/LAT RIGHT (AK,FL,ME,UN) RADEX HIP UNILATERAL WITH PELVIS 2-3 VIEWS Rafael Mejia APRN.CNP [address] [address] [place] [address] Referral IDStatusReasonStart DateExpiration DateVisits RequestedVisits [id number] Review Auto-Generated Referral / [facility] for referral (narrative)* Diagnostic Procedure Only (Routine) - ClosedSpecialtyDiagnoses / ProceduresReferred By ContactReferred To ContactXR IMAGING Diagnoses Pain in right hip Procedures XR HIP 2V AP/LAT RIGHT (AK,FL,ME) RADEX HIP UNILATERAL WITH PELVIS 2-3 VIEWS Rafael Mejia APRN.CNP [address] [place] [address] Xr Imaging [facility] Referral IDStatusReasonStart DateExpiration DateVisits RequestedVisits [id number] Auto-Generated Referral / [facility] for referral (narrative)No reason for referral information availablePromedica Memorial Hospital Ctr Work Phone: Summary Purpose Family [...] PELVIS 2-3 VIEWS Heena Chavez PA-C [address] [place] [address] Xr Imaging Referral IDStatusReasonStart DateExpiration DateVisits RequestedVisits [id number]/19/202212/31/904220GobbwagocPnpifxjoo / Procedures Referred By ContactReferred To ContactXR IMAGING Diagnoses Status post total right knee replacement Procedures XR KNEE GENERAL 4V AP BOTH/PA BOTH/LAT/MERC RIGHT RADIOLOGIC EXAM KNEE COMPLETE 4/MORE VIEWS Heena Chavez PA-C [address] [place] [address] Xr Imaging Referral IDStatusReasonStart DateExpiration DateVisits RequestedVisits [id number]/19/202212/31/620432SnctgmckaRaxermimo / Procedures Referred By ContactReferred To ContactCT IMAGING Diagnoses Primary osteoarthritis of right hip Procedures CT HIP WO IVCON RT CT LOWER EXTREMITY W/O CONTRAST MATERIAL Benny Gallardo MD [address] [place] [address] Ct Imaging Referral IDStatusReasonStart DateExpiration DateVisits RequestedVisits [id number] Auto-Generated Referral /[id number] IDStatusReasonStart DateExpiration DateVisits RequestedVisits [id number] Auto-Generated Referral /[id number] / ProceduresReferred By ContactReferred To [facility] Diagnoses Pre-op evaluation Procedures ECHO ECHO TTHRC R-T 2D W/WOM-MODE COMPL SPEC&COLR D Chadwick Harris APRN.MAIN LINE STATION ENGINEER [address] [place] [address] [facility] [place] [address] [place] [address] Referral IDStatusReasonStart DateExpiration DateVisits RequestedVisits [id number] Auto-Generated Referral /[id number] / ProceduresReferred By ContactReferred To [facility] Diagnoses Pre-op evaluation Procedures ECG COMPLETE ECG ROUTINE ECG W/LEAST 12 LDS W/I&R Camelia, Chadwick, BALANCE WEIGHER.MAIN LINE STATION ENGINEER [address] [place] [address] [facility] [place] [facility] [place] [address] Referral IDStatusReasonStart DateExpiration DateVisits RequestedVisits [id number] Auto-Generated Referral Chief Complaint and Reason for [...] section and content) DATE CREATED AUTHOR 07/07/2021 [facility] DATE CREATED AUTHOR AUTHOR'S ORGANIZ ATION 03/15/2022 [facility] DATE CREATED AUTHOR AUTHOR'S ORGANIZ ATION 03/15/2022 [facility] DATE CREATED AUTHOR AUTHOR'S ORGANIZ ATION 05/16/2024 [facility] DATE CREATED AUTHOR AUTHOR'S ORGANIZ ATION 06/20/2024 [facility] DATE CREATED AUTHOR AUTHOR'S ORGANIZ ATION 08/23/2024 [facility] DATE CREATED AUTHOR AUTHOR'S ORGANIZ ATION 11/04/2024 [facility] DATE CREATED AUTHOR AUTHOR'S ORGANIZ ATION 01/14/2025 [facility] EPIC Source Comments (unrecognize d section and content) In the event this informatio n is protected by the Federal Confidentiality of Alcohol and Drug Abuse Patient Records regulations: The Federal rules restrict any use of the information to criminally investigate or prosecute any alcohol or drug abuse patient.[facility] HospitalIn the event this information is protected by the Federal Confidentiality of Alcohol and Drug Abuse Patient Records regulations: The Federal rules restrict any use of the information to criminally investigate or prosecute any alcohol or drug abuse patient.[facility] HospitalIn the event this information is protected by the Federal Confidentiality of Alcohol and Drug Abuse Patient Records regulations: The Federal rules restrict any use of the information to criminally investigate or prosecute any alcohol or drug abuse patient.[facility] HospitalIn the event this information is protected by the Federal Confidentiality of Alcohol and Drug Abuse Patient Records regulations: The Federal rules restrict any use of the information to criminally investigate or prosecute any alcohol or drug abuse patient.[facility] HospitalIn the event this information is protected by the Federal Confidentiality of Alcohol and Drug Abuse Patient Records regulations: The Federal rules restrict any use of the information to criminally investigate or prosecute any alcohol or drug abuse patient.[facility] HospitalIn the event this information is protected by the Federal Confidentiality of Alcohol and Drug Abuse Patient Records regulations: The Federal rules restrict any use of the information to criminally investigate or prosecute any alcohol or drug abuse patient.[facility] HospitalIn the event this information is protected by the Federal Confidentiality of Alcohol and Drug Abuse Patient Records regulations: The Federal rules restrict any use of the information to criminally investigate or prosecute any alcohol or drug abuse patient.[facility] HospitalIn the event this information is protected by the Federal Confidentiality of Alcohol and Drug Abuse Patient Records regulations: The Federal rules restrict any use of the information to criminally investigate or prosecute any alcohol or drug abuse patient.[facility] HospitalIn the event this information is protected by the Federal Confidentiality of Alcohol and Drug Abuse Patient Records regulations: The Federal rules restrict any use of the information to criminally investigate or prosecute any alcohol or drug abuse patient.[facility] HospitalIn the event this information is protected by the Federal Confidentiality of Alcohol and Drug Abuse Patient Records regulations: The Federal rules restrict any use of the information to criminally investigate or prosecute any alcohol or drug abuse patient.[facility] HospitalIn the event this information is protected by the Federal Confidentiality of Alcohol and Drug Abuse Patient Records regulations: The Federal rules restrict any use of the information to criminally investigate or prosecute any alcohol or drug abuse patient.[facility] HospitalIn the event this information is protected by the Federal Confidentiality of Alcohol and Drug Abuse Patient Records regulations: The Federal rules restrict any use of the information to criminally investigate or prosecute any alcohol or drug abuse patient.[facility] HospitalIn the event this information is protected by the Federal Confidentiality of Alcohol and Drug Abuse Patient Records regulations: The Federal rules restrict any use of the information to criminally investigate or prosecute any alcohol or drug abuse patient.[facility] HospitalIn the event this information is protected by the Federal Confidentiality of Alcohol and Drug Abuse Patient Records regulations: The Federal rules restrict any use of the information to criminally investigate or prosecute any alcohol or drug abuse patient.[facility] HospitalIn the event this information is protected by the Federal Confidentiality of Alcohol and Drug Abuse Patient Records regulations: The Federal rules restrict any use of the information to criminally investigate or prosecute any alcohol or drug abuse patient.[facility] Reason for Visit (unrecogniz ed section and content) ReasonCommentsNewPainSpecialtyDiagnoses / ProceduresReferred By ContactReferred To ContactOrthopedics / ORTHOPAEDIC SURGERY Diagnoses Encounter for general adult medical examination without abnormal findings Tear of RT Acetabular labrum *Hand Carry Imaging Procedures OFFICE/OUTPATIENT ESTABLISHED MOD MDM 30-39 MIN CORIE ACUTE Yuri Kuo II [address] [facility] [address] [place] [address] Heena Chavez PA-C [address] [place] [address] Referral IDStatusReasonStart DateExpiration DateVisits RequestedVisits [id number]/19/202212/[id number] / Procedures Referred By ContactReferred To ContactXR IMAGING Diagnoses Primary osteoarthritis of right hip Procedures XR HIP GENERAL 3V PELV/AP/LAT RIGHT RADEX HIP UNILATERAL WITH PELVIS 2-3 VIEWS Heena Chavez PA-C [address] [place] [address] Xr Imaging Referral IDStatusReasonStart DateExpiration DateVisits RequestedVisits [id number]/19/202212/[id number] UpSpecialty Diagnoses / ProceduresReferred By ContactReferred To ContactOrthopedics / ORTHOPAEDIC SURGERY Diagnoses Encounter to discuss test results right hip and right knee (ref by Heena) xrays in epic Procedures OFFICE/OUTPATIENT ESTABLISHED MOD MDM 30-39 MIN CORIE ACUTE Heena Chavez PA-C [address] [place] [address] Benny Gallrado MD [address] [place] [address] Referral IDStatusReasonStart DateExpiration DateVisits RequestedVisits [id number]/23/202212/[id number] / Procedures Referred By ContactReferred To ContactCT IMAGING Diagnoses Primary osteoarthritis of right hip Procedures CT HIP WO IVCON RT CT LOWER EXTREMITY W/O CONTRAST MATERIAL Benny Gallardo MD [address] [place] [address] Ct Imaging Referral IDStatusReasonStart DateExpiration DateVisits RequestedVisits [id number] Auto-Generated Referral /[id number] ConsultSpecialtyDiagnoses / ProceduresReferred By ContactReferred To ContactAnesthesiology / ANESTHESIOLOGY Diagnoses ROBOTIC ASSISTED TOTAL HIP ARTHROPLASTY [02897] - Hip - Right Procedures COMPLETE [facility] Benny Gallardo MD [address] [place] [address] 1, [facility] [address] [place] [address] Referral IDStatusReasonStart DateExpiration DateVisits RequestedVisits [id number] Financial Clearance Not Required /[id number]-Zl TeachingReasonCommentsPreparations For SurgeryReasonCommentsCare Coordinator - Hospital Follow UpReasonComments Established PatientFollow UpPost OpHip ReplacementSpecialtyDiagnoses / ProceduresReferred By ContactReferred To ContactOrthopedics / ORTHOPAEDIC SURGERY Diagnoses Follow-up examination S/P Robotic R JAMES Procedures OFFICE/OUTPATIENT ESTABLISHED MOD MDM 30-39 MIN POST OP Self Rafael Mejia APRN.[employer] [address] [place] [address] Referral IDStatusReasonStart DateExpiration DateVisits RequestedVisits [id number]/27/202212/[id number] / Procedures Referred By ContactReferred To ContactOrthopedics / ORTHOPAEDIC SURGERY Diagnoses S/P Robotic R JAMES 02/27/22 Procedures OFFICE/OUTPATIENT ESTABLISHED MOD MDM 30-39 MIN POST OP Rafael Mejia APRN.[employer] [address] [place] [address] Benny Gallardo MD [address] [place] [address] Referral IDStatusReasonStart DateExpiration DateVisits RequestedVisits [id number]/24/202312/[id number] / Procedures Referred By ContactReferred To ContactRadiology / RADIO GEN [facility] Diagnoses Pain in right hip R hip Procedures RADEX HIP UNILATERAL WITH PELVIS 2-3 VIEWS XR CORIE GENERAL Self [facility] [address] [place] [address] Referral IDStatusReasonStart DateExpiration DateVisits RequestedVisits [id number]/27/202212/31/490364ZntdlnUalxlbmnGbmp CheckReason CommentsIngrown ToenailLR GT ingrownReasonCommentsFoot ProblemGauze stuck on toesReasonCommentsIngrown Chvvphg51 D perm avulsionReasonCommentssurgical clearanceSched 05/29/[address] [facility] biopsy with Dr Herrera at [facility] CommentsMedicare Annual Wellness Visit SubsequentReasonCommentsSchedule colonoscopySpecialtyDiagnoses / ProceduresReferred By ContactReferred To Contact General Surgery Diagnoses History of colon polyps Procedures ND OFFICE/OUTPATIENT NEW HIGH MDM 60 MINUTES Yuri Kuo MD 112 [facility] [address] [place] [address] Phone: tel: fax: Anup Akbar, DO [address] [address] Phone: tel: fax: Referral IDStatusReasonStart DateExpiration DateVisits RequestedVisits [id number] Specialty Services Required [id number] po colonoscopyReasonCommentsFollow-up14d s/p lt permReasonCommentsFollow-up28d s/p tpn Care Teams (unrecognized sec tion and content) Team MemberRelationshipSpecialtyStart DateEnd Date Yuri Kuo II 112 [facility] [address] [place] [address] PCP - GeneralInternal Medicine08/31/21 Yuri Kuo II [address] [address] ReferringInternal Medicine08/31/21Team MemberRelationshipSpecialtyStart DateEnd Date Yuri Kuo II [address] [address] PCP - GeneralInternal Medicine08/31/21 Yuri Kuo II [address] [place] [address] [place] [address] ReferringInternal Medicine08/31/21Team MemberRelationshipSpecialtyStart DateEnd Date Yuri Kuo II [address] [place] [address] [place] [address] PCP - GeneralInternal Medicine08/31/21 Yuri Kuo II [address] [place] [address] [place] [address] ReferringInternal Medicine08/31/21Team MemberRelationshipSpecialtyStart DateEnd Date Yuri Kuo II [address] [place] [address] [place] [address] PCP - GeneralInternal Medicine08/31/21 Yuri Kuo II [address] [place] [address] [place] [address] ReferringInternal Medicine08/31/21 Lori Tolentino, [facility] [address] [place] [address] Specialty Care LnevfxvsbjxRxgiyjjilwp96/17/221Team MemberRelationship SpecialtyStart DateEnd Date Yuri Kuo II [address] [place] [address] [place] [address] PCP - GeneralInternal Medicine08/31/21 Yuri Kuo II [address] [place] [address] [place] [address] ReferringInternal Medicine08/31/21 Lori Tolentino, [facility] [address] [place] [address] Specialty Care XmyyyfrharxSeyfkfinqbg83/17/221Team MemberRelationship SpecialtyStart DateEnd Date Yuri Kuo II [address] [place] [address] [place] [address] PCP - GeneralInternal Medicine08/31/21 Yuri Kuo II [address] [place] [address] [place] [address] ReferringInternal Medicine08/31/21 Siswilliam, Lori, [facility] [address] [place] [address] Specialty Care GouofagfjvlWrmerxvbsux01/17/221Team MemberRelationship SpecialtyStart DateEnd Date Yuri Kuo II [address] [place] [address] [place] [address] PCP - GeneralInternal Medicine08/31/21 Yuri Kuo II [address] [place] [address] [place] [address] ReferringInternal Medicine08/31/21 Siswilliam, Lori, [facility] [address] [place] [address] Specialty Care MysbrzoilahXnwakszahvz06Team MemberRelationship SpecialtyStart DateEnd Date Yuri Kuo II [address] [place] [address] [place] [address] PCP - GeneralInternal Medicine08/31/21 Yuri Kuo II [address] [place] [address] [place] [address] ReferringInternal Medicine08/31/21 Sissen, Lori, [facility] [address] [place] [address] Specialty Care HhqebvgefrxXqntzaumwtw38/17/221Team MemberRelationship SpecialtyStart DateEnd Date Yuri Kuo II [address] [place] [address] [place] [address] PCP - GeneralInternal Medicine08/31/21 Yuri Kuo II [address] [place] [address] [place] [address] ReferringInternal Medicine08/31/21 Lori Tolentino, [facility] [address] [place] [address] Specialty Care HlkfytmxtzbOsgodjgzgma76/17/221Team MemberRelationship SpecialtyStart DateEnd Date Yuri Kuo II [address] [place] [address] [place] [address] PCP - GeneralInternal Medicine08/31/21 Yuri Kuo II [address] [place] [address] [place] [address] ReferringInternal Medicine08/31/21 Lori Tolentino, [facility] [address] [place] [address] Specialty Care YyjrutqukjsFvdzkexmgiu05/17/221Team MemberRelationship SpecialtyStart DateEnd Date Yuri Kuo II [address] [place] [address] [place] [address] PCP - GeneralInternal Medicine08/31/21 Yuri Kuo II [address] [place] [address] [place] [address] ReferringInternal Medicine08/31/21Team MemberRelationshipSpecialtyStart DateEnd Date Yuri Kuo II [address] [place] [address] [place] [address] PCP - GeneralInternal Medicine08/31/21 Yuri Kuo II [address] [place] [address] [place] [address] ReferringInternal Medicine08/31/21Team MemberRelationshipSpecialtyStart DateEnd Date Yuri Kuo II, MD [address] [place] [address] [place] [address] PCP - GeneralInternal Medicine08/31/21 Yuri Kuo II, MD [address] [place] [address] [place] [address] ReferringInternal Medicine08/31/21Team MemberRelationshipSpecialtyStart DateEnd Date Yuri Kuo II, MD [address] [place] [address] [place] [address] PCP - GeneralInternal Medicine08/31/21 Yuri Kuo II, MD [address] [place] [address] [place] [address] ReferringInternal Medicine08/31/21 [facility] [address] [place] [address] Specialty Care DdladlzdybmBspwfjvwnpp97/17/221Team MemberRelationship SpecialtyStart DateEnd Date Yuri Kuo MD [address] [place] [address] [place] [address] PCP - Human Yuri Kuo MD [address] [place] [address] [place] [address] PCP - GeneralInternal Medicine08/18/22Te MemberRelationshipSpecialtyStart Date End Date Yuri Kuo MD [address] [place] [address] [place] [address] PCP - Human Yuri Kuo MD [address] [place] [address] [place] [address] PCP - GeneralInternal Medicine08/18/22Team MemberRelationshipSpecialtyStart Date End Date Yuri Kuo MD [address] [place] [address] [place] [address] PCP - Humana4 Yuri Kuo MD [address] [place] [address] [place] [address] PCP - GeneralInternal Medicine08/18/22Team MemberRelationshipSpecialtyStart Date End Date Yuri Kuo MD [address] [place] [address] [place] [address] PCP - Human Yuri Kuo MD [address] [place] [address] [place] [address] PCP - GeneralInternal Medicine08/18/22Team MemberRelationshipSpecialtyStart Date End Date Yuri Kuo MD [address] [place] [address] [place] [address] PCP - Human Yuri Kuo MD [address] [place] [address] [place] [address] PCP - GeneralInternal Medicine08/18/22Te MemberRelationshipSpecialtyStart Date End Date Yuri Kuo MD [address] [place] [address] [place] [address] PCP - [place] [address] Yuri Kuo MD [address] [place] [address] [place] [address] PCP - GeneralInternal Medicine08/18/22Team MemberRelationshipSpecialtyStart Date End Date Yuri Kuo MD [address] [place] [address] PCP - Human Yuri Kuo MD [address] [place] [address] [place] [address] PCP - GeneralInternal Medicine08/18/22 Team Status: Active Member Role Status Dates Yuri Kuo II MD Primary Care Provider Active Team Status: Inactive Member Role Status Dates Martinez Herrera MD Attending Provider Active Start: March 31, 2024 End: March 31, 2024Daann Kuo II [facility] ProviderActiveStart: March 31, 2024 End: March 31, 2024Team MemberRelationshipSpecialtyStart DateEnd Date Yuri Kuo MD [address] [place] [address] [place] [address] PCP - Humana4 Yuri Kuo MD [address] [place] [address] [place] [address] PCP - GeneralInternal Medicine08/18/22 Team Status: Inactive Member Role Status Dates Martinez Herrera MD Attending Provider Active Start: May 29, 2024 End: May 29, 2024Team MemberRelationshipSpecialtyStart DateEnd Date Yuri Kuo MD [address] [place] [address] [place] [address] PCP - Humana4 Yuri Kuo MD [address] [place] [address] [place] [address] PCP - GeneralInternal Medicine08/18/22Team MemberRelationshipSpecialtyStart Date End Date Yuri Kuo MD [address] [place] [address] [place] [address] PCP - Humana4 Yuri Kuo MD [address] [place] [address] [place] [address] PCP - GeneralInternal Medicine08/18/22Team MemberRelationshipSpecialtyStart Date End Date Yuri Kuo MD [address] [place] [address] PCP - Humana4 Yuri Kuo MD [address] [place] [address] [place] [address] PCP - GeneralInternal Medicine08/18/22Team MemberRelationshipSpecialtyStart Date End Date Yuri Kuo MD [address] [place] [address] PCP - Humana4 Yuri Kuo MD [address] [place] [address] [place] [address] PCP - GeneralInternal Medicine08/18/22Team MemberRelationshipSpecialtyStart Date End Date Yuri Kuo MD [address] [place] [address] PCP - Humana4 Yuri Kuo MD [address] [place] [address] [place] [address] PCP - GeneralInternal Medicine08/18/22Team MemberRelationshipSpecialtyStart Date End Date Yuri Kuo MD [address] [place] [address] PCP - Humana4 Yuri Kuo MD [address] [place] [address] [place] [address] PCP - GeneralInternal Medicine08/18/22 Team Status: Inactive Member Role Status Dates Anup Akbar DO Attending Provider Active Start : October 16, 2024 End: October 16, 2024Team MemberRelationshipSpecialtyStart DateEnd Date Yuri Kuo MD [address] [place] [address] [place] [address] PCP - Humana4 Yuri Kuo MD [address] [place] [address] [place] [address] PCP - GeneralInternal Medicine08/18/22Team MemberRelationshipSpecialtyStart Date End Date Yuri Kuo MD [address] [place] [address] PCP - Humana4 Yuri Kuo MD [address] [place] [address] [place] [address] PCP - GeneralInternal Medicine08/18/22Team MemberRelationshipSpecialtyStart Date End Date Yuri Kuo MD [address] [place] [address] [place] [address] PCP - Humana4 Yuri Kuo MD [address] [place] [address] [place] [address] PCP - GeneralInternal Medicine08/18/22Team MemberRelationshipSpecialtyStart Date End Date Yuri Kuo MD [address] [place] [address] PCP - Humana4/23 Yuri Kuo MD 112 [facility] 110 [place] [address] PCP - GeneralInternal Medicine08/18/22 Goals (unrecognized section [...] BE BASED ON THE PRIMARY CLINICAL RECORDS. [facility]. provides no warranty or guarantee of the accuracy or completeness of information in this document."
[2025-01-15] MEDS: METOPROLOL TARTRATE 25 MG TABLET PO (20:16)
[2025-01-16] VITALS (20 sets, daily range): BP systolic 106–143; BP diastolic 75–97; PULSE 62–135; TEMP 36.3–37.1; O2SAT 94–97
[2025-01-16 05:57] LABS: Hematocrit 46.6 % (42.0-54.0); Hemoglobin 15.9 g/dL (14.0-18.0); Immature Granulocytes Abs Auto 0.01 10^3/uL (0.00-0.03); Immature Granulocytes Pct Auto 0.2 % (0.0-0.5); Lymphocytes Absolute Auto 1.8 10^3/uL (1.2-3.8); Mean Corpuscular HGB Conc 34.1 g/dL (29.9-35.2); Mean Corpuscular Hemoglobin 29.7 pg (25.9-34.0); Mean Corpuscular Volume 87.1 fL (80.0-94.0); Platelet Count 209 10^3/uL (150-450); Red Blood Count 5.35 10^6/uL (4.70-6.10); White Blood Count 5.4 10^3/uL (4.0-11.0)
[2025-01-16 06:09] LABS: Alanine Aminotransferase 26 U/L (16-63); Albumin Globulin Ratio 0.9; Albumin Level 3.7 g/dL (3.4-5.0); Alkaline Phosphatase 67 U/L (46-116); Anion Gap 12.3; Aspartate Amino Transferase 18 U/L (15-37); Blood Urea Nitrogen 10.0 mg/dL (7.0-18.0); Calcium 8.8 mg/dL (8.5-10.1); Carbon Dioxide 28.4 mmol/L (21.0-32.0); Chloride 105 mmol/L (98-107); Estimated GFR (African America >60 (>=60 mL/min/1.73m^2); Estimated GFR (Non-African Ame >60 (>=60 mL/min/1.73m^2); Globulin 3.9 g/dL; Glucose 100 mg/dL (74-106); Potassium 3.7 mmol/L (3.5-5.1); Sodium 142 mmol/L (136-145); Total Protein 7.6 g/dL (6.4-8.2)
--- NOTE | 2025-01-16 08:40 | CM.NOTE ---
Rounds made with Dr. Khalil, discussed with pt reason for admission and plan of care. Pt follows with [facility] cardiology. Pt will remain in OBS bed at this time.
[2025-01-16] MEDS: ATORVASTATIN CALCIUM 40 MG TABLET PO (09:32)
[2025-01-16] MEDS: RIVAROXABAN 10 MG TABLET 20 MG PO (09:32)
[2025-01-16] MEDS: METOPROLOL TARTRATE 25 MG TABLET PO ×2 (09:32→21:40)
--- NOTE | 2025-01-16 09:41 | PM.HP ---
HPI H&P: HPI History of Present Illness Chief complaint: New Onset A-Fib Narrative: Mr Khanna is a 69-year-old gentleman who came into the emergency room with palpitation. He was found to have A-fib with RVR. Patient denies any chest pain. Patient denies any prior history of A-fib but is known to have bradycardia. 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 Heart rate was 140 in the emergency room department. Patient was given Cardizem intravenously and his heart rate came down to the 70s. Patient is feeling well now. Opioid HPI Opioid Management Most Recent Pain and Opioid Data: Last Pain Scale 0 Today, 09:29 Last Pain Assessment Today, 09:29 Last ORT Total Score 0 01/15/25, 17:47 Last ORT Risk Category Low Risk 01/15/25, 17:47 Review of Systems ROS Status of ROS 10 or more systems reviewed and unremarkable except as noted in history and below PFS PFS Medical History (Updated 01/15/25 @ 18:19 by Mouna Nieves) History of left heart catheterization ?Z98.890 - Other specified postprocedural states (ICD-10) Accessory left thumb ?Q69.1 - Accessory thumb(s) (ICD-10) Knee arthropathy ?M17.10 - Unilateral primary osteoarthritis, unspecified knee (ICD-10) Pulmonary emboli ?I26.99 - Other pulmonary embolism without acute cor pulmonale (ICD-10) Factor 5 Leiden mutation, heterozygous ?D68.51 - Activated protein C resistance (ICD-10) HTN (hypertension) ?I10 - Essential (primary) hypertension (ICD-10) HLD (hyperlipidemia) ?E78.5 - Hyperlipidemia, unspecified (ICD-10) Bradycardia ?R00.1 - Bradycardia, unspecified (ICD-10) Surgical History (Updated 01/15/25 @ 18:19 by Mouna Nieves) H/O vasectomy ?Z98.52 - Vasectomy status (ICD-10) History of revision of total replacement of right hip joint ?Z96.641 - Presence of right artificial hip joint (ICD-10) Family History (Updated 01/15/25 @ 18:20 by Mouna Nieves) Mother Family history of COPD (chronic obstructive pulmonary disease) Family history of hypertension Social History (Updated 01/15/25 @ 18:22 by Mouna Nieves) Within the past year, how often did you have a drink containing alcohol: 2-4 times a month Within the past year, how many standard drinks containing alcohol did you have on a typical day: 1 or 2 Within the past year, how often did you have six or more drinks on one occasion: never Total score: 0 Score interpretation: A score less than 4 is consistent with normal alcohol consumption. 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 [employer] Known occupational exposures/hazards: No Highest level of school completed/degree received: high school graduate Do you want help with school or training: No Are you now , , , , never or living with a partner: In a typical week, how many times do you talk on the telephone with family, friends, or neighbors: 3 or more times per week How often do you get together with friends or relatives: 3 or more times per week How often do you attend lutheran or muslim services: never Do you belong to any clubs or organizations such as lutheran groups unions, fraSchool Places or athletic groups, or school groups: no Total score: 2 Score interpretation: A score of greater than or equal to 2 indicates the lowest level of social isolation. Little interest or pleasure in doing things: not at all Feeling down, depressed, or hopeless: not at all Feel stressed/tense/nervous/anxious/difficulty sleeping: not at all Due to disability, difficulty making decisions: No Do you think of yourself as: straight/heterosexual Gender Identity: male Meds Home Medications and Allergies Home Medications ?Medication ?Instructions ?Recorded ?Confirmed ?Type amlodipine 10 mg tablet 10 mg PO DAILY 01/15/25 01/15/25 History atorvastatin 40 mg tablet 40 mg PO DAILY 01/15/25 01/15/25 History rivaroxaban 20 mg tablet (Xarelto) 20 mg PO DAILY 01/15/25 01/15/25 History Allergies Allergy/AdvReac Type Severity Reaction Status Date / Time Iodinated Contrast Media AdvReac Mild Hives Verified 01/15/25 15:46 Exam Narrative Exam Narrative: [pt is awake and alert. oriented to place, time and person HEENT: [place] conjunctiva and NL buccal mucosa Neck: Supple, no tenderness Endocrine: No Thyromegaly. Vascular: No JVD or carotid bruit. Lymphatic: No cervical lymphadenopathy. Chest: CTA no DTP. Heart IRRR, no extra sound or murmur. Abd: Soft, no tenderness, no rebound and no rigidity. Increase abd girth therefore clinically I could not exclude the possibility of intra abd mass or organomegaly. LE: No cyanosis or clubbing, no varices or edema. Neuro: A A O. Nl speech, comprehension and attention. Nl and symetrical motor and tone examination through out. []] Constitutional Vital Signs, click to edit/add: Last Vital Signs Temp 98.7 F 01/16/25 08:28 Pulse 62 01/16/25 08:28 Resp 16 01/16/25 08:28 BP 143/84 H 01/16/25 08:28 Pulse Ox 94 L 01/16/25 08:28 O2 Del Method Room Air 01/16/25 08:28 Results Labs Labs: Short CBC 01/15/25 01/16/25 Range/Units 15:55 05:28 WBC 4.8 5.4 (4.0-11.0) 10^3/uL Hgb 16.4 15.9 (14.0-18.0) g/dL Hct 47.8 46.6 (42.0-54.0) % Plt Count 247 209 (150-450) 10^3/uL BMP 01/15/25 01/16/25 15:55 05:28 Sodium 144 142 Potassium 3.4 L 3.7 Chloride 104 105 Carbon Dioxide 29.2 28.4 BUN 13.0 10.0 Creatinine 0.95 0.87 Glucose 115 H 100 Calcium 9.5 8.8 Liver Function 01/16/25 Range/Units 05:28 Total Bilirubin 0.7 (0.2-1.0) mg/dL AST 18 (15-37) U/L ALT 26 (16-63) U/L Alkaline Phosphatase 67 (46-116) U/L Albumin 3.7 (3.4-5.0) g/dL Urine 01/15/25 Range/Units 16:17 Urine Color Lt. yellow (YELLOW) Urine Clarity Clear (CLEAR) Urine pH 6.0 (5.0-9.0) Ur Specific [place] 1.010 (1.005-1.025) Urine Protein Negative (NEG/TRACE) mg/dL Urine Glucose (UA) Negative (NEGATIVE) mg/dL Assessment and Plan Assessment and Plan (1) Atrial fibrillation, new onset: Plan A-fib with RVR. History of bradycardia I suspect that the patient may have sick sinus syndrome. Heart rate is under better control with the use of intravenous Cardizem given in the emergency room and oral Lopressor. Requested echocardiogram to rule out any cardiomyopathy or valvular disease. Continue home Xarelto. 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 Continue telemetry monitoring Troponin is negative. TSH is normal. No history of factor V and PE. Continue Xarelto. Saturation 94%. No shortness of breath Previous abnormal stress test in 2022. Patient never had cardiac stent. Likely patient has underlying CAD Request cardiac consultation Hypertension Replacing amlodipine with metoprolol for heart rate Close monitoring of heart rate given his history of bradycardia.
--- NOTE | 2025-01-16 10:14 | ECG_ITS ---
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 Measurements Intervals [place] Rate: 134 P: 238 AR: 125 QRS: -74 QRSD: 152 T: 83 QT: 320 QTc: 478 Interpretive Statements ATRIAL FLUTTER WITH 2:1 AV BLOCK MARKED LEFT AXIS DEVIATION [QRS AXIS < -30] INTRAVENTRICULAR CONDUCTION DELAY [130+ ms QRS DURATION] Abnormal ECG Compared to ECG 01/15/2025 16:20:34 Left-axis deviation now present Atrial fibrillation no longer present Left ventricular hypertrophy no longer present Electronically Signed On 01-16-2025 18:07:43 EDT by COMFORT PELAEZ M.D.
[2025-01-16] MEDS: METOPROLOL TARTRATE 5 MG/5 ML VIAL IVP (10:37)
--- NOTE | 2025-01-16 10:48 | PC.NURSE ---
At 1014 this RN reached out to Dr. Khalil for concerns of pt looking like he converted from afib to sinus tach and requested an EKG to confirm. STAT EKG ordered and obtained, results sent to Dr. Khalil. Dr. Khalil responded at 1028 and asked that RN give PRN Lopressor. Primary nurse Mouna Hoffman RN updated and made aware. PRN Lopressor given by this RN (please see eMAR). Pt transferred to room 221 in the stepdown unit at [address] Khalil's instructions.
[2025-01-16] MEDS: POTASSIUM CHLORIDE 10 MEQ ER TABLET 20 MEQ PO (11:03)
--- NOTE | 2025-01-16 13:14 | SWNOTE1 ---
Important Message from Medicare reviewed and discussed with patient. Pt. verbalized understanding and signed the form. Original given to patient and copy placed in patient?s chart.
--- NOTE | 2025-01-16 13:14 | SWNOTE1 ---
SW met with pt and in room. Pt was independent at home prior to coming to hospital. No devices and no services coming in. Pt has no anticipated discharge needs at this time. SW to follow as needed.
--- NOTE | 2025-01-16 18:31 | DIETREC ---
Recommend Heart Healthy diet.
--- NOTE | 2025-01-16 19:12 | CA_ITS ---
Patient Name: BOB LÓPEZ MR#: [id number] : 1955 Exam Date: 01/16/2025 Ordering Doctor: POLY SOLER ECHOCARDIOGRAM REPORT PROCEDURE: CA ECHO DOPPLER COMPLETE INDICATIONS: A fib, hypertension COMPARISON: None. DESCRIPTION: COMPLETE ECHOCARDIOGRAM Real-time transthoracic echocardiography with 2D, M-mode, spectral and color flow Doppler performed. QUALITY: Technical quality was adequate. LEFT VENTRICLE: Normal chamber size. Thickened septal wall. LV EF: Normal left ventricular ejection fraction, (>55%). DIASTOLIC: Not adequately assessed due to heart rhythm. ATRIAL SEPTUM: LEFT ATRIUM: Normal chamber size. RIGHT ATRIUM: Normal chamber size. RIGHT VENTRICLE: Normal chamber size. TRICUSPID VALVE: Normal mobility and thickness. No stenosis with trivial regurgitation. Unable to assess right-sided pressure due to the lack of measurable tricuspid regurgitation. MITRAL VALVE: Normal mobility and thickness. No evidence of mitral valve stenosis. There is no mitral annular calcification. No mitral regurgitation. AORTIC VALVE: Normal trileaflet appearance. Mildly calcified aortic valve. Mildly diminished mobility. No evidence of aortic valve stenosis. No aortic regurgitation. AORTIC ROOT: Normal diameter and appearance. PULMONIC VALVE: Normal thickness and mobility. No stenosis. No regurgitation. PERICARDIUM: No evidence of pericardial effusion. IVC: Not well visualized. PLEURA: CONCLUSION: Normal left ventricular ejection fraction, (>55%). No significant valvular disease. Adult Echocardiography Procedure Report Left Ventricle LVEDD (3.7 - 5.6 cm): 4.01 cm LVESD (2.2 - 4.0 cm): 2.51 cm LVIVS thickness (0.6 - 1.2 cm): 1.26 cm LVPW thickness (0.5 - 1.0 cm): 1.01 cm e': E - e': LVOT Max Gradient: 3.86 mm[Hg], 2.42 mm[Hg], 2.76 mm[Hg] LVOT Area (cm2): 0.86 m/s Peak Velocity (LVOT): 0.98 m/s, 0.78 m/s, 0.83 m/s Mean Velocity (LVOT): LVOT Diameter 3.03 cm Left Ventricular Ejection Fraction: 55.73 % Left Atrium LA Volume Index (2D A2C): 13.72 ml/m2 Left Atrium Systolic Dimension: 3.39 cm Mitral Valve MV E to A Ratio: MV Max Gradient: MV Mean Gradient: Mitral Valve A-Wave Peak Velocity: Mitral Valve E-Wave Peak Velocity: 0.73 m/s Cardiovascular Orifice Area: Right Ventricle RV Internal Diastolic Dimension: Aorta AO Root Diam: 3.99 cm Ascending Ao Diam: Aortic Valve AoV Area (Peak Lorenzo): 3.97 cm2, 3.57 cm2, 3.22 cm2, 6.09 cm2 AoV Area (VTI): Deceleration [place]: Pressure Half-Time: Peak Velocity(Antegrade Flow): 1.98 m/s, 1.74 m/s, 0.98 m/s Peak Gradient(Antegrade Flow): 15.70 mm[Hg], 12.10 mm[Hg], 3.85 mm[Hg] Mean Velocity(Antegrade Flow): Mean Gradient(Antegrade Flow): Velocity Time Integral: Tricuspid Valve Peak Velocity (Regurgitant Flow): Peak Velocity: Pulmonic Valve Mean Gradient: Mean Velocity: Peak Velocity: 0.84 m/s Peak Gradient: 2.27 mm[Hg], 2.49 mm[Hg], 2.77 mm[Hg], 3.92 mm[Hg] Right Atrium Right Atrium Systolic Pressure: 39.78 ml, 39.78 ml Dictated by: Joe Escalona MD on 01/16/2025 at 11:37 Approved by: Joe Escalona MD on 01/16/2025 at 11:43
[2025-01-17] VITALS (71 sets, daily range): BP systolic 120–143; BP diastolic 64–95; PULSE 42–85; TEMP 36.7; O2SAT 91–97
[2025-01-17] MEDS: RIVAROXABAN 10 MG TABLET 20 MG PO (10:53)
[2025-01-17] MEDS: ATORVASTATIN CALCIUM 40 MG TABLET PO (10:54)
--- NOTE | 2025-01-17 15:47 | P.PN_ITS ---
Progress Note: Subjective Subjective Interval history: In the overnight hours last night the patient's atrial fibrillation with rapid ventricular response converted to normal sinus rhythm/bradycardia. In discussion with the patient today he was very symptomatic of the tachycardia and the palpitations. He normally watches his heart rate and blood pressure because he has chronic bradycardia that was discovered many years ago. He does follow with cardiology with [facility] group that comes here to [place] and he has an appointment on with a nurse practitioner from that group. He had no chest pain or pressure or angina from the A-fib with RVR but did admit to a little bit of dizziness as he walked into the emergency room. He has been anticoagulated for over a decade due to history of factor V Leiden and pulmonary emboli. Right now he feels well. He has been able to ambulate around the unit. He has had heart rates of about 50 to 55 bpm on the telemetry with sinus bradycardia. No nausea or vomiting. No fevers or chills. He has been in his normal state of health recently. We discussed other contributing factors to atrial fibrillation. One of his brothers has had A-fib and had heart rates up to 300 bpm and likely required emergency cardioversion in the ER. His mother also had atrial fibrillation. He has 1 other sibling who does not have any history of atrial fibrillation. He does consume about 6 alcoholic beverages per month. A couple decades ago he was tested for sleep apnea and was found to have mild sounding sleep apnea per his report and he tried wearing a sleep apnea mask for a little while but felt like it was not helping him so he stopped wearing that he did lose a lot of weight after that so I am sure his sleep apnea did improve at least somewhat. Given the strong link between atrial fibrillation and sleep apnea I did advise the patient and his that he would benefit from getting a good-quality polysomnogram after getting out of the hospital. Exam Narrative Exam Narrative: Sitting upright in the chair. at the bedside. Cardiac: Sinus bradycardia on monitor. Cardiac: To auscultation I hear heart sounds that are little bit slower than average. No murmurs. No rubs. No gallops. Skin: Warm and dry and well-perfused. Constitutional Vital Signs, click to edit/add: Last Vital Signs Temp 98.0 F 01/17/25 01:20 Pulse 73 01/17/25 13:57 Resp 12 01/17/25 12:45 BP 139/95 H 01/17/25 12:39 Pulse Ox 97 01/17/25 08:00 O2 Del Method Room Air 01/17/25 01:20 Progress Note: A&P Assessment and Plan (1) Atrial fibrillation, new onset: Assessment and Plan: Patient presented to the emergency room with A-fib with RVR. Patient did convert to his normal rhythm with sinus bradycardia with a Cardizem drip. This is the patient's first episode of A-fib. He already is anticoagulated with Xarelto. He reports taking Xarelto consistently. I discussed atrial fibrillation in general and layman's terms. The thing that is very challenging here is management of medications to prevent future A-fib with RVR is extremely challenging in a patient with a baseline bradycardia that he has. For these reasons the patient will be kept here in the hospital with additional monitoring and then consultation to cardiology. Continue telemetry monitoring. The patient can have regular activity and walk in the hallways. He knows to notify nursing staff if he feels any sensation of palpitations or tachycardia.
[2025-01-18] VITALS (80 sets, daily range): BP systolic 128–152; BP diastolic 75–80; PULSE 46–86; TEMP 36.3–36.8; O2SAT 95–97
[2025-01-18] MEDS: RIVAROXABAN 10 MG TABLET 20 MG PO (09:11)
[2025-01-18] MEDS: ATORVASTATIN CALCIUM 40 MG TABLET PO (09:11)
--- NOTE | 2025-01-18 11:47 | P.IMPN_ITS ---
Progress Note: A&P Assessment and Plan (1) Atrial fibrillation, new onset: Plan Assessment: Patient presented to the emergency room with A-fib with RVR. Heart rates were 140 to 150 bpm on presentation. Patient did convert to his normal rhythm with sinus bradycardia while he was on a Cardizem drip. This is the patient's first episode of A-fib. He already is anticoagulated with Xarelto, due to a remote history of thromboembolic disease and factor V. He reports taking Xarelto consistently. The thing that is very challenging here is management of medications to prevent future A-fib with RVR is extremely challenging in a patient with a baseline bradycardia that he has. Continue telemetry monitoring. The patient can have regular activity and walk in the hallways. He knows to notify nursing staff if he feels any sensation of palpitations or tachycardia. The patient, and his was at the bedside yesterday, are strongly interested in inpatient cardiology consultation, which is very reasonable. Internal Medicine - PN: Subj Subjective Interval history: The patient has had a stable heart rate and no return of atrial fibrillation. He has been ambulating the halls. He is not reporting any dyspnea on exertion or any heart palpitations or any tachycardia sensation. Fortunately, when he developed the A-fib with RVR, he was very sensitive of the tachycardia and the palpitations and the pounding heartbeat. Looking at the telemetry reading his heart rate is actually better than expected at about 70 bpm sitting up in the chair and walking the halls today. I discussed with the patient that cardiology may recommend an ablation since he is relatively young and this is a very early on for him to develop atrial fibrillation. He is familiar with the concept of atrial fibrillation because one of his parents had it and they did go for an ablation. But I said that his [facility] cardiology group would refer her in for ambulation if it is indicated, and I would strongly consider that he get that done sooner rather than later as it is much more successful the sooner and ablation can be accomplished. Exam Narrative Exam Narrative: General: Sitting in a chair. Watching a show on his cell phone. Cardiac: Regular rate and rhythm. No murmurs to auscultation. Normal sinus rhythm on the monitor right now at 70 bpm. Pulmonary: Clear to auscultation throughout. Constitutional Vital Signs, click to edit/add: Last Vital Signs Temp 98.3 F 01/18/25 04:00 Pulse 66 01/18/25 09:48 Resp 1 L 01/18/25 08:00 BP 133/72 01/17/25 23:28 Pulse Ox 97 01/18/25 08:00 O2 Del Method Room Air 01/17/25 01:20
[2025-01-19] VITALS (14 sets, daily range): BP systolic 106–138; BP diastolic 62–81; PULSE 47–85; TEMP 36.4–36.5; O2SAT 93–99
[2025-01-19 06:11] LABS: Hematocrit 44.4 % (42.0-54.0); Hemoglobin 15.1 g/dL (14.0-18.0); Immature Granulocytes Abs Auto 0.01 10^3/uL (0.00-0.03); Immature Granulocytes Pct Auto 0.2 % (0.0-0.5); Lymphocytes Absolute Auto 1.8 10^3/uL (1.2-3.8); Mean Corpuscular HGB Conc 34.0 g/dL (29.9-35.2); Mean Corpuscular Hemoglobin 30.3 pg (25.9-34.0); Mean Corpuscular Volume 89.0 fL (80.0-94.0); Platelet Count 217 10^3/uL (150-450); Red Blood Count 4.99 10^6/uL (4.70-6.10); White Blood Count 4.3 10^3/uL (4.0-11.0)
[2025-01-19 06:31] LABS: Alanine Aminotransferase 25 U/L (16-63); Albumin Globulin Ratio 0.9; Albumin Level 3.5 g/dL (3.4-5.0); Alkaline Phosphatase 72 U/L (46-116); Anion Gap 12.2; Aspartate Amino Transferase 14 U/L (15-37); Blood Urea Nitrogen 13.0 mg/dL (7.0-18.0); Calcium 8.7 mg/dL (8.5-10.1); Carbon Dioxide 28.8 mmol/L (21.0-32.0); Chloride 106 mmol/L (98-107); Estimated GFR (African America >60 (>=60 mL/min/1.73m^2); Estimated GFR (Non-African Ame >60 (>=60 mL/min/1.73m^2); Globulin 3.9 g/dL; Glucose 100 mg/dL (74-106); Magnesium 2.1 mg/dL (1.8-2.4); Potassium 4.0 mmol/L (3.5-5.1); Sodium 143 mmol/L (136-145); Total Protein 7.4 g/dL (6.4-8.2)
--- NOTE | 2025-01-19 07:00 | ECG_ITS ---
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 Measurements Intervals [place] Rate: 52 P: 39 CT: 166 QRS: -61 QRSD: 138 T: -27 QT: 498 QTc: 479 Interpretive Statements 1100 Sinus rhythm INTRAVENTRICULAR CONDUCTION DELAY 2630 Left anterior fascicular block 3414 Cannot rule out septal myocardial infarction, age undetermined 5234 Left ventricular hypertrophy with repolarization abnormality 9150 abnormal ECG Compared to ECG 01/16/2025 10:21:33 Left anterior fascicular block now present Myocardial infarct finding now present Left ventricular hypertrophy now present Atrial flutter no longer present Electronically Signed On 01-19-2025 12:46:51 EST by COMFORT PELAEZ M.D.
--- NOTE | 2025-01-19 08:05 | CM.NOTE ---
Rounds made with Dr. Khalil, discussed with pt plan of care. Cardiology will see pt today for consult and further recommendations. Possible discharge to home after consult.
[2025-01-19] MEDS: ATORVASTATIN CALCIUM 40 MG TABLET PO (08:15)
[2025-01-19] MEDS: RIVAROXABAN 10 MG TABLET 20 MG PO (08:15)
--- NOTE | 2025-01-19 08:55 | PM.DS1 ---
DS: Providers Provider Date of admission: 01/16/25 10:31 Primary care physician: SANAM PEREZ Consults: 01/15/25 19:12 Consult to Cardiology Routine Reason for consultation: A fib RVR Rate and rhythm and CAD recommendation 01/17/25 15:52 Consult to Cardiology Routine Reason for consultation: A-Fib with RVR, baseline bradycardia DS: Diagnosis Discharge Diagnosis (1) Atrial fibrillation, new onset: Plan As listed above and below and others that are not listed DS: Summary Hospital Course Hospital Course: Mr Khanna is a 69-year-old gentleman who came in with palpitation and was found to have: A-fib with RVR. Patient was started on Cardizem drip and subsequently switched to metoprolol orally. Patient converted to sinus rhythm. Patient is already on Xarelto due to history of factor V with PE. Echocardiogram does not show cardiomyopathy or valvular disease. TSH is normal. Pt was seen by Service Worker Helper who recommended against blocking agents due to resting bradyycardia. Out pt arrangement for ablation. Kennedy-tachy syndrome Heart rate at rest is upper 50s lower 60s Patient had an episode of A-fib with RVR Initially patient was started on oral metoprolol which had been placed on hold. Patient may have sick sinus syndrome. May qualify for pacemaker Pending cardiology evaluation and recommendation. Cleared for discharge by Dr Lancaster. No BB. Just Xarelto and Amlodipine Factor V with a history of PE Continue Xarelto. Time Spent with Patient Time attestation: Total time spent providing and/or coordinating discharge services: Exam Narrative Exam Narrative: [pt is awake and alert. oriented to place, time and person HEENT: [place] conjunctiva and NL buccal mucosa Neck: Supple, no tenderness Endocrine: No Thyromegaly. Vascular: No JVD or carotid bruit. Lymphatic: No cervical lymphadenopathy. Chest: CTA no DTP. Heart RRR, no extra sound or murmur. Abd: Soft, no tenderness, no rebound and no rigidity. Increase abd girth therefore clinically I could not exclude the possibility of intra abd mass or organomegaly. LE: No cyanosis or clubbing, no varices or edema. Neuro: A A O. Nl speech, comprehension and attention. Nl and symetrical motor and tone examination through out. []] Constitutional Vital Signs, click to edit/add: Last Vital Signs Temp 97.7 F 01/19/25 07:47 Pulse 60 01/19/25 07:54 Resp 18 01/19/25 07:47 BP 129/81 01/19/25 07:47 Pulse Ox 94 L 01/19/25 07:47 O2 Del Method Room Air 01/19/25 07:47 DS: Data Data Completed and Pending Labs on day of discharge: Labs from last 24 hours 01/19/25 05:38 WBC 4.3 RBC 4.99 Hgb 15.1 Hct 44.4 MCV 89.0 MCH 30.3 MCHC 34.0 RDW 14.2 Plt Count 217 MPV 9.9 Neut % (Auto) 42.8 L Lymph % (Auto) 42.6 [place] % (Auto) 12.5 H Eos % (Auto) 1.2 Baso % (Auto) 0.7 Neut # (Auto) 1.9 Lymph # (Auto) 1.8 [place] # (Auto) 0.5 Eos # (Auto) 0.1 Baso # (Auto) 0.0 Abs Immat Gran (auto) 0.01 Imm/Tot Granulo (auto) 0.2 Sodium 143 Potassium 4.0 Chloride 106 Carbon Dioxide 28.8 Anion Gap 12.2 BUN 13.0 Creatinine 0.84 Est GFR ( Amer) >60 Est GFR (Non-Af Amer) >60 BUN/Creatinine Ratio 15.5 Glucose 100 Calcium 8.7 Magnesium 2.1 Total Bilirubin 0.6 AST 14 L ALT 25 Alkaline Phosphatase 72 Total Protein 7.4 Albumin 3.5 Globulin 3.9 Albumin/Globulin Ratio 0.9 Discharge Plan Discharge Disposition: Home, Self-Care Discharge Medications: Continued amlodipine 10 mg tablet 10 mg PO DAILY atorvastatin 40 mg tablet 40 mg PO DAILY Xarelto 20 mg tablet 20 mg PO DAILY Activity: increase activity as tolerated Diet: advance to your usual diet Print Language: Wallisian Patient Instructions: A-fib (Atrial Fibrillation) (DC), Bradycardia (DC) Forms: Portal Instructions Follow Up Appointments: Dr. Perez - Sun. 01/21 @ [facility] [phone] [facility] at [facility] - 2024 @ 9:20
--- NOTE | 2025-01-19 11:46 | CM.NOTE ---
2nd Important Message From Medicare discussed with pt, pt denies questions or concerns.
--- NOTE | 2025-01-19 17:57 | PM.CACN ---
History of Present Illness History of Present Illness Consult date: 01/19/25 Requesting physician: Hector Khalil Consult reason: atrial fibrillation Chief complaint: New Onset A-Fib Narrative: This is a 69-year-old man who is well-known to me from the cardiology outpatient clinic who is admitted with palpitations and found to be in atrial fibrillation with rapid ventricular response. He was started on intravenous Cardizem. He eventually reverted to sinus bradycardia and sinus rhythm. Cardizem was discontinued. His prior medical history is significant for nonobstructive coronary artery disease by cardiac catheterization in October 2022. He has history of hypertension and dyslipidemia. He has prior history of factor V Leyden and history of pulmonary embolism for which he has been maintained on chronic Xarelto therapy. At home he has been maintained on amlodipine 10 mg daily, atorvastatin 40 mg daily and Xarelto 20 mg daily. Currently he reports that he has been feeling well. He denies chest pain and shortness of breath. No lower extremity edema. He reports today that he has a prior history of possible obstructive sleep apnea but has not had testing in a long time. His blood pressure and heart rate have been well-maintained. His echocardiogram showed normal ventricular function and no valvular dysfunction. His blood testing showed negative troponin and normal renal function and hemoglobin. Review of his ECGs showed atrial fibrillation as well as atrial flutter with rapid ventricular response before reverting to sinus rhythm. Review of Systems ROS Status of ROS 10 or more systems reviewed and unremarkable except as noted in history and below Cardiovascular Reports: palpitations; Denies: chest pain, edema, swelling of feet/ankles, lightheadedness or shortness of breath with exertion Respiratory Denies: shortness of breath [facility] Medical History (Updated 01/19/25 @ 18:05 by COMFORT PELAEZ) History of left heart catheterization ?Z98.890 - Other specified postprocedural states (ICD-10) Accessory left thumb ?Q69.1 - Accessory thumb(s) (ICD-10) Knee arthropathy ?M17.10 - Unilateral primary osteoarthritis, unspecified knee (ICD-10) Pulmonary emboli ?I26.99 - Other pulmonary embolism without acute cor pulmonale (ICD-10) HTN (hypertension) ?I10 - Essential (primary) hypertension (ICD-10) HLD (hyperlipidemia) ?E78.5 - Hyperlipidemia, unspecified (ICD-10) Bradycardia ?R00.1 - Bradycardia, unspecified (ICD-10) Surgical History (Updated 01/15/25 @ 18:19 by Mouna Nieves) H/O vasectomy ?Z98.52 - Vasectomy status (ICD-10) History of revision of total replacement of right hip joint ?Z96.641 - Presence of right artificial hip joint (ICD-10) Family History (Updated 01/15/25 @ 18:20 by Mouna Nieves) Mother Family history of COPD (chronic obstructive pulmonary disease) Family history of hypertension Social History (Updated 01/15/25 @ 18:22 by Mouna Nieves) Within the past year, how often did you have a drink containing alcohol: 2-4 times a month Within the past year, how many standard drinks containing alcohol did you have on a typical day: 1 or 2 Within the past year, how often did you have six or more drinks on one occasion: never Total score: 0 Score interpretation: A score less than 4 is consistent with normal alcohol consumption. 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 [employer] Known occupational exposures/hazards: No Highest level of school completed/degree received: high school graduate Do you want help with school or training: No Are you now , , , , never or living with a partner: In a typical week, how many times do you talk on the telephone with family, friends, or neighbors: 3 or more times per week How often do you get together with friends or relatives: 3 or more times per week How often do you attend jehovah's witness or anabaptist services: never Do you belong to any clubs or organizations such as jehovah's witness groups unions, fraternal or athletic groups, or school groups: no Total score: 2 Score interpretation: A score of greater than or equal to 2 indicates the lowest level of social isolation. Little interest or pleasure in doing things: not at all Feeling down, depressed, or hopeless: not at all Feel stressed/tense/nervous/anxious/difficulty sleeping: not at all Due to disability, difficulty making decisions: No Do you think of yourself as: straight/heterosexual Gender Identity: male Meds Home Medications and Allergies Home Medications ?Medication ?Instructions ?Recorded ?Confirmed ?Type amlodipine 10 mg tablet 10 mg PO DAILY 01/15/25 01/15/25 History atorvastatin 40 mg tablet 40 mg PO DAILY 01/15/25 01/15/25 History rivaroxaban 20 mg tablet (Xarelto) 20 mg PO DAILY 01/15/25 01/15/25 History Allergies Allergy/AdvReac Type Severity Reaction Status Date / Time Iodinated Contrast Media AdvReac Mild Hives Verified 01/15/25 15:46 Exam Constitutional Vital Signs, click to edit/add: Last Vital Signs Temp 97.7 F 01/19/25 07:47 Pulse 62 01/19/25 17:46 Resp 18 01/19/25 14:54 BP 138/71 01/19/25 14:54 Pulse Ox 99 01/19/25 14:54 O2 Del Method Room Air 01/19/25 14:54 Common normals: no apparent distress, average body habitus, oriented x3, no limitations and alert Nutritional appearance: obese Eye Common normals: conjunctivae normal Chest Common normals: inspection of chest normal and inspection of breasts normal Respiratory Common normals: normal respiratory effort, no retractions, no use of accessory muscles and clear to auscultation bilaterally Cardio Common normals: no JVD, regular rate, regular rhythm, S1 normal heart sound, S2 normal heart sound, no gallops, no clicks, no murmurs, no rub and peripheral pulses 2+ throughout GI Common normals: Normal to inspection, nondistended, normoactive bowel sounds present Extremity Common normals: normal to inspection, no clubbing, cyanosis or edema and no pedal edema Neuro Common normals: oriented x3, CN's II-XII intact bilaterally, moves all extremities, no focal motor deficits and no sensory deficits noted Psych Common normals: mental status grossly normal, cooperative, affect normal, speech normal and activity/motor behavior normal Results Labs and Meds Lab results: Cardiac Enzymes 01/19/25 Range/Units 05:38 AST 14 L (15-37) U/L CBC 01/19/25 Range/Units 05:38 WBC 4.3 (4.0-11.0) 10^3/uL RBC 4.99 (4.70-6.10) 10^6/uL Hgb 15.1 (14.0-18.0) g/dL Hct 44.4 (42.0-54.0) % Plt Count 217 (150-450) 10^3/uL Neut # (Auto) 1.9 (1.4-6.5) 10^3/uL Lymph # (Auto) 1.8 (1.2-3.8) 10^3/uL [place] # (Auto) 0.5 (0.3-0.8) 10^3/uL Eos # (Auto) 0.1 (0.0-0.7) 10^3/uL Baso # (Auto) 0.0 (0.0-0.1) 10^3/uL Comprehensive Metabolic Panel 01/19/25 Range/Units 05:38 Sodium 143 (136-145) mmol/L Potassium 4.0 (3.5-5.1) mmol/L Chloride 106 (98-107) mmol/L Carbon Dioxide 28.8 (21.0-32.0) mmol/L BUN 13.0 (7.0-18.0) mg/dL Creatinine 0.84 (0.70-1.30) mg/dL Glucose 100 (74-106) mg/dL Calcium 8.7 (8.5-10.1) mg/dL AST 14 L (15-37) U/L ALT 25 (16-63) U/L Alkaline Phosphatase 72 (46-116) U/L Total Protein 7.4 (6.4-8.2) g/dL Albumin 3.5 (3.4-5.0) g/dL Intake and Output 01/19/25 01/19/25 01/19/25 07:59 15:59 23:59 Intake Total 400 / 640 240 / 480 240 / 480 Balance 400 / 140 240 / 480 240 / 480 Intake: Oral 400 / 640 240 / 480 240 / 480 Other: # Unmeasured Voids 1 2 # Bowel Movements 1 Assessment and Plan Assessment and Plan (1) Paroxysmal atrial fibrillation: (2) Essential hypertension: (3) Factor 5 Leiden mutation, heterozygous: (4) CAD (coronary artery disease): Qualifiers: Coronary Disease-Associated Artery/Lesion type: [place] artery [place] vs. transplanted heart: [place] heart Associated angina: without angina Qualified Code(s): I25.10 - Atherosclerotic heart disease of [place] coronary artery without angina pectoris Plan 1. Paroxysmal atrial fibrillation: Currently reverted to sinus rhythm. He was fairly symptomatic with the atrial fibrillation. I discussed with him risk factors for atrial fibrillation including his overweight. He needs to undergo a sleep study to assess for possible obstructive sleep apnea. For the time being his heart rate is on the low side and I agree with not adding any beta-gordo or calcium channel gordo therapy. Continue Xarelto for anticoagulation due to elevated risk of stroke and a [id number] score of 3 due to age, hypertension and CAD. I discussed with him that given the above I recommend proceeding with evaluation for possible atrial fibrillation ablation. We will set him up and follow-up with our electrophysiology clinic to further discuss that. 2. Hypertension: Currently reasonably controlled. I recommend resuming amlodipine home dose 10 mg daily. 3. CAD: No angina. Continue atorvastatin 40 mg daily. No aspirin given that he is on long-term anticoagulation therapy. 4. History of factor V Leyden and history of pulmonary embolism: Continue Xarelto for anticoagulation therapy. He has a follow-up in the cardiology clinic on 01/22/2025. We will see him then to follow-up on the above plan. From a cardiac perspective, he can be discharged from the hospital at this point with the above recommendations.
--- NOTE | 2025-01-20 13:44 | CM.DCFOLLOWU ---
Attempted 01/20/2025, no answer
--- NOTE | 2025-01-21 11:52 | CM.DCFOLLOWU ---
Attempted 01/21/2025, no answer
== END 2025-01-19 18:36 | disposition home or self-care (01) | DRG 309 ==
LOC: ER 16:51 → MS 17:41
PROVIDERS: Hospitalist; Admitting Provider Internal Medicine; Emergency Provider Emergency Medicine; PCP Internal Medicine; Visit Provider Internal Medicine
DX: I48.0 Paroxysmal atrial fibrillation (principal); D68.51 Activated protein C resistance; Z86.711 Personal history of pulmonary embolism; Z79.01 Long term (current) use of anticoagulants; I10 Essential (primary) hypertension; E78.5 Hyperlipidemia, unspecified; Z87.891 Personal history of nicotine dependence; Z98.52 Vasectomy status; Z96.641 Presence of right artificial hip joint; M17.0 Bilateral primary osteoarthritis of knee; Z79.899 Other long term (current) drug therapy; I49.5 Sick sinus syndrome; I25.10 Atherosclerotic heart disease of native coronary artery without angina pectoris; E66.9 Obesity, unspecified; Z68.32 Body mass index [BMI] 32.0-32.9, adult
CPT/HCPCS: 36415; 71045; 80048; 80053; 81001; 83735; 83880; 84439; 84443; 84481; 84484; 85025; 85610; 85730; 93005; 93306; 96374; 99285; G0378